=== PATIENT | male | born 1995 | race Caucasian/White ===

== ENCOUNTER 2019-05-11 20:24 | Emergency (ER) | payer BC ==
[2019-05-11] MEDS ORDERED: MORPHINE SULFATE 4 MG/ML SYRINGE IV STA (20:34)
[2019-05-11] MEDS ORDERED: SODIUM CHLORIDE 0.9% 1,000 ML IV STA (20:34)
--- NOTE | 2019-05-11 20:35 | ED ---
Abdominal Pain HPI - General Stated Complaint: Abdominal Pain Time Seen by Provider: 05/11/19 20:27 Source: RN notes reviewed, old records reviewed Limitations: no limitations - History of Present Illness Initial Comments: This is a 23-year-old male presented from urgent care for severe severe abdominal pain left-sided flank pain groin pain patient feels like it Bloated appendix. He has had appendix surgery before. Secondary to appendicitis of course. Patient has no fevers. Severe nausea feeling but has not vomited no change in bowel movements no urinary symptoms and no blood in his urine. Pat ient is a significant complaining of the severe sudden onset of abdominal pain MD Complaint: abdominal pain -: hour(s) Location: LLQ, suprapubic, L flank Radiation: none Migration to: no migration Severity: severe Severity scale (1-10): 8 Quality: stabbing Consistency: constant Improves With: nothing Worsens With: nothing Associated Symptoms: nausea - Related Data Allergies Allergy/AdvReac Type Severity Reaction Status Date / Time No Known Allergies Allergy Verified 05/11/19 20:54 Review of Systems ROS Statement: Those systems with pertinent positive or pertinent negative responses have been documented in the HPI. ROS Other: All systems not noted in ROS Statement are negative. General Exam General appearance: alert, in no apparent distress, anxious, in distress (Pain) Head exam: Present: atraumatic, normocephalic, normal inspection Eye exam: Present: normal appearance, PERRL, EOMI. Absent: scleral icterus, conjunctival injection, periorbital swelling ENT exam: Present: normal exam, mucous membranes moist Neck exam: Present: normal inspection. Absent: tenderness, meningismus, lymphadenopathy Respiratory exam: Present: normal lung sounds bilaterally. Absent: respiratory distress, wheezes, rales, rhonchi, stridor Cardiovascular Exam: Present: regular rate, normal rhythm, normal heart sounds. Absent: systolic murmur, diastolic murmur, rubs, gallop, clicks GI/Abdominal exam: Present: soft, normal bowel sounds. Absent: distended, tenderness, guarding, rebound, rigid Extremities exam: Present: normal inspection, full ROM, normal capillary refill. Absent: tenderness, pedal edema, joint swelling, calf tenderness Back exam: Present: normal inspection Neurological exam: Present: alert, oriented X3, CN II-XII intact Psychiatric exam: Present: normal affect, normal mood Skin exam: Present: warm, dry, intact, normal color. Absent: rash Course Vital Signs 05/11/19 05/11/19 20:27 22:20 Temperature 97.8 F 98 F Pulse Rate 60 90 Respiratory 18 18 Rate Blood Pressure 154/88 122/66 O2 Sat by Pulse 98 99 Oximetry - Reevaluation(s) Reevaluation #1: 05/11/19 22:42 Medical records reviewed Reevaluation #2: 05/11/19 22:43 Patient is currently adequate pain control Medical Decision Making - Medical Decision Making 23 male to the ER and severe pain and severe abdominal pain. Patient has positive left kidney stone will increase fluid intake pain control patient can be discharged home - Lab Data Result diagrams: 05/11/19 20:49 05/11/19 20:49 Lab Results 05/11/19 05/11/19 05/11/19 Range/Units 20:49 20:49 20:49 WBC 12.4 H (3.8-10.6) k/uL RBC 4.93 (4.30-5.90) m/uL Hgb 15.0 (13.0-17.5) gm/dL Hct 44.2 (39.0-53.0) % MCV 89.8 (80.0-100.0) fL MCH 30.4 (25.0-35.0) pg MCHC 33.8 (31.0-37.0) g/dL RDW 13.1 (11.5-15.5) % Plt Count 326 (150-450) k/uL Neutrophils % 80 % Lymphocytes % 11 % Monocytes % 5 % Eosinophils % 2 % Basophils % 0 % Neutrophils # 10.0 H (1.3-7.7) k/uL Lymphocytes # 1.4 (1.0-4.8) k/uL Monocytes # 0.6 (0-1.0) k/uL Eosinophils # 0.2 (0-0.7) k/uL Basophils # 0.0 (0-0.2) k/uL Sodium 138 (137-145) mmol/L Potassium 3.7 (3.5-5.1) mmol/L Chloride 101 (98-107) mmol/L Carbon Dioxide 23 (22-30) mmol/L Anion Gap 14 mmol/L BUN 15 (9-20) mg/dL Creatinine 0.95 (0.66-1.25) mg/dL Est GFR (CKD-EPI)AfAm >90 (>60 ml/min/1.73 sqM) Est GFR (CKD-EPI)NonAf >90 (>60 ml/min/1.73 sqM) Glucose 134 H (74-99) mg/dL Plasma Lactic Acid Jim 3.1 H* (0.7-2.0) mmol/L Calcium 10.1 (8.4-10.2) mg/dL Total Bilirubin 0.3 (0.2-1.3) mg/dL AST 18 (17-59) U/L ALT 16 (4-49) U/L Alkaline Phosphatase 109 (38-126) U/L Total Protein 7.8 (6.3-8.2) g/dL Albumin 4.7 (3.5-5.0) g/dL Amylase 37 (30-110) U/L Lipase 61 (23-300) U/L Urine Color Urine Appearance (Clear) Urine pH (5.0-8.0) Ur Specific [place] (1.001-1.035) Urine Protein (Negative) Urine Glucose (UA) (Negative) Urine Ketones (Negative) Urine Blood (Negative) Urine Nitrite (Negative) Urine Bilirubin (Negative) Urine Urobilinogen (<2.0) mg/dL Ur Leukocyte Esterase (Negative) Urine RBC (0-5) /hpf Urine WBC (0-5) /hpf Hyaline Casts (0-2) /lpf Urine Mucus (None) /hpf 05/11/19 Range/Units 21:33 WBC (3.8-10.6) k/uL RBC (4.30-5.90) m/uL Hgb (13.0-17.5) gm/dL Hct (39.0-53.0) % MCV (80.0-100.0) fL MCH (25.0-35.0) pg MCHC (31.0-37.0) g/dL RDW (11.5-15.5) % Plt Count (150-450) k/uL Neutrophils % % Lymphocytes % % Monocytes % % Eosinophils % % Basophils % % Neutrophils # (1.3-7.7) k/uL Lymphocytes # (1.0-4.8) k/uL Monocytes # (0-1.0) k/uL Eosinophils # (0-0.7) k/uL Basophils # (0-0.2) k/uL Sodium (137-145) mmol/L Potassium (3.5-5.1) mmol/L Chloride (98-107) mmol/L Carbon Dioxide (22-30) mmol/L Anion Gap mmol/L BUN (9-20) mg/dL Creatinine (0.66-1.25) mg/dL Est GFR (CKD-EPI)AfAm (>60 ml/min/1.73 sqM) Est GFR (CKD-EPI)NonAf (>60 ml/min/1.73 sqM) Glucose (74-99) mg/dL Plasma Lactic Acid Jim (0.7-2.0) mmol/L Calcium (8.4-10.2) mg/dL Total Bilirubin (0.2-1.3) mg/dL AST (17-59) U/L ALT (4-49) U/L Alkaline Phosphatase (38-126) U/L Total Protein (6.3-8.2) g/dL Albumin (3.5-5.0) g/dL Amylase (30-110) U/L Lipase (23-300) U/L Urine Color Yellow Urine Appearance Clear (Clear) Urine pH 6.0 (5.0-8.0) Ur Specific [place] 1.029 (1.001-1.035) Urine Protein Negative (Negative) Urine Glucose (UA) Negative (Negative) Urine Ketones 1+ H (Negative) Urine Blood Small H (Negative) Urine Nitrite Negative (Negative) Urine Bilirubin Negative (Negative) Urine Urobilinogen <2.0 (<2.0) mg/dL Ur Leukocyte Esterase Negative (Negative) Urine RBC 2 (0-5) /hpf Urine WBC 2 (0-5) /hpf Hyaline Casts 1 (0-2) /lpf Urine Mucus Rare H (None) /hpf - Radiology Data Radiology results: report reviewed (CT of the abd pelvis is positive for kidney stones), image reviewed Disposition Clinical Impression: Left ureteral stone Disposition: ADMITTED IP TO THIS [facility] Condition: Good Instructions (If sedation given, give patient instructions): Kidney Stones (ED) Is patient prescribed a controlled substance at d/c from ED?: No Referrals: None,Stated [Primary Care Provider] - 1-2 days
[2019-05-11 20:39] VITALS: RESP 18
[2019-05-11 21:39] LABS: Basophils % (A) 0 %; Eosinophils # (A) 0.2 k/uL (0-0.7); Eosinophils % (A) 2 %; HCT 44.2 % (39.0-53.0); Lymphocytes # (A) 1.4 k/uL (1.0-4.8); Lymphocytes % (A) 11 %; MCH 30.4 pg (25.0-35.0); MCHC 33.8 g/dL (31.0-37.0); MCV 89.8 fL (80.0-100.0); Mean Platelet Volume 6.9; Monocytes # (A) 0.6 k/uL (0-1.0); Monocytes % (A) 5 %; Neutrophils % (A) 80 %; Platelet Count 326 k/uL (150-450); RBC 4.93 m/uL (4.30-5.90); RDW 13.1 % (11.5-15.5); WBC 12.4 k/uL (3.8-10.6)
[2019-05-11 21:43] LABS: Appearance,Urine Clear (Clear); Bilirubin,Urine Negative (Negative); Blood,Urine Small (Negative); Color,Urine Yellow; Glucose,Urine (UA) Negative (Negative); Hyaline Casts,Urine 1 /lpf (0-2); Ketones,Urine 1+ (Negative); Leukocyte Esterase,Urine Negative (Negative); Mucus,Urine Rare /hpf; Nitrite,Urine Negative (Negative); Protein,Urine Negative (Negative); RBC,Urine 2 /hpf (0-5); Specific Gravity,Urine 1.029 (1.001-1.035); Urobilinogen,Urine <2.0 mg/dL (<2.0); WBC,Urine 2 /hpf (0-5)
--- NOTE | 2019-05-11 21:45 | CT ---
EXAMINATION TYPE: CT abdomen pelvis w con DATE OF EXAM: 05/11/2019 COMPARISON: None HISTORY: Left sided abdominal pain radiating down to inguinal area. CT DLP: 1420.3 mGycm Automated exposure control for dose reduction was used. CONTRAST: Performed with IV Contrast, patient injected with 100ml mL of Isovue 300. Lung bases are clear of consolidation. There is minimal right basilar subsegmental atelectasis. There is no pleural effusion. Heart appears normal. There is no pericardial effusion. Stomach appears normal. Liver spleen pancreas gallbladder appear normal. Bile ducts are not dilated. There is no adrenal mass. Kidneys show satisfactory contrast opacification. There is a slight left si de delayed pyelogram. There is mild ectasia of the left ureter. There is a 4 mm calculus at the left ureterovesical junction. Bladder distends smoothly. There is no inguinal hernia. There is no free fluid in the pelvis. There is no mesenteric edema. Ther e is no ascites or free air. There are clips apparently from appendectomy. There is no evidence of a bowel obstruction. Lumbar vertebra have normal spacing and alignment. Posterior elements are intact. Bony pelvis is inta ct. IMPRESSION: Small obstructing calculus at the left ureterovesical junction with minimal left side hydroureter.
[2019-05-11 21:49] LABS: ALT 16 U/L (4-49); AST 18 U/L (17-59); African American GFR (CKD) >90 (>60 ml/min/1.73 sqM); Albumin 4.7 g/dL (3.5-5.0); Alkaline Phosphatase 109 U/L (38-126); Amylase 37 U/L (30-110); Anion Gap 14 mmol/L; Blood Urea Nitrogen 15 mg/dL (9-20); Calcium 10.1 mg/dL (8.4-10.2); Carbon Dioxide 23 mmol/L (22-30); Chloride 101 mmol/L (98-107); Glucose 134 mg/dL (74-99); Non-African American GFR(CKD) >90 (>60 ml/min/1.73 sqM); Potassium 3.7 mmol/L (3.5-5.1); Sodium 138 mmol/L (137-145); Total Bilirubin 0.3 mg/dL (0.2-1.3); Total Protein 7.8 g/dL (6.3-8.2)
[2019-05-11] MEDS ORDERED: KETOROLAC 30 MG/ML 1 ML VIAL IVP STA (22:16)
[2019-05-11 22:34] VITALS: BP 122/66; PULSE 90; TEMP 98
[2019-05-11] MEDS ORDERED: ACET/COD 300 MG/30 MG STARTER PACK 6 TAB BTL PO STA (22:41)
== END 2019-05-11 23:05 | disposition other institution (70) ==
LOC: EC 20:24
DX: N20.2 Calculus of kidney with calculus of ureter (principal)
CPT/HCPCS: 99285; 96374; 96375; 96361; 36415; 80053; 82150; 83605; 83690; 85025; 81001; 74177; J2270; J1885; Q9967

== ENCOUNTER 2020-06-04 11:57 | Emergency (ER) | payer BC ==
[2020-06-04 12:03] VITALS: PULSE 72
[2020-06-04] MEDS ORDERED: predniSONE 20 MG TAB PO STA (12:39)
[2020-06-04 13:01] LABS: HCT 30.5 % (39.0-53.0); MCH 25.8 pg (25.0-35.0); MCHC 32.8 g/dL (31.0-37.0); MCV 78.8 fL (80.0-100.0); Mean Platelet Volume 7.4; RBC 3.87 m/uL (4.30-5.90); RDW 15.6 % (11.5-15.5)
[2020-06-04 13:02] LABS: Appearance,Urine Clear (Clear); Bilirubin,Urine Negative (Negative); Blood,Urine Negative (Negative); Color,Urine Light Yellow; Glucose,Urine (UA) Negative (Negative); Ketones,Urine Negative (Negative); Leukocyte Esterase,Urine Negative (Negative); Nitrite,Urine Negative (Negative); PH, Urine 7.5 (5.0-8.0); Protein,Urine Negative (Negative); Specific Gravity,Urine 1.011 (1.001-1.035); Urobilinogen,Urine <2.0 mg/dL (<2.0)
[2020-06-04 13:17] LABS: ALT 29 U/L (4-49); AST 12 U/L (17-59); African American GFR (CKD) >90 (>60 ml/min/1.73 sqM); Albumin 3.8 g/dL (3.5-5.0); Alkaline Phosphatase 100 U/L (38-126); Amylase <30 U/L (30-110); Anion Gap 6 mmol/L; Blood Urea Nitrogen 15 mg/dL (9-20); Calcium 9.4 mg/dL (8.4-10.2); Carbon Dioxide 34 mmol/L (22-30); Chloride 95 mmol/L (98-107); Glucose 95 mg/dL (74-99); Lipase 16 U/L (23-300); Non-African American GFR(CKD) >90 (>60 ml/min/1.73 sqM); Sodium 135 mmol/L (137-145); Total Bilirubin 0.5 mg/dL (0.2-1.3); Total Protein 7.6 g/dL (6.3-8.2)
--- NOTE | 2020-06-04 13:20 | ED ---
Abdominal Pain HPI - General Source: patient, family Mode of arrival: ambulatory Limitations: physical limitation <Alina Arambula - Last Filed: 06/04/20 14:16> <ShannonCarmelo - Last Filed: 06/04/20 16:33> - General Chief Complaint: Abdominal Pain Stated Complaint: abd pain, sore throat Time Seen by Provider: 06/04/20 12:06 - History of Present Illness Initial Comments: 24yo male presenting for cc of sore throat right sided and abdominal/lower chest pain. Pt states he was diagnosed April 2020 with hodgkins lymphoma. pt states he was on oral chemo and is now on steroids. patient states for the past few d ays he has had right sided neck pain, in the area he had previously large lymph nodes-- he states that he has pain deep in the throat with swallowing. no fevers, no tonsillar exudates no white lesions on tongue or mouth. denies congestion, cough. Patient states he has also been experiencing upper ab dominal/lower chest pain, states it does increased with deep inspiration. He denies coughing up blood, constipation, vomiting. Admits to nausea, but states that has been present since chemotherapy. He states his stool yesterday was softer than usual but not diarrhea, denies blood or dark stools. patient staes he has had some dyspnea but this has been present on and off since the diagnosis and he has known lung lesions. patient has no additional complaints. he appear nontoxic on arrival. VS within acceptable limits. Pt didnt take morning medications. (Alina Arambula) - Related Data Home Medications Medication Instructions Recorded Confirmed Acyclovir 400 mg PO BID 06/04/20 06/04/20 Benzonatate [Tessalon Perles] 100 mg PO TID PRN 06/04/20 06/04/20 Docusate [Colace] 100 mg PO BID PRN 06/04/20 06/04/20 Famotidine [Pepcid] 20 mg PO DAILY 06/04/20 06/04/20 Ibuprofen [Motrin] 600 mg PO Q6H PRN 06/04/20 06/04/20 [place]ul[place] 50mg 200 mg PO DIRECTED 06/04/20 06/04/20 Prochlorperazine [Compazine] 10 mg PO Q6H PRN 06/04/20 06/04/20 Sennosides [Senna] 8.6 mg PO BID PRN 06/04/20 06/04/20 Sulfamethox-Tmp 800-160Mg [Bactrim 1 tab PO MOWEFR 06/04/20 06/04/20 DS 800-160 mg] hydrOXYzine pamoate [Vistaril] 50 mg PO Q6H PRN 06/04/20 06/04/20 ondansetron HCL [Zofran] 8 mg PO Q8H PRN 06/04/20 06/04/20 predniSONE [Deltasone] 80 mg PO DIRECTED 06/04/20 06/04/20 Allergies Allergy/AdvReac Type Severity Reaction Status Date / Time No Known Allergies Allergy Verified 06/04/20 13:00 Review of Systems ROS Other: All systems not noted in ROS Statement are negative. <Ailna Arambula - Last Filed: 06/04/20 14:16> ROS Other: All systems not noted in ROS Statement are negative. <Carmelo Shannon - Last Filed: 06/04/20 16:33> ROS Statement: Those systems with pertinent positive or pertinent negative responses have been documented in the HPI. Past Medical History Past Medical History: No Reported History Additional Past Medical History / Comment(s): hodgkins lymphoma stage 4, last chemo 05/25/20, pt follows up with [facility] kidney stones History of Any Multi-Drug Resistant Organisms: None Reported Past Surgical History: Adenoidectomy, Appendectomy Past Psychological History: Depression Smoking Status: Former smoker Past Alcohol Use History: Occasional Past Drug Use History: Marijuana <Alina Arambula - Last Filed: 06/04/20 14:16> General Exam Limitations: physical limitation <Alina Arambula - Last Filed: 06/04/20 14:16> - General Exam Comments Initial Comments: General: The patient is awake and alert, in no distress Eye: Pupils are equal, round and reactive to light, extra-ocular movements are intact. No nystagmus. There is normal conjunctiva bilaterally. No signs of i cterus. Ears, nose, mouth and throat: There are moist mucous membranes and no oral lesions. No plaques, no erythema of tonsils, uvula midline, no tonsillar exudates. n Neck: The neck is supple, there is no tenderness or JVD. Cardiovascular: There is a regular rate and rhythm. No murmur, rub or gallop is appreciated. Respiratory: Respirations are non-labored, breath sounds are equal. No wh eezes, stridor, rales. Some scattered rhonchi. Gastrointestinal: Soft, non-distended, RUQ tenderness and epigastric tenderness to palpation of the abdomen without masses or organomegaly noted. There is no rebound or guarding present. Musculoskeletal: Normal ROM, no tenderness. Strength 5/5. Sensation intact. Pulses equal bilaterally 2+. Neurological: A&O x 3. CN II-XII intact grossly, There are no obvious motor or sensory deficits. Coordination appears grossly intact. Speech is normal. Skin: Skin is warm and dry and no rashes or lesions are noted. Psychiatric: Cooperative, appropriate mood & affect, normal judgment. (Alina Arambula) Course <Alina Arambula - Last Filed: 06/04/20 14:16> Vital Signs 06/04/20 11:59 Temperature 98.9 F Pulse Rate 72 Respiratory 18 Rate Blood Pressure 103/63 O2 Sat by Pulse 100 Oximetry - Reevaluation(s) Reevaluation #1: signed out to Dr. shannon pending imaging and final disposition 06/04/20 14:17 (Alina Arambula) Medical Decision Making - Lab Data Result diagrams: 06/04/20 12:43 06/04/20 12:43 <Alina Arambula - Last Filed: 06/04/20 14:16> - Lab Data Result diagrams: 06/04/20 12:43 06/04/20 12:43 <Carmelo Shannon - Last Filed: 06/04/20 16:33> - Medical Decision Making His d-dimer was elevated so a CT the patient's chest and included the abdomen and pelvis because the patient was having some intermittent right upper quadrant abdominal pain. There was no PE however the patient did have multiple nodules in the bilateral lung arora as well as a mediastinal mass in the right in the left. I spoke with Dr. Matias and she stated that those findings seem to be consistent with his previous scan. She also stated that his temp was 100.0 and that did not qualify for temperature and if we found no source of obvious bacterial infection or suspicion of she was fine with him being discharged home. At this point time I back in the room and reevaluated the patient patient's throat looks fine and he was no longer having any abdominal pain. Patient mother were both in agreement with going home and to get back into the emergency department for any new symptoms or any actual fever. (Carmelo Shannon) - Lab Data Lab Results 06/04/20 06/04/20 06/04/20 Range/Units 12:43 12:43 12:43 WBC 0.2 L* (3.8-10.6) k/uL RBC 3.87 L (4.30-5.90) m/uL Hgb 10.0 L (13.0-17.5) gm/dL Hct 30.5 L (39.0-53.0) % MCV 78.8 L (80.0-100.0) fL MCH 25.8 (25.0-35.0) pg MCHC 32.8 (31.0-37.0) g/dL RDW 15.6 H (11.5-15.5) % Plt Count 89 L (150-450) k/uL MPV 7.4 Differential Comment Manual Slide Review Performed PT (9.0-12.0) sec INR (<1.2) APTT (22.0-30.0) sec D-Dimer (<0.60) mg/L FEU Sodium 135 L (137-145) mmol/L Potassium 4.0 (3.5-5.1) mmol/L Chloride 95 L (98-107) mmol/L Carbon Dioxide 34 H (22-30) mmol/L Anion Gap 6 mmol/L BUN 15 (9-20) mg/dL Creatinine 0.59 L (0.66-1.25) mg/dL Est GFR (CKD-EPI)AfAm >90 (>60 ml/min/1.73 sqM) Est GFR (CKD-EPI)NonAf >90 (>60 ml/min/1.73 sqM) Glucose 95 (74-99) mg/dL Lactic Ac Sepsis Rflx Plasma Lactic Acid Jim 2.1 H* (0.7-2.0) mmol/L Calcium 9.4 (8.4-10.2) mg/dL Total Bilirubin 0.5 (0.2-1.3) mg/dL AST 12 L (17-59) U/L ALT 29 (4-49) U/L Alkaline Phosphatase 100 (38-126) U/L Troponin I (0.000-0.034) ng/mL Total Protein 7.6 (6.3-8.2) g/dL Albumin 3.8 (3.5-5.0) g/dL Amylase <30 L (30-110) U/L Lipase 16 L (23-300) U/L Urine Color Urine Appearance (Clear) Urine pH (5.0-8.0) Ur Specific [place] (1.001-1.035) Urine Protein (Negative) Urine Glucose (UA) (Negative) Urine Ketones (Negative) Urine Blood (Negative) Urine Nitrite (Negative) Urine Bilirubin (Negative) Urine Urobilinogen (<2.0) mg/dL Ur Leukocyte Esterase (Negative) Coronavirus (PCR) (Not Detectd) 06/04/20 06/04/20 06/04/20 Range/Units 12:43 13:03 13:04 WBC (3.8-10.6) k/uL RBC (4.30-5.90) m/uL Hgb (13.0-17.5) gm/dL Hct (39.0-53.0) % MCV (80.0-100.0) fL MCH (25.0-35.0) pg MCHC (31.0-37.0) g/dL RDW (11.5-15.5) % Plt Count (150-450) k/uL MPV Differential Comment Manual Slide Review PT (9.0-12.0) sec INR (<1.2) APTT (22.0-30.0) sec D-Dimer (<0.60) mg/L FEU Sodium (137-145) mmol/L Potassium (3.5-5.1) mmol/L Chloride (98-107) mmol/L Carbon Dioxide (22-30) mmol/L Anion Gap mmol/L BUN (9-20) mg/dL Creatinine (0.66-1.25) mg/dL Est GFR (CKD-EPI)AfAm (>60 ml/min/1.73 sqM) Est GFR (CKD-EPI)NonAf (>60 ml/min/1.73 sqM) Glucose (74-99) mg/dL Lactic Ac Sepsis Rflx Plasma Lactic Acid Jim (0.7-2.0) mmol/L Calcium (8.4-10.2) mg/dL Total Bilirubin (0.2-1.3) mg/dL AST (17-59) U/L ALT (4-49) U/L Alkaline Phosphatase (38-126) U/L Troponin I <0.012 (0.000-0.034) ng/mL Total Protein (6.3-8.2) g/dL Albumin (3.5-5.0) g/dL Amylase (30-110) U/L Lipase (23-300) U/L Urine Color Light Yellow Urine Appearance Clear (Clear) Urine pH 7.5 (5.0-8.0) Ur Specific [place] 1.011 (1.001-1.035) Urine Protein Negative (Negative) Urine Glucose (UA) Negative (Negative) Urine Ketones Negative (Negative) Urine Blood Negative (Negative) Urine Nitrite Negative (Negative) Urine Bilirubin Negative (Negative) Urine Urobilinogen <2.0 (<2.0) mg/dL Ur Leukocyte Esterase Negative (Negative) Coronavirus (PCR) Not Detected (Not Detectd) 06/04/20 06/04/20 Range/Units 13:13 13:37 WBC (3.8-10.6) k/uL RBC (4.30-5.90) m/uL Hgb (13.0-17.5) gm/dL Hct (39.0-53.0) % MCV (80.0-100.0) fL MCH (25.0-35.0) pg MCHC (31.0-37.0) g/dL RDW (11.5-15.5) % Plt Count (150-450) k/uL MPV Differential Comment Manual Slide Review PT 10.5 (9.0-12.0) sec INR 1.0 (<1.2) APTT 19.6 L (22.0-30.0) sec D-Dimer 1.51 H (<0.60) mg/L FEU Sodium (137-145) mmol/L Potassium (3.5-5.1) mmol/L Chloride (98-107) mmol/L Carbon Dioxide (22-30) mmol/L Anion Gap mmol/L BUN (9-20) mg/dL Creatinine (0.66-1.25) mg/dL Est GFR (CKD-EPI)AfAm (>60 ml/min/1.73 sqM) Est GFR (CKD-EPI)NonAf (>60 ml/min/1.73 sqM) Glucose (74-99) mg/dL Lactic Ac Sepsis Rflx Y Plasma Lactic Acid Jim (0.7-2.0) mmol/L Calcium (8.4-10.2) mg/dL Total Bilirubin (0.2-1.3) mg/dL AST (17-59) U/L ALT (4-49) U/L Alkaline Phosphatase (38-126) U/L Troponin I (0.000-0.034) ng/mL Total Protein (6.3-8.2) g/dL Albumin (3.5-5.0) g/dL Amylase (30-110) U/L Lipase (23-300) U/L Urine Color Urine Appearance (Clear) Urine pH (5.0-8.0) Ur Specific [place] (1.001-1.035) Urine Protein (Negative) Urine Glucose (UA) (Negative) Urine Ketones (Negative) Urine Blood (Negative) Urine Nitrite (Negative) Urine Bilirubin (Negative) Urine Urobilinogen (<2.0) mg/dL Ur Leukocyte Esterase (Negative) Coronavirus (PCR) (Not Detectd) Disposition <Alina Arambula - Last Filed: 06/04/20 14:16> Is patient prescribed a controlled substance at d/c from ED?: No Time of Disposition: 16:32 <Carmelo Shannon - Last Filed: 06/04/20 16:33> Clinical Impression: Abdominal pain, Neutropenia, Hodgkins lymphoma Disposition: HOME SELF-CARE Instructions (If sedation given, give patient instructions): Abdominal Pain (ED) Referrals: Nonstaff,Physician [Primary Care Provider] - 1-2 days
[2020-06-04 13:31] LABS: Platelet Count 89 k/uL (150-450); WBC 0.2 k/uL (3.8-10.6)
[2020-06-04] MEDS ORDERED: HYDROmorphone 0.5 MG/0.5 ML SYRINGE IVP STA (13:35)
[2020-06-04] MEDS ORDERED: SODIUM CHLORIDE 0.9% 1,000 ML IV ONE (13:35)
[2020-06-04] MEDS ORDERED: SODIUM CHLORIDE 0.9% 1,000 ML IV SCH (13:45)
[2020-06-04 14:00] LABS: Prothrombin Time 10.5 sec (9.0-12.0)
--- NOTE | 2020-06-04 14:04 | XR ---
EXAMINATION TYPE: XR chest 2V DATE OF EXAM: 06/04/2020 COMPARISON: None INDICATION: Dyspnea TECHNIQUE: Frontal and lateral views of the chest are obtained. FINDINGS: The heart size is normal. Mediastinum is widened. There is a right perihilar mass. Multiple pulmonar y nodules are present. The pulmonary vasculature is normal. Small pleural effusion is present posteriorly IMPRESSION: 1. Right perihilar mass, thickening of the mediastinum with multiple pulmonary nodules and masses. Co rrelate for metastatic disease.
[2020-06-04 14:08] LABS: D-Dimer 1.51 mg/L FEU (<0.60)
[2020-06-04 14:09] LABS: Partial Thromboplastin Time 19.6 sec (22.0-30.0)
[2020-06-04] MEDS ORDERED: PIPERACILLIN-TAZOBACTAM 3.375 GM in SODIUM CHLORIDE 0.9% 100 ML IVPB STA (14:21)
--- NOTE | 2020-06-04 15:22 | CT ---
CT CHEST FOR PULMONARY EMBOLISM. EXAMINATION TYPE: CT chest angio for PE DATE OF EXAM: 06/04/2020 INDICATION: RUQ pain, lower rib pain rt side, pain with inspiration, non hodgkin's lymphoma CT DLP: 367.7 mGycm, Automated exposure control for dose reduction was used. CONTRAST: Patient injected with 100 mL of Isovue 370. COMPARISON: None TECHNIQUE: CT of the chest is performed on a spiral scan at 2 mm thick sections. Study is performed with intravenous contrast timed for evaluation for pulmonary embolism. This will limit additional po rtions of the evaluation. 3-D MIP images reconstructed by the technologist are reviewed on the compu ter in the coronal and sagittal planes. FINDINGS: No persistent filling defects are evident to suggest an acute pulmonary embolism. No mediastinal or hilar adenopathy enlarged by CT criteria is evident. The ascending aorta diameter at the level of the main pulmonary artery is 2.5 cm. The main pulmonary artery diameter at the bifur cation is 2.2 cm. There is extensive mass density through the superior mediastinum. This may extend into the right midd le lobe. There is a 1.3 cm peripheral right apex nodule. Series 401 image 27. Additional similar and smaller s ized nodules are present throughout the bilateral lung arora. A slightly larger 2.4 cm nodules with in the cardiomediastinal lingula. A 2.0 cm nodule is in the posterior right upper lobe. A posterior left lower lobe nodule measuring 2.6 cm is present. There is a small left pleural effusion. There is a large mass within the left suprahilar region measuring 3.4 x 5.5 cm. Series [address] section through the upper abdomen are limited but unremarkable. IMPRESSIONS: 1. No acute pulmonary embolism. 2. Extensive pulmonary nodularity discussed above. 3. Mediastinal mass may have extension into the right middle lobe and left infrahilar region. 4. Small left pleural effusion
[2020-06-04] MEDS ORDERED: BENZONATATE 100 MG CAP PO STA (15:24)
--- NOTE | 2020-06-04 15:26 | CT ---
EXAMINATION TYPE: CT abdomen pelvis w con DATE OF EXAM: 06/04/2020 COMPARISON: 05/11/2019 INDICATION: RUQ pain, lower rib pain rt side, pain with inspiration, non Hodgkin's lymphoma DLP: 926.9 mGycm, Automated exposure control for dose reduction was used. CONTRAST: 100 mL of Isovue 370. Study performed without Oral Contrast TECHNIQUE: Axial images were obtained from above the diaphragm to the pubic rami in the axial plane a t 5 mm thick sections. Reconstructed images are reviewed on the computer in the coronal plane. FINDINGS: Limited CT sections are obtained the lung bases. Extensive nodularities through the lung bases. Plea se see complete CT report of the chest same date. Findings are new from comparison. There is a new le ft pleural effusion. CT ABDOMEN: Liver: Normal Spleen: Normal Pancreas: Normal Adrenal glands: The adrenal glands are normal. Gallbladder: Normal Kidneys: No masses are evident. No hydronephrosis is present. No cysts are present. No renal stone s are evident. Aorta: Normal Inferior vena cava: Normal. CT PELVIS: Loops of bowel within the abdomen and pelvis are normal. The study is without oral contrast limit ing bowel evaluation. Appendix: Not identified. No dilated tubular structure or inflammatory changes evident. Urinary bladder: Normal. Genitourinary structures: Prostate is unremarkable Osseous structures: No suspicious lytic or sclerotic lesions. Lymphadenopathy: No enlarged adenopathy is identified below the diaphragm. IMPRESSIONS: 1. CT abdomen pelvis appears within normal limits. 2. Nonvisualization of the appendix. However, no secondary signs of acute appendicitis are evident. 3. Extensive nodularity and a new left pleural fluid at the left lung base. Please see CT chest repor t same date.
[2020-06-04 16:59] VITALS: BP 115/78; RESP 16; TEMP 98.7
== END 2020-06-04 16:54 | disposition home or self-care (01) ==
LOC: EC 11:57
DX: C81.98 Hodgkin lymphoma, unspecified, lymph nodes of multiple sites (principal); D70.9 Neutropenia, unspecified; R10.11 Right upper quadrant pain; R79.89 Other specified abnormal findings of blood chemistry; R11.0 Nausea; Z20.822 Contact with and (suspected) exposure to COVID-19; F32.9 Major depressive disorder, single episode, unspecified; Z79.52 Long term (current) use of systemic steroids; Z79.899 Other long term (current) drug therapy; Z92.21 Personal history of antineoplastic chemotherapy; Z87.891 Personal history of nicotine dependence
CPT/HCPCS: 36415; 93005; 85379; 80053; 82150; 83605; 83690; 84484; 85025; 85610; 85730; 81003; 87040; 87635; 71046; 71275; 74177; 99285; 96365; 96375; 96361 ×2; J2543; J7512; J1170; Q9967

== ENCOUNTER 2020-07-05 13:18 | Inpatient (IN) | payer BC ==
[2020-07-05] MEDS ORDERED: ONDANSETRON 4 MG/2 ML VIAL IVP STA (14:27)
[2020-07-05] MEDS ORDERED: HYDROmorphone 0.5 MG/0.5 ML SYRINGE IVP STA ×2 (14:28→17:10)
[2020-07-05] MEDS ORDERED: SODIUM CHLORIDE 0.9% 1,000 ML IV ONE (14:30)
--- NOTE | 2020-07-05 15:07 | ED ---
General Adult HPI - General Source: patient, RN notes reviewed, old records reviewed Mode of arrival: ambulatory Limitations: no limitations <Carmelo Shannon - Last Filed: 07/05/20 14:55> <Laine Hitchcock - Last Filed: 07/05/20 19:10> - General Chief complaint: Abdominal Pain Stated complaint: Abd pain, back pain Time Seen by Provider: 07/05/20 13:20 - History of Present Illness Initial comments: This a 24-year-old male who comes into the emergency department with his lymphoma patient is on chemo last chemo 1 week ago. Patient comes into the emergency department complaining of abdominal pain that started yesterday. Patient states he got much worse overnight. Patient states she was nauseated took multiple medications for nausea but it did not resolve. Patient did not vomit patient denies any diarrhea. Patient states currently the abdominal pain is 3 out of 10. Patient states last night it was a 9 out of 10. Patient denies any fevers or chills. Patient denies any chest pain difficulty breathing first breath. Patient denies any dysuria hematuria urinary frequency. (Christos Shannon [facility]) - Related Data Home Medications Medication Instructions Recorded Confirmed Benzonatate [Tessalon Perles] 100 mg PO TID PRN 06/04/20 07/05/20 Famotidine [Pepcid] 20 mg PO DAILY PRN 06/04/20 07/05/20 Ibuprofen [Motrin] 600 mg PO Q6H PRN 06/04/20 07/05/20 Prochlorperazine [Compazine] 10 mg PO Q6H PRN 06/04/20 07/05/20 Sulfamethox-Tmp 800-160Mg [Bactrim 1 tab PO MOWEFR 06/04/20 07/05/20 DS 800-160 mg] hydrOXYzine pamoate [Vistaril] 50 mg PO Q6H PRN 06/04/20 07/05/20 ondansetron HCL [Zofran] 8 mg PO Q8H PRN 06/04/20 07/05/20 Famotidine/Ca Carb/Mag Hydrox 1 tab PO Q6H PRN 07/05/20 07/05/20 [Pepcid Complete Tablet Chew] traZODone HCL [Desyrel] 50 mg PO HS PRN 07/05/20 07/05/20 Allergies Allergy/AdvReac Type Severity Reaction Status Date / Time No Known Allergies Allergy Verified 07/05/20 16:05 Review of Systems ROS Other: All systems not noted in ROS Statement are negative. <Carmelo Shannon - Last Filed: 07/05/20 14:55> ROS Other: All systems not noted in ROS Statement are negative. <Del Hitchcockssjeimy Romero - Last Filed: 07/05/20 19:10> ROS Statement: Those systems with pertinent positive or pertinent negative responses have been documented in the HPI. Past Medical History Past Medical History: Cancer Additional Past Medical History / Comment(s): hodgkins lymphoma stage 4, last chemo 05/25/20, pt follows up with [facility] kidney stones History of Any Multi-Drug Resistant Organisms: None Reported Past Surgical History: Adenoidectomy, Appendectomy Past Psychological History: Depression Smoking Status: Former smoker Past Alcohol Use History: Occasional Past Drug Use History: Marijuana <Carmelo Shannon - Last Filed: 07/05/20 14:55> General Exam Limitations: no limitations <Carmelo Shannon - Last Filed: 07/05/20 14:55> - General Exam Comments Initial Comments: GENERAL: Patient is well-developed and well-nourished. Patient is nontoxic and well- hydrated and is in mild distress. ENT: Neck is soft and supple. No significant lymphadenopathy is noted. Oropharynx is clear. Moist mucous membranes. Neck has full range of motion without eliciting any pain. EYES: The sclera were anicteric and conjunctiva were pink and moist. Extraocular movements were intact and pupils were equal round and reactive to light. Eyelids were unremarkable. PULMONARY: Unlabored respirations. Good breath sounds bilaterally. No audible rales rhonchi or wheezing was noted. CARDIOVASCULAR: There is a regular rate and rhythm without any murmurs gallops or rubs. ABDOMEN: Soft and nontender with normal bowel sounds. SKIN: Skin is clear with no lesions or rashes and otherwise unremarkable. NEUROLOGIC: Patient is alert and oriented x3. Cranial nerves II through XII are grossly intact. Motor and sensory are also intact. Normal speech, volume and content. Symmetrical smile. MUSCULOSKELETAL: Normal extremities with adequate strength and full range of motion. LYMPHATICS: No significant lymphadenopathy is noted PSYCHIATRIC: Normal psychiatric evaluation. (Carmelo Shannon) Course Vital Signs 07/05/20 07/05/20 07/05/20 13:20 14:23 15:23 Temperature 98.5 F Pulse Rate 100 Respiratory 20 18 18 Rate Blood Pressure 121/84 O2 Sat by Pulse 97 Oximetry 07/05/20 07/05/20 07/05/20 16:23 17:00 18:00 Temperature Pulse Rate 93 104 H 98 Respiratory 18 18 18 Rate Blood Pressure 136/74 145/77 129/78 O2 Sat by Pulse 98 98 98 Oximetry Medical Decision Making <Carmelo Shannon - Last Filed: 07/05/20 14:55> - Lab Data Result diagrams: 07/05/20 15:03 07/05/20 15:03 <Laine Hitchcock - Last Filed: 07/05/20 19:10> - Medical Decision Making Dr. Hitchcock will be taking over the care of this patient at 3 PM (Carmelo Shannon) I evaluated the patient who complains of continued diffuse, crampy abdominal pain On exam the patient is non-peritoneal, pain is nonfocal not worsened with palpation Patient was treated with a second dose of Dilaudid and upon reevaluation reported some improvement in pain after Dilaudid but persistent discomfort. This time patient Jorgito comfortable with discharge home will be admitted for cancer associated pain. Patient care was discussed with Juhi the midlevel provider for [facility] who accepts the admission (Laine Hitchcock) - Lab Data Lab Results 07/05/20 07/05/20 07/05/20 Range/Units 15:03 15:03 16:50 WBC 8.2 (3.8-10.6) k/uL RBC 3.89 L (4.30-5.90) m/uL Hgb 10.8 L (13.0-17.5) gm/dL Hct 32.5 L (39.0-53.0) % MCV 83.4 (80.0-100.0) fL MCH 27.8 (25.0-35.0) pg MCHC 33.3 (31.0-37.0) g/dL RDW 21.7 H (11.5-15.5) % Plt Count 323 D (150-450) k/uL MPV 7.2 Neutrophils % 77 % Lymphocytes % 13 % Monocytes % 5 % Eosinophils % 1 % Basophils % 1 % Neutrophils # 6.3 (1.3-7.7) k/uL Lymphocytes # 1.1 (1.0-4.8) k/uL Monocytes # 0.4 (0-1.0) k/uL Eosinophils # 0.1 (0-0.7) k/uL Basophils # 0.1 (0-0.2) k/uL Anisocytosis Moderate Microcytosis Slight Sodium 137 (137-145) mmol/L Potassium 3.8 (3.5-5.1) mmol/L Chloride 100 (98-107) mmol/L Carbon Dioxide 30 (22-30) mmol/L Anion Gap 7 mmol/L BUN 9 (9-20) mg/dL Creatinine 0.56 L (0.66-1.25) mg/dL Est GFR (CKD-EPI)AfAm >90 (>60 ml/min/1.73 sqM) Est GFR (CKD-EPI)NonAf >90 (>60 ml/min/1.73 sqM) Glucose 96 (74-99) mg/dL Calcium 9.6 (8.4-10.2) mg/dL Total Bilirubin 0.4 (0.2-1.3) mg/dL AST 20 (17-59) U/L ALT 25 (4-49) U/L Alkaline Phosphatase 100 (38-126) U/L Total Protein 7.3 (6.3-8.2) g/dL Albumin 4.2 (3.5-5.0) g/dL Amylase <30 L (30-110) U/L Lipase 36 (23-300) U/L Urine Color Yellow Urine Appearance Clear (Clear) Urine pH 6.5 (5.0-8.0) Ur Specific [place] 1.019 (1.001-1.035) Urine Protein Negative (Negative) Urine Glucose (UA) Negative (Negative) Urine Ketones Negative (Negative) Urine Blood Negative (Negative) Urine Nitrite Negative (Negative) Urine Bilirubin Negative (Negative) Urine Urobilinogen <2.0 (<2.0) mg/dL Ur Leukocyte Esterase Negative (Negative) Disposition <Carmelo Shannon - Last Filed: 07/05/20 14:55> Is patient prescribed a controlled substance at d/c from ED?: No <Laine Hitchcock - Last Filed: 07/05/20 19:10> Clinical Impression: Abdominal pain Disposition: ADMITTED IP TO THIS HOSP Condition: Stable Referrals: Nonstaff,Physician [Primary Care Provider] - 1-2 days
[2020-07-05 15:21] LABS: ALT 25 U/L (4-49); AST 20 U/L (17-59); African American GFR (CKD) >90 (>60 ml/min/1.73 sqM); Albumin 4.2 g/dL (3.5-5.0); Alkaline Phosphatase 100 U/L (38-126); Amylase <30 U/L (30-110); Anion Gap 7 mmol/L; Blood Urea Nitrogen 9 mg/dL (9-20); Calcium 9.6 mg/dL (8.4-10.2); Carbon Dioxide 30 mmol/L (22-30); Chloride 100 mmol/L (98-107); Glucose 96 mg/dL (74-99); Lipase 36 U/L (23-300); Non-African American GFR(CKD) >90 (>60 ml/min/1.73 sqM); Potassium 3.8 mmol/L (3.5-5.1); Sodium 137 mmol/L (137-145); Total Bilirubin 0.4 mg/dL (0.2-1.3); Total Protein 7.3 g/dL (6.3-8.2)
[2020-07-05 15:35] LABS: Anisocytosis Moderate; Basophils # (A) 0.1 k/uL (0-0.2); Basophils % (A) 1 %; Eosinophils # (A) 0.1 k/uL (0-0.7); Eosinophils % (A) 1 %; HCT 32.5 % (39.0-53.0); HGB 10.8 gm/dL (13.0-17.5); Lymphocytes # (A) 1.1 k/uL (1.0-4.8); Lymphocytes % (A) 13 %; MCH 27.8 pg (25.0-35.0); MCHC 33.3 g/dL (31.0-37.0); MCV 83.4 fL (80.0-100.0); Mean Platelet Volume 7.2; Microcytosis Slight; Monocytes # (A) 0.4 k/uL (0-1.0); Monocytes % (A) 5 %; Neutrophils # (A) 6.3 k/uL (1.3-7.7); Neutrophils % (A) 77 %; RBC 3.89 m/uL (4.30-5.90); RDW 21.7 % (11.5-15.5); WBC 8.2 k/uL (3.8-10.6)
[2020-07-05 15:36] LABS: Platelet Count 323 k/uL (150-450)
[2020-07-05 17:05] LABS: Appearance,Urine Clear (Clear); Bilirubin,Urine Negative (Negative); Blood,Urine Negative (Negative); Color,Urine Yellow; Glucose,Urine (UA) Negative (Negative); Ketones,Urine Negative (Negative); Leukocyte Esterase,Urine Negative (Negative); Nitrite,Urine Negative (Negative); PH, Urine 6.5 (5.0-8.0); Protein,Urine Negative (Negative); Specific Gravity,Urine 1.019 (1.001-1.035); Urobilinogen,Urine <2.0 mg/dL (<2.0)
[2020-07-05] MEDS ORDERED: NALOXONE 0.4 MG/ML 1 ML VIAL IV PRN (18:30)
[2020-07-05] MEDS: HYDROmorphone 0.5 MG/0.5 ML SYRINGE IVP PRN (21:23)
[2020-07-05] MEDS: ONDANSETRON 4 MG/2 ML VIAL IVP PRN (21:23)
[2020-07-06] MEDS: HYDROmorphone 0.5 MG/0.5 ML SYRINGE IVP PRN ×7 (00:09→21:56)
[2020-07-06] MEDS ORDERED: FAMOTIDINE 20 MG TAB PO PRN (11:21)
[2020-07-06] MEDS ORDERED: traZODone HCL 50 MG TAB PO PRN (11:21)
[2020-07-06] MEDS ORDERED: BENZONATATE 100 MG CAP PO PRN (11:21)
--- NOTE | 2020-07-06 13:15 | P.CONS ---
History of Present Illness - Reason for Consult Consult date: 07/06/20 Hodgkin's lymphoma Requesting physician: Alexandre Mead - Chief Complaint Abdominal Pain - History of Present Illness Mr. Pierre is a very pleasant 24 yo male with history of HL, on treatment at . He presented to ED for abdominal pain. No N/V/D/C/fevers. No prior h istory of abdominal pain. Has history of kidney stones, however this pain is different than his kidney stone pain, and is more in abdomen and radiating to back, not groin. He is following with Dr. Matias at for newly found HL involving lungs, mediastinal LAD and cervical LAD. Initial presentation and diagnosis was made in 04/2020 and he is s/p C2D1 of AVD with brentuximab. He is due for repeat PET and C2D15 on 07/11/20. No abdominal involvement of his lymphoma. Work up with CBC/CMP normal. History of smoking. Quit a few months ago. no alcohol or drugs. FH of breast cancer in maternal GM, cancer in maternal GGM, and possible leukemia or other blood cancer in paternal GM. Review of Systems All systems: negative Past Medical History Past Medical History: Cancer Additional Past Medical History / Comment(s): hodgkins lymphoma stage 4, last chemo 06/27/20, pt follows [facility] kidney stones History of Any Multi-Drug Resistant Organisms: None Reported Past Surgical History: Adenoidectomy, Appendectomy Past Anesthesia/Blood Transfusion Reactions: No Reported Reaction Past Psychological History: Depression Smoking Status: Former smoker Past Alcohol Use History: Occasional Past Drug Use History: Marijuana Medications and Allergies Home Medications Medication Instructions Recorded Confirmed Type Benzonatate [Tessalon Perles] 100 mg PO TID PRN 06/04/20 07/05/20 History Famotidine [Pepcid] 20 mg PO DAILY PRN 06/04/20 07/05/20 History Ibuprofen [Motrin] 600 mg PO Q6H PRN 06/04/20 07/05/20 History Prochlorperazine [Compazine] 10 mg PO Q6H PRN 06/04/20 07/05/20 History Sulfamethox-Tmp 800-160Mg [Bactrim 1 tab PO MOWEFR 06/04/20 07/05/20 History DS 800-160 mg] hydrOXYzine pamoate [Vistaril] 50 mg PO Q6H PRN 06/04/20 07/05/20 History ondansetron HCL [Zofran] 8 mg PO Q8H PRN 06/04/20 07/05/20 History Famotidine/Ca Carb/Mag Hydrox 1 tab PO Q6H PRN 07/05/20 07/05/20 History [Pepcid Complete Tablet Chew] traZODone HCL [Desyrel] 50 mg PO HS PRN 07/05/20 07/05/20 History Allergies Allergy/AdvReac Type Severity Reaction Status Date / Time No Known Allergies Allergy Verified 07/05/20 16:05 Physical Exam Vitals: Vital Signs Temp Pulse Pulse Resp BP BP Pulse Ox 07/06/20 08:00 91 16 07/06/20 07:00 97.9 F 91 16 127/74 98 07/06/20 02:00 98.0 F 71 16 113/71 98 07/05/20 21:08 98.4 F 116/70 98 07/05/20 19:12 98.5 F 98 18 129/78 98 07/05/20 18:00 98 18 129/78 98 07/05/20 17:00 104 H 18 145/77 98 07/05/20 16:23 93 18 136/74 98 07/05/20 15:23 18 07/05/20 14:23 18 07/05/20 13:20 98.5 F 100 20 121/84 97 Intake and Output 07/05/20 07/06/20 07/06/20 22:59 06:59 14:59 Intake Total 180 Balance 180 Intake: Oral 180 Other: Voiding Method Toilet # Voids 1 Weight 89.811 kg Gen: No acute distress. HEENT: Mucosa moist Neck: Supple Lymph: Bilateral cervical LAD. Lungs: No respiratory distress Heart: Regular rate Abd: Soft with mild tenderness throughout, shahid lower quadrants, without rebound or rigidity or guarding MSK: Appropriate strength in all 4 extremities Neuro: Alert and oriented x3 Psych: Appropriate affect Results CBC & Chem 7: 07/05/20 15:03 07/05/20 15:03 Labs: Abnormal Lab Results - Last 24 Hours (Table) 07/05/20 07/05/20 Range/Units 15:03 15:03 RBC 3.89 L (4.30-5.90) m/uL Hgb 10.8 L (13.0-17.5) gm/dL Hct 32.5 L (39.0-53.0) % RDW 21.7 H (11.5-15.5) % Creatinine 0.56 L (0.66-1.25) mg/dL Amylase <30 L (30-110) U/L Assessment and Plan Assessment: 1. Abdominal pain 2. Hodgkin's lymphoma 3. Anemia, normocytic due to chemotherapy Plan: Mr. Pierre is a very pleasant 24 yo male with history of HL, follows at , on AVD with brentuximab, who is here for abdominal pain. CBC/CMP/covid testing negative. Will check lipase/amylase and would recommend abdominal imaging with CT. Could be gastritis vs pancreatitis vs alternate source. No other associated symptoms. He does have normocytic mild anemia, Hgb 10.8, likely due to chemotherapy. Discussed with pt and his mom at bedside and all questions answered.
[2020-07-06] MEDS: IOPAMIDOL CONTRAST (ORAL USE) VIAL PO PRN ×2 (13:30→14:26)
[2020-07-06 14:46] LABS: Amylase <30 U/L (30-110); Lipase 42 U/L (23-300)
[2020-07-06] MEDS: ONDANSETRON 4 MG/2 ML VIAL IVP PRN ×2 (15:27→23:02)
[2020-07-06] MEDS: HEPARIN SODIUM,PORCINE 5,000 UNIT/ML 1 ML VIAL SQ SCH ×2 (15:28→23:02)
--- NOTE | 2020-07-06 15:48 | CT ---
EXAMINATION TYPE: CT abdomen pelvis wo/w con DATE OF EXAM: 07/06/2020 COMPARISON: 06/04/2020 HISTORY: Pelvic pain. History of lymphoma. CT DLP: mGycm Automated exposure control for dose reduction was used. CONTRAST: The contrast was Isovue 100 mL. There is oral contrast also. FINDINGS: Images obtained from the diaphragm to the floor the pelvis without and with IV contrast. There is 1.7 cm noncalcified nodule in the posterior right lower lobe. There is minimal focal pleural thickening measuring 1.5 x 0.7 cm in the left posterior lung base. There is no pleural effusion. Hea rt size is normal. There is mild focal pleural thickening lateral left lung base. There is no pericar dial effusion. Liver and spleen appear intact. There is no pancreatic mass. Gallbladder appears normal. The stomach is intact. There is no adrenal mass. Kidneys show satisfactory contrast opacification. There is no hydronephrosi s. There is 5 mm nonobstructing calculus lower pole right kidney. There is a few abdominal para-aorti c lymph nodes that measure less than 1 cm. There is no free fluid in the pelvis. Bladder distends smo othly. There is no inguinal hernia. There are small inguinal lymph nodes measuring less than 1 cm. Delayed images show normal renal excretion. There is no mesenteric edema. There is no ascites or free air. There is no bowel obstruction. There a re clips from appendectomy. Lumbar vertebra have normal alignment. There is no compression fracture. Bony pelvis is intact. Hip j oints are intact. IMPRESSION: No significant adenopathy seen in the abdomen pelvis. Nonobstructing right renal calculus. Unchanged. Minimal pleural thickening. Right lower lobe nodule. There is improvement in the nodular infiltrates in the lower lung arora compared to old exam that suggests favorable treatment response. There is cl earing of the left pleural effusion.
[2020-07-06 15:55] VITALS: BMI 26.8
--- NOTE | 2020-07-06 22:46 | P.HPIM ---
History of Present Illness H&P Date: 07/06/20 Chief Complaint: Abdominal pain Patient is a 24-year-old male with a known history of Hodgkin's lymphoma diagnosed on 05/16/2020 currently undergoing chemotherapy last cycle on 06/27/2020 and history of renal stones and depression and previous history of smoking presents to ER with the complaints of abdominal pain since evening. Patient is to ER due to worsening pain. Pain is mainly in the lower abdomen. Associated with nause and no episodes of vomiting. denied any diarrhea. No fever no chills. No complaints of chest pain shortness of breath. No dysuria or hematuria. No increased frequency of urination. Laboratory data showed WBC 8.2, hemoglobin 10.8 and platelets 323 Amylase lipase not elevated Urinalysis is negative for infection COVID-19 PCR is not detected CT of the abdomen pelvis showed no significant adenopathy seen in the abdominal pelvis. Nonobstructing right renal calculus. Minimal pleural thickening. There is improvement in the nodular infiltrates in the lower lung arora compared to old exam. Clearing of the left pleural effusion. Review of Systems Constitutional: Patient denies any fever or chills . No generalized weakness or weight loss. Abdomen: Patient was abdominal pain associated with nausea. No dysuria or hematuria. No diarrhea. No vomiting. Cardiovascular: Patient denies any chest pain or short of breath no palpitations. Respiratory: patient denied any cough or sputum production. No shortness of breath Neurologic: Patient denied any numbness or tingling headache. Musculoskeletal: Patient denies any complaints of joint swelling or deformity. Skin: Negative Psychiatric: Negative Endocrine: No heat or cold intolerance. No recent weight gain. Genitourinary: No dysuria or hematuria. All other 14 point ROS negative except the above Past Medical History Past Medical History: Cancer Additional Past Medical History / Comment(s): hodgkins lymphoma stage 4, last chemo 06/27/20, pt follows up with [facility] kidney stones History of Any Multi-Drug Resistant Organisms: None Reported Past Surgical History: Adenoidectomy, Appendectomy Past Anesthesia/Blood Transfusion Reactions: No Reported Reaction Past Psychological History: Depression Smoking Status: Former smoker Past Alcohol Use History: Occasional Past Drug Use History: Marijuana Medications and Allergies Home Medications Medication Instructions Recorded Confirmed Type Benzonatate [Tessalon Perles] 100 mg PO TID PRN 06/04/20 07/05/20 History Famotidine [Pepcid] 20 mg PO DAILY PRN 06/04/20 07/05/20 History Ibuprofen [Motrin] 600 mg PO Q6H PRN 06/04/20 07/05/20 History Prochlorperazine [Compazine] 10 mg PO Q6H PRN 06/04/20 07/05/20 History Sulfamethox-Tmp 800-160Mg [Bactrim 1 tab PO MOWEFR 06/04/20 07/05/20 History DS 800-160 mg] hydrOXYzine pamoate [Vistaril] 50 mg PO Q6H PRN 06/04/20 07/05/20 History ondansetron HCL [Zofran] 8 mg PO Q8H PRN 06/04/20 07/05/20 History Famotidine/Ca Carb/Mag Hydrox 1 tab PO Q6H PRN 07/05/20 07/05/20 History [Pepcid Complete Tablet Chew] traZODone HCL [Desyrel] 50 mg PO HS PRN 07/05/20 07/05/20 History Allergies Allergy/AdvReac Type Severity Reaction Status Date / Time No Known Allergies Allergy Verified 07/05/20 16:05 Physical Exam Vitals: Vital Signs Temp Pulse Pulse Resp BP BP Pulse Ox 07/06/20 08:00 91 16 07/06/20 07:00 97.9 F 91 16 127/74 98 07/06/20 02:00 98.0 F 71 16 113/71 98 07/05/20 21:08 98.4 F 116/70 98 07/05/20 19:12 98.5 F 98 18 129/78 98 07/05/20 18:00 98 18 129/78 98 07/05/20 17:00 104 H 18 145/77 98 07/05/20 16:23 93 18 136/74 98 07/05/20 15:23 18 07/05/20 14:23 18 07/05/20 13:20 98.5 F 100 20 121/84 97 Intake and Output 07/05/20 07/06/20 07/06/20 22:59 06:59 14:59 Intake Total 180 Balance 180 Intake: Oral 180 Other: Voiding Method Toilet # Voids 1 Weight 89.811 kg PHYSICAL EXAMINATION: Patient is lying in the bed comfortably, no acute distress, awake alert and oriented.. HEENT: Normocephalic. Neck is supple. Pupils reactive. Nostrils clear. Oral cavity is moist. Ears reveal no drainage. Neck reveals no JVD, carotid bruits, or thyromegaly. CHEST EXAMINATION: Trachea is central. Symmetrical expansion. Lung arora clear to auscultation and percussion. CARDIAC: Normal S1, S2 with no gallops. No murmurs ABDOMEN: Soft. Bowel sounds normal. No organomegaly. No abdominal bruits. Extremities: reveal no edema. No clubbing or cyanosis Neurologically awake, alert, oriented x3 with well-coordinated movements. No focal deficits noted Skin: No rash or skin lesions. Psychiatric: Coperative. Nonsuicidal Musculoskeletal: No joint swelling or deformity. Normal range of motion. Results CBC & Chem 7: 07/05/20 15:03 07/05/20 15:03 Labs: Abnormal Lab Results - Last 24 Hours (Table) 07/05/20 07/05/20 Range/Units 15:03 15:03 RBC 3.89 L (4.30-5.90) m/uL Hgb 10.8 L (13.0-17.5) gm/dL Hct 32.5 L (39.0-53.0) % RDW 21.7 H (11.5-15.5) % Creatinine 0.56 L (0.66-1.25) mg/dL Amylase <30 L (30-110) U/L Thrombosis Risk Factor Assmnt - DVT/VTE Prophylaxis DVT/VTE Prophylaxis: Pharmacologic Prophylaxis ordered Assessment and Plan Assessment: Abdominal pain. No clear-cut etiology noted at this time. Possible due to underlying malignancy Hodgkin's lymphoma currently undergoing chemotherapy last dose on 04/26/2021 Previous history of smoking Nonobstructing renal calculus right Normocytic anemia likely due to chemotherapy DVT prophylaxis with heparin subcu Plan: Patient will be continued on pain management and IV hydration. Advance diet as tolerated. Continue to follow-up symptomatically and oncology is on board. Follow-up culture reports and further recommendationS based on the clinical course. Time with Patient: Greater than 30
[2020-07-06] MEDS: SODIUM CHLORIDE 0.9% 1,000 ML IV SCH (23:02)
[2020-07-07] MEDS: HYDROmorphone 0.5 MG/0.5 ML SYRINGE IVP PRN ×8 (00:53→21:14)
[2020-07-07] MEDS: ONDANSETRON 4 MG/2 ML VIAL IVP PRN ×2 (06:07→14:31)
[2020-07-07] MEDS: HEPARIN SODIUM,PORCINE 5,000 UNIT/ML 1 ML VIAL SQ SCH ×2 (08:17→16:05)
[2020-07-07 09:14] LABS: HCT 31.8 % (39.6-50.0); HGB 10.3 g/dL (13.0-17.0); MCH 28.1 pg (27.0-32.0); MCHC 32.4 g/dL (32.0-37.0); MCV 86.6 fL (80.0-97.0); Mean Platelet Volume 9.4 fL (9.5-12.2); Platelet Count 365 X 10*3/uL (140-440); RBC 3.67 X 10*6/uL (4.40-5.60); RDW 22.4 % (11.5-14.5); WBC 8.05 X 10*3/uL (4.50-10.00)
[2020-07-07 09:36] LABS: African American GFR (CKD) 163.1 (60.0-200.0); Anion Gap 6.3 mmol/L (4.00-12.00); BUN/Creat Ratio 8.33 Ratio (12.00-20.00); Calcium 9.3 mg/dL (8.7-10.3); Carbon Dioxide 29.7 mmol/L (21.6-31.8); Non-African American GFR(CKD) 140.7 (60.0-200.0); Potassium 3.9 mmol/L (3.5-5.5)
[2020-07-07 09:47] LABS: Anisocytosis (M) 2+; Basophils # (M) 0.24 X 10*3/uL (0.00-0.10); Eosinophils # (M) 0 X 10*3/uL (0.04-0.35); Lymphocytes # (M) 0.64 X 10*3/uL (0.90-5.00); Monocytes # (M) 0.89 X 10*3/uL (0.20-1.00); Neutrophils # (M) 6.28 X 10*3/uL (2.00-8.90); Neutrophils % (M) 78 %; Stomatocytes 2+
[2020-07-07] MEDS: SODIUM CHLORIDE 0.9% 1,000 ML IV SCH (12:46)
[2020-07-07] MEDS: FAMOTIDINE 20 MG/2 ML VIAL IV SCH ×2 (13:49→21:14)
[2020-07-07] MEDS: DOCUSATE 100 MG CAP PO PRN (14:31)
--- NOTE | 2020-07-07 22:36 | P.PN ---
Subjective Progress Note Date: 07/07/20 Principal diagnosis: Abdominal pain Patient is a 24-year-old male with a known history of Hodgkin's lymphoma diagnosed on 05/16/2020 currently undergoing chemotherapy last cycle on 06/27/2020 and history of renal stones and depression and previous history of smoking presents to ER with the complaints of abdominal pain since evening. Patient is to ER due to worsening pain. Pain is mainly in the lower abdomen. Associated with nause and no episodes of vomiting. denied any diarrhea. No fever no chills. No complaints of chest pain shortness of breath. No dysuria or hematuria. No increased frequency of urination. Laboratory data showed WBC 8.2, hemoglobin 10.8 and platelets 323 Amylase lipase not elevated Urinalysis is negative for infection COVID-19 PCR is not detected CT of the abdomen pelvis showed no significant adenopathy seen in the abdominal pelvis. Nonobstructing right renal calculus. Minimal pleural thickening. There is improvement in the nodular infiltrates in the lower lung arora compared to old exam. Clearing of the left pleural effusion. 07/07/2020 Patient is currently lying in the bed. Awake alert oriented x3. Still complains of abdominal pain. Patient is also complaining of nausea and unable to tolerate oral diet. Patient is being continued on Zofran as needed. No bowel meds today. No fever no chills. No complaints of chest pain. Laboratory data showed WBC 8.0, hemoglobin 10.3 and platelets 365 Sodium 137 potassium 3.9 chloride 101 BUN 5.0 creatinine 0.6 Current medications reviewed. Objective - Vital Signs Vital signs: Vital Signs Temp 97.9 F 07/07/20 07:00 Pulse 87 07/07/20 08:00 Resp 16 07/07/20 08:00 BP 126/71 07/07/20 07:00 Pulse Ox 98 07/07/20 07:00 Intake & Output 07/06/20 07/07/20 07/07/20 18:59 06:59 18:59 Intake Total 300 Balance 300 Weight 89.811 kg Intake: Oral 300 Other: Voiding Method Toilet Toilet Toilet # Voids 3 2 - Exam PHYSICAL EXAMINATION: Patient is lying in the bed comfortably, no acute distress, awake alert and jon ented.. HEENT: Normocephalic. Neck is supple. Pupils reactive. Nostrils clear. Oral cavity is moist. Ears reveal no drainage. Neck reveals no JVD, carotid bruits, or thyromegaly. CHEST EXAMINATION: Trachea is central. Symmetrical expansion. Lung arora clear to auscultation and percussion. CARDIAC: Normal S1, S2 with no gallops. No murmurs ABDOMEN: Soft. Bowel sounds normal. No organomegaly. No abdominal bruits. Extremities: reveal no edema. No clubbing or cyanosis Neurologically awake, alert, oriented x3 with well-coordinated movements. No focal deficits noted Skin: No rash or skin lesions. Psychiatric: Coperative. Nonsuicidal Musculoskeletal: No joint swelling or deformity. Normal range of motion. - Labs CBC & Chem 7: 07/07/20 05:09 07/07/20 05:09 Labs: Abnormal Lab Results - Last 24 Hours (Table) 07/06/20 07/07/20 07/07/20 Range/Units 14:10 05:09 05:09 RBC 3.67 L (4.40-5.60) X 10*6/uL Hgb 10.3 L (13.0-17.0) g/dL Hct 31.8 L (39.6-50.0) % RDW 22.4 H (11.5-14.5) % MPV 9.4 L (9.5-12.2) fL Absolute Nucleated RBC 0.06 H (0.00-0.00) X 10*3/uL Lymphocytes # (Manual) 0.64 L (0.90-5.00) X 10*3/uL Eosinophils # (Manual) 0 L (0.04-0.35) X 10*3/uL Basophils # (Manual) 0.24 H (0.00-0.10) X 10*3/uL NRBC/100 WBC Diff 0.7 H (0.0-0.0) /100 WBCS BUN 5.0 L (9.0-27.0) mg/dL BUN/Creatinine Ratio 8.33 L (12.00-20.00) Ratio Amylase <30 L (30-110) U/L Assessment and Plan Assessment: Abdominal pain. No clear-cut etiology noted at this time. Possible due to underlying malignancy Nausea Hodgkin's lymphoma currently undergoing chemotherapy last dose on 04/26/2021 Previous history of smoking Nonobstructing renal calculus right Normocytic anemia likely due to chemotherapy DVT prophylaxis with heparin subcu Plan: Patient will be continued on pain management and IV hydration. Advance diet as tolerated. Continue with Zofran as needed for nausea. Started on Zantac IV twice daily and stool softeners. Continue to follow-up symptomatically and oncology is on board. Follow-up culture reports and further recommendation based on the clinical course. Time with Patient: Greater than 30
[2020-07-08] MEDS: HEPARIN SODIUM,PORCINE 5,000 UNIT/ML 1 ML VIAL SQ SCH ×3 (00:24→16:58)
[2020-07-08] MEDS: ONDANSETRON 4 MG/2 ML VIAL IVP PRN ×3 (00:24→21:31)
[2020-07-08] MEDS: HYDROmorphone 0.5 MG/0.5 ML SYRINGE IVP PRN ×8 (00:24→21:30)
[2020-07-08] MEDS: SODIUM CHLORIDE 0.9% 1,000 ML IV SCH ×2 (00:25→16:59)
[2020-07-08] MEDS: FAMOTIDINE 20 MG/2 ML VIAL IV SCH (08:41)
[2020-07-08] MEDS: SIMETHICONE 80 MG CHEWABLE PO SCH ×3 (12:32→21:39)
--- NOTE | 2020-07-08 16:28 | P.PN ---
Subjective Progress Note Date: 07/08/20 Abdominal pain Patient is a 24-year-old male with a known history of Hodgkin's lymphoma diagnosed on 05/16/2020 currently undergoing chemotherapy last cycle on 06/27/2020 and history of renal stones and depression and previous history of smoking presents to ER with the complaints of abdominal pain since evening. Patient is to ER due to worsening pain. Pain is mainly in the lower abdomen. Associated with nause and no episodes of vomiting. denied any diarrhea. No fever no chills. No complaints of chest pain shortness of breath. No dysuria or hematuria. No increased frequency of urination. Laboratory data showed WBC 8.2, hemoglobin 10.8 and platelets 323 Amylase lipase not elevated Urinalysis is negative for infection COVID-19 PCR is not detected CT of the abdomen pelvis showed no significant adenopathy seen in the abdominal pelvis. Nonobstructing right renal calculus. Minimal pleural thickening. There is improvement in the nodular infiltrates in the lower lung arora compared to old exam. Clearing of the left pleural effusion. 07/07/2020 Patient is currently lying in the bed. Awake alert oriented x3. Still complains of abdominal pain. Patient is also complaining of nausea and unable to tolerate oral diet. Patient is being continued on Zofran as needed. No bowel meds today. No fever no chills. No complaints of chest pain. Laboratory data showed WBC 8.0, hemoglobin 10.3 and platelets 365 Sodium 137 potassium 3.9 chloride 101 BUN 5.0 creatinine 0.6 07/08/2020 Patient is seen this morning with no acute overnight issues. Patient continues to have abdominal discomfort in the lower left and right lower quadrants and has intermittent nausea although is tolerating some of meal. Patient denies any vomiting at this time. Patient has not had any bowel movements recorded as of yet. Patient was seen and evaluated by oncology as he is currently receiving treatment at [facility] for Hodgkin's lymphoma. Latest treatment was in April. Patient to continue with [facility] although currently staying with parents who live up here. Review of systems: Constitutional: No reports of fatigue, fever, or chills Cardiovascular: No reports of chest pain or palpitations Respiratory: No reports of shortness of breath or cough GI: Reports intermittent nausea, no reports of vomiting, or diarrhea : No reports of dysuria or retention Neurovascular: No reports of weakness or numbness Current medications reviewed. Objective - Vital Signs Vital signs: Vital Signs Temp 98.1 F 07/08/20 07:00 Pulse 97 07/08/20 07:00 Resp 18 07/08/20 08:00 BP 124/73 07/08/20 07:00 Pulse Ox 100 07/08/20 07:00 Intake & Output 07/07/20 07/08/20 07/08/20 18:59 06:59 18:59 Intake Total 600 Balance 600 Intake: Oral 600 Other: Voiding Method Toilet Toilet # Voids 4 1 - Exam Patient is sitting up in the bed comfortably, no acute distress, awake alert and oriented.. HEENT: Normocephalic. Neck is supple. Pupils reactive. Nostrils clear. Oral cavity is moist. Ears reveal no drainage. Neck reveals no JVD, carotid bruits, or thyromegaly. CHEST EXAMINATION: Trachea is central. Symmetrical expansion. Lung arora clear to auscultation and percussion. CARDIAC: Normal S1, S2 with no gallops. No murmurs ABDOMEN: Soft. Bowel sounds normal. No organomegaly. No abdominal bruits. Tender in the left and right lower quadrants on palpation Extremities: reveal no edema. No clubbing or cyanosis Neurologically awake, alert, oriented x3 with well-coordinated movements. No focal deficits noted Skin: No rash or skin lesions. Psychiatric: Cooperative. Non-suicidal Musculoskeletal: No joint swelling or deformity. Normal range of motion. - Labs CBC & Chem 7: 07/07/20 05:09 07/07/20 05:09 Assessment and Plan Assessment: Abdominal pain. No clear-cut etiology noted at this time. Possible due to underlying malignancy Nausea Hodgkin's lymphoma currently undergoing chemotherapy last dose on 04/26/2021 Previous history of smoking Non-obstructing renal calculus right Normocytic anemia likely due to chemotherapy DVT prophylaxis with heparin subcu Plan: Patient will be continued on pain management and IV hydration. Advance diet as tolerated. Continue with Zofran as needed for nausea. Started on Zantac IV tw ice daily and stool softeners. Oncology consulted and recommending GI consult for possible scope and will await report. Patient continues to have nausea although no reports of vomiting noted. Patient does follow with [facility] oncology although currently staying out here with parents. Will discuss with GI about possible endoscopic intervention. Possible discharge in 24 hours.
[2020-07-08] MEDS: DICYCLOMINE 20 MG TAB PO PRN (16:40)
[2020-07-08 19:32] VITALS: RESP 16
[2020-07-08] MEDS: PANTOPRAZOLE 40 MG/10 ML VIAL IVP SCH (21:30)
--- NOTE | 2020-07-08 21:32 | P.PN ---
Subjective Progress Note Date: 07/08/20 The patient continues to complain of significant abdominal pain. He states that this is worsened by eating. He continues to require opioid pain medications fairly regularly for controlled. He denied any overt vomiting or diarrhea. Objective - Vital Signs Vital signs: Vital Signs Temp 98 F 07/08/20 19:31 Pulse 94 07/08/20 19:31 Resp 16 07/08/20 19:31 BP 148/79 07/08/20 19:31 Pulse Ox 96 07/08/20 19:31 Intake & Output 07/08/20 07/08/20 07/09/20 06:59 18:59 06:59 Other: Voiding Method Toilet Toilet # Voids 1 2 - Constitutional General appearance: Present: no acute distress - EENT Eyes: Present: EOMI ENT: Present: hearing grossly normal, normal oropharynx - Respiratory Respiratory: bilateral: CTA - Cardiovascular Rhythm: regular Heart sounds: normal: S1, S2 - Gastrointestinal General gastrointestinal: Present: normal bowel sounds, soft - Integumentary Integumentary: Present: normal - Neurologic Neurologic: Present: CNII-XII intact - Musculoskeletal Musculoskeletal: Present: strength equal bilaterally - Psychiatric Psychiatric: Present: A&O x's 3, appropriate affect - Labs CBC & Chem 7: 07/07/20 05:09 07/07/20 05:09 Assessment and Plan (1) Abdominal pain Narrative/Plan: This is still persistent, and significant, requiring continued opioid pain medication. At this time the etiology is unclear. The patient confirmed that he had no Hodgkin lymphoma involvement in the abdomen or pelvis even prior to starting treatment. Current CT of the abdomen and pelvis shows no evidence of lymphoma involvement either. In addition it reveals no other abnormality that would explain his pain. Amylase and lipase within normal limits. - Gastritis related to chemotherapy could be a possible etiology, especially since pain is worsened by eating. However his pain appears to be localized more towards the lower abdomen - Continue current supportive medications for pain management. Consult gastroenterology for GI work to try to define the cause. Current Visit: Yes Status: Acute Code(s): R10.9 - UNSPECIFIED ABDOMINAL PAIN SNOMED Code(s): 94313116 (2) Hodgkins lymphoma Narrative/Plan: Patient otherwise appears to have in tolerating his treatment well so far. Labs show moderate anemia, with hemoglobin quite safe in the 10-11 range. WBC and platelets are normal. Continue to monitor. Current Visit: Yes Status: Acute Code(s): C81.90 - HODGKIN LYMPHOMA, UNSPECIFIED, UNSPECIFIED SITE SNOMED Code(s): 389543905
[2020-07-09] MEDS: HEPARIN SODIUM,PORCINE 5,000 UNIT/ML 1 ML VIAL SQ SCH ×2 (00:22→09:07)
[2020-07-09] MEDS: HYDROmorphone 0.5 MG/0.5 ML SYRINGE IVP PRN ×3 (00:27→07:47)
[2020-07-09] MEDS: SODIUM CHLORIDE 0.9% 1,000 ML IV SCH (04:17)
[2020-07-09 07:43] VITALS: BP 135/83; PULSE 90; TEMP 98
[2020-07-09] MEDS: DICYCLOMINE 20 MG TAB PO PRN (09:07)
[2020-07-09] MEDS: PANTOPRAZOLE 40 MG/10 ML VIAL IVP SCH (09:07)
[2020-07-09] MEDS: DOCUSATE 100 MG CAP PO PRN (09:08)
--- NOTE | 2020-07-09 09:10 | P.PN ---
Subjective Progress Note Date: 07/09/20 Principal diagnosis: Abdominal pain Patient seen and examined resting in his bed. He states his abdominal pain has improved some. He denies any vomiting but states he has some mild nausea. He has had no bowel movement. belching is improved as well. He is using Bentyl as needed. Objective - Vital Signs Vital signs: Vital Signs Temp 98.0 F 07/09/20 07:42 Pulse 90 07/09/20 07:42 Resp 16 07/09/20 07:42 BP 135/83 07/09/20 07:42 Pulse Ox 96 07/09/20 07:42 Intake & Output 07/08/20 07/09/20 07/09/20 18:59 06:59 18:59 Intake Total 600 Balance 600 Intake: Intake, IV Titration 600 Amount Sodium Chloride 0.9% 1, 600 000 ml @ 75 mls/hr IV . [id number] REGINA Rx#:[id number] Other: Voiding Method Toilet Toilet # Voids 2 1 - Exam General appearance: The patient is alert, oriented, appears in no acute distress. HET: Head is normocephalic and atraumatic. Conjunctiva pink. Sclera anicteric. Neck: Supple without lymphadenopathy. Abdomen: Soft, low midline abdominal tenderness, nondistended with bowel sounds. No guarding or rigidity. Extremities: Normal skin color and turgor. No pedal edema Skin: No rashes, no jaundice Neurological: No focal deficits. Alert and oriented 3. - Labs CBC & Chem 7: 07/07/20 05:09 07/07/20 05:09 Assessment and Plan (1) Abdominal pain Current Visit: Yes Status: Acute Code(s): R10.9 - UNSPECIFIED ABDOMINAL PAIN SNOMED Code(s): 67300811 (2) Hodgkins lymphoma Current Visit: Yes Status: Acute Code(s): C81.90 - HODGKIN LYMPHOMA, UNSPECIFIED, UNSPECIFIED SITE SNOMED Code(s): 302890765 Plan: Supportive care Continue regular diet Continue Bentyl as needed Continue simethicone and belching as needed Antiemetics as needed No plans for endoscopic evaluation at this time Will add MiraLAX at at bedtime Thank you for this consultation, we will continue to follow Dr. Youssef I agree with the dictator's note, documented as a scribe by Ruby Burks.
[2020-07-09] MEDS ORDERED: traMADol 50 MG TAB PO SCH (09:30)
--- NOTE | 2020-07-09 14:31 | P.PN ---
Subjective Progress Note Date: 07/09/20 Principal diagnosis: Abdominal Pain, Hodgkins Lymphoma Objective - Vital Signs Vital signs: Vital Signs Temp 98.0 F 07/09/20 07:42 Pulse 90 07/09/20 07:42 Resp 16 07/09/20 07:42 BP 135/83 07/09/20 07:42 Pulse Ox 96 07/09/20 07:42 Intake & Output 07/08/20 07/09/20 07/09/20 18:59 06:59 18:59 Intake Total 600 238 Balance 600 238 Intake: Intake, IV Titration 600 Amount Sodium Chloride 0.9% 1, 600 000 ml @ 75 mls/hr IV . [id number] REGINA Rx#:[id number] Oral 238 Other: Voiding Method Toilet Toilet # Voids 2 1 - Exam - Constitutional General appearance: Present: no acute distress - EENT Eyes: Present: EOMI ENT: Present: hearing grossly normal, normal oropharynx - Respiratory Respiratory: bilateral: CTA - Cardiovascular Rhythm: regular Heart sounds: normal: S1, S2 - Gastrointestinal General gastrointestinal: Present: normal bowel sounds, soft - Integumentary Integumentary: Present: normal - Neurologic Neurologic: Present: CNII-XII intact - Musculoskeletal Musculoskeletal: Present: strength equal bilaterally - Psychiatric Psychiatric: Present: A&O x's 3, appropriate affect - Labs CBC & Chem 7: 07/07/20 05:09 07/07/20 05:09 Assessment and Plan Plan: Assessment and Plan: Abdominal pain Pain continued, mild improvements with bentyl No BM in >2 days At this time the etiology is unclear. GI has evaluated and no plans at this time for further evaluation with endoscopy. The patient confirmed that he had no Hodgkin lymphoma involvement in the abdomen or pelvis even prior to starting treatment. Current CT of the abdomen and pelvis shows no evidence of lymphoma involvement either. In addition it reveals no other abnormality that would explain his pain. Amylase and lipase within normal limits. Pain is lower pelvic although seems to be associated with eating. - Gastritis related to chemotherapy could be a possible etiology, especially since pain is worsened by eating. However his pain appears to be localized more towards the lower abdomen - Continue current supportive medications for pain management. - Agree with increased bowel regimen - Urinalysis and Repeat CBC Hodgkins lymphoma Patient otherwise appears to have in tolerating his treatment well so far. Labs show moderate anemia, with hemoglobin quite safe in the 10-11 range. WBC and platelets are normal. - He will follow-up with primary oncologist after discharge.
--- NOTE | 2020-07-09 16:14 | P.DS ---
Providers Date of admission: 07/08/20 08:09 Expected date of discharge: 07/09/20 Attending physician: Alexandre Mead MD Consults: 07/05/20 18:30 Consult Physician Routine Consulting Provider: Micheal Underwood Consult Reason/Comments: cancer patient, follows at [facility] Do you want consulting provider notified?: Yes 07/08/20 11:20 Consult Physician Routine Consulting Provider: Mellissa Gatica Consult Reason/Comments: Hx HD, lower abd pain with no pathology seen Do you want consulting provider notified?: Yes Primary care physician: Physician Nonstaff Hospital Course: Final diagnosis Abdominal pain. No clear-cut etiology noted at this time. Possible due to underlying malignancy Nausea, improved Hodgkin's lymphoma currently undergoing chemotherapy last dose on 04/26/2021 Previous history of smoking Non-obstructing renal calculus right Normocytic anemia likely due to chemotherapy DVT prophylaxis Discharge disposition Patient is being discharged in a stable condition with guarded prognosis to home. Patient will follow-up with primary care provider in the outpatient setting upon discharge. Patient also instructed to follow-up with [facility] oncology where he was previously receiving care. Patient will continue with [facility] in the outpatient setting. Total time taken is greater than 35 minutes. Hospital course Abdominal pain Patient is a 24-year-old male with a known history of Hodgkin's lymphoma diagnosed on 05/16/2020 currently undergoing chemotherapy last cycle on 06/27/2020 and history of renal stones and depression and previous history of smoking presents to ER with the complaints of abdominal pain since evening. Patient is to ER due to worsening pain. Pain is mainly in the lower abdomen. Associated with nause and no episodes of vomiting. denied any diarrhea. No fever no chills. No complaints of chest pain shortness of breath. No dysuria or hematuria. No increased frequency of urination. Laboratory data showed WBC 8.2, hemoglobin 10.8 and platelets 323 Amylase lipase not elevated Urinalysis is negative for infection COVID-[address] PCR is not detected CT of the abdomen pelvis showed no significant adenopathy seen in the abdominal pelvis. Nonobstructing right renal calculus. Minimal pleural thickening. There is improvement in the nodular infiltrates in the lower lung arora compared to old exam. Clearing of the left pleural effusion. 07/09/2020 Patient is seen and evaluated in follow-up and abdominal pain has improved. Patient continues to have intermittent abdominal discomfort requesting Dilaudid per nursing staff. Patient will be given Ultram and continue with Bentyl as needed. Patient instructed to follow-up with [facility] oncologist as he was previously seeing along with primary care provider. Currently no reports of chest pain, shortness of breath, or palpitations. Patient is afebrile. No reports of nausea or vomiting and patient is tolerating diet. Patient will be discharged home today. On exam vital signs are stable. Cardio S1, S2 are muffled. Respiratory system shows diminished breath sounds at the bases with no wheezing or rhonchi noted. Abdomen is soft and nontender. Nervous system shows no focal deficits. Please refer to medication reconciliation sheet for a list of medications. Patient Condition at Discharge: Stable Plan - Discharge Summary New Discharge Prescriptions: New Dicyclomine [Bentyl] 20 mg PO QID PRN #20 tab PRN Reason: Dyspepsia Docusate [Colace] 100 mg PO BID PRN cap PRN Reason: Constipation polyethylene glycoL 3350 [Miralax] 17 gm PO HS PRN #10 powd.pack PRN Reason: Constipation Simethicone Chew [Mylicon Chew] 80 mg PO QID chew traMADol HCl [Ultram] 50 mg PO TID #12 tab Continue Prochlorperazine [Compazine] 10 mg PO Q6H PRN PRN Reason: Nausea ondansetron HCL [Zofran] 8 mg PO Q8H PRN PRN Reason: Nausea hydrOXYzine pamoate [Vistaril] 50 mg PO Q6H PRN PRN Reason: Itching Ibuprofen [Motrin] 600 mg PO Q6H PRN PRN Reason: Pain Famotidine [Pepcid] 20 mg PO DAILY PRN PRN Reason: gerds Benzonatate [Tessalon Perles] 100 mg PO TID PRN PRN Reason: Cough traZODone HCL [Desyrel] 50 mg PO HS PRN PRN Reason: sleep Famotidine/Ca Carb/Mag Hydrox [Pepcid Complete Tablet Chew] 1 tab PO Q6H PRN PRN Reason: Gi Upset Discontinued Sulfamethox-Tmp 800-160Mg [Bactrim DS 800-160 mg] 1 tab PO MOWEFR Discharge Medication List Benzonatate [Tessalon Perles] 100 mg PO TID PRN 06/04/20 [History] Famotidine [Pepcid] 20 mg PO DAILY PRN 06/04/20 [History] Ibuprofen [Motrin] 600 mg PO Q6H PRN 06/04/20 [History] Prochlorperazine [Compazine] 10 mg PO Q6H PRN 06/04/20 [History] hydrOXYzine pamoate [Vistaril] 50 mg PO Q6H PRN 06/04/20 [History] ondansetron HCL [Zofran] 8 mg PO Q8H PRN 06/04/20 [History] Famotidine/Ca Carb/Mag Hydrox [Pepcid Complete Tablet Chew] 1 tab PO Q6H PRN 07/05/20 [History] traZODone HCL [Desyrel] 50 mg PO HS PRN 07/05/20 [History] Dicyclomine [Bentyl] 20 mg PO QID PRN #20 tab 07/09/20 [Rx] Docusate [Colace] 100 mg PO BID PRN cap 07/09/20 [Rx] Simethicone Chew [Mylicon Chew] 80 mg PO QID chew 07/09/20 [Rx] polyethylene glycoL 3350 [Miralax] 17 gm PO HS PRN #10 powd.pack 07/09/20 [Rx] traMADol HCl [Ultram] 50 mg PO TID #12 tab 07/09/20 [Rx] Follow up Appointment(s)/Referral(s): Nonstaff,Physician [Primary Care Provider] - 1-2 days Activity/Diet/Wound Care/Special Instructions: Activity Limited until follow-up Continue current diet and advance as tolerated Continue with Bentyl as needed Continue with Ultram and/or Motrin and do not exceed more than 6 tablets of NSAIDs in a day Use MiraLAX as needed for constipation Increase and encourage fluids Follow-up with [facility] oncologist upon discharge Follow-up with primary care provider upon discharge Discharge Disposition: HOME SELF-CARE
[2020-07-09] MEDS ORDERED: polyethylene glycoL 3350 17 GM POWD.PACK PO SCH (21:00)
== END 2020-07-09 12:30 | disposition home or self-care (01) | DRG 948 ==
LOC: EC 13:18 → 6NMEDSUR 18:31 → OBSVTOIN 07-08 08:09
PROVIDERS: ADMIT Internal Medicine; ATTEND Internal Medicine
DX: G89.3 Neoplasm related pain (acute) (chronic) (principal); C81.90 Hodgkin lymphoma, unspecified, unspecified site; J90 Pleural effusion, not elsewhere classified; D64.81 Anemia due to antineoplastic chemotherapy; F32.9 Major depressive disorder, single episode, unspecified; K29.70 Gastritis, unspecified, without bleeding; N20.0 Calculus of kidney; T45.1X5A Adverse effect of antineoplastic and immunosuppressive drugs, initial encounter; Z20.822 Contact with and (suspected) exposure to COVID-19; Z80.3 Family history of malignant neoplasm of breast; Z85.72 Personal history of non-Hodgkin lymphomas; Z87.442 Personal history of urinary calculi; Z87.891 Personal history of nicotine dependence
CPT/HCPCS: 36415; 74178; 80048; 80053; 81003; 82150; 83690; 85025; 87635; 96361; 96374; 96375; 96376; 99285

== ENCOUNTER 2020-07-20 18:18 | Emergency (ER) | payer BC, OTHER ==
--- NOTE | 2020-07-20 18:54 | ED ---
General Adult HPI - General Chief complaint: Abdominal Pain Stated complaint: abd pain Time Seen by Provider: 07/20/20 18:53 Source: patient Mode of arrival: ambulatory Limitations: no limitations - History of Present Illness Initial comments: Patient presents the ED with his mother for evaluation. Patient states that he has had suprapubic and right lower quadrant abdominal pain since last night. Patient states that he has had associated nausea and "gas". Patient states that he has been moving his bowels normally since yesterday. Patient states that he was admitted to the hospital for similar symptoms a couple of weeks ago, and he states that he was told that he had constipation at that time. Patient has Hodgkin's lymphoma, and he states that his last chemotherapy treatment was 9 days ago. Patient denies trauma or injury, fever or chills, headache, focal neuro deficit, chest pain, dyspnea, dizziness, back pain, vomiting, diarrhea or constipation, bloody or melanotic stool, dysuria/hematuria/urinary frequency/urinary symptoms, or any other symptoms or complaints. Patient states that he has had his appendix removed. - Related Data Home Medications Medication Instructions Recorded Confirmed Benzonatate [Tessalon Perles] 100 mg PO TID PRN 06/04/20 07/05/20 Famotidine [Pepcid] 20 mg PO DAILY PRN 06/04/20 07/05/20 Ibuprofen [Motrin] 600 mg PO Q6H PRN 06/04/20 07/05/20 Prochlorperazine [Compazine] 10 mg PO Q6H PRN 06/04/20 07/05/20 hydrOXYzine pamoate [Vistaril] 50 mg PO Q6H PRN 06/04/20 07/05/20 ondansetron HCL [Zofran] 8 mg PO Q8H PRN 06/04/20 07/05/20 Famotidine/Ca Carb/Mag Hydrox 1 tab PO Q6H PRN 07/05/20 07/05/20 [Pepcid Complete Tablet Chew] traZODone HCL [Desyrel] 50 mg PO HS PRN 07/05/20 07/05/20 Previous Rx's Medication Instructions Recorded Dicyclomine [Bentyl] 20 mg PO QID PRN #20 tab 07/09/20 Docusate [Colace] 100 mg PO BID PRN cap 07/09/20 Simethicone Chew [Mylicon Chew] 80 mg PO QID chew 07/09/20 polyethylene glycoL 3350 [Miralax] 17 gm PO HS PRN #10 powd.pack 07/09/20 traMADol HCl [Ultram] 50 mg PO TID #12 tab 07/09/20 Allergies Allergy/AdvReac Type Severity Reaction Status Date / Time No Known Allergies Allergy Verified 07/20/20 18:20 Review of Systems ROS Statement: Those systems with pertinent positive or pertinent negative responses have been documented in the HPI. ROS Other: All systems not noted in ROS Statement are negative. Past Medical History Past Medical History: Cancer Additional Past Medical History / Comment(s): hodgkins lymphoma stage 4, last chemo 06/27/20, pt follows up with [facility] kidney stones History of Any Multi-Drug Resistant Organisms: None Reported Past Surgical History: Adenoidectomy, Appendectomy Past Anesthesia/Blood Transfusion Reactions: No Reported Reaction Past Psychological History: Depression Smoking Status: Former smoker Past Alcohol Use History: Occasional Past Drug Use History: Marijuana General Exam Limitations: no limitations General appearance: alert, in no apparent distress Head exam: Present: atraumatic, normocephalic Eye exam: Present: normal appearance, EOMI ENT exam: Present: mucous membranes moist Neck exam: Present: other (Trachea is in midline) Respiratory exam: Present: normal lung sounds bilaterally. Absent: respiratory distress, wheezes, rales, rhonchi, stridor Cardiovascular Exam: Present: regular rate, normal rhythm, normal heart sounds, other (Normal radial pulses bilaterally) GI/Abdominal exam: Present: soft, normal bowel sounds, other (Moderate suprapubic and right lower quadrant abdominal tenderness). Absent: distended, guarding, rebound Extremities exam: Absent: pedal edema Back exam: Absent: CVA tenderness (R), CVA tenderness (L) Neurological exam: Present: alert, oriented X3. Absent: motor sensory deficit Psychiatric exam: Present: normal affect, normal mood Skin exam: Present: warm, dry, intact, normal color Course Vital Signs 07/20/20 18:20 Temperature 98.4 F Pulse Rate 100 Respiratory 18 Rate Blood Pressure 126/74 O2 Sat by Pulse 100 Oximetry - Reevaluation(s) Reevaluation #1: 07/20/20 22:42 Patient states that his pain has improved with ED treatment, and he denies development of any new symptoms while in the ED. Patient's abdomen remains soft and without any surgical signs on examination. Patient and mother are aware the patient's test results, and they both feel comfortable with the patient going home at this time. Patient was instructed to follow up closely with his primary care provider, as well as his cancer doctor. Patient was counseled about abdominal pain, and he was clearly explained return and follow-up instructions. Patient feels comfortable with this plan. Medical Decision Making - Medical Decision Making Patient is afebrile and without significant leukocytosis. Patient's abdomen is soft and without any surgical signs on examination. Patient's CT abdomen/pelvis with IV contrast is negative for acute process in his abdomen/pelvis. I do not suspect an emergent or surgical condition at this time. Will discharge patient home with his mother at this time. Patient was instructed to have a low thre shold for return to the ED should his symptoms worsen. - Lab Data Result diagrams: 07/20/20 19:31 07/20/20 19:31 Lab Results 07/20/20 07/20/20 07/20/20 Range/Units 19:31 19:31 19:31 WBC 11.0 H (3.8-10.6) k/uL RBC 3.87 L (4.30-5.90) m/uL Hgb 11.2 L (13.0-17.5) gm/dL Hct 33.2 L (39.0-53.0) % MCV 85.9 (80.0-100.0) fL MCH 29.0 (25.0-35.0) pg MCHC 33.7 (31.0-37.0) g/dL RDW 20.7 H (11.5-15.5) % Plt Count 323 (150-450) k/uL MPV 6.8 Neutrophils % 76 % Lymphocytes % 12 % Monocytes % 7 % Eosinophils % 1 % Basophils % 1 % Neutrophils # 8.4 H (1.3-7.7) k/uL Lymphocytes # 1.3 (1.0-4.8) k/uL Monocytes # 0.8 (0-1.0) k/uL Eosinophils # 0.1 (0-0.7) k/uL Basophils # 0.2 (0-0.2) k/uL Anisocytosis Moderate Microcytosis Slight Sodium 139 (137-145) mmol/L Potassium 3.3 L (3.5-5.1) mmol/L Chloride 103 (98-107) mmol/L Carbon Dioxide 26 (22-30) mmol/L Anion Gap 10 mmol/L BUN 7 L (9-20) mg/dL Creatinine 0.53 L (0.66-1.25) mg/dL Est GFR (CKD-EPI)AfAm >90 (>60 ml/min/1.73 sqM) Est GFR (CKD-EPI)NonAf >90 (>60 ml/min/1.73 sqM) Glucose 109 H (74-99) mg/dL Plasma Lactic Acid Jim 1.0 (0.7-2.0) mmol/L Calcium 9.1 (8.4-10.2) mg/dL Total Bilirubin 0.3 (0.2-1.3) mg/dL AST 19 (17-59) U/L ALT 21 (4-49) U/L Alkaline Phosphatase 78 (38-126) U/L Total Protein 6.9 (6.3-8.2) g/dL Albumin 4.4 (3.5-5.0) g/dL Amylase 33 (30-110) U/L Lipase 45 (23-300) U/L Urine Color Urine Appearance (Clear) Urine pH (5.0-8.0) Ur Specific [place] (1.001-1.035) Urine Protein (Negative) Urine Glucose (UA) (Negative) Urine Ketones (Negative) Urine Blood (Negative) Urine Nitrite (Negative) Urine Bilirubin (Negative) Urine Urobilinogen (<2.0) mg/dL Ur Leukocyte Esterase (Negative) 07/20/20 Range/Units 22:05 WBC (3.8-10.6) k/uL RBC (4.30-5.90) m/uL Hgb (13.0-17.5) gm/dL Hct (39.0-53.0) % MCV (80.0-100.0) fL MCH (25.0-35.0) pg MCHC (31.0-37.0) g/dL RDW (11.5-15.5) % Plt Count (150-450) k/uL MPV Neutrophils % % Lymphocytes % % Monocytes % % Eosinophils % % Basophils % % Neutrophils # (1.3-7.7) k/uL Lymphocytes # (1.0-4.8) k/uL Monocytes # (0-1.0) k/uL Eosinophils # (0-0.7) k/uL Basophils # (0-0.2) k/uL Anisocytosis Microcytosis Sodium (137-145) mmol/L Potassium (3.5-5.1) mmol/L Chloride (98-107) mmol/L Carbon Dioxide (22-30) mmol/L Anion Gap mmol/L BUN (9-20) mg/dL Creatinine (0.66-1.25) mg/dL Est GFR (CKD-EPI)AfAm (>60 ml/min/1.73 sqM) Est GFR (CKD-EPI)NonAf (>60 ml/min/1.73 sqM) Glucose (74-99) mg/dL Plasma Lactic Acid Jim (0.7-2.0) mmol/L Calcium (8.4-10.2) mg/dL Total Bilirubin (0.2-1.3) mg/dL AST (17-59) U/L ALT (4-49) U/L Alkaline Phosphatase (38-126) U/L Total Protein (6.3-8.2) g/dL Albumin (3.5-5.0) g/dL Amylase (30-110) U/L Lipase (23-300) U/L Urine Color Yellow Urine Appearance Clear (Clear) Urine pH 5.5 (5.0-8.0) Ur Specific [place] >1.050 H (1.001-1.035) Urine Protein Trace H (Negative) Urine Glucose (UA) Negative (Negative) Urine Ketones Negative (Negative) Urine Blood Negative (Negative) Urine Nitrite Negative (Negative) Urine Bilirubin Negative (Negative) Urine Urobilinogen <2.0 (<2.0) mg/dL Ur Leukocyte Esterase Negative (Negative) - Radiology Data Radiology results: report reviewed (CT abdomen/pelvis with IV contrast: No acute abnormality within the abdomen pelvis; pulmonary nodules consistent with tumor and no definite change when compared to prior limited CT) Disposition Clinical Impression: Abdominal pain Disposition: HOME SELF-CARE Condition: Stable Instructions (If sedation given, give patient instructions): Abdominal Pain (ED) Additional Instructions: Return to the ER immediately should you develop new or worsening pain, a fever, vomiting, feeling dizzy or faint, shortness of breath, or new or worsening symptoms. Follow up closely with your primary care provider, as well as your cancer doctor. Is patient prescribed a controlled substance at d/c from ED?: No Referrals: Nonstaff,Physician [REFERRING] - 1-2 days Capo Sen MD [REFERRING] - 1-2 days Peter Youssef MD [STAFF PHYSICIAN] - 1-2 days Time of Disposition: 22:46
[2020-07-20] MEDS ORDERED: HYDROmorphone 1 MG/ML 1 ML SYRINGE IVP STA (19:09)
[2020-07-20] MEDS ORDERED: SODIUM CHLORIDE 0.9% 1,000 ML IV STA (19:09)
[2020-07-20] MEDS ORDERED: ONDANSETRON 4 MG/2 ML VIAL IVP STA (19:09)
[2020-07-20 20:05] LABS: Anisocytosis Moderate; Basophils # (A) 0.2 k/uL (0-0.2); Basophils % (A) 1 %; Eosinophils # (A) 0.1 k/uL (0-0.7); Eosinophils % (A) 1 %; HCT 33.2 % (39.0-53.0); HGB 11.2 gm/dL (13.0-17.5); Lymphocytes # (A) 1.3 k/uL (1.0-4.8); Lymphocytes % (A) 12 %; MCHC 33.7 g/dL (31.0-37.0); MCV 85.9 fL (80.0-100.0); Mean Platelet Volume 6.8; Microcytosis Slight; Monocytes # (A) 0.8 k/uL (0-1.0); Monocytes % (A) 7 %; Neutrophils # (A) 8.4 k/uL (1.3-7.7); Neutrophils % (A) 76 %; Platelet Count 323 k/uL (150-450); RBC 3.87 m/uL (4.30-5.90); RDW 20.7 % (11.5-15.5)
[2020-07-20 20:15] LABS: ALT 21 U/L (4-49); AST 19 U/L (17-59); African American GFR (CKD) >90 (>60 ml/min/1.73 sqM); Albumin 4.4 g/dL (3.5-5.0); Alkaline Phosphatase 78 U/L (38-126); Amylase 33 U/L (30-110); Anion Gap 10 mmol/L; Blood Urea Nitrogen 7 mg/dL (9-20); Calcium 9.1 mg/dL (8.4-10.2); Carbon Dioxide 26 mmol/L (22-30); Chloride 103 mmol/L (98-107); Glucose 109 mg/dL (74-99); Lipase 45 U/L (23-300); Non-African American GFR(CKD) >90 (>60 ml/min/1.73 sqM); Potassium 3.3 mmol/L (3.5-5.1); Sodium 139 mmol/L (137-145); Total Bilirubin 0.3 mg/dL (0.2-1.3); Total Protein 6.9 g/dL (6.3-8.2)
--- NOTE | 2020-07-20 20:55 | CT ---
EXAMINATION TYPE: CT abdomen pelvis w con DATE OF EXAM: 07/20/2020 COMPARISON: 07/06/2020 HISTORY: abdominal pain, current lymphoma pt CT DLP: 926.2 mGycm Automated exposure control for dose reduction was used. CONTRAST: Performed with IV Contrast, patient injected with 100 mL of Isovue 300. There is 1.6 cm noncalcified nodule in the right lower lobe posteriorly. There is mild subsegmental a telectasis left posterior lung base. There is noncalcified 1.5 cm nodule subpleural posterior left lo wer lobe. There is 1 cm nodule lateral left lower lobe. There is no pleural effusion. Heart size is n ormal. There is 6 mm subpleural nodular density posterior right lower lobe. There is 6 mm right middl e lobe subpleural nodule. Liver appears normal. Gallbladder appears normal. The bile ducts are not dilated. There is no pancrea tic mass. Stomach is intact. Spleen is intact. There is no adrenal mass. Kidneys show satisfactory contrast opacification. There is no hydronephrosi s. There is 6 mm calculus lower pole right kidney. Ureters are not dilated. There is no retroperitone al adenopathy. Bladder distends smoothly. There is no inguinal hernia. There is no free fluid in the pelvis. There is no evidence of pelvic mass. There is no mesenteric edema. There is apparent appendectomy. There is no ascites or free air. There is no bowel obstruction. The bony pelvis is intact. Lumbar spine is intact. There is no compression fracture. Hip joints are i ntact. IMPRESSION: Pulmonary nodules consistent with tumor. I do not see a definite change in the size of the nodules co mpared to the limited evaluation on the previous CT scan. No acute abnormality within the abdomen pelvis.
[2020-07-20 22:26] LABS: Appearance,Urine Clear (Clear); Bilirubin,Urine Negative (Negative); Blood,Urine Negative (Negative); Color,Urine Yellow; Glucose,Urine (UA) Negative (Negative); Ketones,Urine Negative (Negative); Leukocyte Esterase,Urine Negative (Negative); Nitrite,Urine Negative (Negative); PH, Urine 5.5 (5.0-8.0); Protein,Urine Trace (Negative); Urobilinogen,Urine <2.0 mg/dL (<2.0)
[2020-07-20 22:28] LABS: Specific Gravity,Urine >1.050 (1.001-1.035)
[2020-07-20] MEDS ORDERED: ACET/COD 300 MG/30 MG STARTER PACK 6 TAB BTL PO STA (22:46)
[2020-07-20] MEDS ORDERED: HYDROmorphone 0.5 MG/0.5 ML SYRINGE IVP STA (22:49)
[2020-07-20 23:19] VITALS: RESP 16; TEMP 98
[2020-07-20 23:22] VITALS: BP 130/73; PULSE 98
== END 2020-07-20 23:10 | disposition home or self-care (01) ==
LOC: EC 18:18
DX: R10.31 Right lower quadrant pain (principal); F32.9 Major depressive disorder, single episode, unspecified; F12.90 Cannabis use, unspecified, uncomplicated; C81.90 Hodgkin lymphoma, unspecified, unspecified site; Z87.442 Personal history of urinary calculi; Z90.49 Acquired absence of other specified parts of digestive tract; Z87.891 Personal history of nicotine dependence
CPT/HCPCS: 36415; 80053; 82150; 83605; 83690; 85025; 81003; 74177; 99284; 96365; 96375; 96361; J2405; J1170 ×2; J1642; Q9967

== ENCOUNTER 2020-07-21 14:27 | Emergency (ER) | payer BC, OTHER ==
[2020-07-21 14:35] VITALS: BP 133/73; PULSE 109; RESP 18; TEMP 98
[2020-07-21] MEDS ORDERED: HYDROmorphone 1 MG/ML 1 ML SYRINGE IM STA (15:07)
--- NOTE | 2020-07-21 15:08 | ED ---
Abdominal Pain HPI - General Chief Complaint: Abdominal Pain Stated Complaint: Abd pain Time Seen by Provider: 07/21/20 14:50 Source: patient Mode of arrival: ambulatory Limitations: no limitations - History of Present Illness Initial Comments: Vernon's a 24-year-old male with non-Hodgkin's lymphoma currently undergoing chemotherapy. Patient presents the ER today for pain management. Patient has been suffering from chronic abdominal pain during chemotherapy. He is not prescribed any home narcotics. He has had multiple CAT scans and labs which has had no acute findings. He was last seen last night, his pain was managed with IV pain medications and he was subsequently discharged home. Patient has contacted his oncologist as well as gastroenterology for follow-up and plans to be seen this week. Patient returns today for persistent pain and pain management. - Related Data Home Medications Medication Instructions Recorded Confirmed Benzonatate [Tessalon Perles] 100 mg PO TID PRN 06/04/20 07/05/20 Famotidine [Pepcid] 20 mg PO DAILY PRN 06/04/20 07/05/20 Ibuprofen [Motrin] 600 mg PO Q6H PRN 06/04/20 07/05/20 Prochlorperazine [Compazine] 10 mg PO Q6H PRN 06/04/20 07/05/20 hydrOXYzine pamoate [Vistaril] 50 mg PO Q6H PRN 06/04/20 07/05/20 ondansetron HCL [Zofran] 8 mg PO Q8H PRN 06/04/20 07/05/20 Famotidine/Ca Carb/Mag Hydrox 1 tab PO Q6H PRN 07/05/20 07/05/20 [Pepcid Complete Tablet Chew] traZODone HCL [Desyrel] 50 mg PO HS PRN 07/05/20 07/05/20 Previous Rx's Medication Instructions Recorded Dicyclomine [Bentyl] 20 mg PO QID PRN #20 tab 07/09/20 Docusate [Colace] 100 mg PO BID PRN cap 07/09/20 Simethicone Chew [Mylicon Chew] 80 mg PO QID chew 07/09/20 polyethylene glycoL 3350 [Miralax] 17 gm PO HS PRN #10 powd.pack 07/09/20 traMADol HCl [Ultram] 50 mg PO TID #12 tab 07/09/20 HYDROcodone/APAP 5-325MG [Rocky 1 tab PO Q6HR PRN 3 Days #12 tab 07/21/20 5-325] Allergies Allergy/AdvReac Type Severity Reaction Status Date / Time No Known Allergies Allergy Verified 07/21/20 14:35 Review of Systems ROS Statement: Those systems with pertinent positive or pertinent negative responses have been documented in the HPI. ROS Other: All systems not noted in ROS Statement are negative. Past Medical History Past Medical History: Cancer Additional Past Medical History / Comment(s): hodgkins lymphoma stage 4, last chemo 06/27/20, pt follows up with [facility] kidney stones History of Any Multi-Drug Resistant Organisms: None Reported Past Surgical History: Adenoidectomy, Appendectomy Past Anesthesia/Blood Transfusion Reactions: No Reported Reaction Past Psychological History: Depression Smoking Status: Former smoker Past Alcohol Use History: Occasional Past Drug Use History: Marijuana General Exam - General Exam Comments Initial Comments: Physical Exam GENERAL: Patient is well-developed, cancer patient Patient appears uncomfortable HENT: Normocephalic, Atraumatic EYES: PERRL, EOMI PULMONARY: Unlabored respirations. CARDIOVASCULAR: RRR Warm and well perfused extremities ABDOMEN: Non-distended SKIN: No rashes or bruising : Deferred NEUROLOGIC: Alert and oriented Normal speech Normal gait MUSCULOSKELETAL: Moving all extremities with no apparent injury PSYCHIATRIC: No SI/HI Limitations: no limitations Course Vital Signs 07/21/20 14:31 Temperature 98.0 F Pulse Rate 109 H Respiratory 18 Rate Blood Pressure 133/73 O2 Sat by Pulse 98 Oximetry Medical Decision Making - Medical Decision Making The patient was seen and evaluated history is obtained from the patient and review of medical record 24-year-old male who seems to be expecting chronic abdominal pain which is cyclical in nature and may be related to chemotherapy, we will treat patient's abdominal pain with IM Dilaudid, prescribed Rocky for home, patient will follow with oncology later this week Turned parameters were discussed patient was discharged home in stable condition Disposition Clinical Impression: Abdominal pain, Hodgkins lymphoma Disposition: HOME SELF-CARE Condition: Stable Additional Instructions: Follow up with Oncology and GI as planned Prescriptions: HYDROcodone/APAP 5-325MG [Rocky 5-325] 1 tab PO Q6HR PRN 3 Days #12 tab PRN Reason: Pain Is patient prescribed a controlled substance at d/c from ED?: No Referrals: None,Stated [Primary Care Provider] - 1-2 days
[2020-07-21] MEDS ORDERED: HYDROmorphone 2 MG/ML 1 ML SYRINGE IM STA (15:09)
== END 2020-07-21 15:38 | disposition home or self-care (01) ==
LOC: EC 14:27
DX: C85.90 Non-Hodgkin lymphoma, unspecified, unspecified site (principal); G89.29 Other chronic pain; R10.9 Unspecified abdominal pain; Z79.1 Long term (current) use of non-steroidal anti-inflammatories (NSAID); Z79.899 Other long term (current) drug therapy; Z87.442 Personal history of urinary calculi; Z87.891 Personal history of nicotine dependence; Z90.49 Acquired absence of other specified parts of digestive tract; F32.9 Major depressive disorder, single episode, unspecified
CPT/HCPCS: 96372; 99283

== ENCOUNTER 2020-11-15 13:25 | Inpatient (IN) | payer BC, OTHER ==
[2020-11-15] MEDS ORDERED: HYDROmorphone 0.5 MG/0.5 ML SYRINGE IVP STA ×3 (13:40→16:10)
[2020-11-15] MEDS ORDERED: SODIUM CHLORIDE 0.9% 1,000 ML IV STA (13:40)
[2020-11-15 14:27] LABS: Basophils # (A) 0.1 k/uL (0-0.2); Basophils % (A) 2 %; Eosinophils # (A) 0.1 k/uL (0-0.7); Eosinophils % (A) 4 %; HCT 35.9 % (39.0-53.0); HGB 12.6 gm/dL (13.0-17.5); Lymphocytes # (A) 0.8 k/uL (1.0-4.8); Lymphocytes % (A) 25 %; MCH 31.1 pg (25.0-35.0); MCHC 35.2 g/dL (31.0-37.0); MCV 88.2 fL (80.0-100.0); Mean Platelet Volume 6.8; Monocytes # (A) 0.1 k/uL (0-1.0); Monocytes % (A) 2 %; Neutrophils % (A) 64 %; Platelet Count 303 k/uL (150-450); RBC 4.07 m/uL (4.30-5.90); RDW 15.7 % (11.5-15.5); WBC 3.2 k/uL (3.8-10.6)
--- NOTE | 2020-11-15 14:36 | ED ---
General Adult HPI - General Source: patient, RN notes reviewed Mode of arrival: ambulatory Limitations: no limitations <Isaac Phillips P - Last Filed: 11/15/20 15:28> <Laine Hitchcock P - Last Filed: 11/15/20 17:25> - General Chief complaint: Abdominal Pain Stated complaint: Back/Abd Pain Time Seen by Provider: 11/15/20 13:30 - History of Present Illness Initial comments: 25-year-old male with a past medical history of Hodgkin's lymphoma stage IV presents to the emergency room for a chief complaint of abdominal pain. Patient reports that he has had right-sided abdominal pain for the past several days. Patient states he has had this abdominal pain before and it generally happens after his chemo infusions. States it feels exactly the same as before. He states that his oncologist the [facility] changed his chemo infusions. This reason and it went away for 2 months but now its back. Patient states his last chemo infusion was last Wednesday.Patient has no other complaints at this time including shortness of breath, chest pain, nausea or vomiting, headache, or visual changes. (Isaac Phillips) - Related Data Home Medications Medication Instructions Recorded Confirmed Benzonatate [Tessalon Perles] 100 mg PO TID PRN 06/04/20 11/15/20 Famotidine [Pepcid] 20 mg PO DAILY 06/04/20 11/15/20 hydrOXYzine pamoate [Vistaril] 50 mg PO Q6H PRN 06/04/20 11/15/20 ondansetron HCL [Zofran] 8 mg PO Q8H PRN 06/04/20 11/15/20 Sulfamethox-Tmp 800-160Mg [Bactrim 1 tab PO MOWEFR 11/15/20 11/15/20 DS 800-160 mg] Allergies Allergy/AdvReac Type Severity Reaction Status Date / Time No Known Allergies Allergy Verified 11/15/20 16:07 Review of Systems ROS Other: All systems not noted in ROS Statement are negative. <Isaac Phillips - Last Filed: 11/15/20 15:28> ROS Other: All systems not noted in ROS Statement are negative. <Laine Hitchcock P - Last Filed: 11/15/20 17:25> ROS Statement: Those systems with pertinent positive or pertinent negative responses have been documented in the HPI. Past Medical History Past Medical History: Cancer Additional Past Medical History / Comment(s): hodgkins lymphoma stage 4, last chemo November 08 2020, pt follows up with [facility] kidney stones History of Any Multi-Drug Resistant Organisms: None Reported Past Surgical History: Adenoidectomy, Appendectomy Past Anesthesia/Blood Transfusion Reactions: No Reported Reaction Past Psychological History: Depression Smoking Status: Former smoker Past Alcohol Use History: Occasional Past Drug Use History: Marijuana <Isaac Phillips P - Last Filed: 11/15/20 15:28> General Exam Limitations: no limitations General appearance: alert, in no apparent distress Head exam: Present: atraumatic, normocephalic, normal inspection Eye exam: Present: normal appearance, PERRL, EOMI. Absent: scleral icterus, conjunctival injection, periorbital swelling ENT exam: Present: normal exam, mucous membranes moist Neck exam: Present: normal inspection. Absent: tenderness, meningismus, lymphadenopathy Respiratory exam: Present: normal lung sounds bilaterally. Absent: respiratory distress, wheezes, rales, rhonchi, stridor Cardiovascular Exam: Present: regular rate, normal rhythm, normal heart sounds. Absent: systolic murmur, diastolic murmur, rubs, gallop, clicks GI/Abdominal exam: Present: soft, normal bowel sounds. Absent: distended, tenderness, guarding, rebound, rigid Back exam: Absent: CVA tenderness (R), CVA tenderness (L) <Isaac Phillips P - Last Filed: 11/15/20 15:28> Course Vital Signs 11/15/20 13:27 Temperature 98.5 F Pulse Rate 89 Respiratory 16 Rate Blood Pressure 120/62 O2 Sat by Pulse 98 Oximetry Medical Decision Making - Lab Data Result diagrams: 11/15/20 13:58 11/15/20 13:58 <Isaac Phillips P - Last Filed: 11/15/20 15:28> - Lab Data Result diagrams: 11/15/20 13:58 11/15/20 13:58 <Laine Hitchcock P - Last Filed: 11/15/20 17:25> - Medical Decision Making Vitals are stable. HPI physical exam is documented. Laboratory evaluation unremarkable aside from hematuria. Patient is more comfortable to her pain medications. I discussed hematuria with him and his mother, given his history of kidney stones they do prefer this be performed. CT was ordered. Care signed out to Dr. Hitchcock pending results. (Isaac Phillips) Patient care was signed out to me by Isaac, patient's CT results with evidence of an 8 mm UPJ stone with mild hydro-, patient has normal kidney function no signs of infection, these results were discussed with urology transitional living specialist Dr. fairchild who recommended giving the patient a dose of antibiotics admitted to medicine with nothing by mouth at midnight for possible cystoscopy tomorrow. Dr. Potter accepted the admission. (Laine Hitchcock) - Lab Data Lab Results 11/15/20 11/15/20 11/15/20 Range/Units 13:58 13:58 13:58 WBC 3.2 L (3.8-10.6) k/uL RBC 4.07 L (4.30-5.90) m/uL Hgb 12.6 L (13.0-17.5) gm/dL Hct 35.9 L (39.0-53.0) % MCV 88.2 (80.0-100.0) fL MCH 31.1 (25.0-35.0) pg MCHC 35.2 (31.0-37.0) g/dL RDW 15.7 H (11.5-15.5) % Plt Count 303 (150-450) k/uL MPV 6.8 Neutrophils % 64 % Lymphocytes % 25 % Monocytes % 2 % Eosinophils % 4 % Basophils % 2 % Neutrophils # 2.0 (1.3-7.7) k/uL Lymphocytes # 0.8 L (1.0-4.8) k/uL Monocytes # 0.1 (0-1.0) k/uL Eosinophils # 0.1 (0-0.7) k/uL Basophils # 0.1 (0-0.2) k/uL Sodium 138 (137-145) mmol/L Potassium 4.1 (3.5-5.1) mmol/L Chloride 102 (98-107) mmol/L Carbon Dioxide 27 (22-30) mmol/L Anion Gap 9 mmol/L BUN 13 (9-20) mg/dL Creatinine 0.68 (0.66-1.25) mg/dL Est GFR (CKD-EPI)AfAm >90 (>60 ml/min/1.73 sqM) Est GFR (CKD-EPI)NonAf >90 (>60 ml/min/1.73 sqM) Glucose 110 H (74-99) mg/dL Calcium 10.1 (8.4-10.2) mg/dL Total Bilirubin <0.1 L (0.2-1.3) mg/dL AST 22 (17-59) U/L ALT 27 (4-49) U/L Alkaline Phosphatase 57 (38-126) U/L Total Protein 7.1 (6.3-8.2) g/dL Albumin 4.5 (3.5-5.0) g/dL Amylase 41 (30-110) U/L Lipase 71 (23-300) U/L Urine Color Yellow Urine Appearance Clear (Clear) Urine pH 6.5 (5.0-8.0) Ur Specific [place] 1.023 (1.001-1.035) Urine Protein Trace H (Negative) Urine Glucose (UA) Negative (Negative) Urine Ketones Negative (Negative) Urine Blood Small H (Negative) Urine Nitrite Negative (Negative) Urine Bilirubin Negative (Negative) Urine Urobilinogen <2.0 (<2.0) mg/dL Ur Leukocyte Esterase Negative (Negative) Urine RBC 29 H (0-5) /hpf Urine WBC 1 (0-5) /hpf Urine Mucus Rare H (None) /hpf Disposition <Isaac Phillips P - Last Filed: 11/15/20 15:28> <Laine Hitchcock P - Last Filed: 11/15/20 17:25> Clinical Impression: Kidney stone Disposition: ADMITTED IP TO THIS [facility] Condition: Stable
[2020-11-15 14:37] LABS: Appearance,Urine Clear (Clear); Bilirubin,Urine Negative (Negative); Blood,Urine Small (Negative); Color,Urine Yellow; Glucose,Urine (UA) Negative (Negative); Ketones,Urine Negative (Negative); Leukocyte Esterase,Urine Negative (Negative); Mucus,Urine Rare /hpf; Nitrite,Urine Negative (Negative); PH, Urine 6.5 (5.0-8.0); Protein,Urine Trace (Negative); RBC,Urine 29 /hpf (0-5); Specific Gravity,Urine 1.023 (1.001-1.035); Urobilinogen,Urine <2.0 mg/dL (<2.0); WBC,Urine 1 /hpf (0-5)
[2020-11-15 14:46] LABS: ALT 27 U/L (4-49); AST 22 U/L (17-59); African American GFR (CKD) >90 (>60 ml/min/1.73 sqM); Albumin 4.5 g/dL (3.5-5.0); Alkaline Phosphatase 57 U/L (38-126); Amylase 41 U/L (30-110); Anion Gap 9 mmol/L; Blood Urea Nitrogen 13 mg/dL (9-20); Calcium 10.1 mg/dL (8.4-10.2); Carbon Dioxide 27 mmol/L (22-30); Chloride 102 mmol/L (98-107); Glucose 110 mg/dL (74-99); Lipase 71 U/L (23-300); Non-African American GFR(CKD) >90 (>60 ml/min/1.73 sqM); Potassium 4.1 mmol/L (3.5-5.1); Sodium 138 mmol/L (137-145); Total Bilirubin <0.1 mg/dL (0.2-1.3); Total Protein 7.1 g/dL (6.3-8.2)
--- NOTE | 2020-11-15 15:57 | CT ---
EXAMINATION TYPE: CT abdomen pelvis wo con DATE OF EXAM: 11/15/2020 COMPARISON: 07/20/2020 HISTORY: Right side flank pain and hematuria. History of Non-hodgkin's lymphoma. CT DLP: 984.3 mGycm Examination of the solid and hollow viscera is limited given the lack of contrast. FINDINGS: LUNG BASES: No evidence for nodule. No evidence for infiltrate. LIVER/GB: The gallbladder is unremarkable. No space-occupying hepatic lesion. PANCREAS: No pancreatic mass identified. No inflammatory process seen. SPLEEN: No evidence for splenomegaly. No intrasplenic lesions seen. ADRENALS: No adrenal nodules identified. No evidence for thickening. KIDNEYS: No evidence for renal mass. 8 mm right UPJ calculus resulting in mild hydronephrosis. Nonobs tructing 2 mm calculus lower pole left kidney. No hydronephrosis. BOWEL: Appendix has a normal appearance. No evidence of bowel obstruction. No inflammatory process. Lymph nodes: No evidence for adenopathy greater than 1 cm. Abdominal aorta: Atheromatous changes seen. No evidence for aneurysm. Genital organs: No significant abnormality. Other: No significant abnormality. IMPRESSION: 8 mm right UPJ calculus resulting in mild hydronephrosis.
[2020-11-15] MEDS ORDERED: KETOROLAC 15 MG/ML 1 ML VIAL IVP STA (16:10)
[2020-11-15] MEDS ORDERED: NALOXONE 0.4 MG/ML 1 ML VIAL IV PRN (16:26)
[2020-11-15] MEDS ORDERED: cefTRIAXone IN SWFI 1,000 MG/10 ML SYRINGE IVP STA (16:28)
[2020-11-15] MEDS: HYDROmorphone 0.5 MG/0.5 ML SYRINGE IVP PRN ×2 (18:47→21:46)
--- NOTE | 2020-11-15 21:19 | P.GSCN ---
History of Present Illness Consult date: 11/15/20 Reason for Consult: right flank pain History of present illness: This is a 25 yo male with hx of hodgkins lymphoma, currently receiving chemot [facility]rapy from [facility]. He presents to the ED with right sided flank pain with gross hematuria. Denies any dysuria, fever or chills. In ED he underwent a CT which showed evidence of 8 mm stone in the right UPJ. Of note he underwent a CT in 07/2020 which showed stone was present in the lower pole of right kidney. He has previous hx of stones which he passed spontaneously, but indicated that the stone was fairly small. Review of Systems - Constitutional Denies fever, Denies weight loss - Cardiovascular Denies chest pain, Denies shortness of breath - Respiratory Denies cough, Denies 7 - Gastrointestinal Reports abdominal pain - Genitourinary Reports hematuria, Denies flank pain Past Medical History Past Medical History: Cancer Additional Past Medical History / Comment(s): hodgkins lymphoma stage 4, last chemo November 08 2020, [facility] History of Any Multi-Drug Resistant Organisms: None Reported Past Surgical History: Adenoidectomy, Appendectomy Past Anesthesia/Blood Transfusion Reactions: No Reported Reaction Past Psychological History: Depression Smoking Status: Former smoker Past Alcohol Use History: Occasional Past Drug Use History: Marijuana Medications and Allergies Home Medications Medication Instructions Recorded Confirmed Type Benzonatate [Tessalon Perles] 100 mg PO TID PRN 06/04/20 11/15/20 History Famotidine [Pepcid] 20 mg PO DAILY 06/04/20 11/15/20 History hydrOXYzine pamoate [Vistaril] 50 mg PO Q6H PRN 06/04/20 11/15/20 History ondansetron HCL [Zofran] 8 mg PO Q8H PRN 06/04/20 11/15/20 History Sulfamethox-Tmp 800-160Mg [Bactrim 1 tab PO MOWEFR 11/15/20 11/15/20 History DS 800-160 mg] Allergies Allergy/AdvReac Type Severity Reaction Status Date / Time No Known Allergies Allergy Verified 11/15/20 16:07 Surgical - Exam Vital Signs Temp Pulse Resp BP Pulse Ox 98.5 F 89 16 120/62 98 11/15/20 13:27 11/15/20 13:27 11/15/20 13:27 11/15/20 13:27 11/15/20 13:27 - General well developed, well nourished, no distress, moderate pain - Eyes PERRL, normal ocular movement - ENT normal nares, normal mucosa - Respiratory normal expansion, normal respiratory effort - Psychiatric oriented to time, oriented to person, oriented to place Results - Labs 11/15/20 13:58 11/15/20 13:58 Abnormal Lab Results - Last 24 Hours (Table) 11/15/20 11/15/20 11/15/20 Range/Units 13:58 13:58 13:58 WBC 3.2 L (3.8-10.6) k/uL RBC 4.07 L (4.30-5.90) m/uL Hgb 12.6 L (13.0-17.5) gm/dL Hct 35.9 L (39.0-53.0) % RDW 15.7 H (11.5-15.5) % Lymphocytes # 0.8 L (1.0-4.8) k/uL Glucose 110 H (74-99) mg/dL Total Bilirubin <0.1 L (0.2-1.3) mg/dL Urine Protein Trace H (Negative) Urine Blood Small H (Negative) Urine RBC 29 H (0-5) /hpf Urine Mucus Rare H (None) /hpf Diabetes panel 11/15/20 Range/Units 13:58 Sodium 138 (137-145) mmol/L Potassium 4.1 (3.5-5.1) mmol/L Chloride 102 (98-107) mmol/L Carbon Dioxide 27 (22-30) mmol/L BUN 13 (9-20) mg/dL Creatinine 0.68 (0.66-1.25) mg/dL Glucose 110 H (74-99) mg/dL Calcium 10.1 (8.4-10.2) mg/dL AST 22 (17-59) U/L ALT 27 (4-49) U/L Alkaline Phosphatase 57 (38-126) U/L Total Protein 7.1 (6.3-8.2) g/dL Albumin 4.5 (3.5-5.0) g/dL Calcium panel 11/15/20 Range/Units 13:58 Calcium 10.1 (8.4-10.2) mg/dL Albumin 4.5 (3.5-5.0) g/dL Pituitary panel 11/15/20 Range/Units 13:58 Sodium 138 (137-145) mmol/L Potassium 4.1 (3.5-5.1) mmol/L Chloride 102 (98-107) mmol/L Carbon Dioxide 27 (22-30) mmol/L BUN 13 (9-20) mg/dL Creatinine 0.68 (0.66-1.25) mg/dL Glucose 110 H (74-99) mg/dL Calcium 10.1 (8.4-10.2) mg/dL Adrenal panel 11/15/20 Range/Units 13:58 Sodium 138 (137-145) mmol/L Potassium 4.1 (3.5-5.1) mmol/L Chloride 102 (98-107) mmol/L Carbon Dioxide 27 (22-30) mmol/L BUN 13 (9-20) mg/dL Creatinine 0.68 (0.66-1.25) mg/dL Glucose 110 H (74-99) mg/dL Calcium 10.1 (8.4-10.2) mg/dL Total Bilirubin <0.1 L (0.2-1.3) mg/dL AST 22 (17-59) U/L ALT 27 (4-49) U/L Alkaline Phosphatase 57 (38-126) U/L Total Protein 7.1 (6.3-8.2) g/dL Albumin 4.5 (3.5-5.0) g/dL - Imaging CT scan - abdomen: image reviewed (8 mm stone in right UPJ) Assessment and Plan Assessment: 25 yo male with Hx lymphoma on chemotherapy admitted to hospital with 8 mm right UPJ stone. Discussed with him given his symptoms, stone size and immunosuppresion recommend proceeding with surgical intervention for his stone. Discussed option of ureteral stent. Discussed this will help with his pain and address his hydronephrosis. Discussed risk of procedure which includes bleeding, infection and sepsis. Discussed he will need either ESWL or Ureteroscopy to address his stone in the future when he is off of his chemotherapy cycle -NPO past MN -OR tomorrow for right sided stent placement
[2020-11-15] MEDS: KETOROLAC 15 MG/ML 1 ML VIAL IVP PRN (21:47)
[2020-11-16] MEDS ORDERED: BENZONATATE 100 MG CAP PO PRN (00:08)
[2020-11-16] MEDS ORDERED: hydrOXYzine pamoate 25 MG CAP PO PRN (00:08)
--- NOTE | 2020-11-16 00:10 | P.HPIM ---
History of Present Illness H&P Date: 11/15/20 Chief Complaint: Right-sided abdominal pain Patient is a 25-year-old male with a known history of Hodgkin's lymphoma stage IV currently undergoing chemotherapy and last chemo was on 11/08/2020 and history of renal stones, depression and procedure smoking and occasional marij uana use presents to ER with complaints of abdominal pain. Abdominal pain mainly in the right lower quadrant. Patient has been having on and off pain for the past 1 week. Patient is on follow-up with oncologist at [facility]. Denied any complaints of fever or chills. Previous history of stones but passes spontaneously. No complaints of nausea vomiting or diarrhea. CT of abdomen pelvis showed 8mm right UPJ calculus resulting mild hydronephrosis. Laboratory data showed there was 2.3 hemoglobin 12.6 and platelets 303 And BUN 13 and creatinine 0.68 Review of Systems Constitutional: Patient denies any fever or chills . No generalized weakness or weight loss. Abdomen: Patient denied nausea vomiting and diarrhea. Right lower quadrant abdominal pain. Cardiovascular: Patient denies any chest pain or short of breath no palpitations . Respiratory: patient denied any cough is from production. No shortness of breath Neurologic: Patient denied any numbness or tingling headache. Musculoskeletal: Patient denies any complaints of joint swelling or deformity. Skin: Negative Psychiatric: Negative Endocrine: No heat or cold intolerance. No recent weight gain. Genitourinary: No dysuria or hematuria. All other 14 point ROS negative except the above Past Medical History Past Medical History: Cancer Additional Past Medical History / Comment(s): hodgkins lymphoma stage 4, last chemo November 08 2020, pt follows up with [facility] kidney stones History of Any Multi-Drug Resistant Organisms: None Reported Past Surgical History: Adenoidectomy, Appendectomy Past Anesthesia/Blood Transfusion Reactions: No Reported Reaction Past Psychological History: Depression Smoking Status: Former smoker Past Alcohol Use History: Occasional Past Drug Use History: Marijuana Medications and Allergies Home Medications Medication Instructions Recorded Confirmed Type Benzonatate [Tessalon Perles] 100 mg PO TID PRN 06/04/20 11/15/20 History Famotidine [Pepcid] 20 mg PO DAILY 06/04/20 11/15/20 History hydrOXYzine pamoate [Vistaril] 50 mg PO Q6H PRN 06/04/20 11/15/20 History ondansetron HCL [Zofran] 8 mg PO Q8H PRN 06/04/20 11/15/20 History Sulfamethox-Tmp 800-160Mg [Bactrim 1 tab PO MOWEFR 11/15/20 11/15/20 History DS 800-160 mg] Allergies Allergy/AdvReac Type Severity Reaction Status Date / Time No Known Allergies Allergy Verified 11/15/20 16:07 Physical Exam Vitals: Vital Signs Temp Pulse Pulse Resp BP BP Pulse Ox 11/15/20 19:35 97.9 F 71 18 112/72 98 11/15/20 18:44 73 18 127/61 99 11/15/20 13:27 98.5 F 89 16 120/62 98 Intake and Output 11/15/20 11/15/20 11/15/20 06:59 14:59 22:59 Other: Weight 106.594 kg PHYSICAL EXAMINATION: Patient is lying in the bed comfortably, no acute distress, awake alert and oriented.. HEENT: Normocephalic. Neck is supple. Pupils reactive. Nostrils clear. Oral cavity is moist. Neck reveals no JVD, carotid bruits, or thyromegaly. CHEST EXAMINATION: Trachea is central. Symmetrical expansion. Lung arora clear to auscultation and percussion. CARDIAC: Normal S1, S2 with no gallops. No murmurs ABDOMEN: Soft. Bowel sounds normal. No organomegaly. No abdominal bruits. Extremities: reveal no edema. No clubbing or cyanosis Neurologically awake, alert, oriented x3 with well-coordinated movements. No focal deficits noted Skin: No rash or skin lesions. Psychiatric: Coperative. Nonsuicidal Musculoskeletal: No joint swelling or deformity. Normal range of motion. Results CBC & Chem 7: 11/16/20 05:41 11/15/20 13:58 Labs: Abnormal Lab Results - Last 24 Hours (Table) 11/15/20 11/15/20 11/15/20 Range/Units 13:58 13:58 13:58 WBC 3.2 L (3.8-10.6) k/uL RBC 4.07 L (4.30-5.90) m/uL Hgb 12.6 L (13.0-17.5) gm/dL Hct 35.9 L (39.0-53.0) % RDW 15.7 H (11.5-15.5) % Lymphocytes # 0.8 L (1.0-4.8) k/uL Glucose 110 H (74-99) mg/dL Total Bilirubin <0.1 L (0.2-1.3) mg/dL Urine Protein Trace H (Negative) Urine Blood Small H (Negative) Urine RBC 29 H (0-5) /hpf Urine Mucus Rare H (None) /hpf Thrombosis Risk Factor Assmnt - DVT/VTE Prophylaxis DVT/VTE Prophylaxis: Pharmacologic Prophylaxis ordered Assessment and Plan Assessment: Right lower quadrant abdominal pain secondary to 8 mm UPJ calculus with mild hydronephrosis. Previous history of stones with spontaneous passage Hodgkin's lymphoma stage IV Neutropenia and anemia secondary to chemotherapy DVT prophylaxis plan: Patient will be continued on IV hydration and pain management. Urology was con sulted and is planning for cystoscopy and stent placement tomorrow. Continue to follow closely. Monitor CBC.
[2020-11-16] MEDS: HYDROmorphone 0.5 MG/0.5 ML SYRINGE IVP PRN ×4 (01:17→12:12)
[2020-11-16] MEDS: SODIUM CHLORIDE 0.9% 1,000 ML IV SCH ×2 (01:17→15:04)
[2020-11-16] MEDS: KETOROLAC 15 MG/ML 1 ML VIAL IVP PRN ×2 (03:59→11:37)
[2020-11-16 06:25] LABS: Basophils # (A) 0.1 k/uL (0-0.2); Basophils % (A) 2 %; Eosinophils # (A) 0.1 k/uL (0-0.7); Eosinophils % (A) 5 %; HCT 34.3 % (39.0-53.0); Lymphocytes # (A) 0.8 k/uL (1.0-4.8); Lymphocytes % (A) 33 %; MCH 31.2 pg (25.0-35.0); MCHC 34.9 g/dL (31.0-37.0); MCV 89.5 fL (80.0-100.0); Mean Platelet Volume 6.7; Monocytes # (A) 0.1 k/uL (0-1.0); Monocytes % (A) 3 %; Neutrophils # (A) 1.3 k/uL (1.3-7.7); Neutrophils % (A) 53 %; Platelet Count 261 k/uL (150-450); RBC 3.84 m/uL (4.30-5.90); RDW 15.8 % (11.5-15.5); WBC 2.6 k/uL (3.8-10.6)
[2020-11-16] MEDS ORDERED: FAMOTIDINE 20 MG TAB PO SCH (09:00)
--- NOTE | 2020-11-16 09:20 | P.PN ---
Subjective Progress Note Date: 11/16/20 No acute overnight events, still having flank pain this morning Objective - Vital Signs Vital signs: Vital Signs Temp 97.5 F L 11/16/20 04:40 Pulse 71 11/16/20 04:40 Resp 20 11/16/20 04:40 BP 104/62 11/16/20 04:40 Pulse Ox 99 11/16/20 04:40 Intake & Output 11/15/20 11/16/20 11/16/20 18:59 06:59 18:59 Intake Total 300 Balance 300 Weight 106.594 kg 106.594 kg Intake: Oral 300 Other: Voiding Method Toilet Toilet # Voids 2 - Constitutional General appearance: Present: no acute distress - EENT ENT: Present: hearing grossly normal - Gastrointestinal General gastrointestinal: Present: soft. Absent: distended, tenderness - Labs CBC & Chem 7: 11/16/20 05:41 11/15/20 13:58 Labs: Abnormal Lab Results - Last 24 Hours (Table) 11/15/20 11/15/20 11/15/20 Range/Units 13:58 13:58 13:58 WBC 3.2 L (3.8-10.6) k/uL RBC 4.07 L (4.30-5.90) m/uL Hgb 12.6 L (13.0-17.5) gm/dL Hct 35.9 L (39.0-53.0) % RDW 15.7 H (11.5-15.5) % Lymphocytes # 0.8 L (1.0-4.8) k/uL Glucose 110 H (74-99) mg/dL Total Bilirubin <0.1 L (0.2-1.3) mg/dL Urine Protein Trace H (Negative) Urine Blood Small H (Negative) Urine RBC 29 H (0-5) /hpf Urine Mucus Rare H (None) /hpf 11/16/20 Range/Units 05:41 WBC 2.6 L (3.8-10.6) k/uL RBC 3.84 L (4.30-5.90) m/uL Hgb 12.0 L (13.0-17.5) gm/dL Hct 34.3 L (39.0-53.0) % RDW 15.8 H (11.5-15.5) % Lymphocytes # 0.8 L (1.0-4.8) k/uL Glucose (74-99) mg/dL Total Bilirubin (0.2-1.3) mg/dL Urine Protein (Negative) Urine Blood (Negative) Urine RBC (0-5) /hpf Urine Mucus (None) /hpf Assessment and Plan Assessment: 25 yo male with Hx lymphoma on chemotherapy admitted to hospital with 8 mm right UPJ stone. Discussed with him given his symptoms, stone size and immunos uppresion recommend proceeding with surgical intervention for his stone. Discussed option of ureteral stent. Discussed this will help with his pain and address his hydronephrosis. Discussed risk of procedure which includes bleeding, infection and sepsis. Discussed he will need either ESWL or Ureteroscopy to address his stone in the future when he is off of his chemotherapy cycle -OR today for right sided stent placement, okay for discharge from urology standpoint if hemodynamically stable following surgery.
[2020-11-16] MEDS ORDERED: fentaNYL (PF) 50 MCG/ML 2 ML AMP ONE (09:54)
[2020-11-16] MEDS ORDERED: KETAMINE 10 MG/ML 20 ML VIAL ONE (09:54)
[2020-11-16] MEDS ORDERED: MIDAZOLAM 2 MG/2 ML VIAL ONE (09:54)
[2020-11-16] MEDS ORDERED: PROPOFOL 10 MG/ML 20 ML VIAL IV ONE (09:54)
[2020-11-16] MEDS ORDERED: SODIUM CHLORIDE 0.9% 1,000 ML IV ONE ×2 (09:59→10:36)
[2020-11-16 10:15] LABS: BUN/Creat Ratio 21.43 Ratio (12.00-20.00); Calcium 8.9 mg/dL (8.7-10.3); Non-African American GFR(CKD) 131.2 (60.0-200.0); Potassium 4.3 mmol/L (3.5-5.5)
--- NOTE | 2020-11-16 10:20 | P.OP ---
Date of Procedure: 11/16/20 Preoperative Diagnosis: Right ureteral stone Postoperative Diagnosis: Same Procedure(s) Performed: Cystoscopy and right stent placement Implants: 4.8 x 26 cm stent Anesthesia: RONA Surgeon: Anthony Das Estimated Blood Loss (ml): 5 Pathology: none sent Condition: stable Disposition: PACU Indications for Procedure: 25 yo male with Hx lymphoma on chemotherapy admitted to hospital with 8 mm right UPJ stone. Discussed with him given his symptoms, stone size and immunosuppresion recommend proceeding with surgical intervention for his stone. Discussed option of ureteral stent. Discussed this will help with his pain and address his hydronephrosis. Discussed risk of procedure which includes bleeding, infection and sepsis. Discussed he will need either ESWL or Ureteroscopy to address his stone in the future when he is off of his chemotherapy cycle Description of Procedure: She was brought to the operating room, anesthesia was induced. He was prepped and draped in sterile fashion a placement dorsal lithotomy position. Cystoscopy fitted with a 2[place] sheath was inserted per urethra, cystoscopy was performed showed no abnormality within the bladder. Fluoroscopy was performed showed a radiopaque stones. Attention was then carried to the right ureteral orifice which was intubated with a sensor wire. Ureteral stent was passed over the wire, the proximal curl was visualized on fluoroscopy and distal curl was visu alized using cystoscope. Bladder was emptied and the end of the case. Patient tolerated procedure well was taken to PACU in stable condition
[2020-11-16] MEDS ORDERED: HYDROmorphone 0.5 MG/0.5 ML SYRINGE IVP STA (13:05)
[2020-11-16 13:55] VITALS: BP 110/62; PULSE 76; RESP 18; TEMP 97
[2020-11-16] MEDS ORDERED: ONDANSETRON 4 MG/2 ML VIAL IVP PRN (15:12)
--- NOTE | 2020-11-16 15:40 | FL ---
EXAMINATION TYPE: FL guidance operating room DATE OF EXAM: 11/16/2020 FLUOROSCOPY Fluoroscopy time of 7 seconds was used during right stent insertion. 1 image/s document/s the proced ure.
[2020-11-18] MEDS ORDERED: SULFAMETHOX-TMP 800-160MG 1 EACH TAB PO SCH (09:00)
== END 2020-11-16 16:39 | disposition home or self-care (01) | DRG 660 ==
LOC: EC 13:25 → 5NMEDONC 16:26 → OBSVTOIN 11-16 08:02
PROVIDERS: ADMIT Internal Medicine; ATTEND Internal Medicine
PROC: 0T768DZ Dilation of Right Ureter with Intraluminal Device, Via Natural or Artificial Opening Endoscopic (ICD-10-PCS; principal; 2020-11-16 09:30)
DX: N13.2 Hydronephrosis with renal and ureteral calculous obstruction (principal); C81.70 Other Hodgkin lymphoma, unspecified site; R31.0 Gross hematuria; T45.1X5A Adverse effect of antineoplastic and immunosuppressive drugs, initial encounter; D64.81 Anemia due to antineoplastic chemotherapy; D70.1 Agranulocytosis secondary to cancer chemotherapy; F32.9 Major depressive disorder, single episode, unspecified; Z90.49 Acquired absence of other specified parts of digestive tract; Z87.442 Personal history of urinary calculi; Z87.891 Personal history of nicotine dependence; Z79.899 Other long term (current) drug therapy
CPT/HCPCS: 36415; 74176; 80048; 80053; 81001; 82150; 83690; 85025; 96361; 96374; 96375; 96376; 99285

== ENCOUNTER 2020-11-20 | Emergency (ER) | payer BC, OTHER | END 2020-11-20 22:17 | disposition home or self-care (01) | CPT/HCPCS: 36415; 74018; 80053; 81001; 83605; 83690; 85025; 96374; 96375; 96376; 99284 ==

== ENCOUNTER 2020-11-23 17:25 | Emergency (ER) | payer BC, OTHER ==
[2020-11-23 17:40] VITALS: RESP 16; TEMP 98.4
[2020-11-23] MEDS ORDERED: SODIUM CHLORIDE 0.9% 1,000 ML IV STA (17:54)
[2020-11-23] MEDS ORDERED: KETOROLAC 15 MG/ML 1 ML VIAL IVP STA (17:54)
[2020-11-23 18:39] LABS: Anisocytosis Slight; Basophils % (A) 2 %; Eosinophils # (A) 0.1 k/uL (0-0.7); Eosinophils % (A) 5 %; HCT 33.8 % (39.0-53.0); HGB 12.3 gm/dL (13.0-17.5); Lymphocytes # (A) 0.7 k/uL (1.0-4.8); Lymphocytes % (A) 32 %; MCH 32.1 pg (25.0-35.0); MCHC 36.3 g/dL (31.0-37.0); MCV 88.6 fL (80.0-100.0); Mean Platelet Volume 6.9; Monocytes # (A) 0.4 k/uL (0-1.0); Monocytes % (A) 15 %; Neutrophils % (A) 44 %; Platelet Count 216 k/uL (150-450); RBC 3.82 m/uL (4.30-5.90); RDW 16.6 % (11.5-15.5); WBC 2.3 k/uL (3.8-10.6)
[2020-11-23] MEDS ORDERED: MORPHINE SULFATE 4 MG/ML SYRINGE IVP STA (18:49)
[2020-11-23 18:51] LABS: ALT 23 U/L (4-49); AST 22 U/L (17-59); African American GFR (CKD) >90 (>60 ml/min/1.73 sqM); Albumin 4.6 g/dL (3.5-5.0); Alkaline Phosphatase 47 U/L (38-126); Amylase 48 U/L (30-110); Anion Gap 10 mmol/L; Blood Urea Nitrogen 20 mg/dL (9-20); Calcium 9.6 mg/dL (8.4-10.2); Carbon Dioxide 26 mmol/L (22-30); Chloride 103 mmol/L (98-107); Glucose 116 mg/dL (74-99); Lipase 68 U/L (23-300); Non-African American GFR(CKD) >90 (>60 ml/min/1.73 sqM); Potassium 3.4 mmol/L (3.5-5.1); Sodium 139 mmol/L (137-145); Total Bilirubin 0.6 mg/dL (0.2-1.3); Total Protein 6.9 g/dL (6.3-8.2)
[2020-11-23 18:56] LABS: Appearance,Urine Turbid (Clear); Bilirubin,Urine Negative (Negative); Blood,Urine Large (Negative); Color,Urine Red; Glucose,Urine (UA) Negative (Negative); Ketones,Urine Negative (Negative); Leukocyte Esterase,Urine Small (Negative); Mucus,Urine Rare /hpf; Nitrite,Urine Negative (Negative); Protein,Urine 2+ (Negative); RBC,Urine >182 /hpf (0-5); Specific Gravity,Urine 1.023 (1.001-1.035); Urobilinogen,Urine <2.0 mg/dL (<2.0); WBC,Urine 21 /hpf (0-5)
--- NOTE | 2020-11-23 19:32 | XR ---
EXAM: Abdomen radiograph. HISTORY: Pain. TECHNIQUE: Upright AP view. COMPARISON: 2020. FINDINGS: There are nondilated bowel loops with a nonobstructive pattern. There are no pathologic calcification s. No acute osseous abnormality seen. There is stable right ureteral stent. IMPRESSION: No acute process. Stable right ureteral stent.
--- NOTE | 2020-11-23 19:40 | ED ---
Abdominal Pain HPI - General Chief Complaint: Abdominal Pain Stated Complaint: kidney stone Time Seen by Provider: 11/23/20 17:44 Source: patient, RN notes reviewed Mode of arrival: wheelchair Limitations: no limitations - History of Present Illness Initial Comments: Patient is a 25-year-old male that presents to the emergency department complaining of right-sided abdominal pain. He notes he does have an 8 mm renal stone. He notes that they put a stent in. Heis undergoing cancer treatment at this time. He noted that he was dealing entirely with the pain but they noted that he was getting some hematuria over the last several days. He noted that his pain while in bed during exam and interview is approximately a 6-7 out of 10. He denied any other symptoms or complaints. He denied any chest pain short headache nausea vomiting diarrhea constipation fever fatigue chills. - Related Data Home Medications Medication Instructions Recorded Confirmed Benzonatate [Tessalon Perles] 100 mg PO TID PRN 06/04/20 11/15/20 Famotidine [Pepcid] 20 mg PO DAILY 06/04/20 11/15/20 hydrOXYzine pamoate [Vistaril] 50 mg PO Q6H PRN 06/04/20 11/15/20 ondansetron HCL [Zofran] 8 mg PO Q8H PRN 06/04/20 11/15/20 Sulfamethox-Tmp 800-160Mg [Bactrim 1 tab PO MOWEFR 11/15/20 11/15/20 DS 800-160 mg] Previous Rx's Medication Instructions Recorded HYDROcodone/APAP 5-325MG [[place] 1 tab PO Q6HR PRN 3 Days #12 tab 11/16/20 5-325] Ibuprofen 600 mg PO Q8H PRN #20 tab 11/16/20 Sulfamethox-Tmp 800-160Mg [Bactrim 1 tab PO Q12HR #6 tab 11/16/20 DS 800-160 mg] Hydrocodone/Acetaminophen [[place] 1 tab PO Q6HR PRN 3 Days #12 tab 11/20/20 7.5-325] Oxybutynin Chloride [Ditropan XL] 5 mg PO DAILY #14 tab 11/20/20 Ibuprofen [Motrin] 800 mg PO Q6HR #30 tab 11/23/20 Allergies Allergy/AdvReac Type Severity Reaction Status Date / Time No Known Allergies Allergy Verified 11/23/20 17:40 Review of Systems ROS Statement: Those systems with pertinent positive or pertinent negative responses have been documented in the HPI. ROS Other: All systems not noted in ROS Statement are negative. Past Medical History Past Medical History: Cancer Additional Past Medical History / Comment(s): hodgkins lymphoma stage 4, last chemo November 08 2020, pt follows up with [facility] kidney stones History of Any Multi-Drug Resistant Organisms: None Reported Past Surgical History: Appendectomy Past Anesthesia/Blood Transfusion Reactions: No Reported Reaction Past Psychological History: Depression Smoking Status: Former smoker Past Alcohol Use History: Occasional Past Drug Use History: Marijuana General Exam Limitations: no limitations General appearance: alert, in no apparent distress Head exam: Present: atraumatic, normocephalic, normal inspection Eye exam: Present: normal appearance, PERRL, EOMI. Absent: scleral icterus, conjunctival injection, periorbital swelling Neck exam: Present: normal inspection Respiratory exam: Present: normal lung sounds bilaterally. Absent: respiratory distress, wheezes, rales, rhonchi, stridor Cardiovascular Exam: Present: regular rate, normal rhythm, normal heart sounds. Absent: systolic murmur, diastolic murmur, rubs, gallop, clicks GI/Abdominal exam: Present: soft, normal bowel sounds. Absent: distended, tenderness, guarding, rebound, rigid Extremities exam: Present: normal inspection, full ROM, normal capillary refill. Absent: tenderness, pedal edema, joint swelling, calf tenderness Neurological exam: Present: alert, oriented X3 Psychiatric exam: Present: normal affect, normal mood Skin exam: Present: warm, dry, intact, normal color. Absent: rash Course Vital Signs 11/23/20 17:35 Temperature 98.4 F Pulse Rate 75 Respiratory 16 Rate Blood Pressure 95/51 O2 Sat by Pulse 100 Oximetry Medical Decision Making - Medical Decision Making 25-year-old male with a history of right-sided kidney stone and stent placement complaining of right-sided abdominal pain with some hematuria area Labs, KUB, 15 mg of Toradol, 1 L normal saline ordered. Labs unremarkable. Urinalysis shows high levels of red blood cells moderate white blood cells. KUB shows stable right ureter stent. 4 mg of morphine ordered due to continuing pain. Case discussed with Dr. Joy - Lab Data Result diagrams: 11/23/20 18:25 11/23/20 18:25 Lab Results 11/23/20 11/23/20 11/23/20 Range/Units 18:25 18:25 18:25 WBC 2.3 L (3.8-10.6) k/uL RBC 3.82 L (4.30-5.90) m/uL Hgb 12.3 L (13.0-17.5) gm/dL Hct 33.8 L (39.0-53.0) % MCV 88.6 (80.0-100.0) fL MCH 32.1 (25.0-35.0) pg MCHC 36.3 (31.0-37.0) g/dL RDW 16.6 H (11.5-15.5) % Plt Count 216 (150-450) k/uL MPV 6.9 Neutrophils % 44 % Lymphocytes % 32 % Monocytes % 15 % Eosinophils % 5 % Basophils % 2 % Neutrophils # 1.0 L (1.3-7.7) k/uL Lymphocytes # 0.7 L (1.0-4.8) k/uL Monocytes # 0.4 (0-1.0) k/uL Eosinophils # 0.1 (0-0.7) k/uL Basophils # 0.0 (0-0.2) k/uL Anisocytosis Slight Sodium 139 (137-145) mmol/L Potassium 3.4 L (3.5-5.1) mmol/L Chloride 103 (98-107) mmol/L Carbon Dioxide 26 (22-30) mmol/L Anion Gap 10 mmol/L BUN 20 (9-20) mg/dL Creatinine 0.77 (0.66-1.25) mg/dL Est GFR (CKD-EPI)AfAm >90 (>60 ml/min/1.73 sqM) Est GFR (CKD-EPI)NonAf >90 (>60 ml/min/1.73 sqM) Glucose 116 H (74-99) mg/dL Calcium 9.6 (8.4-10.2) mg/dL Total Bilirubin 0.6 (0.2-1.3) mg/dL AST 22 (17-59) U/L ALT 23 (4-49) U/L Alkaline Phosphatase 47 (38-126) U/L Total Protein 6.9 (6.3-8.2) g/dL Albumin 4.6 (3.5-5.0) g/dL Amylase 48 (30-110) U/L Lipase 68 (23-300) U/L Urine Color Red Urine Appearance Turbid (Clear) Urine pH 6.0 (5.0-8.0) Ur Specific [place] 1.023 (1.001-1.035) Urine Protein 2+ H (Negative) Urine Glucose (UA) Negative (Negative) Urine Ketones Negative (Negative) Urine Blood Large H (Negative) Urine Nitrite Negative (Negative) Urine Bilirubin Negative (Negative) Urine Urobilinogen <2.0 (<2.0) mg/dL Ur Leukocyte Esterase Small H (Negative) Urine RBC >182 H (0-5) /hpf Urine WBC 21 H (0-5) /hpf Urine Mucus Rare H (None) /hpf Disposition Clinical Impression: Kidney stone on right side, Right flank pain Disposition: HOME SELF-CARE Condition: Stable Instructions (If sedation given, give patient instructions): Abdominal Pain (ED) Additional Instructions: Please return to the Emergency Department if symptoms worsen or any other concerns. Follow-up with primary care and oncologist in the next several days. Take Motrin and other at home pain medications as prescribed. Increase oral fluids. Prescriptions: Ibuprofen [Motrin] 800 mg PO Q6HR #30 tab Is patient prescribed a controlled substance at d/c from ED?: No Referrals: Nonstaff,Physician [Primary Care Provider] - 1-2 days Time of Disposition: 20:05
[2020-11-23] MEDS ORDERED: HYDROmorphone 1 MG/ML 1 ML SYRINGE IVP STA (20:01)
[2020-11-23 20:13] VITALS: BP 120/42; PULSE 57
== END 2020-11-23 20:18 | disposition home or self-care (01) ==
LOC: EC 17:25
DX: N20.0 Calculus of kidney (principal); F32.9 Major depressive disorder, single episode, unspecified; F12.90 Cannabis use, unspecified, uncomplicated; Z85.71 Personal history of Hodgkin lymphoma; Z87.891 Personal history of nicotine dependence; Z79.1 Long term (current) use of non-steroidal anti-inflammatories (NSAID); Z96.0 Presence of urogenital implants
CPT/HCPCS: 36415; 80053; 82150; 83690; 85025; 81001; 87086; 74018; 99284; 96374; 96375 ×2; J2270; J1170; J1885

== ENCOUNTER 2020-11-25 05:15 | Inpatient (IN) | payer BC, OTHER ==
[2020-11-25] MEDS ORDERED: ONDANSETRON 4 MG/2 ML VIAL IVP STA (05:26)
[2020-11-25] MEDS ORDERED: KETOROLAC 15 MG/ML 1 ML VIAL IVP STA (05:26)
[2020-11-25] MEDS ORDERED: SODIUM CHLORIDE 0.9% 500 ML 500 ML IV STA (05:26)
[2020-11-25] MEDS ORDERED: HYDROmorphone 1 MG/ML 1 ML SYRINGE IVP STA ×2 (05:26→07:03)
[2020-11-25] MEDS ORDERED: SODIUM CHLORIDE 0.9% 1,000 ML IV STA ×2 (05:26)
--- NOTE | 2020-11-25 05:29 | ED ---
Recheck HPI - General Chief Complaint: Abdominal Pain Stated Complaint: poss kidney stone Time Seen by Provider: 11/25/20 05:22 Source: patient, RN notes reviewed, old records reviewed Mode of arrival: wheelchair Limitations: no limitations - History of Present Illness Initial Comments: This is a 25-year-old male for recurrent pain evaluation. Patient presents for pain in regards to kidney stone. Patient had recent stent placement still having severe pain. Patient states the pain is along severe arrest no other known issue or cause of pain. Patient is without fever. Patient is currently on chemotherapy which is why he has not had procedure regards to significant kidney stones MD Complaint: other (more pain) -: days(s) Returns Today for: persistent/worsening pain related to initial visit Symptoms Since Prior Visit: worsening pain Associated Symptoms: abdominal pain Treatments Prior to Arrival: Given Pain Meds on - Related Data Home Medications Medication Instructions Recorded Confirmed Benzonatate [Tessalon Perles] 100 mg PO TID PRN 06/04/20 11/25/20 Famotidine [Pepcid] 20 mg PO DAILY 06/04/20 11/25/20 hydrOXYzine pamoate [Vistaril] 50 mg PO Q6H PRN 06/04/20 11/25/20 ondansetron HCL [Zofran] 8 mg PO Q8H PRN 06/04/20 11/25/20 Sulfamethox-Tmp 800-160Mg [Bactrim 1 tab PO MOWEFR 11/15/20 11/25/20 DS 800-160 mg] Ibuprofen [Motrin] 800 mg PO Q6HR PRN 11/25/20 11/25/20 Previous Rx's Medication Instructions Recorded Hydrocodone/Acetaminophen [[place] 1 tab PO Q6HR PRN 3 Days #12 tab 11/20/20 7.5-325] Oxybutynin Chloride [Ditropan XL] 5 mg PO DAILY #14 tab 11/20/20 HYDROcodone/APAP 5-325MG [[place] 1 tab PO Q6HR PRN #12 tab 11/27/20 5-325] HYDROcodone/APAP 5-325MG [[place] 1 tab PO Q4HR PRN 3 Days #18 tab 11/29/20 5-325] Tamsulosin [Flomax] 0.4 mg PO DAILY #14 cap 11/29/20 Ciprofloxacin HCl [Cipro] 750 mg PO Q12H 7 Days #14 tab 11/30/20 Dicyclomine [Bentyl] 20 mg PO QID PRN #15 tablet 11/30/20 Allergies Allergy/AdvReac Type Severity Reaction Status Date / Time No Known Allergies Allergy Verified 11/30/20 07:16 Review of Systems ROS Statement: Those systems with pertinent positive or pertinent negative responses have been documented in the HPI. ROS Other: All systems not noted in ROS Statement are negative. Past Medical History Past Medical History: Cancer Additional Past Medical History / Comment(s): hodgkins lymphoma stage 4, last chemo November 08 2020, pt follows up with [facility] kidney stones History of Any Multi-Drug Resistant Organisms: None Reported Past Surgical History: Appendectomy Past Anesthesia/Blood Transfusion Reactions: No Reported Reaction Past Psychological History: Depression Smoking Status: Former smoker Past Alcohol Use History: Occasional Past Drug Use History: Marijuana - Past Family History Mother Additional Family Medical History / Comment(s): Heart murmur, Cyst on Ovary, Appendectomy Father Family Medical History: Hypertension General Exam General appearance: anxious Head exam: Present: atraumatic, normocephalic, normal inspection Eye exam: Present: normal appearance, PERRL, EOMI. Absent: scleral icterus, con junctival injection, periorbital swelling ENT exam: Present: normal exam, mucous membranes moist Neck exam: Present: normal inspection. Absent: tenderness, meningismus, lymphadenopathy Respiratory exam: Present: normal lung sounds bilaterally. Absent: respiratory distress, wheezes, rales, rhonchi, stridor Cardiovascular Exam: Present: regular rate, normal rhythm, normal heart sounds. Absent: systolic murmur, diastolic murmur, rubs, gallop, clicks GI/Abdominal exam: Present: soft, normal bowel sounds. Absent: distended, tenderness, guarding, rebound, rigid Extremities exam: Present: normal inspection, full ROM, normal capillary refill. Absent: tenderness, pedal edema, joint swelling, calf tenderness Back exam: Present: normal inspection Neurological exam: Present: alert, oriented X3, CN II-XII intact Psychiatric exam: Present: normal affect, normal mood Skin exam: Present: warm, dry, intact, normal color. Absent: rash Course Vital Signs 11/25/20 11/25/20 05:16 10:46 Temperature 98 F 98.0 F Pulse Rate 71 70 Respiratory 18 18 Rate Blood Pressure 146/80 115/44 O2 Sat by Pulse 98 100 Oximetry - Reevaluation(s) Reevaluation #1: Medical records reviewed Patient is in intractable pain Patient will be admitted for pain control and urology to evaluate - Consultations Consultation #1: Spoke with urologist will attempt to get ahold of patient's oncologist regards to possibility of performing procedure Medical Decision Making - Medical Decision Making 25 male to be admitted for pain control, reevaluation by urology regarding kidney stones - Lab Data Result diagrams: 11/26/20 05:32 11/26/20 05:32 Lab Results 11/25/20 11/25/20 11/25/20 Range/Units 05:49 05:49 05:49 WBC 2.0 L (3.8-10.6) k/uL RBC 3.82 L (4.30-5.90) m/uL Hgb 12.3 L (13.0-17.5) gm/dL Hct 33.6 L (39.0-53.0) % MCV 88.0 (80.0-100.0) fL MCH 32.1 (25.0-35.0) pg MCHC 36.5 (31.0-37.0) g/dL RDW 16.0 H (11.5-15.5) % Plt Count 204 (150-450) k/uL MPV 7.0 Neutrophils % 61 % Neutrophils % (Manual) % Band Neuts % (Manual) % Lymphocytes % 23 % Lymphocytes % (Manual) % Monocytes % 5 % Monocytes % (Manual) % Eosinophils % 7 % Eosinophils % (Manual) % Basophils % 2 % Neutrophils # 1.2 L (1.3-7.7) k/uL Neutrophils # (Manual) (1.3-7.7) k/uL Lymphocytes # 0.5 L (1.0-4.8) k/uL Lymphocytes # (Manual) (1.0-4.8) k/uL Monocytes # 0.1 (0-1.0) k/uL Monocytes # (Manual) (0-1.0) k/uL Eosinophils # 0.2 (0-0.7) k/uL Eosinophils # (Manual) (0-0.7) k/uL Basophils # 0.0 (0-0.2) k/uL Nucleated RBCs (0-0) /100 WBC Manual Slide Review Anisocytosis Slight Sodium 137 (137-145) mmol/L Potassium 3.6 (3.5-5.1) mmol/L Chloride 104 (98-107) mmol/L Carbon Dioxide 25 (22-30) mmol/L Anion Gap 8 mmol/L BUN 16 (9-20) mg/dL Creatinine 0.59 L (0.66-1.25) mg/dL Est GFR (CKD-EPI)AfAm >90 (>60 ml/min/1.73 sqM) Est GFR (CKD-EPI)NonAf >90 (>60 ml/min/1.73 sqM) BUN/Creatinine Ratio (12.00-20.00) Ratio Glucose 103 H (74-99) mg/dL Plasma Lactic Acid Jim (0.7-2.0) mmol/L Calcium 9.1 (8.4-10.2) mg/dL Total Bilirubin 0.5 (0.2-1.3) mg/dL AST 17 (17-59) U/L ALT 20 (4-49) U/L Alkaline Phosphatase 46 (38-126) U/L Total Protein 6.6 (6.3-8.2) g/dL Albumin 4.2 (3.5-5.0) g/dL Globulin (1.6-3.3) g/dL Albumin/Globulin Ratio (1.60-3.17) g/dL Amylase 37 (30-110) U/L Lipase 60 (23-300) U/L Urine Color Red Urine Appearance Turbid (Clear) Urine pH 6.0 (5.0-8.0) Ur Specific [place] 1.023 (1.001-1.035) Urine Protein 2+ H (Negative) Urine Glucose (UA) Negative (Negative) Urine Ketones Negative (Negative) Urine Blood Large H (Negative) Urine Nitrite Negative (Negative) Urine Bilirubin Negative (Negative) Urine Urobilinogen <2.0 (<2.0) mg/dL Ur Leukocyte Esterase Trace H (Negative) Urine RBC >182 H (0-5) /hpf Urine WBC 9 H (0-5) /hpf Urine Bacteria Rare H (None) /hpf Urine Mucus Few H (None) /hpf 11/25/20 11/26/20 11/26/20 Range/Units 05:49 05:32 05:32 WBC 1.4 L* (3.8-10.6) k/uL RBC 3.82 L (4.30-5.90) m/uL Hgb 11.6 L (13.0-17.5) gm/dL Hct 34.2 L (39.0-53.0) % MCV 89.4 (80.0-100.0) fL MCH 30.5 (25.0-35.0) pg MCHC 34.1 (31.0-37.0) g/dL RDW 16.4 H (11.5-15.5) % Plt Count 185 (150-450) k/uL MPV 6.9 Neutrophils % % Neutrophils % (Manual) 44 % Band Neuts % (Manual) 1 % Lymphocytes % % Lymphocytes % (Manual) 40 % Monocytes % % Monocytes % (Manual) 9 % Eosinophils % % Eosinophils % (Manual) 7 % Basophils % % Neutrophils # (1.3-7.7) k/uL Neutrophils # (Manual) 0.60 L (1.3-7.7) k/uL Lymphocytes # (1.0-4.8) k/uL Lymphocytes # (Manual) 0.56 L (1.0-4.8) k/uL Monocytes # (0-1.0) k/uL Monocytes # (Manual) 0.13 (0-1.0) k/uL Eosinophils # (0-0.7) k/uL Eosinophils # (Manual) 0.10 (0-0.7) k/uL Basophils # (0-0.2) k/uL Nucleated RBCs 0 (0-0) /100 WBC Manual Slide Review Performed Anisocytosis Slight Sodium 139 (137-145) mmol/L Potassium 3.8 (3.5-5.1) mmol/L Chloride 107 (98-107) mmol/L Carbon Dioxide 25.7 (22-30) mmol/L Anion Gap 6.30 mmol/L BUN 10.0 (9-20) mg/dL Creatinine 0.6 (0.66-1.25) mg/dL Est GFR (CKD-EPI)AfAm 162.0 (>60 ml/min/1.73 sqM) Est GFR (CKD-EPI)NonAf 139.7 (>60 ml/min/1.73 sqM) BUN/Creatinine Ratio 16.67 (12.00-20.00) Ratio Glucose 82 (74-99) mg/dL Plasma Lactic Acid Jim 0.5 L (0.7-2.0) mmol/L Calcium 8.9 (8.4-10.2) mg/dL Total Bilirubin 0.5 (0.2-1.3) mg/dL AST 17 (17-59) U/L ALT 20 (4-49) U/L Alkaline Phosphatase 47 (38-126) U/L Total Protein 6.1 L (6.3-8.2) g/dL Albumin 4.20 (3.5-5.0) g/dL Globulin 1.9 (1.6-3.3) g/dL Albumin/Globulin Ratio 2.21 (1.60-3.17) g/dL Amylase (30-110) U/L Lipase (23-300) U/L Urine Color Urine Appearance (Clear) Urine pH (5.0-8.0) Ur Specific [place] (1.001-1.035) Urine Protein (Negative) Urine Glucose (UA) (Negative) Urine Ketones (Negative) Urine Blood (Negative) Urine Nitrite (Negative) Urine Bilirubin (Negative) Urine Urobilinogen (<2.0) mg/dL Ur Leukocyte Esterase (Negative) Urine RBC (0-5) /hpf Urine WBC (0-5) /hpf Urine Bacteria (None) /hpf Urine Mucus (None) /hpf - Radiology Data Radiology results: report reviewed (X-ray KUB shows stent in place), image reviewed Disposition Clinical Impression: Kidney stone on right side, Calculus of ureter, Right flank pain, Abdominal pain Disposition: ADMITTED IP TO THIS [facility] Condition: Stable Is patient prescribed a controlled substance at d/c from ED?: No
[2020-11-25 06:03] LABS: Anisocytosis Slight; Basophils % (A) 2 %; Eosinophils # (A) 0.2 k/uL (0-0.7); Eosinophils % (A) 7 %; HCT 33.6 % (39.0-53.0); HGB 12.3 gm/dL (13.0-17.5); Lymphocytes # (A) 0.5 k/uL (1.0-4.8); Lymphocytes % (A) 23 %; MCH 32.1 pg (25.0-35.0); MCHC 36.5 g/dL (31.0-37.0); Monocytes # (A) 0.1 k/uL (0-1.0); Monocytes % (A) 5 %; Neutrophils # (A) 1.2 k/uL (1.3-7.7); Neutrophils % (A) 61 %; Platelet Count 204 k/uL (150-450); RBC 3.82 m/uL (4.30-5.90)
[2020-11-25 06:16] LABS: Appearance,Urine Turbid (Clear); Bacteria,Urine Rare /hpf; Bilirubin,Urine Negative (Negative); Blood,Urine Large (Negative); Color,Urine Red; Glucose,Urine (UA) Negative (Negative); Ketones,Urine Negative (Negative); Leukocyte Esterase,Urine Trace (Negative); Mucus,Urine Few /hpf; Nitrite,Urine Negative (Negative); Protein,Urine 2+ (Negative); RBC,Urine >182 /hpf (0-5); Specific Gravity,Urine 1.023 (1.001-1.035); Urobilinogen,Urine <2.0 mg/dL (<2.0); WBC,Urine 9 /hpf (0-5)
[2020-11-25 06:18] LABS: ALT 20 U/L (4-49); AST 17 U/L (17-59); African American GFR (CKD) >90 (>60 ml/min/1.73 sqM); Albumin 4.2 g/dL (3.5-5.0); Alkaline Phosphatase 46 U/L (38-126); Amylase 37 U/L (30-110); Anion Gap 8 mmol/L; Blood Urea Nitrogen 16 mg/dL (9-20); Calcium 9.1 mg/dL (8.4-10.2); Carbon Dioxide 25 mmol/L (22-30); Chloride 104 mmol/L (98-107); Glucose 103 mg/dL (74-99); Lipase 60 U/L (23-300); Non-African American GFR(CKD) >90 (>60 ml/min/1.73 sqM); Potassium 3.6 mmol/L (3.5-5.1); Sodium 137 mmol/L (137-145); Total Bilirubin 0.5 mg/dL (0.2-1.3); Total Protein 6.6 g/dL (6.3-8.2)
[2020-11-25] MEDS ORDERED: IBUPROFEN 600 MG STARTER PACK 4 TAB BTL PO STA (06:24)
[2020-11-25] MEDS ORDERED: traMADol 50 MG STARTER PACK 3 TAB BTL PO STA (06:24)
[2020-11-25] MEDS ORDERED: ONDANSETRON 4 MG ODT STARTER PACK 2 TAB BTL PO STA (06:24)
[2020-11-25] MEDS ORDERED: LORazepam 2 MG/ML INJ IV PRN (07:03)
--- NOTE | 2020-11-25 07:07 | XR ---
EXAMINATION TYPE: XR KUB DATE OF EXAM: 11/25/2020 6:26 AM CLINICAL HISTORY: Patient is being seen for 8 mm renal stone on the right side over the past 2 weeks . TECHNIQUE: Single supine KUB image of the abdomen is obtained. COMPARISON: None. FINDINGS: Scattered gas is seen in non-distended small bowel loops. Gas and fecal material is seen in non-distended colon. There is a right ureteral stent which appears unchanged. IMPRESSION: Right ureteral stent.
[2020-11-25] MEDS: ONDANSETRON 4 MG/2 ML VIAL IVP PRN ×2 (09:18→15:03)
[2020-11-25] MEDS: FAMOTIDINE 20 MG TAB PO SCH ×2 (10:50→20:33)
[2020-11-25] MEDS: HYDROmorphone 1 MG/ML 1 ML SYRINGE IVP PRN ×3 (11:14→20:33)
[2020-11-25] MEDS: KETOROLAC 15 MG/ML 1 ML VIAL IVP PRN (12:10)
[2020-11-25] MEDS ORDERED: ONDANSETRON 4 MG TAB PO PRN (12:56)
[2020-11-25] MEDS ORDERED: BENZONATATE 100 MG CAP PO PRN (12:56)
[2020-11-25] MEDS ORDERED: hydrOXYzine HCL 25 MG TAB PO PRN (12:56)
[2020-11-25] MEDS ORDERED: HYDROcodone/APAP 7.5-325MG 1 EACH TAB PO PRN (12:56)
[2020-11-25] MEDS: SULFAMETHOX-TMP 800-160MG 1 EACH TAB PO SCH (14:32)
[2020-11-25] MEDS: OXYBUTYNIN XL 5 MG TAB.ER.24 PO SCH (14:32)
--- NOTE | 2020-11-25 16:24 | HP ---
HISTORY AND PHYSICAL DATE OF SERVICE: 11/25/2020. CHIEF COMPLAINTS: Abdominal pain. HISTORY OF PRESENT ILLNESS: This 25-year-old gentleman with a past medical history of recently diagnosed non- Hodgkin lymphoma stage IV, started chemotherapy per Dr. Garcias from [facility], also had history of appendectomy, depression. Patient followed by a primary physician in [place] where the patient is working. The patient was recently admitted with nephrolithiasis and ureteral stent was implanted for UVJ stone. The patient has significant pain starting from the right lower quadrant of the abdomen and also radiating to the lower angle also. The pain is also radiating to the upper thigh sometimes. Because of increasing difficulty, the patient came to [facility] and was admitted for evaluation and treatment. White count is only 2 and hemoglobin is 12.8, possibly secondary from his chemotherapy. The patient also had some hematuria. There is no history of fever, rigors. No headache, loss of consciousness, seizures. PAST MEDICAL HISTORY: History of non-Hodgkin's lymphoma, on treatment at [facility], depression, nicotine dependence, history of THC, history of recent ureteral stent. MEDICATIONS: Prior to admission include: Zofran, Vistaril, Bactrim DS, Ditropan XL, [place]. Pepcid, Tessalon Perles. Doses reviewed and chemotherapy as mentioned earlier. ALLERGIES: None. FAMILY HISTORY: History of hypertension, heart murmur, ovarian cyst, appendectomy. SOCIAL HISTORY: History of occasional alcohol. No history of smoking. REVIEW OF SYSTEMS: ENT: No diminished vision. No diminished hearing. CARDIOVASCULAR: No angina. RESPIRATIONS: No cough or hemoptysis. GI: As mentioned earlier. : As mentioned earlier. NERVOUS SYSTEM: No numbness or weakness. ALLERGY/IMMUNOLOGY: No asthma or hayfever. MUSCULOSKELETAL as mentioned earlier. HEMATOLOGY/ONCOLOGY: Lymphoma. ENDOCRINE: No history of diabetes or hypothyroidism. CONSTITUTIONAL: As mentioned earlier. DERMATOLOGY: Negative. RHEUMATOLOGY: Negative. PSYCHIATRY: As mentioned earlier. PHYSICAL EXAMINATION: Patient is alert, oriented x3. Pulse 64. Blood pressure 113/70, respiration 18, temperature 98.2, pulse ox 98% on room air. HEENT: Conjunctivae normal. Oral mucosa moist. NECK is no jugular venous distention. No lymph node enlargement. CARDIOVASCULAR systems: S1, S2. RESPIRATION: Breath sounds diminished in the bases. No rhonchi. No crackles. ABDOMEN: Soft. Mild diffuse tenderness in the right lower quadrant. No guarding. No rigidity. No mass palpable. Bowel sounds present. Otherwise no ascites. LEGS: No edema. No swelling. NERVOUS SYSTEM: Higher functions as mentioned earlier. Moves all 4 limbs. No focal motor or sensory deficits. LYMPHATICS: No lymph nodes palpable in the neck, axillae or groin. SKIN: No ulcer, no rash, no bleeding. JOINTS: No active deforming arthropathy. LAB: WBC 2, hemoglobin 12.3 and sodium 137, potassium 3.6. UA noted. ASSESSMENT: 1. Severe abdominal pain, possibly nephrolithiasis. 2. History of recent ureteral stent for nephrolithiasis. 3. History of non-Hodgkin's lymphoma on chemotherapy. 4. Leukopenia secondary to lymphoma. 5. 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 6. Elevated random glucose. 7. History of depression. 8. History of THC. 9. Obesity with body mass of 32.3. 10.FULL CODE. RECOMMENDATIONS AND DISCUSSION: This 25-year-old gentleman who presented with multiple medical issues, at this time, we will monitor the patient closely. Continue the current medications, management and symptomatic treatment. Urology consultation. Pain management. DVT prophylaxis. Proton pump inhibitors. Resume the home medications. Overall prognosis guarded because of multiple complex medical issues. Discussed with the patient and family at the bedside and recommend close followup with primary physician after discharge. MMHYUNL / KYE: [id number] /
[2020-11-26] MEDS: HYDROmorphone 1 MG/ML 1 ML SYRINGE IVP PRN ×5 (01:33→23:18)
[2020-11-26] MEDS: KETOROLAC 15 MG/ML 1 ML VIAL IVP PRN ×2 (04:12→12:14)
[2020-11-26] MEDS: ONDANSETRON 4 MG/2 ML VIAL IVP PRN ×4 (04:12→21:57)
[2020-11-26 06:53] LABS: Anisocytosis Slight; HCT 34.2 % (39.0-53.0); HGB 11.6 gm/dL (13.0-17.5); MCH 30.5 pg (25.0-35.0); MCHC 34.1 g/dL (31.0-37.0); MCV 89.4 fL (80.0-100.0); Mean Platelet Volume 6.9; Platelet Count 185 k/uL (150-450); RBC 3.82 m/uL (4.30-5.90); RDW 16.4 % (11.5-15.5)
[2020-11-26 07:09] LABS: WBC 1.4 k/uL (3.8-10.6)
[2020-11-26 08:54] LABS: Nucleated Red Blood Cells 0 /100 WBC (0-0)
[2020-11-26 09:07] LABS: Band Neutrophils % 1 %; Lymphocytes # (M) 0.56 k/uL (1.0-4.8); Monocytes # (M) 0.13 k/uL (0-1.0); Neutrophils % (M) 44 %; Total Cells Counted 200
[2020-11-26] MEDS: OXYBUTYNIN XL 5 MG TAB.ER.24 PO SCH (09:36)
[2020-11-26] MEDS: FAMOTIDINE 20 MG TAB PO SCH ×2 (09:36→20:53)
[2020-11-26 10:02] LABS: Albumin 4.2 g/dL (3.80-4.90); Albumin/Globulin Ratio 2.21 (1.60-3.17); Anion Gap 6.3 mmol/L (4.00-12.00); BUN/Creat Ratio 16.67 Ratio (12.00-20.00); Calcium 8.9 mg/dL (8.7-10.3); Carbon Dioxide 25.7 mmol/L (21.6-31.8); Globulin 1.9 g/dL (1.6-3.3); Non-African American GFR(CKD) 139.7 (60.0-200.0); Potassium 3.8 mmol/L (3.5-5.5); Total Bilirubin 0.5 mg/dL (0.2-1.2); Total Protein 6.1 g/dL (6.2-8.2)
--- NOTE | 2020-11-26 13:32 | P.GSCN ---
History of Present Illness Consult date: 11/25/20 Reason for Consult: Right flank pain Requesting physician: Leon Boland History of present illness: The patient is a 25 yo male with Hodgkins lymphoma, [facility] He presented to the ER earlier this month with right sided flank pain and gross hematuria. CT scan showed evidence of an 8 mm stone right UPJ calculus. A CT in July 2020 which showed the stone located in lower pole of the right kidney. He underwent right ureteral stent insertion and was scheduled to undergo ESWL on 12/02/2020. However, he was admitted this morning with intractable symptoms. Review of Systems - Constitutional Denies chills, Denies fever Past Medical History Past Medical History: Cancer Additional Past Medical History / Comment(s): Hodgkins Lymphoma stage 4, last chemo November 08 2020, pt follows up with Dr. Browning out of [facility]. Previous hx of kidney stones early in 2019. History of Any Multi-Drug Resistant Organisms: None Reported Past Surgical History: Appendectomy Past Anesthesia/Blood Transfusion Reactions: No Reported Reaction Past Psychological History: Depression Smoking Status: Former smoker Past Drug Use History: Marijuana Additional Drug Use History / Comment(s): Occasional Marijuana use to help with cancer pain and increase appetite. - Past Family History Mother Additional Family Medical History / Comment(s): Heart murmur, Cyst on Ovary, Appendectomy Father Family Medical History: Hypertension Medications and Allergies Home Medications Medication Instructions Recorded Confirmed Type Benzonatate [Tessalon Perles] 100 mg PO TID PRN 06/04/20 11/25/20 History Famotidine [Pepcid] 20 mg PO DAILY 06/04/20 11/25/20 History hydrOXYzine pamoate [Vistaril] 50 mg PO Q6H PRN 06/04/20 11/25/20 History ondansetron HCL [Zofran] 8 mg PO Q8H PRN 06/04/20 11/25/20 History Sulfamethox-Tmp 800-160Mg [Bactrim 1 tab PO MOWEFR 11/15/20 11/25/20 History DS 800-160 mg] Hydrocodone/Acetaminophen [[place] 1 tab PO Q6HR PRN 3 Days #12 tab 11/20/20 11/25/20 Rx 7.5-325] Oxybutynin Chloride [Ditropan XL] 5 mg PO DAILY #14 tab 11/20/20 11/25/20 Rx Ibuprofen [Motrin] 800 mg PO Q6HR PRN 11/25/20 11/25/20 History Allergies Allergy/AdvReac Type Severity Reaction Status Date / Time No Known Allergies Allergy Verified 11/25/20 06:44 Surgical - Exam Vital Signs Temp Pulse Resp BP Pulse Ox 98 F 71 18 146/80 98 11/25/20 05:16 11/25/20 05:16 11/25/20 05:16 11/25/20 05:16 11/25/20 05:16 - General well developed, well nourished, no distress - Respiratory normal respiratory effort - Abdomen Abdomen: soft, non tender, no guarding, no rigid, no rebound - Genitourinary normal penis with no external lesions, testicles non-tender - Psychiatric oriented to time, oriented to person, oriented to place, speech is normal, memory intact Results - Labs 11/26/20 05:32 11/26/20 05:32 Abnormal Lab Results - Last 24 Hours (Table) 11/25/20 11/25/20 11/25/20 Range/Units 05:49 05:49 05:49 WBC 2.0 L (3.8-10.6) k/uL RBC 3.82 L (4.30-5.90) m/uL Hgb 12.3 L (13.0-17.5) gm/dL Hct 33.6 L (39.0-53.0) % RDW 16.0 H (11.5-15.5) % Neutrophils # 1.2 L (1.3-7.7) k/uL Lymphocytes # 0.5 L (1.0-4.8) k/uL Creatinine 0.59 L (0.66-1.25) mg/dL Glucose 103 H (74-99) mg/dL Plasma Lactic Acid Jim (0.7-2.0) mmol/L Urine Protein 2+ H (Negative) Urine Blood Large H (Negative) Ur Leukocyte Esterase Trace H (Negative) Urine RBC >182 H (0-5) /hpf Urine WBC 9 H (0-5) /hpf Urine Bacteria Rare H (None) /hpf Urine Mucus Few H (None) /hpf 11/25/20 Range/Units 05:49 WBC (3.8-10.6) k/uL RBC (4.30-5.90) m/uL Hgb (13.0-17.5) gm/dL Hct (39.0-53.0) % RDW (11.5-15.5) % Neutrophils # (1.3-7.7) k/uL Lymphocytes # (1.0-4.8) k/uL Creatinine (0.66-1.25) mg/dL Glucose (74-99) mg/dL Plasma Lactic Acid Jim 0.5 L (0.7-2.0) mmol/L Urine Protein (Negative) Urine Blood (Negative) Ur Leukocyte Esterase (Negative) Urine RBC (0-5) /hpf Urine WBC (0-5) /hpf Urine Bacteria (None) /hpf Urine Mucus (None) /hpf Diabetes panel 11/25/20 Range/Units 05:49 Sodium 137 (137-145) mmol/L Potassium 3.6 (3.5-5.1) mmol/L Chloride 104 (98-107) mmol/L Carbon Dioxide 25 (22-30) mmol/L BUN 16 (9-20) mg/dL Creatinine 0.59 L (0.66-1.25) mg/dL Glucose 103 H (74-99) mg/dL Calcium 9.1 (8.4-10.2) mg/dL AST 17 (17-59) U/L ALT 20 (4-49) U/L Alkaline Phosphatase 46 (38-126) U/L Total Protein 6.6 (6.3-8.2) g/dL Albumin 4.2 (3.5-5.0) g/dL Calcium panel 11/25/20 Range/Units 05:49 Calcium 9.1 (8.4-10.2) mg/dL Albumin 4.2 (3.5-5.0) g/dL Pituitary panel 11/25/20 Range/Units 05:49 Sodium 137 (137-145) mmol/L Potassium 3.6 (3.5-5.1) mmol/L Chloride 104 (98-107) mmol/L Carbon Dioxide 25 (22-30) mmol/L BUN 16 (9-20) mg/dL Creatinine 0.59 L (0.66-1.25) mg/dL Glucose 103 H (74-99) mg/dL Calcium 9.1 (8.4-10.2) mg/dL Adrenal panel 11/25/20 Range/Units 05:49 Sodium 137 (137-145) mmol/L Potassium 3.6 (3.5-5.1) mmol/L Chloride 104 (98-107) mmol/L Carbon Dioxide 25 (22-30) mmol/L BUN 16 (9-20) mg/dL Creatinine 0.59 L (0.66-1.25) mg/dL Glucose 103 H (74-99) mg/dL Calcium 9.1 (8.4-10.2) mg/dL Total Bilirubin 0.5 (0.2-1.3) mg/dL AST 17 (17-59) U/L ALT 20 (4-49) U/L Alkaline Phosphatase 46 (38-126) U/L Total Protein 6.6 (6.3-8.2) g/dL Albumin 4.2 (3.5-5.0) g/dL - Imaging Abdominal x-ray: report reviewed, image reviewed CT scan - abdomen: report reviewed, image reviewed Assessment and Plan (1) Calculus of ureter Current Visit: Yes Status: Acute Code(s): N20.1 - CALCULUS OF URETER SNOMED Code(s): 41005534 Plan: I explained to the patient and his mother that ESWL cannot be performed any sooner than 12/02/2020 unless he is referred out of the area. Arrangements have been made for him to undergo cystoscopy, right ureteral stent removal, right ureteroscopy with Holmium laser lithotripsy and possible stone basketing. The rationale for this is been discussed in detail with the patient and his mother. Potential risks have also been reviewed, which include anesthesia, infection, and ureteral injury. I have spoken with Dr. Juan Luis Beck from the medical oncology Department at [facility] earlier today who felt that it would be safe and appropriate to proceed with this procedure tomorrow.
[2020-11-26] MEDS ORDERED: IV FLUID CONTINUATION 1,000 ML IV ONE (14:02)
[2020-11-26] MEDS ORDERED: GENTAMICIN 140 MG in SODIUM CHLORIDE 0.9% 100 ML IVPB ONE (15:00)
[2020-11-26] MEDS ORDERED: LIDOCAINE 1% INJ 10MG/ML (20 ML MDV) ONE (15:45)
[2020-11-26] MEDS ORDERED: PROPOFOL 10 MG/ML 20 ML VIAL IV ONE (15:45)
[2020-11-26] MEDS ORDERED: PHENYLEPHRINE-0.9% NACL SYG 1,000 MCG/10 ML SYRINGE ONE (15:45)
[2020-11-26] MEDS ORDERED: GLYCOPYRROLATE 0.2 MG/ML 2 ML VIAL ONE (15:45)
[2020-11-26] MEDS ORDERED: MIDAZOLAM 2 MG/2 ML VIAL ONE (15:45)
[2020-11-26] MEDS ORDERED: fentaNYL (PF) 50 MCG/ML 2 ML AMP ONE (15:45)
[2020-11-26] MEDS ORDERED: LACTATED RINGERS 1,000 ML IV ONE (16:45)
--- NOTE | 2020-11-26 17:00 | P.OP ---
Date of Procedure: 11/26/20 Preoperative Diagnosis: Right ureteral calculus Postoperative Diagnosis: Same Procedure(s) Performed: Cystoscopy, right ureteral stent removal, right ureteroscopy with Holmium laser lithotripsy Anesthesia: OLEA Surgeon: Deonte Schuler Estimated Blood Loss (ml): 0 IV fluids (ml): 300 Pathology: none sent Condition: stable Disposition: PACU Indications for Procedure: The patient is a 25 yo male with Hodgkins lymphoma, currently receiving chemotherapy from [facility]. He presented to the ER earlier this month with right sided flank pain and gross hematuria. CT scan showed evidence of an 8 mm stone right UPJ calculus. A CT in July 2020 which showed the stone located in lower pole of the right kidney. He underwent right ureteral stent insertion and was scheduled to undergo ESWL on 12/02/2020. However, he was admitted yesterday with intractable symptoms and has elected to undergo ureteroscopic removal of the calculus. Operative Findings: Right mid pole calculus, fragmented completely. Description of Procedure: The patient was taken to the operating room and placed in the dorsolithotomy position, with legs supported in Lion stirrups. The external genitalia was prepped and draped sterilely. The 30 lens was used to introduce the 21-Uzbek Dietrich cystoscopic sheath through the urethra and into the bladder under direct vision. The prostatic urethra showed evidence of mild lateral lobe enlargement. The bladder was examined in its entirety. No tumors or calculi were seen. Grasping forceps were used to grasp the distal end of the right ureteral stent, which was removed along with the cystoscope. A 0.035 inch Glidewire was passed through the stent and up to the right renal pelvis. The Dietrich Mobile365 (fka InphoMatch)a flexible ureteroscope was passed over the wire, but resistance was met at the right ureteral orifice. Therefore, the obturator from an 11/13-Uzbek ureteral access catheter was passed over the wire to dilate the ureteral orifice and distal ureter. It was then possible to pass the ureteroscope over the wire, up to the right proximal ureter. The ureteroscope was slowly advanced under direct vision, and each calyx was examined. The calculus was identified within a mid pole calyx. The 272 micron Holmium laser probe was passed through the ureteroscope, and lithotripsy was performed utilizing a dusting mode. The calculus fragmented readily, likely composed of calcium oxalate dihydrate. Once there were no residual calculus fragments exceeding the size of the laser fiber tip, the ureteroscope was slowly withdrawn under direct vision. Pullback ureteroscopy showed no evidence of ureteral trauma, and the procedure was terminated. The patient tolerated the procedure well and was taken to the recovery room in stable condition. TAVO BARRAGAN Report: Procedure Acuity: Urgent Stone Size and Location: 6 mm, right mid pole calyx Ureteral Dilation: Serial Dilation Ureteral Access Sheath Used: No Stone Sent for Analysis: No All Stones/Fragments Were Removed with a Basket: No Complications: No Preoperative Antibiotics Given: Yes Stent Placed: No
[2020-11-26] MEDS ORDERED: HYDROmorphone 0.5 MG/0.5 ML SYRINGE IVP ONE ×2 (17:01→17:27)
[2020-11-26] MEDS ORDERED: KETOROLAC 15 MG/ML 1 ML VIAL IVP ONE (17:06)
--- NOTE | 2020-11-26 18:13 | PN ---
PROGRESS NOTE DATE OF SERVICE: 11/26/2020. This 25-year-old gentleman was admitted with abdominal pain, had a recent stent placement by Urology for ureteric stone. Laser lithotripsy and possible stone basketing was being planned by Dr. Schuler for today. No chest pain. No palpitations. No fever. PHYSICAL EXAMINATION: Alert and oriented times three. Pulse 67. Blood pressure 131/63, respirations 16, temperature 98.2, pulse ox 97% on room air. HEENT: Conjunctivae normal. Neck: No JVD. Cardiovascular: S1, S2. Respiratory: Breath sounds diminished at the bases. No rhonchi. No crackles. Abdomen: Soft. Mild diffuse tenderness lower part of the abdomen. No guarding, rigidity. Nervous System: No focal deficits. LABS: WBC 1.2, hemoglobin 11.6. Other labs are noted. ASSESSMENT: 1. Severe abdominal pain possibly due urolithiasis. 2. History of recent ureteral stent placement for urolithiasis. 3. History of non-Hodgkin lymphoma on chemotherapy. 4. 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 5. 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 6. Elevated random glucose. 7. History of depression. 8. History of THC. 9. Obesity with body mass index of 32.6. 10.FULL CODE. RECOMMENDATIONS AND DISCUSSION: I recommend to continue current medications, management and symptomatic treatment. Otherwise, at this time, I recommend continue with pain medications and DVT prophylaxis. Follow closely with Urology. Guarded prognosis. Further recommendations to follow. MMODL / JASONN: [id number] /
[2020-11-27] MEDS: HYDROmorphone 1 MG/ML 1 ML SYRINGE IVP PRN ×2 (05:23→09:43)
--- NOTE | 2020-11-27 08:10 | FL ---
Fluoroscopy HISTORY: Ureteral calculus 56 seconds fluoroscopy time supplied to the referring clinician. 1 intraoperative C-arm images docum ent the procedure. See dictated report from urology.
[2020-11-27] MEDS: FAMOTIDINE 20 MG TAB PO SCH (08:16)
[2020-11-27] MEDS: OXYBUTYNIN XL 5 MG TAB.ER.24 PO SCH (08:16)
[2020-11-27] MEDS: ONDANSETRON 4 MG/2 ML VIAL IVP PRN (08:16)
--- NOTE | 2020-11-27 08:58 | P.PN ---
Subjective Progress Note Date: 11/27/20 The patient underwent a ureteroscopy stent and stone removal yesterday by . He feels much better. There is minimal discomfort. His vital signs are stable and he is afebrile. He can be discharged home from a urologic standpoint. He should follow-up in our office in one week. Tylenol/ Motrin will be adequate for pain. Objective - Vital Signs Vital signs: Vital Signs Temp 98.2 F 11/27/20 05:00 Pulse 83 11/27/20 05:00 Resp 16 11/27/20 05:00 BP 129/79 11/27/20 05:00 Pulse Ox 100 11/27/20 05:00 Intake & Output 11/26/20 11/27/20 11/27/20 18:59 06:59 18:59 Intake Total 653.5 1000 Output Total 400 800 800 Balance 253.5 200 -800 Intake: IV 653.5 Oral 1000 Output: Urine 400 800 800 Estimated Blood Loss 0 Other: Voiding Method Urinal # Voids 4 - Labs CBC & Chem 7: 11/26/20 05:32 11/26/20 05:32 Labs: Abnormal Lab Results - Last 24 Hours (Table) 11/26/20 11/26/20 Range/Units 05:32 05:32 Neutrophils # (Manual) 0.60 L (1.3-7.7) k/uL Lymphocytes # (Manual) 0.56 L (1.0-4.8) k/uL Total Protein 6.1 L (6.2-8.2) g/dL
[2020-11-27 11:08] VITALS: BP 109/48; PULSE 72; RESP 20; TEMP 98.6
[2020-11-27] MEDS: SULFAMETHOX-TMP 800-160MG 1 EACH TAB PO SCH (11:31)
--- NOTE | 2020-11-27 15:09 | P.DS ---
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 Patient will follow-up with Dr. Jody Nickerson out of [place] in the outpatient setting upon discharge. Patient is to also follow-up with urology at his scheduled appointment. Total time taken is greater than 35 minutes. Hospital course This is a 25-year-old male who was recently admitted with abdominal pain and had recent stent placement by urology for ureteric stone and was being closely monitored. Patient underwent stent removal and lithotripsy with urology and recommended close outpatient follow-up in the clinic in one week. Patient's [facility] provider is out of [facility] in [place] along with his oncologist and will continue to follow-up there. Patient is tolerating diet and reports to some mild nausea which he states he has often. Patient does have Zofran as needed. Patient's abdominal pain is improved and is tolerating diet. Patient is requesting to go home. Family at the bedside. Patient denies any he maturia or difficulty urinating. Currently no reports of chest pain, shortness of breath, or palpitations. Patient is afebrile. No reports of nausea or vomiting and patient is tolerating diet. Patient will be discharged home today. On exam vital signs are stable. Cardio S1, S2 are muffled. Respiratory system shows diminished breath sounds at the bases with no wheezing or rhonchi noted. Abdomen is soft and nontender. Nervous system shows no focal deficits. Please refer to medication reconciliation sheet for a list of medications. Patient Condition at Discharge: Stable Plan - Discharge Summary New Discharge Prescriptions: New HYDROcodone/APAP 5-325MG [[place] 5-325] 1 tab PO Q6HR PRN #12 tab PRN Reason: Pain Continue ondansetron HCL [Zofran] 8 mg PO Q8H PRN PRN Reason: Nausea hydrOXYzine pamoate [Vistaril] 50 mg PO Q6H PRN PRN Reason: Itching Famotidine [Pepcid] 20 mg PO DAILY Benzonatate [Tessalon Perles] 100 mg PO TID PRN PRN Reason: Cough Sulfamethox-Tmp 800-160Mg [Bactrim DS 800-160 mg] 1 tab PO MOWEFR Oxybutynin Chloride [Ditropan XL] 5 mg PO DAILY #14 tab Ibuprofen [Motrin] 800 mg PO Q6HR PRN PRN Reason: Pain Hydrocodone/Acetaminophen [[place] 7.5-325] 1 tab PO Q6HR PRN 3 Days #12 tab PRN Reason: Pain Discharge Medication List Benzonatate [Tessalon Perles] 100 mg PO TID PRN 06/04/20 [History] Famotidine [Pepcid] 20 mg PO DAILY 06/04/20 [History] hydrOXYzine pamoate [Vistaril] 50 mg PO Q6H PRN 06/04/20 [History] ondansetron HCL [Zofran] 8 mg PO Q8H PRN 06/04/20 [History] Sulfamethox-Tmp 800-160Mg [Bactrim DS 800-160 mg] 1 tab PO MOWEFR 11/15/20 [History] Hydrocodone/Acetaminophen [[place] 7.5-325] 1 tab PO Q6HR PRN 3 Days #12 tab 11/20/20 [Rx] Oxybutynin Chloride [Ditropan XL] 5 mg PO DAILY #14 tab 11/20/20 [Rx] Ibuprofen [Motrin] 800 mg PO Q6HR PRN 11/25/20 [History] HYDROcodone/APAP 5-325MG [[place] 5-325] 1 tab PO Q6HR PRN #12 tab 11/27/20 [Rx] Follow up Appointment(s)/Referral(s): Anthony Das MD [STAFF PHYSICIAN] - 12/10/20 8:00 am Lissettetaff,Physician [Primary Care Provider] - 1-2 days Patient Instructions/Handouts: Hydrocodone/Acetaminophen (By mouth), Kidney Stones (DC) Activity/Diet/Wound Care/Special Instructions: Activity Limited until follow-up Continue current diet Continue with medications as prescribed Follow-up with urology as discussed in one week Follow-up with primary care provider discharge Discharge Disposition: HOME SELF-CARE
== END 2020-11-27 13:13 | disposition home or self-care (01) | DRG 669 ==
LOC: EC 05:15 → 5NMEDONC 07:03 → OBSVTOIN 11-27 08:50
PROVIDERS: ADMIT Hospitalist; ATTEND Hospitalist
PROC: 0TC68ZZ Extirpation of Matter from Right Ureter, Via Natural or Artificial Opening Endoscopic (ICD-10-PCS; principal; 2020-11-26 14:15)
PROC: 0TP98DZ Removal of Intraluminal Device from Ureter, Via Natural or Artificial Opening Endoscopic (ICD-10-PCS; 2020-11-26 14:15)
DX: N20.2 Calculus of kidney with calculus of ureter (principal); C81.90 Hodgkin lymphoma, unspecified, unspecified site; Z46.6 Encounter for fitting and adjustment of urinary device; E66.9 Obesity, unspecified; K21.9 Gastro-esophageal reflux disease without esophagitis; D70.1 Agranulocytosis secondary to cancer chemotherapy; T45.1X5A Adverse effect of antineoplastic and immunosuppressive drugs, initial encounter; D63.0 Anemia in neoplastic disease; Z79.899 Other long term (current) drug therapy; Z68.32 Body mass index [BMI] 32.0-32.9, adult; Z90.49 Acquired absence of other specified parts of digestive tract; Z87.891 Personal history of nicotine dependence; Z92.21 Personal history of antineoplastic chemotherapy
CPT/HCPCS: 36415; 74018; 74420; 80053; 81001; 82150; 83605; 83690; 85025; 96361; 96374; 96375; 99285

== ENCOUNTER 2020-11-28 23:28 | Emergency (ER) | payer BC, OTHER ==
[2020-11-28 23:32] VITALS: TEMP 97.9
[2020-11-29] MEDS ORDERED: ONDANSETRON 4 MG/2 ML VIAL IVP STA ×2 (00:26→02:32)
[2020-11-29] MEDS ORDERED: MORPHINE SULFATE 4 MG/ML SYRINGE IV STA (00:26)
--- NOTE | 2020-11-29 00:33 | ED ---
Abdominal Pain HPI - General Chief Complaint: Abdominal Pain Stated Complaint: Right Side Pain Time Seen by Provider: 11/28/20 23:48 Source: patient Mode of arrival: wheelchair Limitations: no limitations - History of Present Illness MD Complaint: abdominal pain Onset/Timin -: hour(s) Location: RLQ Radiation: none Migration to: no migration Severity: severe Quality: sharp Consistency: constant Improves With: nothing Worsens With: nothing Associated Symptoms: nausea - Related Data Home Medications Medication Instructions Recorded Confirmed Benzonatate [Tessalon Perles] 100 mg PO TID PRN 06/04/20 11/25/20 Famotidine [Pepcid] 20 mg PO DAILY 06/04/20 11/25/20 hydrOXYzine pamoate [Vistaril] 50 mg PO Q6H PRN 06/04/20 11/25/20 ondansetron HCL [Zofran] 8 mg PO Q8H PRN 06/04/20 11/25/20 Sulfamethox-Tmp 800-160Mg [Bactrim 1 tab PO MOWEFR 11/15/20 11/25/20 DS 800-160 mg] Ibuprofen [Motrin] 800 mg PO Q6HR PRN 11/25/20 11/25/20 Previous Rx's Medication Instructions Recorded Hydrocodone/Acetaminophen [[place] 1 tab PO Q6HR PRN 3 Days #12 tab 11/20/20 7.5-325] Oxybutynin Chloride [Ditropan XL] 5 mg PO DAILY #14 tab 11/20/20 HYDROcodone/APAP 5-325MG [[place] 1 tab PO Q6HR PRN #12 tab 11/27/20 5-325] HYDROcodone/APAP 5-325MG [[place] 1 tab PO Q4HR PRN 3 Days #18 tab 11/29/20 5-325] Tamsulosin [Flomax] 0.4 mg PO DAILY #14 cap 11/29/20 Allergies Allergy/AdvReac Type Severity Reaction Status Date / Time No Known Allergies Allergy Verified 11/28/20 23:33 Review of Systems ROS Statement: Those systems with pertinent positive or pertinent negative responses have been documented in the HPI. ROS Other: All systems not noted in ROS Statement are negative. Constitutional: Denies: fever, chills Respiratory: Denies: cough, dyspnea Cardiovascular: Denies: chest pain, palpitations, orthopnea, edema Gastrointestinal: Reports: abdominal pain, nausea. Denies: vomiting, diarrhea, constipation, melena, hematochezia Genitourinary: Denies: urgency, dysuria, frequency, hematuria, testicular pain, testicular mass Musculoskeletal: Denies: back pain Skin: Denies: rash Neurological: Denies: headache, weakness Past Medical History Past Medical History: Cancer Additional Past Medical History / Comment(s): Hodgkins Lymphoma stage 4, last chemo November 08 2020, pt follows up with Dr. Browning out of [facility]. Previous hx of kidney stones early in 2019. History of Any Multi-Drug Resistant Organisms: None Reported Past Surgical History: Appendectomy Additional Past Surgical History / Comment(s): lithotripsy and stent right side, tooth insert, Past Anesthesia/Blood Transfusion Reactions: No Reported Reaction Past Psychological History: Depression Smoking Status: Former smoker Past Alcohol Use History: Rare Past Drug Use History: Marijuana - Past Family History Mother Additional Family Medical History / Comment(s): Heart murmur, Cyst on Ovary, Appendectomy Father Family Medical History: Hypertension General Exam Limitations: no limitations General appearance: alert, in no apparent distress Head exam: Present: atraumatic, normocephalic Eye exam: Present: normal appearance. Absent: scleral icterus, conjunctival injection Neck exam: Present: normal inspection Respiratory exam: Present: normal lung sounds bilaterally. Absent: respiratory distress, wheezes, rales, rhonchi, stridor Cardiovascular Exam: Present: regular rate, normal rhythm, normal heart sounds. Absent: systolic murmur, diastolic murmur, rubs, gallop GI/Abdominal exam: Present: soft. Absent: distended, tenderness, guarding, rebound, rigid, mass Extremities exam: Present: normal inspection, normal capillary refill. Absent: pedal edema, calf tenderness Back exam: Present: normal inspection. Absent: CVA tenderness (R), CVA tenderness (L) Neurological exam: Present: alert Skin exam: Present: warm, dry, intact, normal color. Absent: rash Course Vital Signs 11/28/20 11/29/20 23:29 02:32 Temperature 97.9 F Pulse Rate 87 83 Respiratory 17 18 Rate Blood Pressure 120/73 136/55 O2 Sat by Pulse 98 98 Oximetry Medical Decision Making - Lab Data Result diagrams: 11/29/20 02:03 Lab Results 11/29/20 11/29/20 11/29/20 Range/Units 00:17 02:03 02:03 WBC 3.7 L (3.8-10.6) k/uL RBC 3.43 L (4.30-5.90) m/uL Hgb 11.0 L (13.0-17.5) gm/dL Hct 29.9 L (39.0-53.0) % MCV 87.2 (80.0-100.0) fL MCH 32.1 (25.0-35.0) pg MCHC 36.8 (31.0-37.0) g/dL RDW 15.5 (11.5-15.5) % Plt Count 253 (150-450) k/uL MPV 7.5 Neutrophils % 64 % Lymphocytes % 23 % Monocytes % 2 % Eosinophils % 7 % Basophils % 2 % Neutrophils # 2.4 (1.3-7.7) k/uL Lymphocytes # 0.8 L (1.0-4.8) k/uL Monocytes # 0.1 (0-1.0) k/uL Eosinophils # 0.2 (0-0.7) k/uL Basophils # 0.1 (0-0.2) k/uL Lipase 52 (23-300) U/L Urine Color Yellow Urine Appearance Clear (Clear) Urine pH 5.5 (5.0-8.0) Ur Specific [place] 1.026 (1.001-1.035) Urine Protein 1+ H (Negative) Urine Glucose (UA) Negative (Negative) Urine Ketones Negative (Negative) Urine Blood Large H (Negative) Urine Nitrite Negative (Negative) Urine Bilirubin Negative (Negative) Urine Urobilinogen <2.0 (<2.0) mg/dL Ur Leukocyte Esterase Negative (Negative) Urine RBC >182 H (0-5) /hpf Urine WBC 5 (0-5) /hpf Urine Bacteria Rare H (None) /hpf Hyaline Casts 7 H (0-2) /lpf Urine Mucus Occasional H (None) /hpf Disposition Clinical Impression: Hydronephrosis Disposition: HOME SELF-CARE Condition: Good Instructions (If sedation given, give patient instructions): Hydronephrosis (ED) Prescriptions: Tamsulosin [Flomax] 0.4 mg PO DAILY #14 cap HYDROcodone/APAP 5-325MG [[place] 5-325] 1 tab PO Q4HR PRN 3 Days #18 tab PRN Reason: Pain Is patient prescribed a controlled substance at d/c from ED?: No Referrals: None,Stated [Primary Care Provider] - 1-2 days Anthony Das MD [STAFF PHYSICIAN] - 1-2 days
[2020-11-29 00:48] LABS: Appearance,Urine Clear (Clear); Bacteria,Urine Rare /hpf; Bilirubin,Urine Negative (Negative); Blood,Urine Large (Negative); Color,Urine Yellow; Glucose,Urine (UA) Negative (Negative); Hyaline Casts,Urine 7 /lpf (0-2); Ketones,Urine Negative (Negative); Leukocyte Esterase,Urine Negative (Negative); Mucus,Urine Occasional /hpf; Nitrite,Urine Negative (Negative); PH, Urine 5.5 (5.0-8.0); Protein,Urine 1+ (Negative); RBC,Urine >182 /hpf (0-5); Specific Gravity,Urine 1.026 (1.001-1.035); Urobilinogen,Urine <2.0 mg/dL (<2.0); WBC,Urine 5 /hpf (0-5)
[2020-11-29 02:09] LABS: Basophils # (A) 0.1 k/uL (0-0.2); Basophils % (A) 2 %; Eosinophils # (A) 0.2 k/uL (0-0.7); Eosinophils % (A) 7 %; HCT 29.9 % (39.0-53.0); Lymphocytes # (A) 0.8 k/uL (1.0-4.8); Lymphocytes % (A) 23 %; MCH 32.1 pg (25.0-35.0); MCHC 36.8 g/dL (31.0-37.0); MCV 87.2 fL (80.0-100.0); Mean Platelet Volume 7.5; Monocytes # (A) 0.1 k/uL (0-1.0); Monocytes % (A) 2 %; Neutrophils # (A) 2.4 k/uL (1.3-7.7); Neutrophils % (A) 64 %; Platelet Count 253 k/uL (150-450); RBC 3.43 m/uL (4.30-5.90); RDW 15.5 % (11.5-15.5); WBC 3.7 k/uL (3.8-10.6)
--- NOTE | 2020-11-29 02:10 | CT ---
EXAMINATION TYPE: CT abdomen pelvis wo con DATE OF EXAM: 11/29/2020 COMPARISON: November 15, 2020 HISTORY: rlq PAIN CT DLP: 1001.7 mGycm Automated exposure control for dose reduction was used. Images obtained from the diaphragm to the floor the pelvis with no contrast. FINDINGS: The lung bases are clear of infiltrate. There is no pleural effusion. Heart size is normal. There is no pericardial effusion. Liver spleen stomach pancreas gallbladder appear intact. Bile ducts are not dilated. Gallbladder is contracted. There is no adrenal mass. Kidneys have normal size. There is right-sided hydronephrosis and hydrouret er. There are small right renal calculi measuring 1 to 3 mm. The right ureter is dilated to the urete rovesical junction. No ureteral calculus is seen. Bladder distends smoothly. The left kidney has norm al size and contour with no hydronephrosis. There is no retroperitoneal adenopathy. There are clips f rom appendectomy. There is no mesenteric edema. There is no ascites or free air. There is no bowel obstruction. There i s no inguinal hernia. There is no free fluid in the pelvis. Lumbar vertebra have normal alignment. Di sc spaces are normal. There is no compression fracture. Bony pelvis is intact. The hip joints are int act. IMPRESSION: Right-sided hydronephrosis and hydroureter. No obstructing calculus seen. This could relate to recent ly passed stone or nonopaque stone. There is clearing of the calculus at the right ureteropelvic junc tion compared to old exam. Hydronephrosis and hydroureter are increased compared to old exam.
[2020-11-29] MEDS ORDERED: TAMSULOSIN 0.4 MG CAP.ER.24H PO STA (02:26)
[2020-11-29] MEDS ORDERED: HYDROmorphone 1 MG/ML 1 ML SYRINGE IVP STA (02:32)
[2020-11-29 03:25] VITALS: BP 136/55; PULSE 83; RESP 18
== END 2020-11-29 03:58 | disposition home or self-care (01) ==
LOC: EC 23:28
DX: N13.2 Hydronephrosis with renal and ureteral calculous obstruction (principal); Z87.891 Personal history of nicotine dependence; Z85.71 Personal history of Hodgkin lymphoma; F32.9 Major depressive disorder, single episode, unspecified; F12.90 Cannabis use, unspecified, uncomplicated
CPT/HCPCS: 36415; 83690; 85025; 81001; 74176; 99284; 96374; 96375 ×2; 96376; J2270; J2405; J1170

== ENCOUNTER 2020-11-30 07:06 | Emergency (ER) | payer BC, OTHER ==
[2020-11-30 07:16] VITALS: RESP 18; TEMP 98.2
[2020-11-30] MEDS ORDERED: SODIUM CHLORIDE 0.9% 1,000 ML IV STA (07:32)
[2020-11-30] MEDS ORDERED: ONDANSETRON 4 MG/2 ML VIAL IVP STA (07:32)
[2020-11-30] MEDS ORDERED: HYDROmorphone 1 MG/ML 1 ML SYRINGE IVP STA (07:33)
--- NOTE | 2020-11-30 07:38 | ED ---
General Adult HPI - General Chief complaint: Recheck/Abnormal Lab/Rx Stated complaint: Side Pain, Ear Pain Time Seen by Provider: 11/30/20 07:18 Source: patient, RN notes reviewed Mode of arrival: ambulatory Limitations: no limitations - History of Present Illness Initial comments: Patient is a pleasant 25-year-old male presenting to the emergency Department with complaints of right flank pain. Onset of symptoms was around 3 AM. Discomfort has worsened since that time. Discomfort is currently rated 6/10. Mild nausea just started. Patient has had similar symptoms several times previously associated with kidney stone. Patient did have lithotripsy and stent placement just over 1 week ago. No fever. Patient has noticed some discomfort and redness of the left ear is well. - Related Data Home Medications Medication Instructions Recorded Confirmed Benzonatate [Tessalon Perles] 100 mg PO TID PRN 06/04/20 11/25/20 Famotidine [Pepcid] 20 mg PO DAILY 06/04/20 11/25/20 hydrOXYzine pamoate [Vistaril] 50 mg PO Q6H PRN 06/04/20 11/25/20 ondansetron HCL [Zofran] 8 mg PO Q8H PRN 06/04/20 11/25/20 Sulfamethox-Tmp 800-160Mg [Bactrim 1 tab PO MOWEFR 11/15/20 11/25/20 DS 800-160 mg] Ibuprofen [Motrin] 800 mg PO Q6HR PRN 11/25/20 11/25/20 Previous Rx's Medication Instructions Recorded Hydrocodone/Acetaminophen [[place] 1 tab PO Q6HR PRN 3 Days #12 tab 11/20/20 7.5-325] Oxybutynin Chloride [Ditropan XL] 5 mg PO DAILY #14 tab 11/20/20 HYDROcodone/APAP 5-325MG [[place] 1 tab PO Q6HR PRN #12 tab 11/27/20 5-325] HYDROcodone/APAP 5-325MG [[place] 1 tab PO Q4HR PRN 3 Days #18 tab 11/29/20 5-325] Tamsulosin [Flomax] 0.4 mg PO DAILY #14 cap 11/29/20 Ciprofloxacin HCl [Cipro] 750 mg PO Q12H 7 Days #14 tab 11/30/20 Dicyclomine [Bentyl] 20 mg PO QID PRN #15 tablet 11/30/20 Allergies Allergy/AdvReac Type Severity Reaction Status Date / Time No Known Allergies Allergy Verified 11/30/20 07:16 Review of Systems ROS Statement: Those systems with pertinent positive or pertinent negative responses have been documented in the HPI. ROS Other: All systems not noted in ROS Statement are negative. Constitutional: Denies: fever, chills Eyes: Denies: eye pain ENT: Reports: as per HPI, ear pain Respiratory: Denies: cough Cardiovascular: Denies: chest pain Endocrine: Denies: fatigue Gastrointestinal: Reports: as per HPI, abdominal pain (Right flank), nausea. Denies: vomiting Genitourinary: Denies: dysuria Musculoskeletal: Denies: back pain Skin: Denies: rash Neurological: Denies: weakness Past Medical History Past Medical History: Cancer Additional Past Medical History / Comment(s): Hodgkins Lymphoma stage 4, last chemo November 08 2020, pt follows up with Dr. Browning out of [facility]. Previous hx of kidney stones early in 2019. History of Any Multi-Drug Resistant Organisms: None Reported Past Surgical History: Appendectomy Additional Past Surgical History / Comment(s): lithotripsy and stent right side, tooth insert, Past Anesthesia/Blood Transfusion Reactions: No Reported Reaction Past Psychological History: Depression Smoking Status: Former smoker Past Alcohol Use History: Rare Past Drug Use History: Marijuana - Past Family History Mother Additional Family Medical History / Comment(s): Heart murmur, Cyst on Ovary, Appendectomy Father Family Medical History: Hypertension General Exam Limitations: no limitations General appearance: alert, in no apparent distress Head exam: Present: normocephalic Eye exam: Present: normal appearance ENT exam: Present: other (Left auricle with mild to moderate erythema and tenderness. There may be some minimal swelling. Canal and TM within normal limits) Neck exam: Present: normal inspection Respiratory exam: Present: normal lung sounds bilaterally Cardiovascular Exam: Present: regular rate, normal rhythm GI/Abdominal exam: Present: soft, tenderness (Mild tenderness right flank.) Extremities exam: Present: normal inspection Neurological exam: Present: alert Psychiatric exam: Present: normal affect, normal mood Skin exam: Present: erythema (Left ear) Course Vital Signs 11/30/20 07:13 Temperature 98.2 F Pulse Rate 92 Respiratory 18 Rate Blood Pressure 116/51 O2 Sat by Pulse 98 Oximetry Medical Decision Making - Medical Decision Making Patient reevaluated and resting comfortably in bed. Patient still has some mild discomfort. Abdomen soft and nontender. Patient states his discomfort is somewhat cramping and does question if his intestines could be causing this. Patient is receptive to a shot of Bentyl and discharge. Review shows patient has had 6 CT scans done so far this year. Patient does have signs of early left ear infection/auricular perichondritis. Patient will be started on antibiotics for this and recommend ENT follow-up. Patient updated. - Lab Data Result diagrams: 11/30/20 07:48 11/30/20 07:48 Lab Results 11/30/20 11/30/20 11/30/20 Range/Units 07:48 07:48 07:48 WBC 3.1 L (3.8-10.6) k/uL RBC 3.66 L (4.30-5.90) m/uL Hgb 11.5 L (13.0-17.5) gm/dL Hct 32.4 L (39.0-53.0) % MCV 88.6 (80.0-100.0) fL MCH 31.5 (25.0-35.0) pg MCHC 35.6 (31.0-37.0) g/dL RDW 15.7 H (11.5-15.5) % Plt Count 284 (150-450) k/uL MPV 6.9 Neutrophils % 67 % Lymphocytes % 20 % Monocytes % 3 % Eosinophils % 5 % Basophils % 2 % Neutrophils # 2.1 (1.3-7.7) k/uL Lymphocytes # 0.6 L (1.0-4.8) k/uL Monocytes # 0.1 (0-1.0) k/uL Eosinophils # 0.2 (0-0.7) k/uL Basophils # 0.1 (0-0.2) k/uL PT 10.8 (9.0-12.0) sec INR 1.0 (<1.2) APTT 22.9 (22.0-30.0) sec Sodium (137-145) mmol/L Potassium (3.5-5.1) mmol/L Chloride (98-107) mmol/L Carbon Dioxide (22-30) mmol/L Anion Gap mmol/L BUN (9-20) mg/dL Creatinine (0.66-1.25) mg/dL Est GFR (CKD-EPI)AfAm (>60 ml/min/1.73 sqM) Est GFR (CKD-EPI)NonAf (>60 ml/min/1.73 sqM) Glucose (74-99) mg/dL Plasma Lactic Acid Jim (0.7-2.0) mmol/L Calcium (8.4-10.2) mg/dL Total Bilirubin (0.2-1.3) mg/dL AST (17-59) U/L ALT (4-49) U/L Alkaline Phosphatase (38-126) U/L Total Protein (6.3-8.2) g/dL Albumin (3.5-5.0) g/dL Amylase (30-110) U/L Lipase (23-300) U/L Urine Color Light Yellow Urine Appearance Clear (Clear) Urine pH 5.5 (5.0-8.0) Ur Specific [place] 1.013 (1.001-1.035) Urine Protein Negative (Negative) Urine Glucose (UA) Negative (Negative) Urine Ketones Negative (Negative) Urine Blood Negative (Negative) Urine Nitrite Negative (Negative) Urine Bilirubin Negative (Negative) Urine Urobilinogen <2.0 (<2.0) mg/dL Ur Leukocyte Esterase Negative (Negative) 11/30/20 11/30/20 Range/Units 07:48 07:48 WBC (3.8-10.6) k/uL RBC (4.30-5.90) m/uL Hgb (13.0-17.5) gm/dL Hct (39.0-53.0) % MCV (80.0-100.0) fL MCH (25.0-35.0) pg MCHC (31.0-37.0) g/dL RDW (11.5-15.5) % Plt Count (150-450) k/uL MPV Neutrophils % % Lymphocytes % % Monocytes % % Eosinophils % % Basophils % % Neutrophils # (1.3-7.7) k/uL Lymphocytes # (1.0-4.8) k/uL Monocytes # (0-1.0) k/uL Eosinophils # (0-0.7) k/uL Basophils # (0-0.2) k/uL PT (9.0-12.0) sec INR (<1.2) APTT (22.0-30.0) sec Sodium 139 (137-145) mmol/L Potassium 4.2 (3.5-5.1) mmol/L Chloride 104 (98-107) mmol/L Carbon Dioxide 27 (22-30) mmol/L Anion Gap 8 mmol/L BUN 13 (9-20) mg/dL Creatinine 0.56 L (0.66-1.25) mg/dL Est GFR (CKD-EPI)AfAm >90 (>60 ml/min/1.73 sqM) Est GFR (CKD-EPI)NonAf >90 (>60 ml/min/1.73 sqM) Glucose 113 H (74-99) mg/dL Plasma Lactic Acid Jim 1.1 (0.7-2.0) mmol/L Calcium 10.2 (8.4-10.2) mg/dL Total Bilirubin 0.1 L (0.2-1.3) mg/dL AST 21 (17-59) U/L ALT 20 (4-49) U/L Alkaline Phosphatase 54 (38-126) U/L Total Protein 6.9 (6.3-8.2) g/dL Albumin 4.4 (3.5-5.0) g/dL Amylase 35 (30-110) U/L Lipase 42 (23-300) U/L Urine Color Urine Appearance (Clear) Urine pH (5.0-8.0) Ur Specific [place] (1.001-1.035) Urine Protein (Negative) Urine Glucose (UA) (Negative) Urine Ketones (Negative) Urine Blood (Negative) Urine Nitrite (Negative) Urine Bilirubin (Negative) Urine Urobilinogen (<2.0) mg/dL Ur Leukocyte Esterase (Negative) - Radiology Data Radiology results: image reviewed (KUB shows unremarkable abdomen) Disposition Clinical Impression: Abdominal pain, Perichondritis of auricle Disposition: HOME SELF-CARE Condition: Stable Instructions (If sedation given, give patient instructions): Abdominal Pain (ED), Cellulitis (ED) Additional Instructions: Please do follow-up your primary care physician in the next day or 2 for recheck. Please also follow-up with ENT. Return for fevers, increased redness or swelling or pain of the ear, increased abdominal pain, vomiting, worsening symptoms or any other concerns. Prescription has been sent to pharmacy. Prescriptions: Dicyclomine [Bentyl] 20 mg PO QID PRN #15 tablet PRN Reason: Pain Ciprofloxacin HCl [Cipro] 750 mg PO Q12H 7 Days #14 tab Is patient prescribed a controlled substance at d/c from ED?: No Referrals: Remi Mckeon MD [STAFF PHYSICIAN] - 1-2 days Micheal Underwood MD [STAFF PHYSICIAN] - 1-2 days Forrest Amaya MD [STAFF PHYSICIAN] - 1-2 days Time of Disposition: 09:25
[2020-11-30 08:02] LABS: Basophils # (A) 0.1 k/uL (0-0.2); Basophils % (A) 2 %; Eosinophils # (A) 0.2 k/uL (0-0.7); Eosinophils % (A) 5 %; HCT 32.4 % (39.0-53.0); HGB 11.5 gm/dL (13.0-17.5); Lymphocytes # (A) 0.6 k/uL (1.0-4.8); Lymphocytes % (A) 20 %; MCH 31.5 pg (25.0-35.0); MCHC 35.6 g/dL (31.0-37.0); MCV 88.6 fL (80.0-100.0); Mean Platelet Volume 6.9; Monocytes # (A) 0.1 k/uL (0-1.0); Monocytes % (A) 3 %; Neutrophils # (A) 2.1 k/uL (1.3-7.7); Neutrophils % (A) 67 %; Platelet Count 284 k/uL (150-450); RBC 3.66 m/uL (4.30-5.90); RDW 15.7 % (11.5-15.5); WBC 3.1 k/uL (3.8-10.6)
[2020-11-30 08:04] LABS: Appearance,Urine Clear (Clear); Bilirubin,Urine Negative (Negative); Blood,Urine Negative (Negative); Color,Urine Light Yellow; Glucose,Urine (UA) Negative (Negative); Ketones,Urine Negative (Negative); Leukocyte Esterase,Urine Negative (Negative); Nitrite,Urine Negative (Negative); PH, Urine 5.5 (5.0-8.0); Protein,Urine Negative (Negative); Specific Gravity,Urine 1.013 (1.001-1.035); Urobilinogen,Urine <2.0 mg/dL (<2.0)
[2020-11-30 08:11] LABS: ALT 20 U/L (4-49); AST 21 U/L (17-59); African American GFR (CKD) >90 (>60 ml/min/1.73 sqM); Albumin 4.4 g/dL (3.5-5.0); Alkaline Phosphatase 54 U/L (38-126); Amylase 35 U/L (30-110); Anion Gap 8 mmol/L; Blood Urea Nitrogen 13 mg/dL (9-20); Calcium 10.2 mg/dL (8.4-10.2); Carbon Dioxide 27 mmol/L (22-30); Chloride 104 mmol/L (98-107); Glucose 113 mg/dL (74-99); Lipase 42 U/L (23-300); Non-African American GFR(CKD) >90 (>60 ml/min/1.73 sqM); Potassium 4.2 mmol/L (3.5-5.1); Sodium 139 mmol/L (137-145); Total Bilirubin 0.1 mg/dL (0.2-1.3); Total Protein 6.9 g/dL (6.3-8.2)
[2020-11-30 08:23] LABS: Partial Thromboplastin Time 22.9 sec (22.0-30.0); Prothrombin Time 10.8 sec (9.0-12.0)
--- NOTE | 2020-11-30 08:23 | XR ---
EXAMINATION TYPE: XR KUB DATE OF EXAM: 11/30/2020 COMPARISON: 11/25/2020 INDICATION: Abdomen pain right-sided renal stone TECHNIQUE: Single view abdomen upright view FINDINGS: No free air is evident. Normal colonic bowel gas is present. The right ureteral stent has been remove d. No suspicious calcifications are identified. No mass effect is evident. Psoas margins are normal. No organomegaly is present. IMPRESSION: 1. Unremarkable Abdomen
--- NOTE | 2020-11-30 09:03 | US ---
EXAMINATION TYPE: US kidneys/renal and bladder DATE OF EXAM: 11/30/2020 COMPARISON: CT CLINICAL HISTORY: r flank pain. Right pelvic and lateral abdomen pain with some pain radiating to juan luis k; post right lithotripsy and renal stent removal approximately 2 weeks ago; on chemotherapy for Stag e 4 Hodgkin's Lymphoma EXAM MEASUREMENTS: Right Kidney: 11.7 x 6.2 x 5.1 cm Left Kidney: 11.8 x 6.0 x 6.3 cm Post Void Residual Volume: not measured on EC patient Right Kidney: No hydronephrosis or masses seen ; hyperechoic parallel vessel babcock seen inferior pole suggest vessel wall calcification. Left Kidney: No hydronephrosis or masses seen Bladder: wnl Bilateral Jets seen: yes No suspicious fluid collection surrounding the kidney is evident. IMPRESSION: Normal renal ultrasound
[2020-11-30] MEDS ORDERED: DICYCLOMINE 10 MG/ML 2 ML AMP IM STA (09:20)
[2020-11-30 09:28] VITALS: BP 124/50; PULSE 72
== END 2020-11-30 09:48 | disposition home or self-care (01) ==
LOC: EC 07:06
DX: R10.9 Unspecified abdominal pain (principal); H61.002 Unspecified perichondritis of left external ear; R11.0 Nausea; F32.9 Major depressive disorder, single episode, unspecified; F12.90 Cannabis use, unspecified, uncomplicated; Z85.71 Personal history of Hodgkin lymphoma; Z87.442 Personal history of urinary calculi; Z87.891 Personal history of nicotine dependence; Z79.1 Long term (current) use of non-steroidal anti-inflammatories (NSAID); Z79.899 Other long term (current) drug therapy
CPT/HCPCS: 36415; 80053; 82150; 83605; 83690; 85025; 85610; 85730; 81003; 87040; 74018; 76770; 99284; 96374; 96375; 96361 ×2; 96372; J0500; J2405; J1170

== ENCOUNTER 2020-12-01 15:17 | Emergency (ER) | payer BC, OTHER ==
[2020-12-01 15:29] VITALS: TEMP 98.8
--- NOTE | 2020-12-01 15:40 | ED ---
General Adult HPI - General Chief complaint: ENT Stated complaint: L ear infection, Abd pain Time Seen by Provider: 12/01/20 15:37 Source: patient, RN notes reviewed, old records reviewed Mode of arrival: ambulatory Limitations: no limitations - History of Present Illness Initial comments: Patient is a 25-year-old male with past medical history remarkable for Hodgkin's lymphoma stage IV currently on chemo last received at the end of October 2020, kidney stones who presents emergency department after returning for worsening left ear pain. Patient was here yesterday morning with the chief complaint of right-sided pain which states is chronic pain from frequent nephrolithiasis as well as left ear pain. There is redness as well as soreness over the cartilage of his left ear. He denies any inner ear middle ear pain. Denies any difficulty hearing. He was diagnosed perichondritis and was given oral antibiotics and discharged home. Patient states that since yesterday, he has noticed that has gotten worse, feels more swollen, is not having pain along the bone behind his ear. He denies any fevers, chills, sick contacts. Denies any chest pain, shortness breath, no pain other than his chronic nephrolithiasis abdominal pain. He has no other acute complaints at this time. Patient does have a right-sided chest port for chemo. He presents over concern for worsening infection of his left ear. He states this is not occurred before. He has no new recent exposures to his ear. - Related Data Home Medications Medication Instructions Recorded Confirmed Benzonatate [Tessalon Perles] 100 mg PO TID PRN 06/04/20 11/25/20 Famotidine [Pepcid] 20 mg PO DAILY 06/04/20 11/25/20 hydrOXYzine pamoate [Vistaril] 50 mg PO Q6H PRN 06/04/20 11/25/20 ondansetron HCL [Zofran] 8 mg PO Q8H PRN 06/04/20 11/25/20 Sulfamethox-Tmp 800-160Mg [Bactrim 1 tab PO MOWEFR 11/15/20 11/25/20 DS 800-160 mg] Ibuprofen [Motrin] 800 mg PO Q6HR PRN 11/25/20 11/25/20 Previous Rx's Medication Instructions Recorded Hydrocodone/Acetaminophen [[place] 1 tab PO Q6HR PRN 3 Days #12 tab 11/20/20 7.5-325] Oxybutynin Chloride [Ditropan XL] 5 mg PO DAILY #14 tab 11/20/20 HYDROcodone/APAP 5-325MG [[place] 1 tab PO Q6HR PRN #12 tab 11/27/20 5-325] HYDROcodone/APAP 5-325MG [[place] 1 tab PO Q4HR PRN 3 Days #18 tab 11/29/20 5-325] Tamsulosin [Flomax] 0.4 mg PO DAILY #14 cap 11/29/20 Ciprofloxacin HCl [Cipro] 750 mg PO Q12H 7 Days #14 tab 11/30/20 Dicyclomine [Bentyl] 20 mg PO QID PRN #15 tablet 11/30/20 Clindamycin [Cleocin] 450 mg PO Q6H 7 Days #84 cap 12/01/20 Allergies Allergy/AdvReac Type Severity Reaction Status Date / Time No Known Allergies Allergy Verified 12/01/20 15:27 Review of Systems ROS Statement: Those systems with pertinent positive or pertinent negative responses have been documented in the HPI. Review of Systems: CONST: Denies fever EYES: Denies blurry vision ENT: Endorses left ear pain C/V: Denies Chest pain RESP: Denies shortness of breath GI: Endorses chronic abdominal pain : Denies dysuria SKIN: Denies rash. MSK: Denies joint pain. NEURO: Denies headache ROS Other: All systems not noted in ROS Statement are negative. Past Medical History Past Medical History: Cancer Additional Past Medical History / Comment(s): Hodgkins Lymphoma stage 4, last c hemo November 08 2020, pt follows up with Dr. Browning out of [facility]. Previous hx of kidney stones early in 2020. History of Any Multi-Drug Resistant Organisms: None Reported Past Surgical History: Appendectomy Additional Past Surgical History / Comment(s): lithotripsy and stent right side, tooth insert, Past Anesthesia/Blood Transfusion Reactions: No Reported Reaction Past Psychological History: Depression Past Alcohol Use History: Rare - Past Family History Mother Additional Family Medical History / Comment(s): Heart murmur, Cyst on Ovary, Appendectomy Father Family Medical History: Hypertension General Exam - General Exam Comments Initial Comments: General: Appears in mild discomfort secondary to pain. HEAD: Normal with no signs of head trauma. EYES: PERRLA, EOMI, conjunctiva normal, no discharge. ENT: Hearing is grossly intact. Normal oropharynx. Patient does have erythema as well as swelling and tenderness to palpation over the auricle of the left ear. Tragus is nontender to palpation. Ear canal and tympanic membrane of the left ear are unremarkable. Patient does have some mild mastoid tenderness to palpation on the left side without any obvious signs of infection, erythema, fluctuance. Patient's right ear exam is within normal limits. RESPIRATORY: Clear breath sounds bilaterally. No wheezes, rales, or rhonchi. C/V: Regular rate and rhythm. S1 and S2 auscultated, no edema, peripheral pulses 2+ and intact throughout ABD: Abd is soft, nontender, nondistended EXT: Normal range of motion, no obvious deformity SKIN: No rashes or lesions observed on exposed skin. NEURO: Alert and oriented 4. Limitations: no limitations Course Vital Signs 12/01/20 12/01/20 15:27 19:14 Temperature 98.8 F Pulse Rate 94 76 Respiratory 18 17 Rate Blood Pressure 109/61 119/60 O2 Sat by Pulse 98 98 Oximetry Medical Decision Making - Medical Decision Making Based on the patient's presentation and physical exam, I'm concerned for possible worsening of his perichondritis, possibly causing mastoiditis with the new onset pain to the mastoid process of the skull. Therefore we will obtain basic laboratory studies and obtain a CT with contrast of the facial bones and mastoid process of the left ear. Patient was given 0.5 mg of IV Dilaudid. He was in agreement with this plan. Laboratory studies were remarkable for a leukopenia, which is expected as the patient is on active chemotherapy. Renal function is normal. Patient remains afebrile. CT imaging revealed no acute signs of mastoiditis or other facial infection. On reevaluation, patient is feeling somewhat improved. I did expand from the negative workup. I believe it is safe for him to be discharged home with close follow-up with ENT, as his exam is relatively the same as yesterday with no signs of worsening infection. This patient was already discharged home on ciprofloxacin, we'll also discharge him home on clindamycin to take with ciprofloxacin. He will receive a dose of both levofloxacin and clindamycin here in the department before discharge. He was in agreement with this plan. I will provide the patient with a prescription for clindamycin 450 mg every 6 for 7 days. I instructed the patient to follow up with their PCP in the next 3 days. I provided contact information for follow up with Dr. Mckeon of ENT. I explained that the patient should return to the emergency department if they experience any worsening symptoms. Strict return precautions were discussed with the patient. The patient expressed understanding of these instructions. I answered all questions that the patient had. The patient was discharged home in improved condition with their prescriptions and follow up information. - Lab Data Result diagrams: 12/01/20 16:16 12/01/20 16:16 Lab Results 12/01/20 12/01/20 Range/Units 16:16 16:16 WBC 2.2 L (3.8-10.6) k/uL RBC 3.57 L (4.30-5.90) m/uL Hgb 11.0 L (13.0-17.5) gm/dL Hct 32.0 L (39.0-53.0) % MCV 89.7 (80.0-100.0) fL MCH 30.8 (25.0-35.0) pg MCHC 34.4 (31.0-37.0) g/dL RDW 17.0 H (11.5-15.5) % Plt Count 307 (150-450) k/uL MPV 6.6 Neutrophils % (Manual) 40 % Band Neuts % (Manual) 4 % Lymphocytes % (Manual) 35 % Monocytes % (Manual) 10 % Eosinophils % (Manual) 8 % Basophils % (Manual) 3 % Neutrophils # (Manual) 0.90 L (1.3-7.7) k/uL Lymphocytes # (Manual) 0.77 L (1.0-4.8) k/uL Monocytes # (Manual) 0.22 (0-1.0) k/uL Eosinophils # (Manual) 0.18 (0-0.7) k/uL Basophils # (Manual) 0.07 (0-0.2) k/uL Nucleated RBCs 0 (0-0) /100 WBC Manual Slide Review Performed Anisocytosis Slight Sodium 140 (137-145) mmol/L Potassium 4.1 (3.5-5.1) mmol/L Chloride 102 (98-107) mmol/L Carbon Dioxide 27 (22-30) mmol/L Anion Gap 11 mmol/L BUN 17 (9-20) mg/dL Creatinine 0.79 (0.66-1.25) mg/dL Est GFR (CKD-EPI)AfAm >90 (>60 ml/min/1.73 sqM) Est GFR (CKD-EPI)NonAf >90 (>60 ml/min/1.73 sqM) Glucose 98 (74-99) mg/dL Calcium 9.6 (8.4-10.2) mg/dL Magnesium 1.8 (1.6-2.3) mg/dL Disposition Clinical Impression: Perichondritis and chondritis of left pinna, Lymphoma Disposition: HOME SELF-CARE Condition: Fair Instructions (If sedation given, give patient instructions): Ear Infection (ED) Prescriptions: Clindamycin [Cleocin] 450 mg PO Q6H 7 Days #84 cap Is patient prescribed a controlled substance at d/c from ED?: No Referrals: Nonstaff,Physician [Primary Care Provider] - 1-2 days Remi Mckeon MD [STAFF PHYSICIAN] - 1-2 days
[2020-12-01] MEDS ORDERED: HYDROmorphone 0.5 MG/0.5 ML SYRINGE IVP STA ×2 (15:52→18:42)
[2020-12-01 16:37] LABS: Anisocytosis Slight; MCH 30.8 pg (25.0-35.0); MCHC 34.4 g/dL (31.0-37.0); MCV 89.7 fL (80.0-100.0); Mean Platelet Volume 6.6; Platelet Count 307 k/uL (150-450); RBC 3.57 m/uL (4.30-5.90); WBC 2.2 k/uL (3.8-10.6)
[2020-12-01 17:04] LABS: African American GFR (CKD) >90 (>60 ml/min/1.73 sqM); Anion Gap 11 mmol/L; Blood Urea Nitrogen 17 mg/dL (9-20); Calcium 9.6 mg/dL (8.4-10.2); Carbon Dioxide 27 mmol/L (22-30); Chloride 102 mmol/L (98-107); Glucose 98 mg/dL (74-99); Magnesium 1.8 mg/dL (1.6-2.3); Non-African American GFR(CKD) >90 (>60 ml/min/1.73 sqM); Potassium 4.1 mmol/L (3.5-5.1); Sodium 140 mmol/L (137-145)
[2020-12-01 17:13] LABS: Band Neutrophils % 4 %; Basophils # (M) 0.07 k/uL (0-0.2); Eosinophils # (M) 0.18 k/uL (0-0.7); Lymphocytes # (M) 0.77 k/uL (1.0-4.8); Monocytes # (M) 0.22 k/uL (0-1.0); Neutrophils % (M) 40 %; Nucleated Red Blood Cells 0 /100 WBC (0-0); Total Cells Counted 100
--- NOTE | 2020-12-01 17:50 | CT ---
EXAMINATION TYPE: CT facial bones w con DATE OF EXAM: 12/01/2020 COMPARISON: None HISTORY: left ear pain and swelling CT DLP: 489.2 mGycm Automated exposure control for dose reduction was used. CONTRAST: Performed with IV Contrast, patient injected with 100 mL of Isovue 300. Images obtained from the bottom of the mandible to the top of the frontal sinuses with IV contrast. The mandibular ring is intact. Temporomandibular joints appear normal. Zygomatic arches appear normal . Maxilla is intact. There is no evidence of a blowout fracture. Orbital margins are intact. There is no retro-orbital mass. The nasal bone is intact. There is fairly normal aeration of the paranasal si nuses. I see no bony destructive process. The parotid glands are symmetric. Submandibular salivary gl ands are symmetric. There is normal aeration of the mastoid sinuses. External auditory canals are jacek rly normal. There is normal aeration of the epitympanic recess bilaterally. I see no evidence of a ginger ny destructive process. IMPRESSION: Negative CT scan of the facial bones.
[2020-12-01] MEDS ORDERED: CLINDAMYCIN 150 MG CAP PO STA (18:49)
[2020-12-01] MEDS ORDERED: LEVOFLOXACIN 750 MG TAB PO STA (18:49)
[2020-12-01 19:15] VITALS: BP 119/60; PULSE 76; RESP 17
== END 2020-12-01 19:16 | disposition home or self-care (01) ==
LOC: EC 15:17
DX: H61.002 Unspecified perichondritis of left external ear (principal); H61.032 Chondritis of left external ear; Z85.71 Personal history of Hodgkin lymphoma; F32.9 Major depressive disorder, single episode, unspecified
CPT/HCPCS: 99284; 96374; 96376; 36415; 80048; 83735; 85025; 70487; J1170; Q9967

== ENCOUNTER 2020-12-02 20:39 | Observation (INO) | payer BC, OTHER ==
[2020-12-02] MEDS ORDERED: LEVOFLOXACIN 750MG-D5W PMX 750 MG in DEXTROSE/WATER 1 150ML.BAG IVPB STA (22:21)
[2020-12-02] MEDS ORDERED: HYDROmorphone 0.5 MG/0.5 ML SYRINGE IVP STA (22:22)
[2020-12-02] MEDS ORDERED: LEVOFLOXACIN 750MG-D5W PMX 750 MG in DEXTROSE/WATER 1 150ML.BAG IVPB SCH (22:30)
[2020-12-02] MEDS ORDERED: CLINDAMYCIN 600 MG in DEXTROSE 5% IN WATER 50 ML IVPB ONE ×2 (22:30)
[2020-12-02] MEDS: SODIUM CHLORIDE 0.9% 500 ML 500 ML IV SCH (22:39)
[2020-12-02 23:06] LABS: ALT 20 U/L (4-49); AST 23 U/L (17-59); African American GFR (CKD) >90 (>60 ml/min/1.73 sqM); Alkaline Phosphatase 64 U/L (38-126); Anion Gap 11 mmol/L; Blood Urea Nitrogen 15 mg/dL (9-20); Carbon Dioxide 26 mmol/L (22-30); Chloride 104 mmol/L (98-107); Glucose 96 mg/dL (74-99); Non-African American GFR(CKD) >90 (>60 ml/min/1.73 sqM); Potassium 3.9 mmol/L (3.5-5.1); Sodium 141 mmol/L (137-145); Total Bilirubin 0.1 mg/dL (0.2-1.3); Total Protein 7.5 g/dL (6.3-8.2)
--- NOTE | 2020-12-02 23:49 | ED ---
General Adult HPI - General Source: patient Mode of arrival: ambulatory Limitations: no limitations <Vickie Thakur - Last Filed: 12/03/20 02:31> <Conor Arita - Last Filed: 12/03/20 21:51> - General Chief complaint: ENT Stated complaint: Ear infection Time Seen by Provider: 12/02/20 21:51 - History of Present Illness Initial comments: 25 year-old male patient his history of lymphoma currently receiving chemotherapy presents to the emergency department for evaluation of left ear pain. Patient has been seen twice for similar symptoms was diagnosed with perichondritis and initially started on cipro. Patient was seen yesterday had labs and CT facial bones which were unremarkable. He was leukopenic most likely due to chemo. Denies any fever or chills. Denies nausea or vomiting. Denies exposure to the sun, states he always wears a hat that covers his ears when outside. Patient denies any recent rash, cough, shortness of breath, chest pain, abdominal pain, diarrhea, constipation, back pain, numbness, tingling, dizziness, weakness, hematuria, dysuria, urinary urgency, urinary frequency, headache, visual changes, or any other complaints. (Vickie Thakur) - Related Data Home Medications Medication Instructions Recorded Confirmed Famotidine [Pepcid] 20 mg PO DAILY 06/04/20 12/03/20 ondansetron HCL [Zofran] 8 mg PO Q8H PRN 06/04/20 12/03/20 Sulfamethox-Tmp 800-160Mg [Bactrim 1 tab PO MOWEFR 11/15/20 12/03/20 DS 800-160 mg] Ibuprofen [Motrin] 800 mg PO Q6HR PRN 11/25/20 12/03/20 Dicyclomine [Bentyl] 20 mg PO QID PRN 12/03/20 12/03/20 Previous Rx's Medication Instructions Recorded HYDROcodone/APAP 5-325MG [[place] 1 tab PO Q4HR PRN 3 Days #18 tab 11/29/20 5-325] Tamsulosin [Flomax] 0.4 mg PO DAILY #14 cap 11/29/20 Clindamycin [Cleocin] 450 mg PO Q6H 7 Days #84 cap 12/01/20 Allergies Allergy/AdvReac Type Severity Reaction Status Date / Time No Known Allergies Allergy Verified 12/03/20 07:31 Review of Systems ROS Other: All systems not noted in ROS Statement are negative. <Vickie Thakur - Last Filed: 12/03/20 02:31> ROS Other: All systems not noted in ROS Statement are negative. <Juan JConor - Last Filed: 12/03/20 21:51> ROS Statement: Those systems with pertinent positive or pertinent negative responses have been documented in the HPI. Past Medical History Past Medical History: Cancer Additional Past Medical History / Comment(s): Hodgkins Lymphoma stage 4, last chemo November 08 2020, pt follows up with Dr. Browning out of [facility]. Previous hx of kidney stones early in 2019. History of Any Multi-Drug Resistant Organisms: None Reported Past Surgical History: Appendectomy Additional Past Surgical History / Comment(s): lithotripsy and stent right side, tooth insert, Past Anesthesia/Blood Transfusion Reactions: No Reported Reaction Past Psychological History: Depression Smoking Status: Never smoker Past Alcohol Use History: Rare Past Drug Use History: Marijuana - Past Family History Mother Additional Family Medical History / Comment(s): Heart murmur, Cyst on Ovary, Appendectomy Father Family Medical History: Hypertension <Vickie Thakur - Last Filed: 12/03/20 02:31> General Exam Limitations: no limitations General appearance: alert, in no apparent distress, other (This is a well- developed, well-nourished adult male patient in no acute distress. Vital signs upon presentation are temperature 98.1F, pulse 99, respirations 18, blood pressure 121/67, pulse ox 100% on room air.) ENT exam: Present: mucous membranes moist, TM's normal bilaterally, other (Left external ear is erythematous with peeling skin. No evidence or lesion or fluid collection. No tragus tenderness. There is some left mastoid tenderness. No drainage from the external auditory canal.) Respiratory exam: Present: normal lung sounds bilaterally. Absent: respiratory distress, wheezes, rales, rhonchi, stridor Cardiovascular Exam: Present: regular rate, normal rhythm, normal heart sounds. Absent: systolic murmur, diastolic murmur, rubs, gallop, clicks GI/Abdominal exam: Present: soft, normal bowel sounds. Absent: distended, tenderness, guarding, rebound, rigid Neurological exam: Present: alert, oriented X3, CN II-XII intact Psychiatric exam: Present: normal affect, normal mood Skin exam: Present: warm, dry, intact, normal color. Absent: rash <Vickie Thakur - Last Filed: 12/03/20 02:31> Course Vital Signs 12/02/20 12/02/20 12/03/20 21:46 23:51 02:39 Temperature 98.1 F 98.2 F 99.0 F Pulse Rate 99 88 71 Respiratory 18 18 18 Rate Blood Pressure 121/67 125/61 118/71 O2 Sat by Pulse 100 97 96 Oximetry 12/03/20 12/03/20 12/03/20 07:42 13:52 15:19 Temperature 97.7 F 97.5 F L 97.5 F L Pulse Rate 66 74 74 Respiratory 18 16 16 Rate Blood Pressure 121/68 125/56 125/56 O2 Sat by Pulse 98 99 99 Oximetry Medical Decision Making - Lab Data Result diagrams: 12/02/20 22:35 12/02/20 22:35 <Vickie Thakur - Last Filed: 12/03/20 02:31> - Lab Data Result diagrams: 12/02/20 22:35 12/02/20 22:35 <Conor Arita - Last Filed: 12/03/20 21:51> - Medical Decision Making 25 year-old male patient presents to the emergency department for evaluation of increased left external ear pain. Physical examination did reveal erythema to the left ear, maybe mild swelling, and some skin peeling. Labs reviewed and showed leukopenia most likely due to chemotherapy. He is afebrile with normal vital signs. This is his third visit with worsening ear pain. He will be admitted for IV antibiotics and ENT consultation. Dr. Galicia is accepting C ase discussed with my attending Dr. Chaney. (Vickie Thakur) Patient discussed with Dr. Arita, not Dr. Chaney (Conor Arita) - Lab Data Lab Results 12/02/20 12/02/20 12/02/20 Range/Units 22:35 22:35 22:35 WBC 2.7 L (3.8-10.6) k/uL RBC 3.91 L (4.30-5.90) m/uL Hgb 12.3 L (13.0-17.5) gm/dL Hct 35.4 L (39.0-53.0) % MCV 90.7 (80.0-100.0) fL MCH 31.4 (25.0-35.0) pg MCHC 34.6 (31.0-37.0) g/dL RDW 16.4 H (11.5-15.5) % Plt Count 335 (150-450) k/uL MPV 7.1 Neutrophils % 38 % Lymphocytes % 38 % Monocytes % 12 % Eosinophils % 6 % Basophils % 2 % Neutrophils # 1.0 L (1.3-7.7) k/uL Lymphocytes # 1.0 (1.0-4.8) k/uL Monocytes # 0.3 (0-1.0) k/uL Eosinophils # 0.2 (0-0.7) k/uL Basophils # 0.1 (0-0.2) k/uL Anisocytosis Slight PT 10.6 (9.0-12.0) sec INR 1.0 (<1.2) APTT 23.8 (22.0-30.0) sec Sodium (137-145) mmol/L Potassium (3.5-5.1) mmol/L Chloride (98-107) mmol/L Carbon Dioxide (22-30) mmol/L Anion Gap mmol/L BUN (9-20) mg/dL Creatinine (0.66-1.25) mg/dL Est GFR (CKD-EPI)AfAm (>60 ml/min/1.73 sqM) Est GFR (CKD-EPI)NonAf (>60 ml/min/1.73 sqM) Glucose (74-99) mg/dL Plasma Lactic Acid Jim (0.7-2.0) mmol/L Calcium (8.4-10.2) mg/dL Total Bilirubin (0.2-1.3) mg/dL AST (17-59) U/L ALT (4-49) U/L Alkaline Phosphatase (38-126) U/L Total Protein (6.3-8.2) g/dL Albumin (3.5-5.0) g/dL Urine Color Yellow Urine Appearance Clear (Clear) Urine pH 5.5 (5.0-8.0) Ur Specific [place] 1.018 (1.001-1.035) Urine Protein Negative (Negative) Urine Glucose (UA) Negative (Negative) Urine Ketones Negative (Negative) Urine Blood Negative (Negative) Urine Nitrite Negative (Negative) Urine Bilirubin Negative (Negative) Urine Urobilinogen <2.0 (<2.0) mg/dL Ur Leukocyte Esterase Negative (Negative) 12/02/20 12/02/20 Range/Units 22:35 22:35 WBC (3.8-10.6) k/uL RBC (4.30-5.90) m/uL Hgb (13.0-17.5) gm/dL Hct (39.0-53.0) % MCV (80.0-100.0) fL MCH (25.0-35.0) pg MCHC (31.0-37.0) g/dL RDW (11.5-15.5) % Plt Count (150-450) k/uL MPV Neutrophils % % Lymphocytes % % Monocytes % % Eosinophils % % Basophils % % Neutrophils # (1.3-7.7) k/uL Lymphocytes # (1.0-4.8) k/uL Monocytes # (0-1.0) k/uL Eosinophils # (0-0.7) k/uL Basophils # (0-0.2) k/uL Anisocytosis PT (9.0-12.0) sec INR (<1.2) APTT (22.0-30.0) sec Sodium 141 (137-145) mmol/L Potassium 3.9 (3.5-5.1) mmol/L Chloride 104 (98-107) mmol/L Carbon Dioxide 26 (22-30) mmol/L Anion Gap 11 mmol/L BUN 15 (9-20) mg/dL Creatinine 0.84 (0.66-1.25) mg/dL Est GFR (CKD-EPI)AfAm >90 (>60 ml/min/1.73 sqM) Est GFR (CKD-EPI)NonAf >90 (>60 ml/min/1.73 sqM) Glucose 96 (74-99) mg/dL Plasma Lactic Acid Jim 0.8 (0.7-2.0) mmol/L Calcium 10.0 (8.4-10.2) mg/dL Total Bilirubin 0.1 L (0.2-1.3) mg/dL AST 23 (17-59) U/L ALT 20 (4-49) U/L Alkaline Phosphatase 64 (38-126) U/L Total Protein 7.5 (6.3-8.2) g/dL Albumin 5.0 (3.5-5.0) g/dL Urine Color Urine Appearance (Clear) Urine pH (5.0-8.0) Ur Specific [place] (1.001-1.035) Urine Protein (Negative) Urine Glucose (UA) (Negative) Urine Ketones (Negative) Urine Blood (Negative) Urine Nitrite (Negative) Urine Bilirubin (Negative) Urine Urobilinogen (<2.0) mg/dL Ur Leukocyte Esterase (Negative) Disposition Decision to Admit Reason: Admit from EC Decision Date: 12/03/20 Decision Time: 00:22 <Vickie Thakur - Last Filed: 12/03/20 02:31> <Conor Arita - Last Filed: 12/03/20 21:51> Clinical Impression: Perichondritis of left ear Disposition: ADMITTED IP TO THIS [facility] Condition: Serious
[2020-12-03] MEDS ORDERED: CLINDAMYCIN 600 MG in DEXTROSE 5% IN WATER 50 ML IVPB SCH ×2
[2020-12-03 00:07] LABS: Anisocytosis Slight; Basophils # (A) 0.1 k/uL (0-0.2); Basophils % (A) 2 %; Eosinophils # (A) 0.2 k/uL (0-0.7); Eosinophils % (A) 6 %; HCT 35.4 % (39.0-53.0); HGB 12.3 gm/dL (13.0-17.5); Lymphocytes % (A) 38 %; MCH 31.4 pg (25.0-35.0); MCHC 34.6 g/dL (31.0-37.0); MCV 90.7 fL (80.0-100.0); Mean Platelet Volume 7.1; Monocytes # (A) 0.3 k/uL (0-1.0); Monocytes % (A) 12 %; Neutrophils % (A) 38 %; Platelet Count 335 k/uL (150-450); RBC 3.91 m/uL (4.30-5.90); RDW 16.4 % (11.5-15.5); WBC 2.7 k/uL (3.8-10.6)
[2020-12-03 00:08] LABS: Partial Thromboplastin Time 23.8 sec (22.0-30.0); Prothrombin Time 10.6 sec (9.0-12.0)
[2020-12-03 00:11] LABS: Appearance,Urine Clear (Clear); Bilirubin,Urine Negative (Negative); Blood,Urine Negative (Negative); Color,Urine Yellow; Glucose,Urine (UA) Negative (Negative); Ketones,Urine Negative (Negative); Leukocyte Esterase,Urine Negative (Negative); Nitrite,Urine Negative (Negative); PH, Urine 5.5 (5.0-8.0); Protein,Urine Negative (Negative); Specific Gravity,Urine 1.018 (1.001-1.035); Urobilinogen,Urine <2.0 mg/dL (<2.0)
[2020-12-03] MEDS ORDERED: NALOXONE 0.4 MG/ML 1 ML VIAL IV PRN (00:20)
[2020-12-03] MEDS: HYDROmorphone 0.5 MG/0.5 ML SYRINGE IVP PRN ×7 (01:13→20:08)
[2020-12-03] MEDS: CLINDAMYCIN 600 MG in DEXTROSE 5% IN WATER 50 ML IVPB SCH ×6 (07:45→22:43)
[2020-12-03] MEDS: ONDANSETRON 4 MG/2 ML VIAL IVP PRN ×2 (10:21→16:55)
--- NOTE | 2020-12-03 18:14 | P.GSCN ---
History of Present Illness Consult date: 12/03/20 Reason for Consult: Left ear swelling and pain Requesting physician: Vickie Thakur History of present illness: This is a 25-year-old white male who had a kidney stone and a stent placement. He was removed last week and shortly after removal he noted that his left ear became very tender. This started on the upper portion of the helix on the left side and has spread to the entire ear. There is a large amount of itching to the left ear but he had a large amount of tenderness in addition to the swelling. He does not remember episode of an abrasion or an excoriation to the skin. A does not have any ideas is to the precipitating etiology. He tells me over the last 24 hours the swelling is gone down significantly as the antibiotics were changed to Levaquin and clindamycin. The ciprofloxacin on its own is not working. Review of Systems - Constitutional Reports as per HPI - EENT Ears, nose, mouth and throat: Reports as per HPI - Cardiovascular Reports as per HPI - Respiratory Reports as per HPI - Gastrointestinal Reports as per HPI - Genitourinary Reports as per HPI - Musculoskeletal Reports as per HPI - Integumentary Reports as per HPI - Neurological Reports as per HPI - Psychiatric Reports as per HPI - Endocrine Reports as per HPI - Hematologic/Lymphatic Reports as per HPI - Allergic/Immunologic Reports as per HPI Past Medical History Past Medical History: Cancer Additional Past Medical History / Comment(s): Hodgkins Lymphoma stage 4, last chemo November 08 2020, pt follows up with Dr. Browning out of [facility]. Previous hx of kidney stones early in 2019. History of Any Multi-Drug Resistant Organisms: None Reported Past Surgical History: Appendectomy Additional Past Surgical History / Comment(s): lithotripsy and stent right side, tooth insert, Past Anesthesia/Blood Transfusion Reactions: No Reported Reaction Past Psychological History: Depression Smoking Status: Never smoker Past Alcohol Use History: Rare Past Drug Use History: Marijuana Additional Drug Use History / Comment(s): Occasional Marijuana use to help with cancer pain and increase appetite. - Past Family History Mother Additional Family Medical History / Comment(s): Heart murmur, Cyst on Ovary, Appendectomy Father Family Medical History: Hypertension Medications and Allergies Home Medications Medication Instructions Recorded Confirmed Type Famotidine [Pepcid] 20 mg PO DAILY 06/04/20 12/03/20 History ondansetron HCL [Zofran] 8 mg PO Q8H PRN 06/04/20 12/03/20 History Sulfamethox-Tmp 800-160Mg [Bactrim 1 tab PO MOWEFR 11/15/20 12/03/20 History DS 800-160 mg] Ibuprofen [Motrin] 800 mg PO Q6HR PRN 11/25/20 12/03/20 History HYDROcodone/APAP 5-325MG [[place] 1 tab PO Q4HR PRN 3 Days #18 tab 11/29/20 12/03/20 Rx 5-325] Tamsulosin [Flomax] 0.4 mg PO DAILY #14 cap 11/29/20 12/03/20 Rx Clindamycin [Cleocin] 450 mg PO Q6H 7 Days #84 cap 12/01/20 12/03/20 Rx Dicyclomine [Bentyl] 20 mg PO QID PRN 12/03/20 12/03/20 History Allergies Allergy/AdvReac Type Severity Reaction Status Date / Time No Known Allergies Allergy Verified 12/03/20 07:31 Surgical - Exam Osteopathic Statement: *. No significant issues noted on an osteopathic structural exam other than those noted in the History and Physical/Consult. Vital Signs Temp Pulse Resp BP Pulse Ox 98.1 F 99 18 121/67 100 12/02/20 21:46 12/02/20 21:46 12/02/20 21:46 12/02/20 21:46 12/02/20 21:46 - General well developed, well nourished, no distress - Eyes PERRL, normal ocular movement - ENT Head is normocephalic, the face is symmetric, the left ear is swollen tender, the right is unremarkable. Both tympanic members are without bulging or retraction. Nose is patent no tumors polyps or masses. Mouth and throat u nremarkable neck shows no tumors or masses. normal nares, normal mucosa, no hearing loss - Neck no masses, no bruits, trachea midline, no lymphadectomy, no venous distension - Respiratory normal expansion - Neurologic normal coordination, normal sensation - Musculoskeletal normal gait, normal posture - Psychiatric oriented to time, oriented to place, speech is normal, memory intact Results - Labs 12/02/20 22:35 12/02/20 22:35 Abnormal Lab Results - Last 24 Hours (Table) 12/02/20 12/02/20 Range/Units 22:35 22:35 WBC 2.7 L (3.8-10.6) k/uL RBC 3.91 L (4.30-5.90) m/uL Hgb 12.3 L (13.0-17.5) gm/dL Hct 35.4 L (39.0-53.0) % RDW 16.4 H (11.5-15.5) % Neutrophils # 1.0 L (1.3-7.7) k/uL Total Bilirubin 0.1 L (0.2-1.3) mg/dL Diabetes panel 12/02/20 Range/Units 22:35 Sodium 141 (137-145) mmol/L Potassium 3.9 (3.5-5.1) mmol/L Chloride 104 (98-107) mmol/L Carbon Dioxide 26 (22-30) mmol/L BUN 15 (9-20) mg/dL Creatinine 0.84 (0.66-1.25) mg/dL Glucose 96 (74-99) mg/dL Calcium 10.0 (8.4-10.2) mg/dL AST 23 (17-59) U/L ALT 20 (4-49) U/L Alkaline Phosphatase 64 (38-126) U/L Total Protein 7.5 (6.3-8.2) g/dL Albumin 5.0 (3.5-5.0) g/dL Calcium panel 12/02/20 Range/Units 22:35 Calcium 10.0 (8.4-10.2) mg/dL Albumin 5.0 (3.5-5.0) g/dL Pituitary panel 12/02/20 Range/Units 22:35 Sodium 141 (137-145) mmol/L Potassium 3.9 (3.5-5.1) mmol/L Chloride 104 (98-107) mmol/L Carbon Dioxide 26 (22-30) mmol/L BUN 15 (9-20) mg/dL Creatinine 0.84 (0.66-1.25) mg/dL Glucose 96 (74-99) mg/dL Calcium 10.0 (8.4-10.2) mg/dL Adrenal panel 12/02/20 Range/Units 22:35 Sodium 141 (137-145) mmol/L Potassium 3.9 (3.5-5.1) mmol/L Chloride 104 (98-107) mmol/L Carbon Dioxide 26 (22-30) mmol/L BUN 15 (9-20) mg/dL Creatinine 0.84 (0.66-1.25) mg/dL Glucose 96 (74-99) mg/dL Calcium 10.0 (8.4-10.2) mg/dL Total Bilirubin 0.1 L (0.2-1.3) mg/dL AST 23 (17-59) U/L ALT 20 (4-49) U/L Alkaline Phosphatase 64 (38-126) U/L Total Protein 7.5 (6.3-8.2) g/dL Albumin 5.0 (3.5-5.0) g/dL Assessment and Plan Assessment: Left auricular perichondritis with pruritus Plan: This patient has a left auricular perichondritis and is immunosuppressed from his chemotherapy from his lymphoma. The ciprofloxacin was ineffective but the combination of levofloxacin and clindamycin seems to be working well for him. I would add mupirocin ointment to the left ear and continue his therapy as prescribed. Oral levofloxacin and clindamycin could be continued on outpatient basis. I've given him my card and he can follow up with me on an outpatient basis as needed. The 2 most likely etiologies for this left auricular chondritis with pseudomonas aeruginosa or staph aureus. Since he is improving on the current medication white can presume this most likely was from a staph aureus infection. Again, the patient is to follow up with me after discharge as needed. Time with Patient: Greater than 30
[2020-12-03] MEDS: MUPIROCIN 2% OINT 22 GM TUBE TOPICAL SCH ×2 (20:10→22:44)
[2020-12-04] MEDS: LEVOFLOXACIN 750MG-D5W PMX 750 MG in DEXTROSE/WATER 1 150ML.BAG IVPB SCH (00:15)
[2020-12-04] MEDS: HYDROmorphone 0.5 MG/0.5 ML SYRINGE IVP PRN ×7 (00:20→21:03)
[2020-12-04] MEDS: CLINDAMYCIN 600 MG in DEXTROSE 5% IN WATER 50 ML IVPB SCH ×4 (06:25→15:51)
--- NOTE | 2020-12-04 06:36 | HP ---
HISTORY AND PHYSICAL HISTORY OF PRESENT ILLNESS: A 25-year-old white male with a kidney stone and stent placement. His left ear became very tender and infected 3 days after being here for stone removal and it has spread to his entire ear canal. Now his right ear has severe tenderness and redness and swelling, excoriation. He has been seen by Dr. Douglas, ENT already. He is on Levaquin and clindamycin. Cipro did not work. PAST MEDICAL HISTORY: Lymphoma, had chemo 2 weeks ago for non-Hodgkin's lymphoma. REVIEW OF SYSTEMS: Otherwise 14-point review of systems negative. HOME MEDICATIONS: Include Pepcid 20 daily, Zofran 8 mg q.8h p.r.n., he failed Bactrim Double Strength b.i.d., [place] 5/325 every 4, Flomax 0.4 daily, Cleocin 450 q.6h for 7 days, Bentyl 20 mg q.i.d. PHYSICAL EXAM: Vital signs stable, afebrile. Cardiovascular S1, S2. LUNGS: Clear. GI: Soft. Psych fair mood and affect. NEUROLOGIC: Alert and orient x3 years old. Ears show redness bilaterally ears on the pinna and the entire ears. ASSESSMENT: 1. Cellulitis of the ears. 2. 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 3. Non-Hodgkin's lymphoma. Continue broad-spectrum antibiotics. Prognosis guarded. Await for Infectious Disease. MMODL / IJN: [id number] /
[2020-12-04] MEDS: MUPIROCIN 2% OINT 22 GM TUBE TOPICAL SCH ×3 (09:58→20:14)
[2020-12-04] MEDS: ONDANSETRON 4 MG/2 ML VIAL IVP PRN ×2 (10:56→17:10)
[2020-12-04] MEDS ORDERED: diphenhydrAMINE 25 MG CAP PO PRN (22:12)
--- NOTE | 2020-12-04 23:28 | P.CONS ---
History of Present Illness - Reason for Consult Consult date: 12/04/20 Ear cellulitis Requesting physician: Yadiel Galicia - Chief Complaint left ear pain x few days - History of Present Illness Patient is a 25-year-old male with a past medical history significant for stage IV Hodgkin lymphoma for the patient is currently on chemotherapy patient presented to [facility] on 02 December for evaluation of left ear pain patient apparently symptom has been going on for few days patient denies having history of any trauma has been complaining of pain to the left ear more of a burning to sharp pain intensity is 5-6 out of 10 and no radiation and no significant drainage with the symptom the patient has been evaluated on the patient did have a CT of the face completed with no evidence of any bony destruction patient has been diagnosed with the chondritis and has been discharged on oral Cipro without any improvement subsequently presented to hospital with similar symptoms patient on presentation to the hospital did not have any fever or elevated white count of the patient was leukopenic did have a negative UA patient started on oral clindamycin Levaquin and infectious disease was consulted for further management of antibiotic therapy Review of Systems Positive point has been mentioned in the HPI rest of the systems are negative Past Medical History Past Medical History: Cancer Additional Past Medical History / Comment(s): Hodgkins Lymphoma stage 4, last chemo November 08 2020, pt follows up with Dr. Browning out of [facility]. Previous hx of kidney stones early in 2019. History of Any Multi-Drug Resistant Organisms: None Reported Past Surgical History: Appendectomy Additional Past Surgical History / Comment(s): lithotripsy and stent right side, tooth insert, Past Anesthesia/Blood Transfusion Reactions: No Reported Reaction Past Psychological History: Depression Smoking Status: Never smoker Past Alcohol Use History: Rare Past Drug Use History: Marijuana Additional Drug Use History / Comment(s): Occasional Marijuana use to help with cancer pain and increase appetite. - Past Family History Mother Additional Family Medical History / Comment(s): Heart murmur, Cyst on Ovary, Appendectomy Father Family Medical History: Hypertension Medications and Allergies Home Medications Medication Instructions Recorded Confirmed Type Famotidine [Pepcid] 20 mg PO DAILY 06/04/20 12/03/20 History ondansetron HCL [Zofran] 8 mg PO Q8H PRN 06/04/20 12/03/20 History Sulfamethox-Tmp 800-160Mg [Bactrim 1 tab PO MOWEFR 11/15/20 12/03/20 History DS 800-160 mg] Ibuprofen [Motrin] 800 mg PO Q6HR PRN 11/25/20 12/03/20 History HYDROcodone/APAP 5-325MG [[place] 1 tab PO Q4HR PRN 3 Days #18 tab 11/29/20 12/03/20 Rx 5-325] Tamsulosin [Flomax] 0.4 mg PO DAILY #14 cap 11/29/20 12/03/20 Rx Clindamycin [Cleocin] 450 mg PO Q6H 7 Days #84 cap 12/01/20 12/03/20 Rx Dicyclomine [Bentyl] 20 mg PO QID PRN 12/03/20 12/03/20 History Allergies Allergy/AdvReac Type Severity Reaction Status Date / Time No Known Allergies Allergy Verified 12/03/20 07:31 Physical Exam Vitals: Vital Signs Temp Pulse Pulse Resp BP BP Pulse Ox 12/04/20 07:00 97.6 F 62 16 91/50 100 12/04/20 02:36 97.7 F 75 14 92/57 100 12/04/20 02:00 66 12/03/20 20:00 16 12/03/20 19:02 97.8 F 66 16 113/71 98 12/03/20 15:19 97.5 F L 74 16 125/56 99 12/03/20 13:52 97.5 F L 74 16 125/56 99 Intake and Output 12/03/20 12/04/20 12/04/20 22:59 06:59 14:59 Intake Total 500 300 Balance 500 300 Intake: Oral 500 300 Other: Voiding Method Toilet # Voids 2 1 Weight 106.594 kg GENERAL DESCRIPTION: Middle-aged male lying in bed, no distress. No tachypnea or accessory muscle of respiration use. HEENT: Shows Pallor , no scleral icterus. Oral mucous membrane is dry. No pharyngeal erythema or thrush, left ear some erythema and dry skin NECK: Trachea central, no thyromegaly. LUNGS: Unlabored breathing. Clear to auscultation anteriorly. No wheeze or crack le. HEART: S1, S2, regular rate and rhythm. No loud murmur ABDOMEN: Soft, no tenderness , guarding or rigidity, no organomegaly EXTREMITIES: No edema of feet. SKIN: No rash, no masses palpable. NEUROLOGICAL: The patient is awake, alert, oriented x3, mood and affect normal. Results CBC & Chem 7: 12/02/20 22:35 12/02/20 22:35 Labs: Microbiology - Last 24 Hours (Table) 12/02/20 22:35 Blood Culture - Preliminary Blood No Growth after 24 hours 12/02/20 22:35 Blood Culture - Preliminary Blood No Growth after 24 hours Assessment and Plan Assessment: patient with left otitis externa in this patient currently with no features suggestive of otitis media or mastoiditis patient with no fever did have leukopenia and possible immunosuppression from his chemotherapy is receiving for the stage IV non-Hodgkin lymphoma (1) Perichondritis of left ear Current Visit: Yes Status: Acute Code(s): H61.002 - UNSPECIFIED PERICHONDRITIS OF LEFT EXTERNAL EAR SNOMED Code(s): 08841859 Plan: 1-patient to continue working however discontinue clindamycin 2-start the patient cefazolin 2 g every 8 hours We will follow on clinical condition and cultures to further adjust medication if needed Thank you for this consultation we will follow the patient along with you Time with Patient: Greater than 30
[2020-12-05] MEDS: HYDROmorphone 0.5 MG/0.5 ML SYRINGE IVP PRN ×7 (00:08→23:31)
[2020-12-05] MEDS: LEVOFLOXACIN 750MG-D5W PMX 750 MG in DEXTROSE/WATER 1 150ML.BAG IVPB SCH (00:51)
--- NOTE | 2020-12-05 02:55 | PN ---
PROGRESS NOTE A 25-year-old white female, left ear, lymphoma, bipenia. Patient continues to improve. No fever, no chills. Cardiovascular: S1, S2. Lungs clear. GI soft. ASSESSMENT: Perichondritis, left ear lymphoma. PLAN: Continue with current IV antibiotics. He is improving, about 50% improved since yesterday with decreasing redness of the ears. His lungs are clear. Cardiovascular S1, S2. Possible discharge home in the next 24 to 48 hours. Await for Infectious Disease consult. MMODL / IJN: [id number] /
[2020-12-05] MEDS: MUPIROCIN 2% OINT 22 GM TUBE TOPICAL SCH ×3 (08:35→19:10)
[2020-12-05 09:25] LABS: HCT 35.9 % (39.6-50.0); MCH 30.5 pg (27.0-32.0); MCHC 33.4 g/dL (32.0-37.0); MCV 91.1 fL (80.0-97.0); Mean Platelet Volume 9.4 fL (9.5-12.2); Platelet Count 305 X 10*3/uL (140-440); RBC 3.94 X 10*6/uL (4.40-5.60); RDW 14.9 % (11.5-14.5); WBC 2.28 X 10*3/uL (4.50-10.00)
[2020-12-05] MEDS: ONDANSETRON 4 MG/2 ML VIAL IVP PRN ×2 (10:27→17:52)
[2020-12-05 11:36] LABS: Basophils # (A) 0.05 X 10*3/uL (0.00-0.10); Basophils % (A) 2.2 %; Eosinophils # (A) 0.14 X 10*3/uL (0.04-0.35); Eosinophils % (A) 6.1 %; Lymphocytes # (A) 0.77 X 10*3/uL (0.90-5.00); Lymphocytes % (A) 33.8 %; Monocytes # (A) 0.81 X 10*3/uL (0.20-1.00); Monocytes % (A) 35.5 %; Neutrophils # (A) 0.51 X 10*3/uL (1.80-7.70); Neutrophils % (A) 22.4 %
[2020-12-05 11:51] LABS: African American GFR (CKD) 137.1 (60.0-200.0); Albumin 4.6 g/dL (3.80-4.90); Albumin/Globulin Ratio 1.84 (1.60-3.17); Anion Gap 8.9 mmol/L (4.00-12.00); BUN/Creat Ratio 12.22 Ratio (12.00-20.00); Calcium 9.3 mg/dL (8.7-10.3); Carbon Dioxide 27.1 mmol/L (21.6-31.8); Globulin 2.5 g/dL (1.6-3.3); Non-African American GFR(CKD) 118.3 (60.0-200.0); Potassium 4.5 mmol/L (3.5-5.5); Total Bilirubin 0.3 mg/dL (0.3-1.2); Total Protein 7.1 g/dL (6.2-8.2)
--- NOTE | 2020-12-05 18:09 | PN ---
PROGRESS NOTE DATE OF SERVICE: 12/05/2020 REASON FOR FOLLOWUP: Left otitis externa. INTERVAL HISTORY: The patient is afebrile. The patient did mention overall pain discomfort to the left ear has decreased. Currently with no open wound or any drainage. No chest pain, shortness of breath. No cough and no diarrhea. PHYSICAL EXAMINATION: Blood pressure 139/58 with a pulse of 80, temperature 98.6. He is 99% on room air. GENERAL DESCRIPTION: The patient is a middle-aged male up in the bed in no distress. HEENT EXAMINATION: Left ear swelling has improved. No open wound or any drainage. LUNGS: Unlabored breathing, clear to auscultation. HEART: S1, S2. Regular rate and rhythm. ABDOMEN: Soft, no tenderness. LABS: Hemoglobin is 12.7, white count 2.2 with BUN of 11, hematocrit 0.9. Blood culture has been negative. DIAGNOSTIC IMPRESSION AND PLAN: Patient with left otitis externa. Overall improvement on cefazolin, to continue. Finish therapy with oral Keflex and close outpatient followup. MMODL / IJN: [id number] /
[2020-12-06] MEDS: LEVOFLOXACIN 750MG-D5W PMX 750 MG in DEXTROSE/WATER 1 150ML.BAG IVPB SCH (00:32)
[2020-12-06 03:09] VITALS: PULSE 95
[2020-12-06] MEDS: HYDROmorphone 0.5 MG/0.5 ML SYRINGE IVP PRN (04:50)
--- NOTE | 2020-12-06 06:41 | PN ---
PROGRESS NOTE A 25-year-old white male with perichondritis, left ear. Greatly improved with IV antibiotics for the past 2-3 days. Cardiovascular S1, S2. Lungs clear. GI soft. Hematology negative Homans. Psych fair mood and affect. ASSESSMENT: 1. Perichondritis left ear. 2. Cellulitis left ear. 3. Non Hodgkin's lymphoma. 4. Bicytopenia. Continue current treatment. Switch to oral Augmentin tomorrow for discharge. Follow up as an outpatient. MMODL / IJN: [id number] /
[2020-12-06 08:16] VITALS: BP 116/70; RESP 17; TEMP 98.1
[2020-12-06] MEDS ORDERED: CEPHALEXIN 500 MG CAP PO SCH (09:00)
[2020-12-06] MEDS: MUPIROCIN 2% OINT 22 GM TUBE TOPICAL SCH (09:15)
== END 2020-12-06 10:16 | disposition home or self-care (01) ==
LOC: EC 20:39 → 1SOBS 12-03 00:35 → 6NMEDSUR 12-03 11:43
PROVIDERS: ADMIT Family Medicine; ATTEND Family Medicine
DX: H61.002 Unspecified perichondritis of left external ear (principal); H60.12 Cellulitis of left external ear; C81.90 Hodgkin lymphoma, unspecified, unspecified site; D72.819 Decreased white blood cell count, unspecified; T45.1X5A Adverse effect of antineoplastic and immunosuppressive drugs, initial encounter; F32.9 Major depressive disorder, single episode, unspecified; L29.9 Pruritus, unspecified; Z79.899 Other long term (current) drug therapy; Z87.442 Personal history of urinary calculi; Z90.49 Acquired absence of other specified parts of digestive tract; Z98.890 Other specified postprocedural states; Z82.49 Family history of ischemic heart disease and other diseases of the circulatory system; Z83.79 Family history of other diseases of the digestive system; Z84.2 Family history of other diseases of the genitourinary system
CPT/HCPCS: 96376 ×5; 96366 ×4; 96367 ×2; 96365; 96375 ×2; 99284; 36415; 80053 ×2; 83605; 85025 ×2; 85610; 85730; 81003; 87040; G0378 ×5; J0690 ×2; J2405 ×3; J1956 ×4; J1170 ×5

== ENCOUNTER 2020-12-06 20:45 | Observation (INO) | payer BC, OTHER ==
[2020-12-06] MEDS ORDERED: ACETAMINOPHEN TAB 325 MG TAB PO STA (21:43)
[2020-12-06] MEDS: SODIUM CHLORIDE 0.9% 500 ML 500 ML IV SCH ×4 (22:25→23:52)
[2020-12-06] MEDS: SODIUM CHLORIDE 0.9% 1,000 ML IV SCH (22:25)
[2020-12-06 22:56] LABS: ALT 15 U/L (4-49); AST 16 U/L (17-59); African American GFR (CKD) >90 (>60 ml/min/1.73 sqM); Albumin 4.9 g/dL (3.5-5.0); Alkaline Phosphatase 79 U/L (38-126); Anion Gap 14 mmol/L; Blood Urea Nitrogen 11 mg/dL (9-20); Carbon Dioxide 25 mmol/L (22-30); Chloride 100 mmol/L (98-107); Glucose 107 mg/dL (74-99); Non-African American GFR(CKD) >90 (>60 ml/min/1.73 sqM); Potassium 4.1 mmol/L (3.5-5.1); Sodium 139 mmol/L (137-145); Total Bilirubin 0.2 mg/dL (0.2-1.3); Total Protein 7.8 g/dL (6.3-8.2)
--- NOTE | 2020-12-06 23:02 | XR ---
EXAMINATION TYPE: XR chest 1V portable DATE OF EXAM: 12/06/2020 COMPARISON: 06/04/2020 HISTORY: Chest pain TECHNIQUE: FINDINGS: Heart size is normal. There is increased density over the right pulmonary hilum consistent with adenopathy. Lungs are clear. Diaphragm is normal. Bony thorax appears intact. Pulmonary vascular ity is normal. There is right central venous catheter with tip in the superior vena cava. IMPRESSION: There is significant improvement in the mediastinal adenopathy and bronchial adenopathy compared to o ld exam. There is clearing of multiple pulmonary nodules compared to old exam.
[2020-12-06 23:03] LABS: Anisocytosis Slight; HGB 12.7 gm/dL (13.0-17.5); MCH 29.7 pg (25.0-35.0); MCHC 32.6 g/dL (31.0-37.0); MCV 90.9 fL (80.0-100.0); Mean Platelet Volume 6.6; Platelet Count 392 k/uL (150-450); RDW 16.6 % (11.5-15.5); WBC 3.6 k/uL (3.8-10.6)
[2020-12-06] MEDS ORDERED: MORPHINE SULFATE 4 MG/ML SYRINGE IV STA (23:12)
[2020-12-06 23:59] LABS: Appearance,Urine Clear (Clear); Bilirubin,Urine Negative (Negative); Blood,Urine Small (Negative); Color,Urine Yellow; Glucose,Urine (UA) Negative (Negative); Ketones,Urine Negative (Negative); Leukocyte Esterase,Urine Negative (Negative); Nitrite,Urine Negative (Negative); Protein,Urine Negative (Negative); RBC,Urine 6 /hpf (0-5); Specific Gravity,Urine 1.017 (1.001-1.035); Squamous Epithelial Cell,Urine <1 /hpf (0-4); Urobilinogen,Urine <2.0 mg/dL (<2.0); WBC,Urine 1 /hpf (0-5)
[2020-12-07 00:35] LABS: Band Neutrophils % 4 %; Eosinophils # (M) 0.04 k/uL (0-0.7); Lymphocytes # (M) 1.48 k/uL (1.0-4.8); Monocytes # (M) 1.01 k/uL (0-1.0); Neutrophils % (M) 26 %; Nucleated Red Blood Cells 0 /100 WBC (0-0); Total Cells Counted 100
[2020-12-07 00:36] LABS: Anisocytosis (M) Present
--- NOTE | 2020-12-07 00:45 | ED ---
Fever HPI - General Chief Complaint: Fever Stated Complaint: Fever,Chemo Pt Time Seen by Provider: 12/06/20 21:42 Source: patient Mode of arrival: ambulatory Limitations: no limitations - History of Present Illness Initial Comments: This patient is 25-year-old man who presents with recurrence of fever and recurrence of left ear pain. He had been in the hospital for 3 days being treated for the same. Patient states he went home with clindamycin but the antibiotic did not appear to be working as he had recurrence of the symptoms. MD Complaint: fever -: hour(s) Temperature Source: oral Context: recent antibiotic use, on chemotherapy Associated Symptoms: chills Treatments Prior to Arrival: none - Related Data Home Medications Medication Instructions Recorded Confirmed Famotidine [Pepcid] 20 mg PO DAILY 06/04/20 12/07/20 ondansetron HCL [Zofran] 8 mg PO Q8H PRN 06/04/20 12/07/20 Ibuprofen [Motrin] 800 mg PO Q6HR PRN 11/25/20 12/07/20 Dicyclomine [Bentyl] 20 mg PO QID PRN 12/03/20 12/07/20 Previous Rx's Medication Instructions Recorded HYDROcodone/APAP 5-325MG [[place] 1 tab PO Q4HR PRN 3 Days #18 tab 11/29/20 5-325] Tamsulosin [Flomax] 0.4 mg PO DAILY #14 cap 11/29/20 Cephalexin [Keflex] 500 mg PO TID 15 Days #45 cap 12/06/20 Mupirocin 2% Oint [Bactroban 2% 1 applic TOPICAL TID 10 Days #30 12/06/20 Oint] applic diphenhydrAMINE [Benadryl] 25 mg PO QID PRN cap 12/06/20 Allergies Allergy/AdvReac Type Severity Reaction Status Date / Time No Known Allergies Allergy Verified 12/03/20 07:31 Review of Systems ROS Statement: Those systems with pertinent positive or pertinent negative responses have been documented in the HPI. ROS Other: All systems not noted in ROS Statement are negative. Constitutional: Reports: fever, chills, weakness Eyes: Denies: vision change ENT: Reports: ear pain (Left). Denies: throat pain, hearing loss, congestion Respiratory: Denies: cough, dyspnea, wheezes Cardiovascular: Reports: palpitations. Denies: chest pain, orthopnea, edema, syncope Gastrointestinal: Denies: abdominal pain, nausea, vomiting, diarrhea, constipation Genitourinary: Denies: dysuria, hematuria Musculoskeletal: Denies: back pain Skin: Denies: rash Neurological: Denies: headache, weakness, numbness Past Medical History Past Medical History: Cancer Additional Past Medical History / Comment(s): Hodgkins Lymphoma stage 4, last chemo November 21 2020, pt follows up with Dr. Browning out of [facility]. Previous hx of kidney stones early in 2019. History of Any Multi-Drug Resistant Organisms: None Reported Past Surgical History: Appendectomy Additional Past Surgical History / Comment(s): lithotripsy and stent right side, tooth insert, Past Anesthesia/Blood Transfusion Reactions: No Reported Reaction Past Psychological History: Depression Smoking Status: Never smoker Past Alcohol Use History: Rare Past Drug Use History: Marijuana - Past Family History Mother Additional Family Medical History / Comment(s): Heart murmur, Cyst on Ovary, Appendectomy Father Family Medical History: Hypertension General Exam Limitations: no limitations General appearance: alert, in no apparent distress Head exam: Present: atraumatic, normocephalic Eye exam: Present: normal appearance. Absent: scleral icterus, conjunctival injection ENT exam: Present: normal oropharynx, other (There is mild erythema and warmth of the left ear pinna versus the contralateral side.). Absent: normal external ear exam Neck exam: Present: normal inspection, full ROM. Absent: tenderness, meningismus, lymphadenopathy Respiratory exam: Present: normal lung sounds bilaterally. Absent: respiratory distress, wheezes, rales, rhonchi, stridor Cardiovascular Exam: Present: regular rate, normal rhythm, normal heart sounds. Absent: systolic murmur, diastolic murmur, rubs, gallop GI/Abdominal exam: Present: soft. Absent: distended, tenderness, guarding, rebound, rigid, mass Extremities exam: Present: normal inspection, normal capillary refill. Absent: pedal edema, calf tenderness Back exam: Present: normal inspection. Absent: CVA tenderness (R), CVA tenderness (L) Neurological exam: Present: alert Skin exam: Present: warm, dry, intact, normal color. Absent: rash Course Vital Signs 07/23/21 07/24/21 07/24/21 20:52 00:15 03:00 Temperature 99.5 F 98.9 F 99.0 F Pulse Rate 108 H 88 85 Respiratory 20 16 18 Rate Blood Pressure 140/66 103/50 126/46 O2 Sat by Pulse 95 98 97 Oximetry 12/07/20 06:00 Temperature 98.5 F Pulse Rate 87 Respiratory 18 Rate Blood Pressure 99/66 O2 Sat by Pulse 98 Oximetry Medical Decision Making - Lab Data Result diagrams: 12/06/20 22:22 12/06/20 22:22 Lab Results 12/06/20 12/06/20 12/06/20 Range/Units 22:22 22:22 22:22 WBC 3.6 L (3.8-10.6) k/uL RBC 4.30 (4.30-5.90) m/uL Hgb 12.7 L (13.0-17.5) gm/dL Hct 39.0 (39.0-53.0) % MCV 90.9 (80.0-100.0) fL MCH 29.7 (25.0-35.0) pg MCHC 32.6 (31.0-37.0) g/dL RDW 16.6 H (11.5-15.5) % Plt Count 392 (150-450) k/uL MPV 6.6 Neutrophils % Not Reportable Neutrophils % (Manual) 26 % Band Neuts % (Manual) 4 % Lymphocytes % Not Reportable Lymphocytes % (Manual) 41 % Monocytes % Not Reportable Monocytes % (Manual) 28 % Eosinophils % Not Reportable Eosinophils % (Manual) 1 % Basophils % Not Reportable Neutrophils # Not Reportable Neutrophils # (Manual) 1.00 L (1.3-7.7) k/uL Lymphocytes # Not Reportable Lymphocytes # (Manual) 1.48 (1.0-4.8) k/uL Monocytes # Not Reportable Monocytes # (Manual) 1.01 H (0-1.0) k/uL Eosinophils # Not Reportable Eosinophils # (Manual) 0.04 (0-0.7) k/uL Basophils # Not Reportable Nucleated RBCs 0 (0-0) /100 WBC Manual Slide Review Performed Anisocytosis Slight Anisocytosis (manual) Present Sodium 139 (137-145) mmol/L Potassium 4.1 (3.5-5.1) mmol/L Chloride 100 (98-107) mmol/L Carbon Dioxide 25 (22-30) mmol/L Anion Gap 14 mmol/L BUN 11 (9-20) mg/dL Creatinine 0.71 (0.66-1.25) mg/dL Est GFR (CKD-EPI)AfAm >90 (>60 ml/min/1.73 sqM) Est GFR (CKD-EPI)NonAf >90 (>60 ml/min/1.73 sqM) Glucose 107 H (74-99) mg/dL Plasma Lactic Acid Jim (0.7-2.0) mmol/L Calcium 10.0 (8.4-10.2) mg/dL Total Bilirubin 0.2 (0.2-1.3) mg/dL AST 16 L (17-59) U/L ALT 15 (4-49) U/L Alkaline Phosphatase 79 (38-126) U/L Total Protein 7.8 (6.3-8.2) g/dL Albumin 4.9 (3.5-5.0) g/dL Urine Color Yellow Urine Appearance Clear (Clear) Urine pH 6.0 (5.0-8.0) Ur Specific [place] 1.017 (1.001-1.035) Urine Protein Negative (Negative) Urine Glucose (UA) Negative (Negative) Urine Ketones Negative (Negative) Urine Blood Small H (Negative) Urine Nitrite Negative (Negative) Urine Bilirubin Negative (Negative) Urine Urobilinogen <2.0 (<2.0) mg/dL Ur Leukocyte Esterase Negative (Negative) Urine RBC 6 H (0-5) /hpf Urine WBC 1 (0-5) /hpf Ur Squamous Epith Cells <1 (0-4) /hpf Coronavirus (PCR) (Not Detectd) 12/06/20 12/07/20 Range/Units 22:22 01:48 WBC (3.8-10.6) k/uL RBC (4.30-5.90) m/uL Hgb (13.0-17.5) gm/dL Hct (39.0-53.0) % MCV (80.0-100.0) fL MCH (25.0-35.0) pg MCHC (31.0-37.0) g/dL RDW (11.5-15.5) % Plt Count (150-450) k/uL MPV Neutrophils % Neutrophils % (Manual) % Band Neuts % (Manual) % Lymphocytes % Lymphocytes % (Manual) % Monocytes % Monocytes % (Manual) % Eosinophils % Eosinophils % (Manual) % Basophils % Neutrophils # Neutrophils # (Manual) (1.3-7.7) k/uL Lymphocytes # Lymphocytes # (Manual) (1.0-4.8) k/uL Monocytes # Monocytes # (Manual) (0-1.0) k/uL Eosinophils # Eosinophils # (Manual) (0-0.7) k/uL Basophils # Nucleated RBCs (0-0) /100 WBC Manual Slide Review Anisocytosis Anisocytosis (manual) Sodium (137-145) mmol/L Potassium (3.5-5.1) mmol/L Chloride (98-107) mmol/L Carbon Dioxide (22-30) mmol/L Anion Gap mmol/L BUN (9-20) mg/dL Creatinine (0.66-1.25) mg/dL Est GFR (CKD-EPI)AfAm (>60 ml/min/1.73 sqM) Est GFR (CKD-EPI)NonAf (>60 ml/min/1.73 sqM) Glucose (74-99) mg/dL Plasma Lactic Acid Jim 0.9 (0.7-2.0) mmol/L Calcium (8.4-10.2) mg/dL Total Bilirubin (0.2-1.3) mg/dL AST (17-59) U/L ALT (4-49) U/L Alkaline Phosphatase (38-126) U/L Total Protein (6.3-8.2) g/dL Albumin (3.5-5.0) g/dL Urine Color Urine Appearance (Clear) Urine pH (5.0-8.0) Ur Specific [place] (1.001-1.035) Urine Protein (Negative) Urine Glucose (UA) (Negative) Urine Ketones (Negative) Urine Blood (Negative) Urine Nitrite (Negative) Urine Bilirubin (Negative) Urine Urobilinogen (<2.0) mg/dL Ur Leukocyte Esterase (Negative) Urine RBC (0-5) /hpf Urine WBC (0-5) /hpf Ur Squamous Epith Cells (0-4) /hpf Coronavirus (PCR) Not Detected (Not Detectd) Disposition Clinical Impression: Perichondritis and chondritis of left pinna Disposition: ADMITTED IP TO THIS HOSP Condition: Fair Is patient prescribed a controlled substance at d/c from ED?: No
[2020-12-07] MEDS ORDERED: MORPHINE SULFATE 4 MG/ML SYRINGE IV STA (01:13)
[2020-12-07] MEDS ORDERED: CLINDAMYCIN 600 MG in DEXTROSE 5% IN WATER 50 ML IVPB STA ×2 (01:16)
[2020-12-07] MEDS ORDERED: LEVOFLOXACIN 750MG-D5W PMX 750 MG in DEXTROSE/WATER 1 150ML.BAG IVPB STA (01:17)
[2020-12-07] MEDS ORDERED: ONDANSETRON ODT 4 MG TAB PO PRN (04:20)
[2020-12-07] MEDS ORDERED: IBUPROFEN 800 MG TAB PO PRN (04:20)
[2020-12-07] MEDS: HYDROcodone/APAP 5-325MG 1 EACH TAB PO PRN ×2 (04:31→10:41)
[2020-12-07] MEDS ORDERED: NALOXONE 0.4 MG/ML 1 ML VIAL IV PRN (05:41)
[2020-12-07] MEDS ORDERED: ACETAMINOPHEN TAB 325 MG TAB PO PRN (05:41)
[2020-12-07] MEDS: SODIUM CHLORIDE 0.9% 1,000 ML IV SCH ×3 (06:32→20:29)
[2020-12-07] MEDS ORDERED: IOPAMIDOL CONTRAST (ORAL USE) VIAL PO PRN (12:30)
[2020-12-07] MEDS: MORPHINE SULFATE 2 MG/ML SYRINGE IVP PRN ×2 (13:45→20:28)
--- NOTE | 2020-12-07 15:34 | CT ---
EXAMINATION TYPE: CT abdomen pelvis w con DATE OF EXAM: 12/07/2020 COMPARISON: 11/29/2020 HISTORY: Fever and vomiting. History of hodgkins lymphoma, stage 4. CT DLP: 1203.1 mGycm Automated exposure control for dose reduction was used. CONTRAST: Performed with IV Contrast, patient injected with 100 mL of Isovue 300. There is some linear density at both lung bases. This is consistent with some atelectasis. Heart size is normal. There is no pericardial effusion. There is normal oral contrast opacification of the stom ach and small bowel. Stomach is intact. Spleen pancreas liver gallbladder appear normal. The bile tam ts are not dilated. There is no adrenal mass. Kidneys show satisfactory contrast opacification. There is no hydronephrosi s. There is some fullness of the right ureter that is decreased in size compared to old exam. There a re clips apparently from appendectomy. Ureters are not dilated. Delayed images show normal renal excr etion. There is no retroperitoneal adenopathy. Bladder distends smoothly. There is no inguinal hernia. There is no free fluid in the pelvis. There i s no mesenteric edema. There is no ascites or free air. There is no sign of a bowel obstruction. Ther e is no evidence of any significant abdominal adenopathy. Lumbar vertebra have normal alignment. Posterior elements are intact. There is no compression fractur e. IMPRESSION: Negative CT scan abdomen and pelvis. There is clearing of the right hydronephrosis and hydroureter co mpared to old exam. Minimal subsegmental atelectasis at the lung bases.
[2020-12-07 21:17] VITALS: RESP 18
--- NOTE | 2020-12-07 21:29 | P.CONS ---
History of Present Illness - Reason for Consult Consult date: 12/07/20 Fever Requesting physician: Yadiel Galicia - Chief Complaint Fever 1 day - History of Present Illness Patient is a 25-year-old male with a past medical history significant for stage IV lymphoma on chemo patient was recently admitted to this hospital and was treated for left otitis externa patient was discharged home on oral clindamycin patient mention that he was doing well however later in the evening he started having a fever with chills patient denies having any headache or URI symptoms he did mention that his left ear overall is feeling better as far as swelling and pain is concerned is no drainage patient denies having any chest pain shortness of breath or cough no abdominal pain still having some dry heaves and episode of vomiting no diarrhea ago with the symptom the patient was evaluated by ER physician on arrival to the ER patient did have low-grade fever of 99.5 F patient currently 97% on room air he did have mild leukopenia with a white count of 3.6 kidney function was normal urine was negative sultana PCR was negative patient had did have a chest x-ray which shows a significant improvement in the mediastinal adenopathy] adenopathy compared to old exam patient was admitted to hospital infectious was consulted for further management of his fever and had left ear cellulitis Review of Systems Positive point has been mentioned in the HPI rest of the systems are negative Past Medical History Past Medical History: Cancer Additional Past Medical History / Comment(s): Hodgkins Lymphoma stage 4, last chemo November 21 2020, pt follows up with Dr. Browning out of [facility]. Previous hx of kidney stones early in 2019. History of Any Multi-Drug Resistant Organisms: None Reported Past Surgical History: Appendectomy Additional Past Surgical History / Comment(s): lithotripsy and stent right side, tooth insert, Past Anesthesia/Blood Transfusion Reactions: No Reported Reaction Past Psychological History: Depression Smoking Status: Never smoker Past Alcohol Use History: Rare Past Drug Use History: Marijuana - Past Family History Mother Additional Family Medical History / Comment(s): Heart murmur, Cyst on Ovary, Appendectomy Father Family Medical History: Hypertension Medications and Allergies Home Medications Medication Instructions Recorded Confirmed Type Famotidine [Pepcid] 20 mg PO DAILY 06/04/20 12/07/20 History ondansetron HCL [Zofran] 8 mg PO Q8H PRN 06/04/20 12/07/20 History Ibuprofen [Motrin] 800 mg PO Q6HR PRN 11/25/20 12/07/20 History HYDROcodone/APAP 5-325MG [[place] 1 tab PO Q4HR PRN 3 Days #18 tab 11/29/20 12/07/20 Rx 5-325] Tamsulosin [Flomax] 0.4 mg PO DAILY #14 cap 11/29/20 12/07/20 Rx Dicyclomine [Bentyl] 20 mg PO QID PRN 12/03/20 12/07/20 History Cephalexin [Keflex] 500 mg PO TID 15 Days #45 cap 12/06/20 12/07/20 Rx Mupirocin 2% Oint [Bactroban 2% 1 applic TOPICAL TID 10 Days #30 12/06/20 12/07/20 Rx Oint] applic diphenhydrAMINE [Benadryl] 25 mg PO QID PRN cap 12/06/20 12/07/20 Rx Allergies Allergy/AdvReac Type Severity Reaction Status Date / Time No Known Allergies Allergy Verified 12/03/20 07:31 Physical Exam Vitals: Vital Signs Temp Pulse Pulse Resp BP BP Pulse Ox 12/07/20 06:31 98.5 F 85 20 115/68 98 12/07/20 06:00 98.5 F 87 18 99/66 98 12/07/20 03:00 99.0 F 85 18 126/46 97 12/07/20 00:15 98.9 F 88 16 103/50 98 12/06/20 20:52 99.5 F 108 H 20 140/66 95 Intake and Output 12/06/20 12/07/20 12/07/20 22:59 06:59 14:59 Other: Weight 106.594 kg 106.594 kg GENERAL DESCRIPTION: Middle-aged male lying in bed, no distress. No tachypnea or accessory muscle of respiration use. HEENT: Shows Pallor , no scleral icterus. Oral mucous membrane is dry. No pharyngeal erythema or thrush NECK: Trachea central, no thyromegaly. LUNGS: Unlabored breathing. Clear to auscultation anteriorly. No wheeze or crackle. HEART: S1, S2, regular rate and rhythm. No loud murmur ABDOMEN: Soft, no tenderness , guarding or rigidity, no organomegaly EXTREMITIES: No edema of feet. SKIN: No rash, no masses palpable. NEUROLOGICAL: The patient is awake, alert, oriented x3, mood and affect normal. Results CBC & Chem 7: 12/06/20 22:22 12/06/20 22:22 Labs: Abnormal Lab Results - Last 24 Hours (Table) 12/06/20 12/06/20 12/06/20 Range/Units 22:22 22:22 22:22 WBC 3.6 L (3.8-10.6) k/uL Hgb 12.7 L (13.0-17.5) gm/dL RDW 16.6 H (11.5-15.5) % Neutrophils # (Manual) 1.00 L (1.3-7.7) k/uL Monocytes # (Manual) 1.01 H (0-1.0) k/uL Glucose 107 H (74-99) mg/dL AST 16 L (17-59) U/L Urine Blood Small H (Negative) Urine RBC 6 H (0-5) /hpf Assessment and Plan Assessment: 1-patient presented to the hospital with fever in this patient who did have a recent admission to the hospital for left otitis externa patient left ear currently looks better than day before yesterday with no evidence of any induration or drainage patient lungs were clear to auscultation and chest x-ray was negative abdominal soft however in view of the patient episodes of vomiting and fever will need to out any intra-abdominal pathology urine has been negative (1) Perichondritis and chondritis of left pinna Current Visit: No Status: Acute Code(s): H61.002 - UNSPECIFIED PERICHONDRITIS OF LEFT EXTERNAL EAR; H61.032 - CHONDRITIS OF LEFT EXTERNAL EAR SNOMED Code(s): 40612697 Plan: 1-we will obtain a CT of abdominal pelvis with oral contrast 2-we will add cefazolin 2 g every 8 hours for his left otitis externa We will follow on clinical condition and cultures to further adjust medication if needed Thank you for this consultation we will follow the patient along with you Time with Patient: Greater than 30
[2020-12-08] MEDS: MORPHINE SULFATE 2 MG/ML SYRINGE IVP PRN (04:07)
[2020-12-08] MEDS: SODIUM CHLORIDE 0.9% 1,000 ML IV SCH (04:09)
[2020-12-08 05:07] VITALS: BP 101/62; PULSE 86; TEMP 97.8
--- NOTE | 2020-12-08 08:13 | HP ---
HISTORY AND PHYSICAL A 25-year-old male, history of smoking, lymphoma, recently treated for cellulitis of the ears and otitis. Discharged home on oral clindamycin. Starting having fevers, chills, headaches, vomiting. He was brought back to the hospital, admitted due to fevers, bicytopenia and cellulitis of the ears. CT scan was ordered by Infectious Disease, which is apparently negative. REVIEW OF SYMPTOMS: A 14 point review of systems otherwise is negative except for fatigue and pain. PAST MEDICAL HISTORY: Non-Hodgkin lymphoma stage IV, last chemo November 21. SURGERIES: Appendectomy, history of kidney stone surgery, history of depression, rare marijuana. FAMILY HISTORY: Mother heart murmur, cyst of the ovary, appendectomy. Father with hypertension. HOME MEDICINES: Pepcid 20 mg daily, Motrin 800 q.6h p.r.n., Zofran 8 q.8h, [place] 5/325 every 4 p.r.n., Flomax 0.4 mg daily, Bentyl 20 mg q.i.d., Keflex 500 t.i.d., Benadryl 25 q.i.d. ALLERGIES: Negative. PHYSICAL EXAMINATION: Temp 98-99, pulse 80s to 108, respiratory 18-20, blood pressure is 99-126 over 50s-60s, O2 97-98. White male in no acute distress. Cardiovascular S1, S2. Lungs clear. GI soft. Hematology negative Homans. Ophthalmologic pupils equal, round, reactive to light and accommodation. Neurologic alert and oriented x3. ASSESSMENT: 1. Fever. 2. Cellulitis of the ears. Infectious Disease is going to cover him with IV antibiotics. For nausea and vomiting, CT scan of the abdomen has been ordered. Continue on cefazolin 2 g q.[address] Mendoza's recommendations. MMODL / IJN: [id number] /
== END 2020-12-08 09:30 | disposition left against medical advice (07) ==
LOC: EC 20:45 → 5NMEDONC 12-07 05:41
PROVIDERS: ADMIT Family Medicine; ATTEND Family Medicine
DX: H60.13 Cellulitis of external ear, bilateral (principal); H61.032 Chondritis of left external ear; H61.002 Unspecified perichondritis of left external ear; Z20.822 Contact with and (suspected) exposure to COVID-19; F32.9 Major depressive disorder, single episode, unspecified; Z90.89 Acquired absence of other organs; Z79.899 Other long term (current) drug therapy; Z92.21 Personal history of antineoplastic chemotherapy; Z87.891 Personal history of nicotine dependence; Z87.442 Personal history of urinary calculi; Z86.59 Personal history of other mental and behavioral disorders; Z85.72 Personal history of non-Hodgkin lymphomas; Z82.49 Family history of ischemic heart disease and other diseases of the circulatory system
CPT/HCPCS: 96376 ×3; 96366 ×2; 96367 ×2; 96361; 96365; 96375; 99285; 36415; 80053; 83605; 85025; 81001; 87040; 87635; 71045; 74177; G0378 ×2; J2270 ×4; J0690; J1956; Q9967

== ENCOUNTER 2020-12-22 23:24 | Emergency (ER) | payer BC, OTHER ==
[2020-12-22 23:33] VITALS: TEMP 98
[2020-12-22] MEDS ORDERED: SODIUM CHLORIDE 0.9% 1,000 ML IV STA (23:44)
[2020-12-22] MEDS ORDERED: ONDANSETRON 4 MG/2 ML VIAL IVP STA (23:44)
[2020-12-22] MEDS ORDERED: HYDROmorphone 1 MG/ML 1 ML SYRINGE IVP STA (23:44)
--- NOTE | 2020-12-23 00:32 | XR ---
EXAMINATION TYPE: XR KUB DATE OF EXAM: 12/23/2020 COMPARISON: NONE HISTORY: Kidney stone. Abdominal pain TECHNIQUE: 2 views FINDINGS: 2 views upright show no sign of intestinal obstruction or pneumoperitoneum. Fecal pattern i s normal. There is no sign of a mass. There are no pathologic calcifications over the kidneys. Lung b ases are clear. IMPRESSION: Nonacute abdomen. No change.
[2020-12-23 00:45] LABS: Anisocytosis Slight; Basophils % (A) 0 %; Eosinophils # (A) 0.2 k/uL (0-0.7); Eosinophils % (A) 2 %; HCT 37.8 % (39.0-53.0); HGB 12.7 gm/dL (13.0-17.5); Lymphocytes # (A) 1.5 k/uL (1.0-4.8); Lymphocytes % (A) 10 %; MCH 31.3 pg (25.0-35.0); MCHC 33.7 g/dL (31.0-37.0); MCV 92.9 fL (80.0-100.0); Mean Platelet Volume 7.1; Monocytes # (A) 0.9 k/uL (0-1.0); Monocytes % (A) 6 %; Neutrophils # (A) 11.7 k/uL (1.3-7.7); Neutrophils % (A) 80 %; Platelet Count 249 k/uL (150-450); RBC 4.07 m/uL (4.30-5.90); RDW 17.1 % (11.5-15.5); WBC 14.6 k/uL (3.8-10.6)
[2020-12-23 01:14] LABS: ALT 29 U/L (4-49); AST 22 U/L (17-59); African American GFR (CKD) >90 (>60 ml/min/1.73 sqM); Albumin 4.5 g/dL (3.5-5.0); Alkaline Phosphatase 111 U/L (38-126); Anion Gap 10 mmol/L; Blood Urea Nitrogen 16 mg/dL (9-20); Calcium 9.8 mg/dL (8.4-10.2); Carbon Dioxide 24 mmol/L (22-30); Chloride 104 mmol/L (98-107); Glucose 110 mg/dL (74-99); Lipase 69 U/L (23-300); Non-African American GFR(CKD) >90 (>60 ml/min/1.73 sqM); Potassium 4.1 mmol/L (3.5-5.1); Sodium 138 mmol/L (137-145); Total Bilirubin <0.1 mg/dL (0.2-1.3); Total Protein 7.1 g/dL (6.3-8.2)
[2020-12-23] MEDS ORDERED: HYDROmorphone 1 MG/ML 1 ML SYRINGE IVP STA (01:42)
--- NOTE | 2020-12-23 01:43 | ED ---
Abdominal Pain HPI - General Chief Complaint: Abdominal Pain Stated Complaint: Abd/Back Pain, Nausea Time Seen by Provider: 12/22/20 23:34 Source: patient Mode of arrival: ambulatory - History of Present Illness Initial Comments: 25-year-old male patient with past medical history significant for lymphoma, currently being treated with chemotherapy infusions, presents for evaluation of low back pain and abdominal pain. Physical examination reveals mild periumbilical tenderness. There is some mild low back tenderness as well. He did have lumbar puncture at [facility] few days ago. He does report some nausea and no vomiting. States he did have diarrhea all day yesterday. Last chemotherapy was one week ago. He denies any fever or chills. Denies rash. Denies any neck pain or stiffness. Denies any pain radiating down his legs. States he is having some pain in his toes but denies any numbness or tingling. Patient denies any recent cough, shortness of breath, chest pain, dizziness, weakness, hematuria, dysuria, urinary urgency, urinary frequency, hea dache, visual changes, or any other complaints. - Related Data Home Medications Medication Instructions Recorded Confirmed Famotidine [Pepcid] 20 mg PO DAILY 06/04/20 12/07/20 ondansetron HCL [Zofran] 8 mg PO Q8H PRN 06/04/20 12/07/20 Ibuprofen [Motrin] 800 mg PO Q6HR PRN 11/25/20 12/07/20 Dicyclomine [Bentyl] 20 mg PO QID PRN 12/03/20 12/07/20 Previous Rx's Medication Instructions Recorded HYDROcodone/APAP 5-325MG [[place] 1 tab PO Q4HR PRN 3 Days #18 tab 11/29/20 5-325] Tamsulosin [Flomax] 0.4 mg PO DAILY #14 cap 11/29/20 Cephalexin [Keflex] 500 mg PO TID 15 Days #45 cap 12/06/20 Mupirocin 2% Oint [Bactroban 2% 1 applic TOPICAL TID 10 Days #30 12/06/20 Oint] applic diphenhydrAMINE [Benadryl] 25 mg PO QID PRN cap 12/06/20 Allergies Allergy/AdvReac Type Severity Reaction Status Date / Time No Known Allergies Allergy Verified 12/22/20 23:32 Review of Systems ROS Statement: Those systems with pertinent positive or pertinent negative responses have been documented in the HPI. ROS Other: All systems not noted in ROS Statement are negative. Past Medical History Past Medical History: Cancer Additional Past Medical History / Comment(s): Hodgkins Lymphoma stage 4, last chemo November 21 2020, pt follows up with Dr. Browning out of [facility]. Previous hx of kidney stones early in 2019. History of Any Multi-Drug Resistant Organisms: None Reported Past Surgical History: Appendectomy Additional Past Surgical History / Comment(s): lithotripsy and stent right side, tooth insert, spinal tap x 3 january 04 Past Anesthesia/Blood Transfusion Reactions: No Reported Reaction Past Psychological History: Depression Smoking Status: Never smoker Past Alcohol Use History: Rare Past Drug Use History: Marijuana - Past Family History Mother Additional Family Medical History / Comment(s): Heart murmur, Cyst on Ovary, Appendectomy Father Family Medical History: Hypertension General Exam General appearance: alert, in no apparent distress, other (This is a well- developed, well-nourished adult male patient in no acute distress. Vital signs upon presentation are temperature 98.2F, pulse 100, respirations 19, blood pressure 109/66, pulse ox 97% on room air.) Eye exam: Present: normal appearance, PERRL, EOMI. Absent: scleral icterus, conjunctival injection, periorbital swelling ENT exam: Present: normal exam, normal oropharynx, mucous membranes moist Respiratory exam: Present: normal lung sounds bilaterally. Absent: respiratory distress, wheezes, rales, rhonchi, stridor Cardiovascular Exam: Present: regular rate, normal rhythm, normal heart sounds. Absent: systolic murmur, diastolic murmur, rubs, gallop, clicks GI/Abdominal exam: Present: soft, normal bowel sounds. Absent: distended, tenderness, guarding, rebound, rigid Extremities exam: Present: normal inspection, full ROM, normal capillary refill, other (Skin otherwise is pink, warm, dry. Cap refill less than 3 seconds. Pedal posttibial pulses 2+.). Absent: tenderness, pedal edema, joint swelling, calf tenderness Back exam: Present: normal inspection, vertebral tenderness Neurological exam: Present: alert, oriented X3, CN II-XII intact Psychiatric exam: Present: normal affect, normal mood Skin exam: Present: warm, dry, intact, normal color. Absent: rash Course Vital Signs 12/22/20 23:29 Temperature 98 F Pulse Rate 100 Respiratory 19 Rate Blood Pressure 109/66 O2 Sat by Pulse 97 Oximetry Medical Decision Making - Medical Decision Making 25-year-old male patient presents for evaluation of abdominal pain and low back pain. Patient does have lymphoma currently being treated with chemotherapy infusions. Did have a spinal tap at [facility]. Physical examination did reveal some periumbilical tenderness. He has no concerning symptoms for cauda equina. He is afebrile. White blood cell count is 14.6. Hemoglobin 12.7. Remainder of labs is unremarkable. He did not provide a urine sample here. Be discharged to follow-up with his oncologist first thing in the morning. Return parameters were discussed in detail. He verbalizes understanding and agrees with this plan. Case discussed with my attending Dr. Chaney. - Lab Data Result diagrams: 12/23/20 00:38 12/23/20 00:38 Lab Results 12/23/20 12/23/20 12/23/20 Range/Units 00:38 00:38 00:38 WBC 14.6 H (3.8-10.6) k/uL RBC 4.07 L (4.30-5.90) m/uL Hgb 12.7 L (13.0-17.5) gm/dL Hct 37.8 L (39.0-53.0) % MCV 92.9 (80.0-100.0) fL MCH 31.3 (25.0-35.0) pg MCHC 33.7 (31.0-37.0) g/dL RDW 17.1 H (11.5-15.5) % Plt Count 249 (150-450) k/uL MPV 7.1 Neutrophils % 80 % Lymphocytes % 10 % Monocytes % 6 % Eosinophils % 2 % Basophils % 0 % Neutrophils # 11.7 H (1.3-7.7) k/uL Lymphocytes # 1.5 (1.0-4.8) k/uL Monocytes # 0.9 (0-1.0) k/uL Eosinophils # 0.2 (0-0.7) k/uL Basophils # 0.0 (0-0.2) k/uL Anisocytosis Slight Sodium 138 (137-145) mmol/L Potassium 4.1 (3.5-5.1) mmol/L Chloride 104 (98-107) mmol/L Carbon Dioxide 24 (22-30) mmol/L Anion Gap 10 mmol/L BUN 16 (9-20) mg/dL Creatinine 0.74 (0.66-1.25) mg/dL Est GFR (CKD-EPI)AfAm >90 (>60 ml/min/1.73 sqM) Est GFR (CKD-EPI)NonAf >90 (>60 ml/min/1.73 sqM) Glucose 110 H (74-99) mg/dL Plasma Lactic Acid Jim 1.2 (0.7-2.0) mmol/L Calcium 9.8 (8.4-10.2) mg/dL Total Bilirubin <0.1 L (0.2-1.3) mg/dL AST 22 (17-59) U/L ALT 29 (4-49) U/L Alkaline Phosphatase 111 (38-126) U/L Total Protein 7.1 (6.3-8.2) g/dL Albumin 4.5 (3.5-5.0) g/dL Lipase 69 (23-300) U/L - Radiology Data Radiology results: report reviewed, image reviewed KUB was obtained. Report is reviewed in its entirety. Impression by Dr. Triplett shows nonacute abdomen. No change Disposition Clinical Impression: Abdominal pain, Back pain Disposition: HOME SELF-CARE Condition: Good Instructions (If sedation given, give patient instructions): Abdominal Pain (ED), Back Pain (ED) Additional Instructions: To home pain medication. Contact your oncologist first in the morning to discuss symptoms. Return to the emergency department for any new, worsening, or concerning symptoms. Is patient prescribed a controlled substance at d/c from ED?: No Referrals: Nonstaff,Physician [REFERRING] - 1-2 days Time of Disposition: 01:43
[2020-12-23 02:00] VITALS: BP 131/74; PULSE 77; RESP 16
== END 2020-12-23 02:05 | disposition home or self-care (01) ==
LOC: EC 23:24
DX: R10.33 Periumbilical pain (principal); M54.5 Low back pain; F12.90 Cannabis use, unspecified, uncomplicated; Z79.1 Long term (current) use of non-steroidal anti-inflammatories (NSAID); Z82.49 Family history of ischemic heart disease and other diseases of the circulatory system; Z90.49 Acquired absence of other specified parts of digestive tract
CPT/HCPCS: 80053; 83605; 83690; 85025; 74018; 96374; 96375; 96376; 96361; 99284; J2405; J1170

== ENCOUNTER 2020-12-23 20:12 | Emergency (ER) | payer BC, OTHER ==
[2020-12-23 20:56] VITALS: TEMP 98.7
[2020-12-23 22:09] LABS: Anisocytosis Slight; Basophils # (A) 0.1 k/uL (0-0.2); Basophils % (A) 0 %; Eosinophils # (A) 0.3 k/uL (0-0.7); Eosinophils % (A) 2 %; Lymphocytes # (A) 1.6 k/uL (1.0-4.8); Lymphocytes % (A) 12 %; MCH 30.9 pg (25.0-35.0); MCHC 33.4 g/dL (31.0-37.0); MCV 92.4 fL (80.0-100.0); Mean Platelet Volume 7.3; Monocytes % (A) 7 %; Neutrophils # (A) 10.6 k/uL (1.3-7.7); Neutrophils % (A) 77 %; Platelet Count 265 k/uL (150-450); RBC 4.22 m/uL (4.30-5.90); WBC 13.9 k/uL (3.8-10.6)
[2020-12-23] MEDS ORDERED: CAFFEINE-SODIUM BENZOATE 500 MG in SODIUM CHLORIDE 0.9% 1,000 ML IVPB ONE (22:09)
[2020-12-23] MEDS ORDERED: MORPHINE SULFATE 4 MG/ML SYRINGE IVP STA (22:10)
[2020-12-23] MEDS ORDERED: ONDANSETRON 4 MG/2 ML VIAL IVP STA (22:10)
[2020-12-23 22:21] LABS: ALT 27 U/L (4-49); AST 18 U/L (17-59); African American GFR (CKD) >90 (>60 ml/min/1.73 sqM); Albumin 4.7 g/dL (3.5-5.0); Alkaline Phosphatase 106 U/L (38-126); Amylase 41 U/L (30-110); Anion Gap 12 mmol/L; Blood Urea Nitrogen 13 mg/dL (9-20); Calcium 9.9 mg/dL (8.4-10.2); Carbon Dioxide 23 mmol/L (22-30); Chloride 102 mmol/L (98-107); Glucose 100 mg/dL (74-99); Lipase 76 U/L (23-300); Non-African American GFR(CKD) >90 (>60 ml/min/1.73 sqM); Potassium 4.1 mmol/L (3.5-5.1); Sodium 137 mmol/L (137-145); Total Bilirubin 0.1 mg/dL (0.2-1.3); Total Protein 7.2 g/dL (6.3-8.2)
[2020-12-23 22:48] LABS: Appearance,Urine Clear (Clear); Bilirubin,Urine Negative (Negative); Blood,Urine Negative (Negative); Color,Urine Yellow; Glucose,Urine (UA) Negative (Negative); Ketones,Urine Negative (Negative); Leukocyte Esterase,Urine Negative (Negative); Nitrite,Urine Negative (Negative); Protein,Urine Negative (Negative); Specific Gravity,Urine 1.023 (1.001-1.035); Urobilinogen,Urine <2.0 mg/dL (<2.0)
--- NOTE | 2020-12-23 23:11 | CT ---
EXAMINATION TYPE: CT thor lumbar spine w con DATE OF EXAM: 12/23/2020 COMPARISON: None HISTORY: pain, fever, recent lp CT DLP: 1541.3 mGycm Automated exposure control for dose reduction was used. CONTRAST: Performed with IV Contrast, patient injected with 100 mL of Isovue 300. Images obtained from the level of S3 to the C7 vertebra with IV contrast. The thoracic and lumbar vertebra have normal alignment. There is no compression fracture. There is no thoracic paraspinal mass. The posterior elements are intact. I see no focal bone destruction. There is no evidence of thoracic or lumbar spinal stenosis. The sacroiliac joints appear intact. There is n o pathologic enhancement. IMPRESSION: Negative CT scan of the thoracic and lumbar spine.
--- NOTE | 2020-12-23 23:33 | CT ---
EXAMINATION TYPE: CT ChestAbdPelvis w con DATE OF EXAM: 12/23/2020 COMPARISON: CT abdomen pelvis 12/07/[address] scan 06/04/2020 HISTORY: pain, fever, recent lp CT DLP: 1541.3 mGycm Automated exposure control for dose reduction was used. CONTRAST: Performed with IV Contrast, patient injected with 100 mL of Isovue 300. Images obtained from the thoracic inlet to the floor the pelvis with IV contrast. There is some mild reticular infiltrate around the left pulmonary hilum. This is seen extending in th e left upper lobe. There is also some anterior linear density in infiltrate in the right upper lobe. There is anterior mediastinal mass that measures 7 x 4 cm. This shows some enhancement or calcificati on. There are no hilar masses. The thoracic aorta is intact. There is no aneurysm or dissection. Ther e is 1 cm nodular density right lower lobe. There is small linear density left posterior lung base. Liver spleen stomach pancreas gallbladder appear normal. The bile ducts are not dilated. There is no adrenal mass. Kidneys show satisfactory contrast opacification. There is no hydronephrosis. The urete rs are not dilated. There is no retroperitoneal adenopathy. There are clips apparently from appendect amador. Bladder distends smoothly. There is no inguinal hernia. There is no evidence of pelvic lymphaden opathy. The thoracic and lumbar spine appear intact. There is no compression fracture. Sternum is int act. Bony pelvis is intact. The hip joints appear normal. Sacroiliac joints are normal. I see no evid ence of a rib fracture. The shoulder joints appear intact. There is no evidence of any significant ax illary adenopathy. IMPRESSION: Anterior mediastinal mass significantly improved compared to old chest CT scan of 06/04/2020. There is some mild linear infiltrate and atelectasis in the right upper lobe and left perihilar region. There is clearing of the multiple pulmonary nodules compared to old exam. There is clearing of the left pl eural effusion. There is small right lower lobe nodule not changed compared to recent CT scan of the abdomen. There is some clearing of the atelectasis at the lung bases compared to recent CT scan abdom en and pelvis. No acute abnormality within the abdomen and pelvis.
[2020-12-24] MEDS ORDERED: HYDROmorphone 1 MG/ML 1 ML SYRINGE IVP STA (00:18)
--- NOTE | 2020-12-24 00:26 | ED ---
Abdominal Pain HPI - General Chief Complaint: Abdominal Pain Stated Complaint: Fever,Abd Pain, Chemo pt Source: patient Mode of arrival: wheelchair - History of Present Illness Initial Comments: A shows a 25-year-old male past medical history of Hodgkin's home on chemo presents emergency Department with abdominal pain. Patient was seen in the emergency department for similar complaint. Admits to suprapubic abdominal pain, fevers and back pain. Patient has had similar symptoms for the past several weeks. Was hospitalized [facility] last week or 2 lumbar punctures for his symptoms. He admits that since he has had the lumbar punctures he is now having a generalized headache and some numbness in his right toe. He denies saddle anesthesia. No bowel or bladder incontinence. Fevers were present during his last admission as well as the abdominal pain. Patient arrives afebrile. States he did not take any medications for her symptoms. He states they attributed his symptoms to "his chemo". He denies any changes in his bowel or bladder habits. No vision changes. No weakness in his upper extremities. He has a plan with his oncologist on the . No other alleviating, manager combination modifying factors - Related Data Home Medications Medication Instructions Recorded Confirmed Famotidine [Pepcid] 20 mg PO DAILY PRN 06/04/20 12/23/20 ondansetron HCL [Zofran] 8 mg PO Q8H PRN 06/04/20 12/23/20 Ibuprofen [Motrin] 800 mg PO Q6HR PRN 11/25/20 12/23/20 Dicyclomine [Bentyl] 20 mg PO QID PRN 12/03/20 12/23/20 HYDROcodone/APAP 10-325MG [[place] 1 tab PO Q6HR PRN 12/23/20 12/23/20 10-325] Tamsulosin [Flomax] 0.4 mg PO DAILY PRN 12/23/20 12/23/20 Previous Rx's Medication Instructions Recorded diphenhydrAMINE [Benadryl] 25 mg PO QID PRN cap 12/06/20 Allergies Allergy/AdvReac Type Severity Reaction Status Date / Time No Known Allergies Allergy Verified 12/23/20 22:27 Review of Systems ROS Statement: Those systems with pertinent positive or pertinent negative responses have been documented in the HPI. ROS Other: All systems not noted in ROS Statement are negative. Past Medical History Past Medical History: Cancer Additional Past Medical History / Comment(s): Hodgkins Lymphoma stage 4, last chemo November 21 2020, pt follows up with Dr. Browning out of [facility]. Previous hx of kidney stones early in 2019. History of Any Multi-Drug Resistant Organisms: None Reported Past Surgical History: Appendectomy Additional Past Surgical History / Comment(s): lithotripsy and stent right side, tooth insert, spinal tap x 3 january 04 Past Anesthesia/Blood Transfusion Reactions: No Reported Reaction Past Psychological History: Depression Smoking Status: Former smoker Past Alcohol Use History: Rare Past Drug Use History: Marijuana - Past Family History Mother Additional Family Medical History / Comment(s): Heart murmur, Cyst on Ovary, Appendectomy Father Family Medical History: Hypertension Course Vital Signs 12/23/20 12/23/20 12/24/20 20:52 22:55 00:55 Temperature 98.7 F Pulse Rate 95 73 80 Respiratory 18 18 17 Rate Blood Pressure 115/69 130/53 134/75 O2 Sat by Pulse 97 98 98 Oximetry Medical Decision Making - Medical Decision Making Upon arrival patient is placed into room 5. Thorough history and physical exam is performed. IV is established and the patient is given 500 mg of caffeine. He is additionally given 4 mg of morphine. Laboratory studies are conducted the patient went for CT imaging. White blood cell count is 13.9. CT of the patient's abdomen and pelvis demonstrates improvement, patient's mediastinal mass. Clearing upon multiple pulmonary nodules. CT of the thoracic spine and lumbar spine feels demonstrate abscess. Patient does not have meningitis signs. Patient is reevaluated and is requesting more pain medications. He is given a dose of Dilaudid. I discussed diagnosis, differential and treatment options. Patient will be discharged home at this time is to follow-up with his oncologist the . Return to emergency room for any new or worsening symptoms. Patient was in agreement with the treatment plan is discharge home in stable condition - Lab Data Result diagrams: 12/23/20 21:52 12/23/20 21:52 Lab Results 12/23/20 12/23/20 12/23/20 Range/Units 21:52 21:52 21:52 WBC 13.9 H (3.8-10.6) k/uL RBC 4.22 L (4.30-5.90) m/uL Hgb 13.0 (13.0-17.5) gm/dL Hct 39.0 (39.0-53.0) % MCV 92.4 (80.0-100.0) fL MCH 30.9 (25.0-35.0) pg MCHC 33.4 (31.0-37.0) g/dL RDW 17.0 H (11.5-15.5) % Plt Count 265 (150-450) k/uL MPV 7.3 Neutrophils % 77 % Lymphocytes % 12 % Monocytes % 7 % Eosinophils % 2 % Basophils % 0 % Neutrophils # 10.6 H (1.3-7.7) k/uL Lymphocytes # 1.6 (1.0-4.8) k/uL Monocytes # 1.0 (0-1.0) k/uL Eosinophils # 0.3 (0-0.7) k/uL Basophils # 0.1 (0-0.2) k/uL Anisocytosis Slight Sodium 137 (137-145) mmol/L Potassium 4.1 (3.5-5.1) mmol/L Chloride 102 (98-107) mmol/L Carbon Dioxide 23 (22-30) mmol/L Anion Gap 12 mmol/L BUN 13 (9-20) mg/dL Creatinine 0.64 L (0.66-1.25) mg/dL Est GFR (CKD-EPI)AfAm >90 (>60 ml/min/1.73 sqM) Est GFR (CKD-EPI)NonAf >90 (>60 ml/min/1.73 sqM) Glucose 100 H (74-99) mg/dL Plasma Lactic Acid Jim (0.7-2.0) mmol/L Calcium 9.9 (8.4-10.2) mg/dL Total Bilirubin 0.1 L (0.2-1.3) mg/dL AST 18 (17-59) U/L ALT 27 (4-49) U/L Alkaline Phosphatase 106 (38-126) U/L Total Protein 7.2 (6.3-8.2) g/dL Albumin 4.7 (3.5-5.0) g/dL Amylase 41 (30-110) U/L Lipase 76 (23-300) U/L Urine Color Yellow Urine Appearance Clear (Clear) Urine pH 6.0 (5.0-8.0) Ur Specific [place] 1.023 (1.001-1.035) Urine Protein Negative (Negative) Urine Glucose (UA) Negative (Negative) Urine Ketones Negative (Negative) Urine Blood Negative (Negative) Urine Nitrite Negative (Negative) Urine Bilirubin Negative (Negative) Urine Urobilinogen <2.0 (<2.0) mg/dL Ur Leukocyte Esterase Negative (Negative) 12/23/20 Range/Units 21:52 WBC (3.8-10.6) k/uL RBC (4.30-5.90) m/uL Hgb (13.0-17.5) gm/dL Hct (39.0-53.0) % MCV (80.0-100.0) fL MCH (25.0-35.0) pg MCHC (31.0-37.0) g/dL RDW (11.5-15.5) % Plt Count (150-450) k/uL MPV Neutrophils % % Lymphocytes % % Monocytes % % Eosinophils % % Basophils % % Neutrophils # (1.3-7.7) k/uL Lymphocytes # (1.0-4.8) k/uL Monocytes # (0-1.0) k/uL Eosinophils # (0-0.7) k/uL Basophils # (0-0.2) k/uL Anisocytosis Sodium (137-145) mmol/L Potassium (3.5-5.1) mmol/L Chloride (98-107) mmol/L Carbon Dioxide (22-30) mmol/L Anion Gap mmol/L BUN (9-20) mg/dL Creatinine (0.66-1.25) mg/dL Est GFR (CKD-EPI)AfAm (>60 ml/min/1.73 sqM) Est GFR (CKD-EPI)NonAf (>60 ml/min/1.73 sqM) Glucose (74-99) mg/dL Plasma Lactic Acid Jim 1.0 (0.7-2.0) mmol/L Calcium (8.4-10.2) mg/dL Total Bilirubin (0.2-1.3) mg/dL AST (17-59) U/L ALT (4-49) U/L Alkaline Phosphatase (38-126) U/L Total Protein (6.3-8.2) g/dL Albumin (3.5-5.0) g/dL Amylase (30-110) U/L Lipase (23-300) U/L Urine Color Urine Appearance (Clear) Urine pH (5.0-8.0) Ur Specific [place] (1.001-1.035) Urine Protein (Negative) Urine Glucose (UA) (Negative) Urine Ketones (Negative) Urine Blood (Negative) Urine Nitrite (Negative) Urine Bilirubin (Negative) Urine Urobilinogen (<2.0) mg/dL Ur Leukocyte Esterase (Negative) Disposition Clinical Impression: Lymphoma, Abdominal pain, Back pain, Headache Disposition: HOME SELF-CARE Condition: Stable Instructions (If sedation given, give patient instructions): Abdominal Pain (ED) Additional Instructions: Please follow up with your oncologist on the . Return to the ED for any new or worsening symptoms. Is patient prescribed a controlled substance at d/c from ED?: No Referrals: Nonstaff,Physician [Primary Care Provider] - 1-2 days Time of Disposition: 00:25
[2020-12-24 00:55] VITALS: BP 134/75; PULSE 80; RESP 17
== END 2020-12-24 00:58 | disposition home or self-care (01) ==
LOC: EC 20:12
DX: C81.90 Hodgkin lymphoma, unspecified, unspecified site (principal); R51.9 Headache, unspecified; R10.30 Lower abdominal pain, unspecified; M54.9 Dorsalgia, unspecified; F32.9 Major depressive disorder, single episode, unspecified; F12.90 Cannabis use, unspecified, uncomplicated; Z87.891 Personal history of nicotine dependence; Z79.899 Other long term (current) drug therapy
CPT/HCPCS: 36415; 80053; 82150; 83605; 83690; 85025; 86140; 81003; 87040; 72129; 72132; 71260; 74177; 96365; 96366; 96375 ×3; 99284; J2270; J2405; J1170; Q9967

== ENCOUNTER 2021-01-04 20:48 | Inpatient (IN) | payer BC, OTHER ==
--- NOTE | 2021-01-04 21:24 | ED ---
Recheck HPI - General Chief Complaint: Back Pain/Injury Stated Complaint: Back Pain Time Seen by Provider: 01/04/21 21:11 Source: patient, RN notes reviewed, old records reviewed Mode of arrival: wheelchair Limitations: no limitations - History of Present Illness Initial Comments: This 25-year-old male to the ER for evaluation of back pain. Chronic back pain that his been progressively worsening since along inpatient hospitalization. Patient does have history of CVA, lymphoma. Recent history of multiple LPs for evaluation regarding possibility of meningitis. Headaches. Chronic abdominal pain. MD Complaint: other (Increasing pain increasing back pain) -: week(s) Returns Today for: persistent/worsening pain related to initial visit Symptoms Since Prior Visit: worsening pain Context: other (Patient does take pain medications at home) Associated Symptoms: none Treatments Prior to Arrival: Given Pain Meds on - Related Data Home Medications Medication Instructions Recorded Confirmed Famotidine [Pepcid] 20 mg PO DAILY PRN 06/04/20 01/04/21 ondansetron HCL [Zofran] 8 mg PO Q8H PRN 06/04/20 01/04/21 Ibuprofen [Motrin] 800 mg PO Q6HR PRN 11/25/20 01/04/21 Dicyclomine [Bentyl] 20 mg PO QID PRN 12/03/20 01/04/21 HYDROcodone/APAP 10-325MG [[place] 1 tab PO Q6HR PRN 12/23/20 01/04/21 10-325] Tamsulosin [Flomax] 0.4 mg PO DAILY PRN 12/23/20 01/04/21 Previous Rx's Medication Instructions Recorded diphenhydrAMINE [Benadryl] 25 mg PO QID PRN cap 12/06/20 Allergies Allergy/AdvReac Type Severity Reaction Status Date / Time No Known Allergies Allergy Verified 01/04/21 22:12 Review of Systems ROS Statement: Those systems with pertinent positive or pertinent negative responses have been documented in the HPI. ROS Other: All systems not noted in ROS Statement are negative. Past Medical History Past Medical History: Cancer Additional Past Medical History / Comment(s): Hodgkins Lymphoma stage 4, last chemo November 21 2020, pt follows up with Dr. Browning out of [facility]. Previous hx of kidney stones early in 2019. History of Any Multi-Drug Resistant Organisms: None Reported Past Surgical History: Appendectomy Additional Past Surgical History / Comment(s): lithotripsy and stent right side, tooth insert, spinal tap x 3 january 04 Past Anesthesia/Blood Transfusion Reactions: No Reported Reaction Past Psychological History: Depression Smoking Status: Former smoker Past Alcohol Use History: Rare Past Drug Use History: Marijuana - Past Family History Mother Additional Family Medical History / Comment(s): Heart murmur, Cyst on Ovary, Appendectomy Father Family Medical History: Hypertension General Exam General appearance: alert, in no apparent distress Head exam: Present: atraumatic, normocephalic, normal inspection Eye exam: Present: normal appearance, PERRL, EOMI. Absent: scleral icterus, conjunctival injection, periorbital swelling ENT exam: Present: normal exam, mucous membranes moist Neck exam: Present: normal inspection. Absent: tenderness, meningismus, lymphadenopathy Respiratory exam: Present: normal lung sounds bilaterally. Absent: respiratory distress, wheezes, rales, rhonchi, stridor Cardiovascular Exam: Present: regular rate, normal rhythm, normal heart sounds. Absent: systolic murmur, diastolic murmur, rubs, gallop, clicks GI/Abdominal exam: Present: soft, normal bowel sounds. Absent: distended, tenderness, guarding, rebound, rigid Extremities exam: Present: normal inspection, full ROM, normal capillary refill. Absent: tenderness, pedal edema, joint swelling, calf tenderness Back exam: Present: normal inspection Neurological exam: Present: alert, oriented X3, CN II-XII intact Psychiatric exam: Present: normal affect, normal mood Skin exam: Present: warm, dry, intact, normal color. Absent: rash Course Vital Signs 01/04/21 01/05/21 20:54 01:02 Temperature 98.1 F Pulse Rate 82 74 Respiratory 18 16 Rate Blood Pressure 105/70 120/68 O2 Sat by Pulse 98 94 L Oximetry - Reevaluation(s) Reevaluation #1: 01/04/21 22:32 Medical records reviewed Reevaluation #2: 01/05/21 00:22 Patient's pain is not well-controlled currently Reevaluation #3: 01/05/21 00:22 Patient informed of results and questions are answered - Consultations Consultation #1: Spoke with EM to agrees to admit the patient Medical Decision Making - Medical Decision Making 25 male to the ER for evaluation intractable back pain and cancer pain. Patient will be admitted for intractable back pain and pain management - Lab Data Result diagrams: 01/04/21 22:25 01/04/21 22:25 Lab Results 01/04/21 01/04/21 01/04/21 Range/Units 22:25 22:25 22:25 WBC 9.5 (3.8-10.6) k/uL RBC 4.21 L (4.30-5.90) m/uL Hgb 13.4 (13.0-17.5) gm/dL Hct 40.5 (39.0-53.0) % MCV 96.2 (80.0-100.0) fL MCH 31.9 (25.0-35.0) pg MCHC 33.2 (31.0-37.0) g/dL RDW 17.3 H (11.5-15.5) % Plt Count 287 (150-450) k/uL MPV 7.1 Neutrophils % 67 % Lymphocytes % 15 % Monocytes % 9 % Eosinophils % 5 % Basophils % 1 % Neutrophils # 6.4 (1.3-7.7) k/uL Lymphocytes # 1.5 (1.0-4.8) k/uL Monocytes # 0.9 (0-1.0) k/uL Eosinophils # 0.5 (0-0.7) k/uL Basophils # 0.1 (0-0.2) k/uL Anisocytosis Slight Macrocytosis Slight PT 10.4 (9.0-12.0) sec INR 1.0 (<1.2) APTT 22.9 (22.0-30.0) sec Sodium (137-145) mmol/L Potassium (3.5-5.1) mmol/L Chloride (98-107) mmol/L Carbon Dioxide (22-30) mmol/L Anion Gap mmol/L BUN (9-20) mg/dL Creatinine (0.66-1.25) mg/dL Est GFR (CKD-EPI)AfAm (>60 ml/min/1.73 sqM) Est GFR (CKD-EPI)NonAf (>60 ml/min/1.73 sqM) Glucose (74-99) mg/dL Calcium (8.4-10.2) mg/dL Phosphorus (2.5-4.5) mg/dL Magnesium (1.6-2.3) mg/dL Total Bilirubin (0.2-1.3) mg/dL AST (17-59) U/L ALT (4-49) U/L Alkaline Phosphatase (38-126) U/L Creatine Kinase (55-170) U/L Troponin I (0.000-0.034) ng/mL NT-Pro-B Natriuret Pep pg/mL Total Protein (6.3-8.2) g/dL Albumin (3.5-5.0) g/dL Urine Color Yellow Urine Appearance Clear (Clear) Urine pH 5.5 (5.0-8.0) Ur Specific [place] 1.026 (1.001-1.035) Urine Protein Trace H (Negative) Urine Glucose (UA) Negative (Negative) Urine Ketones Negative (Negative) Urine Blood Negative (Negative) Urine Nitrite Negative (Negative) Urine Bilirubin Negative (Negative) Urine Urobilinogen <2.0 (<2.0) mg/dL Ur Leukocyte Esterase Negative (Negative) 01/04/21 01/04/21 01/04/21 Range/Units 22:25 22:25 22:25 WBC (3.8-10.6) k/uL RBC (4.30-5.90) m/uL Hgb (13.0-17.5) gm/dL Hct (39.0-53.0) % MCV (80.0-100.0) fL MCH (25.0-35.0) pg MCHC (31.0-37.0) g/dL RDW (11.5-15.5) % Plt Count (150-450) k/uL MPV Neutrophils % % Lymphocytes % % Monocytes % % Eosinophils % % Basophils % % Neutrophils # (1.3-7.7) k/uL Lymphocytes # (1.0-4.8) k/uL Monocytes # (0-1.0) k/uL Eosinophils # (0-0.7) k/uL Basophils # (0-0.2) k/uL Anisocytosis Macrocytosis PT (9.0-12.0) sec INR (<1.2) APTT (22.0-30.0) sec Sodium 136 L (137-145) mmol/L Potassium 4.1 (3.5-5.1) mmol/L Chloride 101 (98-107) mmol/L Carbon Dioxide 24 (22-30) mmol/L Anion Gap 11 mmol/L BUN 18 (9-20) mg/dL Creatinine 0.76 (0.66-1.25) mg/dL Est GFR (CKD-EPI)AfAm >90 (>60 ml/min/1.73 sqM) Est GFR (CKD-EPI)NonAf >90 (>60 ml/min/1.73 sqM) Glucose 98 (74-99) mg/dL Calcium 9.5 (8.4-10.2) mg/dL Phosphorus 4.9 H (2.5-4.5) mg/dL Magnesium 2.0 (1.6-2.3) mg/dL Total Bilirubin 0.1 L (0.2-1.3) mg/dL AST 22 (17-59) U/L ALT 30 (4-49) U/L Alkaline Phosphatase 73 (38-126) U/L Creatine Kinase 59 (55-170) U/L Troponin I <0.012 (0.000-0.034) ng/mL NT-Pro-B Natriuret Pep 55 pg/mL Total Protein 7.0 (6.3-8.2) g/dL Albumin 4.5 (3.5-5.0) g/dL Urine Color Urine Appearance (Clear) Urine pH (5.0-8.0) Ur Specific [place] (1.001-1.035) Urine Protein (Negative) Urine Glucose (UA) (Negative) Urine Ketones (Negative) Urine Blood (Negative) Urine Nitrite (Negative) Urine Bilirubin (Negative) Urine Urobilinogen (<2.0) mg/dL Ur Leukocyte Esterase (Negative) - EKG Data -: EKG Interpreted by Me (EKG shows sinus rhythm 86 CO 176 QRS 92 QTC 440) Disposition Clinical Impression: Back pain, Abdominal pain, Cancer associated pain Disposition: ADMITTED IP TO THIS [facility] Condition: Good Is patient prescribed a controlled substance at d/c from ED?: No
[2021-01-04] MEDS ORDERED: DIAZEPAM 5 MG/ML 2 ML INJ IVP STA (21:57)
[2021-01-04] MEDS ORDERED: DEXAMETHASONE SOD PHOSPHATE 10 MG/ML 1 ML VIAL IV STA (21:57)
[2021-01-04] MEDS ORDERED: SODIUM CHLORIDE 0.9% 1,000 ML IV STA ×2 (21:57)
[2021-01-04] MEDS ORDERED: HYDROmorphone 1 MG/ML 1 ML SYRINGE IVP STA (21:57)
[2021-01-04] MEDS ORDERED: KETOROLAC 15 MG/ML 1 ML VIAL IVP STA (21:57)
[2021-01-04 22:55] LABS: Anisocytosis Slight; Basophils # (A) 0.1 k/uL (0-0.2); Basophils % (A) 1 %; Eosinophils # (A) 0.5 k/uL (0-0.7); Eosinophils % (A) 5 %; HCT 40.5 % (39.0-53.0); HGB 13.4 gm/dL (13.0-17.5); Lymphocytes # (A) 1.5 k/uL (1.0-4.8); Lymphocytes % (A) 15 %; MCH 31.9 pg (25.0-35.0); MCHC 33.2 g/dL (31.0-37.0); MCV 96.2 fL (80.0-100.0); Macrocytosis Slight; Mean Platelet Volume 7.1; Monocytes # (A) 0.9 k/uL (0-1.0); Monocytes % (A) 9 %; Neutrophils # (A) 6.4 k/uL (1.3-7.7); Neutrophils % (A) 67 %; Platelet Count 287 k/uL (150-450); RBC 4.21 m/uL (4.30-5.90); RDW 17.3 % (11.5-15.5); WBC 9.5 k/uL (3.8-10.6)
[2021-01-04 22:59] LABS: Appearance,Urine Clear (Clear); Bilirubin,Urine Negative (Negative); Blood,Urine Negative (Negative); Color,Urine Yellow; Glucose,Urine (UA) Negative (Negative); Ketones,Urine Negative (Negative); Leukocyte Esterase,Urine Negative (Negative); Nitrite,Urine Negative (Negative); PH, Urine 5.5 (5.0-8.0); Protein,Urine Trace (Negative); Specific Gravity,Urine 1.026 (1.001-1.035); Urobilinogen,Urine <2.0 mg/dL (<2.0)
[2021-01-04 23:14] LABS: Partial Thromboplastin Time 22.9 sec (22.0-30.0); Prothrombin Time 10.4 sec (9.0-12.0)
[2021-01-04 23:35] LABS: ALT 30 U/L (4-49); AST 22 U/L (17-59); African American GFR (CKD) >90 (>60 ml/min/1.73 sqM); Albumin 4.5 g/dL (3.5-5.0); Alkaline Phosphatase 73 U/L (38-126); Anion Gap 11 mmol/L; Blood Urea Nitrogen 18 mg/dL (9-20); Calcium 9.5 mg/dL (8.4-10.2); Carbon Dioxide 24 mmol/L (22-30); Chloride 101 mmol/L (98-107); Creatine Kinase 59 U/L (55-170); Glucose 98 mg/dL (74-99); Non-African American GFR(CKD) >90 (>60 ml/min/1.73 sqM); Phosphorus 4.9 mg/dL (2.5-4.5); Potassium 4.1 mmol/L (3.5-5.1); Sodium 136 mmol/L (137-145); Total Bilirubin 0.1 mg/dL (0.2-1.3)
[2021-01-05] MEDS ORDERED: diphenhydrAMINE 50 MG/ML 1 ML VIAL IVP STA (00:05)
[2021-01-05] MEDS ORDERED: diphenhydrAMINE 50 MG/ML 1 ML VIAL IVP PRN (00:05)
[2021-01-05] MEDS ORDERED: HYDROmorphone 1 MG/ML 1 ML SYRINGE IVP STA (00:05)
[2021-01-05] MEDS: HYDROmorphone 1 MG/ML 1 ML SYRINGE IVP PRN ×5 (05:44→22:05)
[2021-01-05 12:26] LABS: African American GFR (CKD) 143.9 (60.0-200.0); Anion Gap 10.1 mmol/L (4.00-12.00); BUN/Creat Ratio 18.75 Ratio (12.00-20.00); Calcium 9.8 mg/dL (8.7-10.3); Carbon Dioxide 20.9 mmol/L (21.6-31.8); Magnesium 2.1 mg/dL (1.5-2.4); Non-African American GFR(CKD) 124.2 (60.0-200.0); Potassium 4.6 mmol/L (3.5-5.5)
[2021-01-05] MEDS ORDERED: diphenhydrAMINE 25 MG CAP PO PRN (17:43)
[2021-01-05] MEDS ORDERED: ONDANSETRON 4 MG TAB PO PRN (17:43)
[2021-01-05] MEDS ORDERED: TAMSULOSIN 0.4 MG CAP.ER.24H PO PRN (17:43)
[2021-01-05] MEDS ORDERED: IBUPROFEN 800 MG TAB PO PRN (17:43)
[2021-01-05] MEDS ORDERED: DICYCLOMINE 20 MG TAB PO PRN (17:43)
[2021-01-05] MEDS ORDERED: FAMOTIDINE 20 MG TAB PO PRN (17:43)
--- NOTE | 2021-01-05 19:31 | P.HPIM ---
History of Present Illness H&P Date: 01/05/21 Chief Complaint: Acute and chronic low back pain Mr. Pierre is a 24-year-old male with a past medical history of Hodgkin's lymphoma stage IV, last chemotherapy 12/12/2020, follows with Dr. Browning and Elyse to [place], history of nephrolithiasis, depression, coming in with a chief complaint of acute low back pain. Patient mentions that he had 3 lumbar punctures done recently for evaluation of his meningitis/Hodgkin's lymphoma and since then started to have low back pain. He states that he's been taking Norcos at home but progressively his pain worsen and so he came into the ED for further evaluation. Patient denies having any fevers chills or rigors. He denies having any loss of bladder or bowel control. Patient denies having any tingling or numbness in his torso or legs. He denies having any loss of sensation in his lower extremities. Patient mentions that his chemotherapy is currently on hold as recommended by his primary oncologist. Patient denied having any chest pain or palpitations. No cough or difficulty in breathing. He denied having any fevers chills or rigors. No abdominal pain nausea vomiting or diarrhea. No dysuria or hematuria. In the ED patient had temperature 98.7, heart rate 95, respiratory rate 18, blood pressure 1:15/69, saturating at 97% on room air. He had an EKG showing normal sinus rhythm. Reviewing his labs white count of 9.5, hemoglobin 13.4, platelets 287. Sodium 136, potassium 4.7, chloride 101, creatinine 0.76. Urinalysis is negative for leukocyte Estrace and nitrites. Troponin less than 0.012. Review of Systems CONSTITUTIONAL: No fever, no malaise, no fatigue. HEENT: No headache, no neck stiffness, no blurring of vision CARDIOVASCULAR: No chest pain, no palpitations PULMONARY: No cough or difficulty in breathing GASTROINTESTINAL: No Abdominal pain nausea vomiting or diarrhea NEUROLOGICAL: No weakness of extremities HEMATOLOGICAL: Denies any bleeding or petechiae. GENITOURINARY: Denies any burning micturition, frequency, or urgency. MUSCULOSKELETAL/RHEUMATOLOGICAL: As per HPI ENDOCRINE: Denies polyuria polydipsia or heat or cold intolerance The rest of the 14-point review of systems is negative. Past Medical History Past Medical History: Cancer Additional Past Medical History / Comment(s): Hodgkins Lymphoma stage 4, last chemo November 21 2020, pt follows up with Dr. Browning out of [facility]. Previous hx of kidney stones early in 2019. History of Any Multi-Drug Resistant Organisms: None Reported Past Surgical History: Appendectomy Additional Past Surgical History / Comment(s): lithotripsy and stent right side, tooth insert, spinal tap x january 04 Past Anesthesia/Blood Transfusion Reactions: No Reported Reaction Past Psychological History: Depression Smoking Status: Former smoker Past Alcohol Use History: Rare Past Drug Use History: Marijuana - Past Family History Mother Additional Family Medical History / Comment(s): Heart murmur, Cyst on Ovary, Appendectomy Father Family Medical History: Hypertension Medications and Allergies Home Medications Medication Instructions Recorded Confirmed Type Famotidine [Pepcid] 20 mg PO DAILY PRN 06/04/20 01/04/21 History ondansetron HCL [Zofran] 8 mg PO Q8H PRN 06/04/20 01/04/21 History Ibuprofen [Motrin] 800 mg PO Q6HR PRN 11/25/20 01/04/21 History Dicyclomine [Bentyl] 20 mg PO QID PRN 12/03/20 01/04/21 History diphenhydrAMINE [Benadryl] 25 mg PO QID PRN cap 12/06/20 01/04/21 Rx HYDROcodone/APAP 10-325MG [[place] 1 tab PO Q6HR PRN 12/23/20 01/04/21 History 10-325] Tamsulosin [Flomax] 0.4 mg PO DAILY PRN 12/23/20 01/04/21 History Allergies Allergy/AdvReac Type Severity Reaction Status Date / Time No Known Allergies Allergy Verified 01/04/21 22:12 Physical Exam Vitals: Vital Signs Temp Pulse Resp BP Pulse Ox 01/05/21 13:57 98.0 F 59 L 18 111/47 98 01/05/21 11:16 17 01/05/21 09:46 91 18 113/47 99 01/05/21 05:46 86 16 122/57 99 01/05/21 01:02 74 16 120/68 94 L 01/04/21 20:54 98.1 F 82 18 105/70 98 PHYSICAL EXAMINATION: GENERAL: Comfortably lying up in the bed appears to be no acute distress. HEENT: Pupils are round and equally reacting to light. EOMI. No scleral icterus. No conjunctival pallor. CARDIOVASCULAR: S1 and S2 present. No murmurs, rubs, or gallops. PULMONARY: Bilateral breath sounds positive. No wheeze or crackles. ABDOMEN: Soft,non -tender, normal bowel sounds. No guarding or rigidity. MUSCULOSKELETAL: No joint swelling or deformity. Mild paraspinal tenderness in the lower back EXTREMITIES: No edema NEUROLOGICAL: Strength 5 out of 5 in all 4 extremities. Sensations in bilateral lower extremities normal. SKIN:No rash Results CBC & Chem 7: 01/04/21 22:25 01/05/21 03:38 Labs: Abnormal Lab Results - Last 24 Hours (Table) 01/04/21 01/04/21 01/04/21 Range/Units 22:25 22:25 22:25 RBC 4.21 L (4.30-5.90) m/uL RDW 17.3 H (11.5-15.5) % Sodium 136 L (137-145) mmol/L Carbon Dioxide (21.6-31.8) mmol/L Glucose (70-110) mg/dL Phosphorus 4.9 H (2.5-4.5) mg/dL Total Bilirubin 0.1 L (0.2-1.3) mg/dL Urine Protein Trace H (Negative) 01/05/21 Range/Units 03:38 RBC (4.30-5.90) m/uL RDW (11.5-15.5) % Sodium (137-145) mmol/L Carbon Dioxide 20.9 L (21.6-31.8) mmol/L Glucose 135 H (70-110) mg/dL Phosphorus (2.5-4.5) mg/dL Total Bilirubin (0.2-1.3) mg/dL Urine Protein (Negative) Assessment and Plan Assessment: ASSESSMENT Acute on chronic low back pain History of multiple LPs done recently Hodgkin's lymphoma History of nephrolithiasis Former smoker History of depression Marijuana use PLAN: Patient is started on IV Dilaudid that seems to be helping with his pain, he is getting 1 mg every 4 hours. He has been restarted on his home medic ations. We will continue with the current medication regimen. Further recommendations to follow depending on the progress of the patient.
[2021-01-05] MEDS: diazePAM 5 MG TAB PO PRN (19:49)
[2021-01-06] MEDS: HYDROmorphone 1 MG/ML 1 ML SYRINGE IVP PRN ×5 (02:33→20:44)
[2021-01-06] MEDS: HYDROcodone/APAP 10-325MG 1 EACH TAB PO PRN (04:38)
[2021-01-06] MEDS: diazePAM 5 MG TAB PO PRN ×2 (09:01→22:26)
--- NOTE | 2021-01-06 15:29 | P.CNOR ---
History of Present Illness - [facility] Consult date: 01/06/21 Requesting physician: Laine Alvarez Consult reason: other (back pain, non-hodgkins lymphoma) History of present illness: Patient is 25-year-old male presenting to the hospital with low back pain. Patient has a history of lymphoma, stage IV diagnosis April 2020. Patient currently sees an oncologist at [facility] for treatment. Patient says his last chemo treatment was about 3 weeks ago. Patient says about a week ago he had 3 lumbar punctures because he said doctors were worried about him possibly having meningitis and has since had numbness and tingling randomly in his toes. He says his toes will fall sleep both during ambulation and while lying in bed. Patient says sometimes when his low back pain gets severe, he says this pain radiates down the back of his legs and into his feet. Patient denies any falls/trauma to the area. Patient says he had stent placed about 1 month ago. Patient says his oncologist has been his main doctor for his pain medication recently. Patient says he does take [place] tens to help control pain. Patient denies any previous orthopedic surgical history. Patient denies chest pain, fever, shortness breath, nausea, vomiting, change in vision. Patient denies any saddle anesthesia. Patient denies loss of bowel/bladder control. Past Medical History Past Medical History: Cancer Additional Past Medical History / Comment(s): Hodgkins Lymphoma stage 4, last ch emo November 21 2020, pt follows up with Dr. Browning out of [facility]. Previous hx of kidney stones early in 2019. History of Any Multi-Drug Resistant Organisms: None Reported Past Surgical History: Appendectomy Additional Past Surgical History / Comment(s): lithotripsy and stent right side, tooth insert, spinal tap x january 04 Past Anesthesia/Blood Transfusion Reactions: No Reported Reaction Past Psychological History: Depression Smoking Status: Former smoker Past Alcohol Use History: Rare Past Drug Use History: Marijuana - Past Family History Mother Additional Family Medical History / Comment(s): Heart murmur, Cyst on Ovary, Appendectomy Father Family Medical History: Hypertension Medications and Allergies Home Medications Medication Instructions Recorded Confirmed Type Famotidine [Pepcid] 20 mg PO DAILY PRN 06/04/20 01/04/21 History ondansetron HCL [Zofran] 8 mg PO Q8H PRN 06/04/20 01/04/21 History Ibuprofen [Motrin] 800 mg PO Q6HR PRN 11/25/20 01/04/21 History Dicyclomine [Bentyl] 20 mg PO QID PRN 12/03/20 01/04/21 History diphenhydrAMINE [Benadryl] 25 mg PO QID PRN cap 12/06/20 01/04/21 Rx HYDROcodone/APAP 10-325MG [[place] 1 tab PO Q6HR PRN 12/23/20 01/04/21 History 10-325] Tamsulosin [Flomax] 0.4 mg PO DAILY PRN 12/23/20 01/04/21 History Allergies Allergy/AdvReac Type Severity Reaction Status Date / Time No Known Allergies Allergy Verified 01/04/21 22:12 Physical Examination Inspection: Negative for any open fractures, ecchymosis, erythema, nodules Palpation: Significant tenderness to palpation of lower T-spine as well as lumbar spine. Nontender to palpation of the cervical and upper thoracic spine. Nontender to palpation throughout rest of exam Sensation: Sensation is equal, symmetric, intact throughout exam bilaterally ROM: Patient has full range of motion in bilateral upper extremities. Full range of motion on knee flexion and extension. Limited range of motion in hip flexion bilaterally, based on weakness Motor: Bilateral upper extremities 5/5 in puppy walker strength, resisted elbow flexion/extension and resisted shoulder abduction, internal and external rotation. Plantar flexion 4/5 bilaterally; dorsiflexion 5/5 bilaterally. Resisted hip flexion 3/5 bilaterally. Knee flexion/extension 4/5 bilaterally Neurovascular: Dorsalis pedis pulse present, 2+, intact bilaterally. Cap refill under 3 seconds bilaterally in upper and lower extremities. Special tests: Negative Homans bilaterally. Negative clonus upon dorsiflexing feet bilaterally. Negative Estefany's bilaterally. Results - Labs Labs: H & H 01/04/21 Range/Units 22:25 Hgb 13.4 (13.0-17.5) gm/dL Hct 40.5 (39.0-53.0) % Coagulation 01/04/21 Range/Units 22:25 INR 1.0 (<1.2) Result Diagrams: 01/04/21 22:25 01/05/21 03:38 Assessment and Plan Assessment: 1. Acute on Chronic Low Back Pain 2. Hodgkins Lymphoma Plan: 1. Acute on Chronic Low Back Pain - MRI thoracic and Lumbar spine ordered for evaluation. We will continue to follow while in hospital 2. Appreciate medical management 3. Appreciate consult 4. Pain Management - Stable with IV and oral pain meds 5. GI ppx - Pepcid 6. PT/OT - WBAT Time with Patient: Less than 30
--- NOTE | 2021-01-06 22:48 | P.PN ---
Subjective Progress Note Date: 01/06/21 Principal diagnosis: Acute on Chronic Low Back pain - Intractable Mr. Pierre is a 24-year-old male with a past medical history of Hodgkin's lymphoma stage IV, last chemotherapy 12/12/2020, follows with Dr. Browning and E[place]se to [place], history of nephrolithiasis, depression, coming in with a chief complaint of acute low back pain. Patient mentions that he had 3 lumbar punctures done recently for evaluation of his meningitis/Hodgkin's lymphoma and since then started to have low back pain. He states that he's been taking Norcos at home but progressively his pain worsen and so he came into the ED for further evaluation. Patient denies having any fevers chills or rigors. He denies having any loss of bladder or bowel control. Patient denies having any tingling or numbness in his torso or legs. He denies having any loss of sensation in his lower extremities. Patient mentions that his chemotherapy is currently on hold as recommended by his primary oncologist. Patient denied having any chest pain or palpitations. No cough or difficulty in breathing. He denied having any fevers chills or rigors. No abdominal pain nausea vomiting or diarrhea. No dysuria or hematuria. In the ED patient had temperature 98.7, heart rate 95, respiratory rate 18, blood pressure 115/69, saturating at 97% on room air. He had an EKG showing normal sinus rhythm. Reviewing his labs white count of 9.5, hemoglobin 13.4, platelets 287. Sodium 136, potassium 4.7, chloride 101, creatinine 0.76. Urinalysis is negative for leukocyte Estrace and nitrites. Troponin less than 0.012. On 01/06/2021 -patient is seen and examined at the bedside. He still complains of ongoing low back pain. He complains of mild tingling sensation in his bilateral tip of the toe areas. Patient denies having any urinary or bowel incontinence. He states that Dilaudid is helping him but after 3 hours slowly start wearing off. He denies having any chest pain or palpitations. No cough or difficulty breathing. On reviewing his vitals temperature 97.8, heart rate 70, respiratory 16, blood pressure 107/70 saturating 99% on room air. Reviewing the labs. Sodium 136, potassium 4.6, chloride 105, bicarb 20, BUN 15, creatinine 0.8. Patient's medications have been reviewed. Objective - Vital Signs Vital signs: Vital Signs Temp 98.1 F 01/06/21 05:03 Pulse 70 01/06/21 05:03 Resp 16 01/06/21 05:03 BP 100/57 01/06/21 05:03 Pulse Ox 98 01/06/21 05:03 Intake & Output 01/05/21 01/06/21 01/06/21 18:59 06:59 18:59 Intake Total 1200 Balance 1200 Weight 104.326 kg Intake: Oral 1200 Other: Voiding Method Toilet # Voids 1 2 - Exam PHYSICAL EXAMINATION: GENERAL: Comfortably lying up in the bed appears to be no acute distress. HEENT: Pupils are round and equally reacting to light. EOMI. No scleral icterus. No conjunctival pallor. CARDIOVASCULAR: S1 and S2 present. No murmurs, rubs, or gallops. PULMONARY: Bilateral breath sounds positive. No wheeze or crackles. ABDOMEN: Soft,non -tender, normal bowel sounds. No guarding or rigidity. MUSCULOSKELETAL: No joint swelling or deformity. EXTREMITIES: No edema NEUROLOGICAL: Strength 5 out of 5 in all 4 extremities. Sensations in bilateral lower extremities normal. SKIN:No rash - Labs CBC & Chem 7: 01/04/21 22:25 01/05/21 03:38 Labs: Abnormal Lab Results - Last 24 Hours (Table) 01/05/21 Range/Units 03:38 Carbon Dioxide 20.9 L (21.6-31.8) mmol/L Glucose 135 H (70-110) mg/dL Assessment and Plan Assessment: ASSESSMENT Acute on chronic low back pain History of multiple LPs done recently Hodgkin's lymphoma History of nephrolithiasis Former smoker History of depression Marijuana use PLAN:Patient continues to be on IV Dilaudid for his back pain, states that it is improving and tolerable. Will consult orthopedics for further management of the pain in view of his chronicity. MRI of the lumbar and thoracic spine pending. Continue with the rest of his medication regimen. Further recommendations to follow depending on the progress of the patient.
[2021-01-07] MEDS: HYDROmorphone 1 MG/ML 1 ML SYRINGE IVP PRN ×5 (01:57→20:45)
[2021-01-07] MEDS: HEPARIN SODIUM,PORCINE/PF 5,000 UNIT/0.5 ML SYRINGE SQ SCH ×3 (01:57→16:31)
[2021-01-07] MEDS: HYDROcodone/APAP 10-325MG 1 EACH TAB PO PRN ×2 (06:45→19:21)
[2021-01-07] MEDS: diazePAM 5 MG TAB PO PRN ×2 (07:28→16:30)
--- NOTE | 2021-01-07 16:18 | MR ---
EXAMINATION TYPE: MR tspine/lspine wo/w con DATE OF EXAM: 01/07/2021 COMPARISON: CT 12/23/2020 HISTORY: Back pain TECHNIQUE: Multiplanar, multisequence images of the lumbar and thoracic spine is performed without and with IV c ontrast, utilizing 10.5 mL intravenous Gadavist FINDINGS: Lumbar spine MRI: Sagittal images of the lumbar spine show vertebral body heights and alignment to appear satisfactory. The intervertebral discs demonstrate normal heights and hydration with the exception of L5-S1. The conus medullaris is normal in position and signal. The bone marrow signal intensity is within normal limits. Axial images show no focal disc disease, or facet degenerative change with the exception of L5-S1, ri ght posterior paracentral disc protrusion likely contacts the proximal S1 nerve root. There is some a ssociated facet arthropathy, no significant foraminal encroachment or spinal stenosis.. There is no spinal canal stenosis, neural foraminal narrowing, or evidence of nerve root compromise. No abnormal enhancement. Lung nodule noted incidentally in the right lower lobe. Circumaortic left renal vein is noted incidentally. IMPRESSION: Right posterior paracentral disc bulge L5-S1, correlate for right S1 radiculopathy. Addit ional findings above. Thoracic spine MRI: Thoracic vertebral bodies show preserved height, alignment, and bone marrow signa l. Disc spaces are maintained. There is no evident spinal stenosis or foraminal encroachment. There i s a mild spinal curvature. Thoracic cord signal is normal. No abnormal enhancement following contrast administration. Mediastinal mass is noted incidentally. IMPRESSION: Normal thoracic spine MRI with slight spinal curvature. Mediastinal mass as noted on [place] ent's prior CT.
--- NOTE | 2021-01-07 22:59 | P.PN ---
Subjective Progress Note Date: 01/07/21 Principal diagnosis: Acute on Chronic Low Back pain - Intractable Mr. Pierre is a 24-year-old male with a past medical history of Hodgkin's lymphoma stage IV, last chemotherapy 12/12/2020, follows with Dr. Browning and Elyse to [place], history of nephrolithiasis, depression, coming in with a chief complaint of acute low back pain. Patient mentions that he had 3 lumbar punctures done recently for evaluation of his meningitis/Hodgkin's lymphoma and since then started to have low back pain. He states that he's been taking Norcos at home but progressively his pain worsen and so he came into the ED for further evaluation. Patient denies having any fevers chills or rigors. He denies having any loss of bladder or bowel control. Patient denies having any tingling or numbness in his torso or legs. He denies having any loss of sensation in his lower extremities. Patient mentions that his chemotherapy is currently on hold as recommended by his primary oncologist. Patient denied having any chest pain or palpitations. No cough or difficulty in breathing. He denied having any fevers chills or rigors. No abdominal pain nausea vomiting or diarrhea. No dysuria or hematuria. In the ED patient had temperature 98.7, heart rate 95, respiratory rate 18, blood pressure 115/69, saturating at 97% on room air. He had an EKG showing normal sinus rhythm. Reviewing his labs white count of 9.5, hemoglobin 13.4, platelets 287. Sodium 136, potassium 4.7, chloride 101, creatinine 0.76. Urinalysis is negative for leukocyte Estrace and nitrites. Troponin less than 0.012. On 01/06/2021 -patient is seen and examined at the bedside. He still complains of ongoing low back pain. He complains of mild tingling sensation in his bilateral tip of the toe areas. Patient denies having any urinary or bowel incontinence. He states that Dilaudid is helping him but after 3 hours slowly start wearing off. He denies having any chest pain or palpitations. No cough or difficulty breathing. On reviewing his vitals temperature 97.8, heart rate 70, respiratory 16, blood pressure 107/70 saturating 99% on room air. Reviewing the labs. Sodium 136, potassium 4.6, chloride 105, bicarb 20, BUN 15, creatinine 0.8. On 01/07/2021 -patient just got back from the MRI. He states that his pain is 8 out of 10 as he has to change his position and be transferred to get the MRI. He also states he has a headache and mild nausea, probably due to the sound pollution in the MRI. He denies having any chest pain or palpitations. Patient denies having any tingling or numbness that is new in his lower extremities. He denies having any loss of bowel or bladder control. On reviewing the patient's vitals temperature 97.6, heart rate 73, respiratory 16 low blood pressure 105/68, saturating at 99% on room air. No new labs from this morning. Patient's medications have been reviewed. Objective - Vital Signs Vital signs: Vital Signs Temp 97.9 F 01/07/21 12:36 Pulse 55 L 01/07/21 12:36 Resp 18 01/07/21 12:36 BP 105/69 01/07/21 12:36 Pulse Ox 98 01/07/21 12:36 Intake & Output 01/06/21 01/07/21 01/07/21 18:59 06:59 18:59 Other: Voiding Method Toilet # Voids 4 - Exam PHYSICAL EXAMINATION: GENERAL: Comfortably lying up in the bed appears to be no acute distress. HEENT: No conjunctival pallor. CARDIOVASCULAR: S1 and S2 present. . PULMONARY: Bilateral breath sounds positive. No wheeze or crackles. ABDOMEN: Soft,non -tender, normal bowel sounds. No guarding or rigidity. EXTREMITIES: No edema NEUROLOGICAL: Strength 5 out of 5 in all 4 extremities. Sensations in bilateral lower extremities normal. SKIN:No rash - Labs CBC & Chem 7: 01/04/21 22:25 01/05/21 03:38 Assessment and Plan Assessment: ASSESSMENT Acute on chronic low back pain History of multiple LPs done recently Hodgkin's lymphoma History of nephrolithiasis Former smoker History of depression Marijuana use PLAN:Patient continues to be on IV Dilaudid for his back pain, states that it is improving and tolerable. Orthopedics has been consulted, they ordered an MRI that he chest got done with. Continue with the current main medication regimen. Further recommendations to follow depending on the clinical course.
[2021-01-08] MEDS: HEPARIN SODIUM,PORCINE/PF 5,000 UNIT/0.5 ML SYRINGE SQ SCH ×3 (00:11→15:49)
[2021-01-08] MEDS: HYDROmorphone 1 MG/ML 1 ML SYRINGE IVP PRN ×6 (01:06→22:20)
[2021-01-08] MEDS: HYDROcodone/APAP 10-325MG 1 EACH TAB PO PRN ×2 (08:05→15:46)
[2021-01-08] MEDS: diazePAM 5 MG TAB PO PRN ×2 (08:10→15:46)
--- NOTE | 2021-01-08 08:18 | P.PN ---
Subjective Progress Note Date: 01/08/21 Principal diagnosis: 1. Acute on Chronic Low Back Pain 2. Hodgkins Lymphoma Patient seen at bedside this morning resting comfortably. Patient states she still has some numbness/tingling in both his feet. Patient says he is feeling little bit better. Patient denies chest pain, fever, shortness breath, nausea, vomiting, vision, loss of bowel/bladder control. Objective - Vital Signs Vital signs: Vital Signs Temp 97.8 F 01/08/21 04:32 Pulse 65 01/08/21 04:32 Resp 16 01/08/21 04:32 BP 101/63 01/08/21 04:32 Pulse Ox 96 01/08/21 04:32 Intake & Output 01/07/21 01/08/21 01/08/21 18:59 06:59 18:59 Intake Total 540 Balance 540 Intake: Oral 540 Other: Voiding Method Toilet # Voids 3 3 - Exam Inspection: Negative for any open fractures, ecchymosis, erythema, nodules Palpation: Significant tenderness to palpation of lower T-spine as well as lumbar spine. Nontender to palpation of the cervical and upper thoracic spine. Nontender to palpation throughout rest of exam Sensation: Sensation is equal, symmetric, intact throughout exam bilaterally ROM: Patient has full range of motion in bilateral upper extremities. Full range of motion on knee flexion and extension. Limited range of motion in hip flexion bilaterally, based on weakness Motor: Bilateral upper extremities 5/5 in multimedia journalist strength, resisted elbow flexion/extension and resisted shoulder abduction, internal and external rotation. Plantar flexion 4/5 bilaterally; dorsiflexion 5/5 bilaterally. Resisted hip flexion 3/5 bilaterally. Knee flexion/extension 4/5 bilaterally Neurovascular: Dorsalis pedis pulse present, 2+, intact bilaterally. Cap refill under 3 seconds bilaterally in upper and lower extremities. Special tests: Negative Homans bilaterally. Negative clonus upon dorsiflexing feet bilaterally. Negative Estefany's bilaterally. - Labs CBC & Chem 7: 01/04/21 22:25 01/05/21 03:38 Assessment and Plan Assessment: 1. Acute on Chronic Low Back Pain 2. Hodgkins Lymphoma Plan: 1. Acute on Chronic Low Back Pain - MRI thoracic and Lumbar spine ordered and has been completed. MRI shows some disc bulging at L5-S1 which may be causing some of patient's symptoms. Dr. Barber and I did discuss the findings of MRI with the patient and we did discuss the option for potential pain management intervention with steroid injections into the spine if needed in the future. At this time we do not recommend any urgent surgical intervention orthopedically. We will continue to follow patient while in hospital 2. Appreciate medical management 3. Appreciate consult 4. Pain Management - Stable with IV and oral pain meds 5. GI ppx - Pepcid 6. PT/OT - WBAT Time with Patient: Less than 30
[2021-01-08 21:11] VITALS: RESP 18
[2021-01-09] MEDS: HEPARIN SODIUM,PORCINE/PF 5,000 UNIT/0.5 ML SYRINGE SQ SCH ×2 (00:37→08:00)
[2021-01-09] MEDS: HYDROcodone/APAP 10-325MG 1 EACH TAB PO PRN (02:25)
[2021-01-09] MEDS: HYDROmorphone 1 MG/ML 1 ML SYRINGE IVP PRN ×3 (03:59→12:06)
[2021-01-09 04:48] VITALS: BP 104/63; PULSE 59; TEMP 98.1
--- NOTE | 2021-01-09 09:32 | P.PN ---
Subjective Progress Note Date: 01/08/21 Acute on Chronic Low Back pain - Intractable Mr. Pierre is a 24-year-old male with a past medical history of Hodgkin's lymphoma stage IV, last chemotherapy 12/12/2020, follows with Dr. Browning and [place] to [place], history of nephrolithiasis, depression, coming in with a chief complaint of acute low back pain. Patient mentions that he had 3 lumbar punctures done recently for evaluation of his meningitis/Hodgkin's lymphoma and since then started to have low back pain. He states that he's been taking Norcos at home but progressively his pain worsen and so he came into the ED for further evaluation. Patient denies having any fevers chills or rigors. He denies having any loss of bladder or bowel control. Patient denies having any tingling or numbness in his torso or legs. He denies having any loss of sensation in his lower extremities. Patient mentions that his chemotherapy is currently on hold as recommended by his primary oncologist. Patient denied having any chest pain or palpitations. No cough or difficulty in breathing. He denied having any fevers chills or rigors. No abdominal pain nausea vomiting or diarrhea. No dysuria or hematuria. In the ED patient had temperature 98.7, heart rate 95, respiratory rate 18, blood pressure 115/69, saturating at 97% on room air. He had an EKG showing normal sinus rhythm. Reviewing his labs white count of 9.5, hemoglobin 13.4, p latelets 287. Sodium 136, potassium 4.7, chloride 101, creatinine 0.76. Urinalysis is negative for leukocyte Estrace and nitrites. Troponin less than 0.012. On 01/06/2021 -patient is seen and examined at the bedside. He still complains of ongoing low back pain. He complains of mild tingling sensation in his bilateral tip of the toe areas. Patient denies having any urinary or bowel incontinence. He states that Dilaudid is helping him but after 3 hours slowly start wearing off. He denies having any chest pain or palpitations. No cough or difficulty breathing. On reviewing his vitals temperature 97.8, heart rate 70, respiratory 16, blood pressure 107/70 saturating 99% on room air. Reviewing the labs. Sodium 136, potassium 4.6, chloride 105, bicarb 20, BUN 15, creatinine 0.8. On 01/07/2021 -patient just got back from the MRI. He states that his pain is 8 out of 10 as he has to change his position and be transferred to get the MRI. He also states he has a headache and mild nausea, probably due to the sound pollution in the MRI. He denies having any chest pain or palpitations. Patient denies having any tingling or numbness that is new in his lower extremities. He denies having any loss of bowel or bladder control. On reviewing the patient's vitals temperature 97.6, heart rate 73, respiratory 16 low blood pressure 105/68, saturating at 99% on room air. No new labs from this morning. 01/08/2021 Patient was seen and examined and follow-up this morning continues to have back pain and is being closely monitored by orthopedics. Patient underwent MRI of the thoracic lumbar spine showing right posterior paracentral disc bulge of the L5-S1 correlate for right S1 radiculopathy with no evidence spinal stenosis or for a minimal encroachment noted with mild spinal curvature and no abnormal enhancement is noted with contrast with an overall normal thoracic spine MRI. Vital signs of been stable with no reports of chest pain or palpitations noted. Patient is afebrile. Patient denies any shortness of breath or nausea and vomiting and is tolerating diet. Will discuss with orthopedics about treatment plan moving forward. Patient does follow at the [facility] for his oncology needs. Review of systems: Constitutional: No reports of fatigue, fever, or chills Cardiovascular: No reports of chest pain or palpitations Respiratory: No reports of shortness of breath or cough GI: No reports of nausea, vomiting, or diarrhea : No reports of dysuria or retention Neurovascular: Reports generalized weakness and continued back pain Patient's medications have been reviewed. Objective - Vital Signs Vital signs: Vital Signs Temp 97.8 F 01/08/21 04:32 Pulse 65 01/08/21 04:32 Resp 16 01/08/21 04:32 BP 101/63 01/08/21 04:32 Pulse Ox 96 01/08/21 04:32 Intake & Output 01/07/21 01/08/21 01/08/21 18:59 06:59 18:59 Intake Total 540 Balance 540 Intake: Oral 540 Other: Voiding Method Toilet # Voids 3 3 - Exam GENERAL: Comfortably lying up in the bed appears to be no acute distress. HEENT: No conjunctival pallor. CARDIOVASCULAR: S1 and S2 present. . PULMONARY: Bilateral breath sounds positive. No wheeze or crackles. ABDOMEN: Soft,non -tender, normal bowel sounds. No guarding or rigidity. EXTREMITIES: No edema NEUROLOGICAL: Strength 5 out of 5 in all 4 extremities. Sensations in bilateral lower extremities normal. SKIN:No rash - Labs CBC & Chem 7: 01/04/21 22:25 01/05/21 03:38 Assessment and Plan Assessment: Acute on chronic low back pain History of multiple LPs done recently Hodgkin's lymphoma History of nephrolithiasis Former smoker History of depression Marijuana use PLAN: Patient to continue with pain medication and management. Orthopedics following and underwent MRI as mentioned previously with no plans for surgical intervention at this time and also discussed with the patient about following up in the outpatient setting further down the line for possible injections if symptoms continue. Will continue to monitor closely with possible discharge in 24 hours.
--- NOTE | 2021-01-09 12:03 | P.PN ---
Subjective Progress Note Date: 01/09/21 Principal diagnosis: 1. Acute on Chronic Low Back Pain 2. Hodgkins Lymphoma Patient seen at bedside this morning resting comfortably. Patient states she still has some numbness/tingling in both his feet. Patient says he is feeling little bit better. Patient denies chest pain, fever, shortness breath, nausea, vomiting, vision, loss of bowel/bladder control. Objective - Vital Signs Vital signs: Vital Signs Temp 98.1 F 01/09/21 04:47 Pulse 59 L 01/09/21 04:47 Resp 18 01/09/21 04:47 BP 104/63 01/09/21 04:47 Pulse Ox 97 01/09/21 07:31 Intake & Output 01/08/21 01/09/21 01/09/21 18:59 06:59 18:59 Intake Total 450 Balance 450 Intake: Oral 450 Other: Voiding Method Toilet # Voids 2 1 - Exam Inspection: Negative for any open fractures, ecchymosis, erythema, nodules Palpation: Significant tenderness to palpation of lower T-spine as well as lumbar spine. Nontender to palpation of the cervical and upper thoracic spine. Nontender to palpation throughout rest of exam Sensation: Sensation is equal, symmetric, intact throughout exam bilaterally ROM: Patient has full range of motion in bilateral upper extremities. Full range of motion on knee flexion and extension. Limited range of motion in hip flexion bilaterally, based on weakness Motor: Bilateral upper extremities 5/5 in communications writer strength, resisted elbow flexion/extension and resisted shoulder abduction, internal and external rotation. Plantar flexion 4/5 bilaterally; dorsiflexion 5/5 bilaterally. Resisted hip flexion 3/5 bilaterally. Knee flexion/extension 4/5 bilaterally Neurovascular: Dorsalis pedis pulse present, 2+, intact bilaterally. Cap refill under 3 seconds bilaterally in upper and lower extremities. Special tests: Negative Homans bilaterally. Negative clonus upon dorsiflexing feet bilaterally. Negative Estefany's bilaterally. - Labs CBC & Chem 7: 01/04/21 22:25 01/05/21 03:38 Assessment and Plan Assessment: 1. Acute on Chronic Low Back Pain 2. Hodgkins Lymphoma Plan: 1. Acute on Chronic Low Back Pain - MRI thoracic and Lumbar spine ordered and has been completed. MRI shows some disc bulging at L5-S1 which may be causing some of patient's symptoms. Dr. Barber and I did discuss the findings of MRI with the patient and we did discuss the option for potential pain management intervention with steroid injections into the spine if needed in the future. At this time we do not recommend any urgent surgical intervention orthopedically. Patient is orthopedically stable for discharge. Please do not hesitate to contact us for any further questions. 2. Appreciate medical management 3. Appreciate consult 4. Pain Management - Stable with IV and oral pain meds 5. GI ppx - Pepcid 6. PT/OT - WBAT Time with Patient: Less than 30
--- NOTE | 2021-01-09 16:16 | P.DS ---
Providers Date of admission: 01/05/21 00:04 Expected date of discharge: 01/09/21 Attending physician: Leon Boland Consults: 01/06/21 14:27 Consult Physician Stat Consulting Provider: Juan Luis Barber Consult Reason/Comments: back pain, non-hodgkins lymphoma Do you want consulting provider notified?: Yes Primary care physician: Physician Nonstaff Hospital Course: Final diagnosis Acute on chronic low back pain History of multiple LPs done recently Hodgkin's lymphoma History of nephrolithiasis Former smoker History of depression Marijuana use Discharge disposition Patient is being discharged in a stable condition with guarded prognosis to home. Patient will follow-up with Dr. Jody Nickerson upon discharge. Patient also to follow-up with his oncologist out of [facility] upon discharge and may follow-up with orthopedics Dr. Barber in the outpatient setting. Recommend pain management as well in the outpatient setting. Total time taken is greater than 35 minutes. Hospital course Acute on Chronic Low Back pain - Intractable Mr. Pierre is a 24-year-old male with a past medical history of Hodgkin's lymphoma stage IV, last chemotherapy 12/12/2020, follows with Dr. Browning and [place] to [place], history of nephrolithiasis, depression, coming in with a chief complaint of acute low back pain. Patient mentions that he had 3 lumbar punctures done recently for evaluation of his meningitis/Hodgkin's lymphoma and since then started to have low back pain. He states that he's been taking Norcos at home but progressively his pain worsen and so he came into the ED for further evaluation. Patient denies having any fevers chills or rigors. He denies having any loss of bladder or bowel control. Patient denies having any tingling or numbness in his torso or legs. He denies having any loss of sensation in his lower extremities. Patient mentions that his chemotherapy is currently on hold as recommended by his primary oncologist. Patient denied having any chest pain or palpitations. No cough or difficulty in breathing. He denied having any fevers chills or rigors. No abdominal pain nausea vomiting or diarrhea. No dysuria or hematuria. In the ED patient had temperature 98.7, heart rate 95, respiratory rate 18, blood pressure 115/69, saturating at 97% on room air. He had an EKG showing normal sinus rhythm. Reviewing his labs white count of 9.5, hemoglobin 13.4, platelets 287. Sodium 136, potassium 4.7, chloride 101, creatinine 0.76. Urinalysis is negative for leukocyte Estrace and nitrites. Troponin less than 0.012. On 01/06/2021 -patient is seen and examined at the bedside. He still complains of ongoing low back pain. He complains of mild tingling sensation in his bilateral tip of the toe areas. Patient denies having any urinary or bowel incontinence. He states that Dilaudid is helping him but after 3 hours slowly start wearing off. He denies having any chest pain or palpitations. No cough or difficulty breathing. On reviewing his vitals temperature 97.8, heart rate 70, respiratory 16, blood pressure 107/70 saturating 99% on room air. Reviewing the labs. Sodium 136, potassium 4.6, chloride 105, bicarb 20, BUN 15, creatinine 0.8. On 01/07/2021 -patient just got back from the MRI. He states that his pain is 8 out of 10 as he has to change his position and be transferred to get the MRI. He also states he has a headache and mild nausea, probably due to the sound pollution in the MRI. He denies having any chest pain or palpitations. Patient denies having any tingling or numbness that is new in his lower extremities. He denies having any loss of bowel or bladder control. On reviewing the patient's vitals temperature 97.6, heart rate 73, respiratory 16 low blood pressure 105/68, saturating at 99% on room air. No new labs from this morning. 01/08/2021 Patient was seen and examined and follow-up this morning continues to have back pain and is being closely monitored by orthopedics. Patient underwent MRI of the thoracic lumbar spine showing right posterior paracentral disc bulge of the L5-S1 correlate for right S1 radiculopathy with no evidence spinal stenosis or for a minimal encroachment noted with mild spinal curvature and no abnormal enhancement is noted with contrast with an overall normal thoracic spine MRI. Vital signs of been stable with no reports of chest pain or palpitations noted. Patient is afebrile. Patient denies any shortness of breath or nausea and vomiting and is tolerating diet. Will discuss with orthopedics about treatment plan moving forward. Patient does follow at the [facility] for his oncology needs. 01/09/2021 Patient was seen in follow-up with no acute overnight issues. Patient continues to have pain and has been evaluated by orthopedics recommending outpatient follow-up. Patient will continue with current pain regimen and have added low- dose fentanyl patch and instructed the patient to follow-up with his primary ca re provider out of [facility] along with pain management in the outpatient setting. Patient states he has a follow-up appointment with his oncologist on January 23. Patient will follow-up with orthopedics to discuss further about possible epidural injections. Currently no reports of chest pain, shortness of breath, or palpitations. Patient is afebrile. No reports of nausea or vomiting and patient is tolerating diet. Guarded prognosis. On exam vital signs are stable. Cardio S1, S2 are muffled. Respiratory shows diminished breath sounds at the bases with no wheezing or rhonchi noted. Abdomen is soft and nontender. Nervous system shows no focal deficits. Please refer to medication reconciliation sheet for a list of medications. Patient Condition at Discharge: Good Plan - Discharge Summary New Discharge Prescriptions: New diazePAM [Valium] 10 mg PO TID PRN #12 tab PRN Reason: Muscle Pain fentaNYL 25MCG/HR PATCH [Duragesic 25MCG/HR] 1 patch TRANSDERM Q72H #2 patch Continue ondansetron HCL [Zofran] 8 mg PO Q8H PRN PRN Reason: Nausea Famotidine [Pepcid] 20 mg PO DAILY PRN PRN Reason: Gi Upset Ibuprofen [Motrin] 800 mg PO Q6HR PRN PRN Reason: Pain Dicyclomine [Bentyl] 20 mg PO QID PRN PRN Reason: abdominal cramping Tamsulosin [Flomax] 0.4 mg PO DAILY PRN PRN Reason: BLADDER ISSUES HYDROcodone/APAP 10-325MG [[place] 10-325] 1 tab PO Q6HR PRN PRN Reason: Pain diphenhydrAMINE [Benadryl] 25 mg PO QID PRN cap PRN Reason: Itching Discharge Medication List Famotidine [Pepcid] 20 mg PO DAILY PRN 06/04/20 [History] ondansetron HCL [Zofran] 8 mg PO Q8H PRN 06/04/20 [History] Ibuprofen [Motrin] 800 mg PO Q6HR PRN 11/25/20 [History] Dicyclomine [Bentyl] 20 mg PO QID PRN 12/03/20 [History] diphenhydrAMINE [Benadryl] 25 mg PO QID PRN cap 12/06/20 [Rx] HYDROcodone/APAP 10-325MG [[place] 10-325] 1 tab PO Q6HR PRN 12/23/20 [History] Tamsulosin [Flomax] 0.4 mg PO DAILY PRN 12/23/20 [History] diazePAM [Valium] 10 mg PO TID PRN #12 tab 01/09/21 [Rx] fentaNYL 25MCG/HR PATCH [Duragesic 25MCG/HR] 1 patch TRANSDERM Q72H #2 patch 01/09/21 [Rx] Follow up Appointment(s)/Referral(s): Nonstaff,Physician [Primary Care Provider] - 1-2 days Juan Luis Barber DO [Doctor of Osteopathic Medicine] - 01/24/21 9:30 am Patient Instructions/Handouts: Diazepam (By mouth), Fentanyl (Absorbed through the skin), Back Pain (GEN) Activity/Diet/Wound Care/Special Instructions: Activity Limited until follow-up Follow-up with primary care provider upon discharge Follow-up with your oncologist out of [facility] outpatient Follow-up with orthopedics Dr. Barber outpatient as needed Continue with medications as prescribed Continue current diet Discharge Disposition: HOME SELF-CARE
--- NOTE | 2021-01-10 12:06 | CDI ---
Documentation Clarification Form Date: 01/10/2021 11:58:31 AM From: Ben Alonzo Admit Date: 01/05/2021 12:04:00 AM Patient Name: Vernon Pierre Visit Number: [id number] Discharge Date: 01/09/2021 02:29:00 PM ATTENTION: The Clinical Documentation Specialists (CDI) and [facility] Coding Staff appreciate your assistance in clarifying documentation. Please respond to the clarification below the line at the bottom and electronically sign. The CDI & [facility] Coding staff will review the response and follow-up if needed. Please note: Queries are made part of the Legal Health Record. If you have any questions, please contact the author of this message via ITS. Dr. Leon Boland The patients principal diagnosis the diagnosis that was chiefly responsible for the admission - has not been clearly identified and clarification is requested. Patient was admitted with low back pain. Has Hodgkins lymphoma and a herniated disk also. Need to determine the source of the pain to assign the principle dx. The patient presented with the following [insert symptoms and/or diagnoses] History/Risk factors:Hodgkins Lymphoma, herniated disc In your professional opinion, can you please clarify which diagnosis, after study, was the reason chiefly responsible for the admission? [ ] Hodgkins lymphoma [ ] herniated back disc [ ] Other, please specify [ ] Unable to determine NOT MY DOCUMENTATION MTDD
--- NOTE | 2021-01-15 08:32 | CDI ---
Documentation Clarification Form Date: 01/15/2021 08:21:01 AM From: Ben lAonzo Admit Date: 01/05/2021 12:04:00 AM Patient Name: Vernon Pierre Visit Number: [id number] Discharge Date: 01/09/2021 02:29:00 PM ATTENTION: The Clinical Documentation Specialists (CDI) and [facility] Coding Staff appreciate your assistance in clarifying documentation. Please respond to the clarification below the line at the bottom and electronically sign. The CDI & [facility] Coding staff will review the response and follow-up if needed. Please note: Queries are made part of the Legal Health Record. If you have any questions, please contact the author of this message via ITS. Dr. Temo Potter The patients principal diagnosis the diagnosis that was chiefly responsible for the admission - has not been clearly identified and clarification is requested. Discharge summary gives acute and chronic low back pain as diagnosis but does not state the cause. The patient presented with the following: low back pain History/Risk factors: Non-hodgkins lymphoma, herniated disk Clinical Indicators: Radiology findings: MRI-no fractures or spinal stenosis. Herniated disk Treatment: MRI of thoracic and lumbar spine. IV pain meds. Consults: for back pain. MRI ordered In your professional opinion, can you please clarify which diagnosis, after study, was the reason chiefly responsible for the admission associated with the back pain. [ ] Non-Hodgkins lymphoma [ ] Herniated disk [ ] Other, please specify [ ] Unable to determine Herniated disk MTDD
== END 2021-01-09 14:29 | disposition home or self-care (01) | DRG 552 ==
LOC: EC 20:48 → 5NMEDONC 01-05 00:04
PROVIDERS: ADMIT Hospitalist; ATTEND Hospitalist
DX: M51.27 Other intervertebral disc displacement, lumbosacral region (principal); C81.90 Hodgkin lymphoma, unspecified, unspecified site; M54.9 Dorsalgia, unspecified; Z86.73 Personal history of transient ischemic attack (TIA), and cerebral infarction without residual deficits; F32.9 Major depressive disorder, single episode, unspecified; Z82.49 Family history of ischemic heart disease and other diseases of the circulatory system; G89.3 Neoplasm related pain (acute) (chronic); Z92.21 Personal history of antineoplastic chemotherapy; Z87.891 Personal history of nicotine dependence; Z87.442 Personal history of urinary calculi; Z79.899 Other long term (current) drug therapy; M48.07 Spinal stenosis, lumbosacral region
CPT/HCPCS: 36415; 72157; 72158; 80048; 80053; 81003; 82550; 83735; 83880; 84100; 84484; 85025; 85610; 85730; 93005; 94760; 96361; 96374; 96375; 99284

== ENCOUNTER 2021-01-10 04:28 | Emergency (ER) | payer BC, OTHER ==
[2021-01-10 04:37] VITALS: TEMP 98.2
[2021-01-10] MEDS ORDERED: KETOROLAC 15 MG/ML 1 ML VIAL IM STA (05:40)
[2021-01-10] MEDS ORDERED: predniSONE 20 MG TAB PO STA (05:40)
--- NOTE | 2021-01-10 05:59 | ED ---
Back Pain HPI - General Chief Complaint: Back Pain/Injury Stated Complaint: Back Pain, Headache Time Seen by Provider: 01/10/21 04:42 Source: patient Limitations: no limitations - History of Present Illness Initial Comments: Patient is 25-year-old man presents with low back pain. The patient had recently been admitted in the hospital for same pain with workup including MRI. He was discharged with a patch [place] for breakthrough pain. The patient states that the [place] did not seem to managing the pain adequately. There has been no new injury. No change in bladder or bowel function. No new weakness. No saddle anesthesia. No abdominal pain. No fever or chills. MD Complaint: back pain -: hour(s) Similar Symptoms Previously: Yes Place: home Radiation: left leg, right leg Severity: severe Quality: burning, aching Consistency: constant Improves With: none Worsens With: none Associated Symptoms: denies other symptoms Treatments Prior to Arrival: prescription analgesics - Related Data Home Medications Medication Instructions Recorded Confirmed Famotidine [Pepcid] 20 mg PO DAILY PRN 06/04/20 01/04/21 ondansetron HCL [Zofran] 8 mg PO Q8H PRN 06/04/20 01/04/21 Ibuprofen [Motrin] 800 mg PO Q6HR PRN 11/25/20 01/04/21 Dicyclomine [Bentyl] 20 mg PO QID PRN 12/03/20 01/04/21 HYDROcodone/APAP 10-325MG [[place] 1 tab PO Q6HR PRN 12/23/20 01/04/21 10-325] Tamsulosin [Flomax] 0.4 mg PO DAILY PRN 12/23/20 01/04/21 Previous Rx's Medication Instructions Recorded diphenhydrAMINE [Benadryl] 25 mg PO QID PRN cap 12/06/20 diazePAM [Valium] 10 mg PO TID PRN #12 tab 01/09/21 fentaNYL 25MCG/HR PATCH [Duragesic 1 patch TRANSDERM Q72H #2 patch 01/09/21 25MCG/HR] predniSONE 60 mg PO DAILY #30 tab 01/10/21 Allergies Allergy/AdvReac Type Severity Reaction Status Date / Time No Known Allergies Allergy Verified 01/10/21 04:37 Review of Systems ROS Statement: Those systems with pertinent positive or pertinent negative responses have been documented in the HPI. ROS Other: All systems not noted in ROS Statement are negative. Constitutional: Denies: fever, chills, weakness Respiratory: Denies: cough, dyspnea Cardiovascular: Denies: chest pain, palpitations, edema, syncope Gastrointestinal: Denies: abdominal pain, nausea, vomiting, diarrhea, constipation Genitourinary: Denies: dysuria, frequency, hematuria Musculoskeletal: Reports: as per HPI, back pain Skin: Denies: rash Neurological: Denies: headache, weakness, numbness, paresthesias Past Medical History Past Medical History: Cancer Additional Past Medical History / Comment(s): Hodgkins Lymphoma stage 4, last chemo November 21 2020, pt follows up with Dr. Browning out of [facility]. Previous hx of kidney stones early in 2019. History of Any Multi-Drug Resistant Organisms: None Reported Past Surgical History: Appendectomy, Back Surgery Additional Past Surgical History / Comment(s): lithotripsy and stent right side, tooth insert, spinal tap x 3 january 04 Past Anesthesia/Blood Transfusion Reactions: No Reported Reaction Past Psychological History: Depression Smoking Status: Former smoker Past Alcohol Use History: Rare Past Drug Use History: Marijuana - Past Family History Mother Additional Family Medical History / Comment(s): Heart murmur, Cyst on Ovary, Appendectomy Father Family Medical History: Hypertension General Exam Limitations: no limitations General appearance: alert, in no apparent distress Head exam: Present: atraumatic, normocephalic Eye exam: Present: normal appearance. Absent: scleral icterus, conjunctival injection ENT exam: Present: normal oropharynx Neck exam: Present: normal inspection Respiratory exam: Present: normal lung sounds bilaterally. Absent: respiratory distress, wheezes, rales, rhonchi, stridor Cardiovascular Exam: Present: regular rate, normal rhythm, normal heart sounds. Absent: systolic murmur, diastolic murmur, rubs, gallop GI/Abdominal exam: Present: soft. Absent: distended, tenderness, guarding, rebound, rigid, mass, pulsatile mass, hernia Extremities exam: Present: normal inspection, normal capillary refill. Absent: pedal edema, calf tenderness Back exam: Present: normal inspection, tenderness. Absent: CVA tenderness (R), CVA tenderness (L), paraspinal tenderness, vertebral tenderness Neurological exam: Present: alert, reflexes normal. Absent: motor sensory deficit Skin exam: Present: warm, dry, intact, normal color. Absent: rash Course Vital Signs 01/10/21 04:32 Temperature 98.2 F Pulse Rate 85 Respiratory 20 Rate Blood Pressure 120/73 O2 Sat by Pulse 96 Oximetry Disposition Clinical Impression: Back pain Disposition: HOME SELF-CARE Condition: Good Instructions (If sedation given, give patient instructions): Acute Low Back Pain (ED) Prescriptions: predniSONE 60 mg PO DAILY #30 tab Is patient prescribed a controlled substance at d/c from ED?: No Referrals: Nonstaff,Physician [Primary Care Provider] - 1-2 days
[2021-01-10] MEDS ORDERED: MORPHINE SULFATE 4 MG/ML SYRINGE IM STA (07:22)
[2021-01-10 07:47] VITALS: BP 114/68; PULSE 86; RESP 18
== END 2021-01-10 07:47 | disposition home or self-care (01) ==
LOC: EC 04:28
DX: M54.5 Low back pain (principal); F32.9 Major depressive disorder, single episode, unspecified; F12.90 Cannabis use, unspecified, uncomplicated; Z87.891 Personal history of nicotine dependence
CPT/HCPCS: 99283; 96372 ×2; J2270; J1885; J7512

== ENCOUNTER 2021-01-24 22:54 | Emergency (ER) | payer BC, OTHER ==
[2021-01-24 23:10] VITALS: RESP 20; TEMP 98
[2021-01-25] MEDS ORDERED: KETOROLAC 15 MG/ML 1 ML VIAL IM STA (00:04)
[2021-01-25] MEDS ORDERED: MORPHINE SULFATE 4 MG/ML SYRINGE IM STA (00:04)
--- NOTE | 2021-01-25 00:26 | ED ---
Back Pain HPI - General Chief Complaint: Back Pain/Injury Stated Complaint: Back Pain Time Seen by Provider: 01/24/21 23:20 Source: patient Limitations: no limitations - History of Present Illness Complaint: back pain Onset/Timin -: week(s) Similar Symptoms Previously: Yes Place: home Radiation: none Quality: aching Consistency: constant Improves With: none Worsens With: none Associated Symptoms: denies other symptoms - Related Data Home Medications Medication Instructions Recorded Confirmed Famotidine [Pepcid] 20 mg PO DAILY PRN 06/04/20 01/04/21 ondansetron HCL [Zofran] 8 mg PO Q8H PRN 06/04/20 01/04/21 Ibuprofen [Motrin] 800 mg PO Q6HR PRN 11/25/20 01/04/21 Dicyclomine [Bentyl] 20 mg PO QID PRN 12/03/20 01/04/21 HYDROcodone/APAP 10-325MG [[place] 1 tab PO Q6HR PRN 12/23/20 01/04/21 10-325] Tamsulosin [Flomax] 0.4 mg PO DAILY PRN 12/23/20 01/04/21 Previous Rx's Medication Instructions Recorded diphenhydrAMINE [Benadryl] 25 mg PO QID PRN cap 12/06/20 diazePAM [Valium] 10 mg PO TID PRN #12 tab 01/09/21 fentaNYL 25MCG/HR PATCH [Duragesic 1 patch TRANSDERM Q72H #2 patch 01/09/21 25MCG/HR] predniSONE 60 mg PO DAILY #30 tab 01/10/21 Methocarbamol [Robaxin-750] 750 mg PO TID PRN #30 tablet 01/25/21 Allergies Allergy/AdvReac Type Severity Reaction Status Date / Time No Known Allergies Allergy Verified 01/24/21 23:10 Review of Systems ROS Statement: Those systems with pertinent positive or pertinent negative responses have been documented in the HPI. ROS Other: All systems not noted in ROS Statement are negative. Constitutional: Denies: fever, chills, weakness Respiratory: Denies: cough, dyspnea Cardiovascular: Denies: chest pain, palpitations, edema Gastrointestinal: Denies: abdominal pain, vomiting, diarrhea Musculoskeletal: Reports: as per HPI, back pain Skin: Denies: rash Neurological: Denies: headache, weakness, numbness, paresthesias Past Medical History Past Medical History: Cancer Additional Past Medical History / Comment(s): Hodgkins Lymphoma stage 4, last chemo November 21 2020, pt follows up with Dr. Browning out of [facility]. Previous hx of kidney stones early in 2019. History of Any Multi-Drug Resistant Organisms: None Reported Past Surgical History: Appendectomy, Back Surgery Additional Past Surgical History / Comment(s): lithotripsy and stent right side, tooth insert, spinal tap x 3 january 04 Past Anesthesia/Blood Transfusion Reactions: No Reported Reaction Past Psychological History: Depression Smoking Status: Former smoker Past Alcohol Use History: Rare Past Drug Use History: Marijuana - Past Family History Mother Additional Family Medical History / Comment(s): Heart murmur, Cyst on Ovary, Appendectomy Father Family Medical History: Hypertension General Exam Limitations: no limitations General appearance: alert, in no apparent distress Head exam: Present: atraumatic, normocephalic Eye exam: Present: normal appearance. Absent: scleral icterus, conjunctival injection Neck exam: Present: normal inspection Respiratory exam: Present: normal lung sounds bilaterally. Absent: respiratory distress, wheezes, rales, rhonchi, stridor Cardiovascular Exam: Present: regular rate, normal rhythm, normal heart sounds. Absent: systolic murmur, diastolic murmur, rubs, gallop GI/Abdominal exam: Present: soft. Absent: distended, tenderness, guarding, rebound, rigid, mass Back exam: Present: normal inspection, paraspinal tenderness, vertebral tenderness. Absent: CVA tenderness (R), CVA tenderness (L) Neurological exam: Present: alert, reflexes normal. Absent: motor sensory deficit Skin exam: Present: warm, dry, intact, normal color. Absent: rash Course Vital Signs 01/24/21 01/25/21 23:07 01:48 Temperature 98.0 F Pulse Rate 96 74 Respiratory 20 20 Rate Blood Pressure 112/68 138/75 O2 Sat by Pulse 97 99 Oximetry Medical Decision Making - Medical Decision Making The patient's symptoms have had some mild improvement. Patient will be prescribed further muscle relaxant and follow-up to ensure that his pain does resolve. Disposition Clinical Impression: Strain of lumbar region Disposition: HOME SELF-CARE Condition: Good Instructions (If sedation given, give patient instructions): Acute Low Back Pain (ED) Prescriptions: Methocarbamol [Robaxin-750] 750 mg PO TID PRN #30 tablet PRN Reason: pain Is patient prescribed a controlled substance at d/c from ED?: No Referrals: Nonstaff,Physician [Primary Care Provider] - 1-2 days
--- NOTE | 2021-01-25 01:06 | XR ---
EXAMINATION TYPE: XR lumbar spine 2 or 3V DATE OF EXAM: 01/25/2021 COMPARISON: NONE HISTORY: Back pain TECHNIQUE: 3 views FINDINGS: Lumbar vertebra have normal alignment. Disc spaces are normal. Posterior elements are intac t. There is no compression fracture. Sacroiliac joints are normal. IMPRESSION: Normal lumbar spine exam.
[2021-01-25 01:50] VITALS: BP 138/75; PULSE 74
== END 2021-01-25 01:50 | disposition home or self-care (01) ==
LOC: EC 22:54
DX: S39.012A Strain of muscle, fascia and tendon of lower back, initial encounter (principal); F32.9 Major depressive disorder, single episode, unspecified; F12.90 Cannabis use, unspecified, uncomplicated; Z87.442 Personal history of urinary calculi; Z85.71 Personal history of Hodgkin lymphoma; Z90.49 Acquired absence of other specified parts of digestive tract; Z87.891 Personal history of nicotine dependence; X58.XXXA Exposure to other specified factors, initial encounter
CPT/HCPCS: 99283; 96372 ×2; 72100; J2270; J1885

== ENCOUNTER 2021-02-06 12:10 | Day surgery (SDC) | payer BC, OTHER ==
[2021-02-06] MEDS ORDERED: LACTATED RINGERS 1,000 ML IV SCH (12:31)
[2021-02-06 12:35] VITALS: TEMP 97.8
[2021-02-06] MEDS ORDERED: fentaNYL (PF) 50 MCG/ML 2 ML AMP ONE (12:48)
[2021-02-06] MEDS ORDERED: MIDAZOLAM 2 MG/2 ML VIAL ONE (12:48)
[2021-02-06] MEDS ORDERED: IOPAMIDOL M200 10 ML VIAL ONE (12:48)
[2021-02-06] MEDS ORDERED: methylPREDNISolone ACETATE 40 MG/ML 1 ML VIAL ONE (12:48)
--- NOTE | 2021-02-06 13:01 | P.PCN ---
Date of Procedure: 02/06/21 Procedure(s) Performed: PREOPERATIVE DIAGNOSIS: 1- Lumbar Degenerative Disc Diseases 2- Lumbar Radiculopathy. POSTOPERATIVE DIAGNOSIS: Same as preop diagnosis. PROCEDURE 1. Lumbar epidural steroid injection under fluoroscopic guidance at the L5-S1 level. (Fluoroscopy imaging was available in radiology department) 2. Lumbar epidurogram. ANESTHESIA: Local with 1% lidocaine 3 ml and , moderate sedation with intravenous Versed 2 mg ,and fentanyle 100 Mcg EBL: Minimal PROCEDURE INDICATION: The patient with low back pain and radiculitis symptoms unresponsive to conservative treatment. Fluoroscopy was used to optimize visualization of the needle placement and to maximize safety. PROCEDURE DESCRIPTION / TECHNIQUE: The patient was seen and identified in the preoperative area. Risks, benefits, complications including but not limited to infections ,bleeding ,allergic reaction to the medications ,nerve damage and not complete pain releife , and alternatives were discussed with the patient. The patient agreed to proceed with the procedure and signed the consent. IV was started, and vital signs were stable. Patient was taken to the OR and time out was completed. The patient was placed in the prone position on procedure table and a pillow was placed under the abdomen to reduce lumbar lordosis. The lumbosacral area was prepped and draped in the usual sterile fashion.ere closely monitored during the procedure. Conscious sedation was used during the procedure to decrease patients anxiety. Vital signs was monitered during the entire procedure. Using anterior-posterior fluoroscopy, the L5-S1 interlaminar space was identified and the skin over this site was marked and then infiltrated with 1% lidocaine subcutaneously. Subsequently, a 20-gauge Tuohy epidural needle was inserted and advanced toward the epidural space using the ``Loss of resistance technique and guided by AP and lateral fluoroscopy. The correct needle position in the epidural space was verified with the injection of 2 mL of the water soluble contrast dye Isovue 200 contrast and observing an excellent epidurogram with the epidural spread of the dye, after negative aspiration for blood and CSF and in the absence of paresthesias. Again after negative aspiration, a 6 ml mix ture containing 80 mg of Depo-medrol , and 2 ml of preservative free Normal Saline, and 2 ml of preservative free lidocaine 1% solution was injected and a washout of epidurogram was seen. Needle was withdrawn intact, skin was cleansed, and bandages were applied. COMPLICATIONS: None DISPOSITION / PLANS: The patient was placed in a supine position and transferred to the recovery area in a stable condition for observation. There was no evidence of lower extremity motor or sensory deficit after the procedure. Patient was discharged from the recovery room after meeting discharge criteria. Home discharge instructions were given to the patient by the staff. The patient was reexamined prior to discharge. The patient will schedule a follow up in the clinic in 2-4 weeks.
[2021-02-06] MEDS ORDERED: IV FLUID CONTINUATION 700 ML IV ONE (13:03)
[2021-02-06 13:05] VITALS: RESP 16
--- NOTE | 2021-02-06 13:06 | FL ---
EXAMINATION TYPE: FL guided pain mgmt statistic DATE OF EXAM: 02/06/2021 HISTORY: Fluoroscopy time 1 seconds of fluoroscopy provided. IMPRESSION: 1. Fluoroscopy time.
[2021-02-06 13:29] VITALS: BP 111/58; PULSE 70
== END 2021-02-06 13:33 | disposition home or self-care (01) ==
LOC: ORPAIN 12:10
PROVIDERS: ATTEND Specialist
DX: M51.16 Intervertebral disc disorders with radiculopathy, lumbar region (principal)
CPT/HCPCS: 62323; J2250; J1030; J3010; Q9966

== ENCOUNTER 2021-02-11 00:41 | Emergency (ER) | payer BC, OTHER ==
[2021-02-11 00:46] VITALS: BP 104/67; PULSE 97; RESP 19; TEMP 98.5
[2021-02-11] MEDS ORDERED: ORPHENADRINE 30 MG/ML 2 ML VIAL IM STA (01:15)
[2021-02-11] MEDS ORDERED: KETOROLAC 15 MG/ML 1 ML VIAL IM STA (01:15)
--- NOTE | 2021-02-11 01:35 | XR ---
EXAMINATION TYPE: XR lumbar spine 2 or 3V DATE OF EXAM: 02/11/2021 COMPARISON: 01/25/2021 HISTORY: Back pain TECHNIQUE: 4 views FINDINGS: Lumbar vertebra have normal spacing and alignment. Posterior elements are intact. Sacroilia c joints appear normal. IMPRESSION: Normal lumbar spine. No fracture. No change.
--- NOTE | 2021-02-11 01:37 | ED ---
General Adult HPI - General Chief complaint: Back Pain/Injury Stated complaint: Back pain Time Seen by Provider: 02/11/21 00:50 Source: patient Mode of arrival: wheelchair - History of Present Illness Initial comments: 25-year-old male with a past medical history of Hodgkin's lymphoma stage IV presents to the emergency room for a chief complaint of back pain. Patient reports that he has chronic low back pain. Today he was walking and felt a pop in his back. States pain has been radiating down his legs. Patient denies any bladder or bowel changes, saddle anesthesia, or weakness of the legs. Patient did have steroid injection about a week ago. Patient denies any fevers or history of IV drug abuse.Patient has no other complaints at this time including shortness of breath, chest pain, abdominal pain, nausea or vomiting, headache, or visual changes. - Related Data Home Medications Medication Instructions Recorded Confirmed Ibuprofen [Motrin] 800 mg PO Q6HR PRN 11/25/20 01/04/21 HYDROcodone/APAP 10-325MG [[place] 1 tab PO Q6HR PRN 12/23/20 01/04/21 10-325] Previous Rx's Medication Instructions Recorded diphenhydrAMINE [Benadryl] 25 mg PO QID PRN cap 12/06/20 Cyclobenzaprine [Flexeril] 10 mg PO TID #20 tab 02/11/21 Allergies Allergy/AdvReac Type Severity Reaction Status Date / Time No Known Allergies Allergy Verified 02/11/21 00:46 Review of Systems ROS Statement: Those systems with pertinent positive or pertinent negative responses have been documented in the HPI. ROS Other: All systems not noted in ROS Statement are negative. Past Medical History Past Medical History: Cancer Additional Past Medical History / Comment(s): Hodgkins Lymphoma stage 4, last chemo November 21 2020, pt follows up with Dr. Browning out of [facility]. Previous hx of kidney stones early in 2019. History of Any Multi-Drug Resistant Organisms: None Reported Past Surgical History: Appendectomy, Back Surgery Additional Past Surgical History / Comment(s): lithotripsy and stent right side, tooth insert, spinal tap x 3 january 04 Past Anesthesia/Blood Transfusion Reactions: No Reported Reaction Past Psychological History: Depression Smoking Status: Former smoker Past Alcohol Use History: Rare Past Drug Use History: Marijuana - Past Family History Mother Additional Family Medical History / Comment(s): Heart murmur, Cyst on Ovary, Appendectomy Father Family Medical History: Hypertension General Exam General appearance: alert, in no apparent distress Head exam: Present: atraumatic Eye exam: Present: normal appearance, PERRL, EOMI. Absent: scleral icterus, conjunctival injection ENT exam: Present: normal exam, mucous membranes moist Neck exam: Present: normal inspection, full ROM. Absent: tenderness Respiratory exam: Present: normal lung sounds bilaterally. Absent: respiratory distress, wheezes Cardiovascular Exam: Present: regular rate, normal rhythm, normal heart sounds GI/Abdominal exam: Present: soft, normal bowel sounds. Absent: distended, tenderness Back exam: Absent: CVA tenderness (R), CVA tenderness (L) Course Vital Signs 02/11/21 00:42 Temperature 98.5 F Pulse Rate 97 Respiratory 19 Rate Blood Pressure 104/67 O2 Sat by Pulse 98 Oximetry Medical Decision Making - Medical Decision Making Vitals are stable. Patient is well-appearing. Patient does have low back pain. This is chronic in nature with history of disc bulge however worsen today when he felt a pop in his back. CT lumbar spine showed no significant change compared to the recent exam. Patient was given Toradol and Norflex no red flag symptoms. Patient can be discharged home to follow up with primary care. He will return here for any worsening symptoms. Disposition Clinical Impression: Mechanical back pain Disposition: HOME SELF-CARE Condition: Good Instructions (If sedation given, give patient instructions): Acute Low Back Pain (ED) Additional Instructions: Follow-up with your doctor in one to 2 days. Follow-up with orthopedics as well. Return to the emergency room for any worsening symptoms. Prescriptions: Cyclobenzaprine [Flexeril] 10 mg PO TID #20 tab Is patient prescribed a controlled substance at d/c from ED?: No Referrals: Nonstaff,Physician [Primary Care Provider] - 1-2 days Time of Disposition: 02:27
--- NOTE | 2021-02-11 02:09 | CT ---
EXAMINATION TYPE: CT lumbar spine wo con DATE OF EXAM: 02/11/2021 COMPARISON: 12/23/2020 HISTORY: BACK "POPPED" YESTERDAY PER PATIENT. PAIN. PRIOR ON PACS CT DLP: 1184.4 mGycm Automated exposure control for dose reduction was used. Images obtained from the level of T12-S4 vertebra without contrast. The lumbar vertebra have normal a lignment. There is no compression fracture. Facet joints appear intact. Posterior elements are intact . There is no spondylolysis. There is no lumbar paraspinal mass. There is no evidence of lumbar spina l stenosis. Sacroiliac joints appear intact. IMPRESSION: Negative CT scan of the lumbar spine. No significant change compared to recent exam.
== END 2021-02-11 02:37 | disposition home or self-care (01) ==
LOC: EC 00:41
DX: M54.5 Low back pain (principal); G89.29 Other chronic pain; F32.9 Major depressive disorder, single episode, unspecified; F12.90 Cannabis use, unspecified, uncomplicated; Z85.71 Personal history of Hodgkin lymphoma; Z87.442 Personal history of urinary calculi; Z87.891 Personal history of nicotine dependence; Z90.49 Acquired absence of other specified parts of digestive tract; Z79.1 Long term (current) use of non-steroidal anti-inflammatories (NSAID)
CPT/HCPCS: 72100; 72131; 96372; 99284

== ENCOUNTER 2021-02-25 11:14 | Day surgery (SDC) | payer BC, OTHER ==
[2021-02-25 11:35] VITALS: TEMP 97.3
[2021-02-25] MEDS ORDERED: LACTATED RINGERS 1,000 ML IV ONE (11:43)
[2021-02-25] MEDS ORDERED: LIDOCAINE 1% (10MG/ML) FOR IV START INTRADERMA ONE (11:43)
[2021-02-25] MEDS ORDERED: methylPREDNISolone ACETATE 40 MG/ML 1 ML VIAL ONE (12:18)
[2021-02-25] MEDS ORDERED: IOPAMIDOL M200 10 ML VIAL ONE (12:18)
[2021-02-25] MEDS ORDERED: fentaNYL (PF) 50 MCG/ML 2 ML AMP ONE (12:18)
[2021-02-25] MEDS ORDERED: MIDAZOLAM 2 MG/2 ML VIAL ONE (12:18)
--- NOTE | 2021-02-25 12:34 | P.PCN ---
Date of Procedure: 02/25/21 Description of Procedure: Procedure: 1. L5-S1 Epidural steroid injection under fluoroscopic guidance #2, 2. Lumbar epidurogram PREOPERATIVE DIAGNOSIS: Lumbar degenerative disc disease, and Lumbar radiculopathy. POSTOPERATIVE DIAGNOSIS: Lumbar degenerative disc disease, and Lumbar radi culopathy. SURGEON: Edmond Betancur ANESTHESIA: Local with 1% lidocaine, and IV sedation: Versed, and fentanyl EBL: None. Specimen removed: None Fluoroscopic image: saved to electronic medical records PROCEDURE INDICATION: The patient had history of Lumbar degenerative disc disease and Lumbar radiculopathy. Patient had very good pain relief with the previous epidural steroid injection. Failed to conservative therapy. Came here for repeat epidural steroid injection. PROCEDURE DESCRIPTION: The patient was seen and identified in the preoperative area. Risks, benefits, complications, and alternatives were discussed with the patient. The patient agreed to proceed with the procedure and signed the consent. IV was started, and vital signs were stable. Patient was taken to the procedure area, and time out was completed. The patient was placed in the prone position on procedure table and a pillow was placed under the abdomen to reduce lumbar lordosis. The lumbosacral area was prepped with DuraPrep 1 and draped in the usual sterile fashion. Critical pause was taken. Vital signs were closely monitored during the procedure. Using anterior-posterior fluoroscopy, the L5-S1 interlaminar space was identified, and skin and deeper tissues were localized with 1% lidocaine. Using anterior-posterior fluoroscopy, lateral fluoroscopy, and [id number] technique, a 20 gauge 3.5 Tuohy epidural needle entered the epidural space. After negative aspiration of CSF and blood with no paresthesias, 1 ml of [id number] contrast dye was injected and an excellent epidurogram was seen. Again after negative aspiration of CSF and blood with no paresthesias, 10 mL of block solution was injected into the epidural space. Block solution contained 80 mg of Depo-Medrol, and 9 mL of preservative-free normal saline. Needle was withdrawn intact, skin was cleansed, and bandages were applied. COMPLICATIONS: None. DISPOSITION / PLANS: The patient was placed in a supine position and transferred to the recovery area in a stable condition for observation. Patient was discharged from the recovery room after meeting discharge criteria. Home discharge instructions given to the patient by the staff. The patient was reexamined prior to discharge. The patient will schedule a follow up in the clinic in 4 weeks.
[2021-02-25] MEDS ORDERED: IV FLUID CONTINUATION 1,000 ML IV ONE (12:35)
[2021-02-25 12:38] VITALS: BP 98/53; PULSE 81; RESP 18
[2021-02-25] MEDS ORDERED: LACTATED RINGERS 1,000 ML IV SCH (12:45)
--- NOTE | 2021-02-25 13:00 | FL ---
EXAMINATION TYPE: FL guided pain mgmt statistic DATE OF EXAM: 02/25/2021 HISTORY: Fluoroscopy time 5 seconds of fluoroscopy provided. IMPRESSION: 1. Fluoroscopy time.
== END 2021-02-25 13:09 | disposition home or self-care (01) ==
LOC: ORPAIN 11:14
DX: M51.16 Intervertebral disc disorders with radiculopathy, lumbar region (principal); Z92.21 Personal history of antineoplastic chemotherapy; Z85.72 Personal history of non-Hodgkin lymphomas; Z87.442 Personal history of urinary calculi; Z98.890 Other specified postprocedural states
CPT/HCPCS: 62323; J2250; J1030; J3010; Q9966; 99152

== ENCOUNTER 2021-03-07 06:06 | Emergency (ER) | payer BC, OTHER ==
[2021-03-07 06:18] VITALS: TEMP 97.9
[2021-03-07] MEDS ORDERED: SODIUM CHLORIDE 0.9% 1,000 ML IV STA (06:31)
[2021-03-07] MEDS ORDERED: SODIUM CHLORIDE 0.9% 500 ML 500 ML IV STA (06:31)
[2021-03-07] MEDS ORDERED: KETOROLAC 15 MG/ML 1 ML VIAL IVP STA (06:31)
[2021-03-07] MEDS ORDERED: ONDANSETRON 4 MG/2 ML VIAL IVP STA ×2 (06:31→08:22)
[2021-03-07] MEDS ORDERED: HYDROmorphone 1 MG/ML 1 ML SYRINGE IVP STA (06:31)
--- NOTE | 2021-03-07 06:35 | ED ---
Back Pain HPI - General Chief Complaint: Back Pain/Injury Stated Complaint: LT flank pain Time Seen by Provider: 03/07/21 06:17 Source: patient, RN notes reviewed Mode of arrival: ambulatory Limitations: no limitations - History of Present Illness Initial Comments: This a 25-year-old male presents emergency Department with chief complaint of left flank pain. States started around 10 PM lasting no injury patient states is just a dull pain meds waxing and waning has increased over nighttime. Patient states nothing really makes the pain feel better or worse. Patient does have a history kidney stones. Denies any nausea and diarrhea constipation no fevers or chills no dysuria no hematuria no chest pain no other complaints. - Related Data Home Medications Medication Instructions Recorded Confirmed Ibuprofen [Motrin] 800 mg PO DIRECTED PRN 11/25/20 02/27/21 HYDROcodone/APAP 10-325MG [[place] 1 tab PO DIRECTED PRN 12/23/20 02/27/21 10-325] Cyclobenzaprine [Flexeril] 10 mg PO DIRECTED 02/25/21 02/27/21 diphenhydrAMINE [Benadryl] 25 mg PO DIRECTED PRN 02/25/21 02/27/21 Previous Rx's Medication Instructions Recorded Ondansetron Odt [Zofran Odt] 4 mg PO Q8HR PRN #10 tab 03/07/21 Allergies Allergy/AdvReac Type Severity Reaction Status Date / Time No Known Allergies Allergy Verified 03/07/21 06:18 Review of Systems ROS Statement: Those systems with pertinent positive or pertinent negative responses have been documented in the HPI. ROS Other: All systems not noted in ROS Statement are negative. Past Medical History Past Medical History: Cancer Additional Past Medical History / Comment(s): Hodgkins Lymphoma stage 4, last chemo November 21 2020, pt follows up with Dr. Browning out of [facility]. Previous hx of kidney stones early in 2019. History of Any Multi-Drug Resistant Organisms: None Reported Past Surgical History: Appendectomy, Back Surgery Additional Past Surgical History / Comment(s): lithotripsy and stent right side, tooth insert, spinal tap x 3 january 04 Past Anesthesia/Blood Transfusion Reactions: No Reported Reaction Past Psychological History: Depression Smoking Status: Former smoker Past Alcohol Use History: None Reported Past Drug Use History: None Reported - Past Family History Mother Additional Family Medical History / Comment(s): Heart murmur, Cyst on Ovary, Appendectomy Father Family Medical History: Hypertension General Exam Limitations: no limitations General appearance: alert, in no apparent distress Head exam: Present: atraumatic, normocephalic, normal inspection Eye exam: Present: normal appearance, PERRL, EOMI. Absent: scleral icterus, conjunctival injection, periorbital swelling ENT exam: Present: normal exam, normal oropharynx, mucous membranes moist Neck exam: Present: normal inspection. Absent: tenderness, meningismus, lymphadenopathy Respiratory exam: Present: normal lung sounds bilaterally. Absent: respiratory distress, wheezes, rales, rhonchi, stridor Cardiovascular Exam: Present: regular rate, normal rhythm, normal heart sounds. Absent: systolic murmur, diastolic murmur, rubs, gallop, clicks Neurological exam: Present: alert Skin exam: Present: warm, dry, intact, normal color. Absent: rash Course Vital Signs 03/07/21 03/07/21 06:14 07:13 Temperature 97.9 F Pulse Rate 75 72 Respiratory 22 18 Rate Blood Pressure 113/58 138/74 O2 Sat by Pulse 97 98 Oximetry Medical Decision Making - Medical Decision Making CT is unremarkable. Patient's labs show minimal elevation of lipase. Patient has no history of there is no CT evidence of pancreatitis. Patient we discharged with clear liquid diet return parameters were discussed - Lab Data Result diagrams: 03/07/21 06:37 03/07/21 06:37 Lab Results 03/07/21 03/07/21 03/07/21 Range/Units 06:37 06:37 06:37 WBC 7.3 (3.8-10.6) k/uL RBC 4.95 (4.30-5.90) m/uL Hgb 15.3 (13.0-17.5) gm/dL Hct 46.5 (39.0-53.0) % MCV 93.9 (80.0-100.0) fL MCH 31.0 (25.0-35.0) pg MCHC 33.0 (31.0-37.0) g/dL RDW 14.1 (11.5-15.5) % Plt Count 301 (150-450) k/uL MPV 6.5 Neutrophils % 60 % Lymphocytes % 27 % Monocytes % 8 % Eosinophils % 3 % Basophils % 1 % Neutrophils # 4.3 (1.3-7.7) k/uL Lymphocytes # 2.0 (1.0-4.8) k/uL Monocytes # 0.6 (0-1.0) k/uL Eosinophils # 0.2 (0-0.7) k/uL Basophils # 0.1 (0-0.2) k/uL Sodium 137 (137-145) mmol/L Potassium 4.1 (3.5-5.1) mmol/L Chloride 104 (98-107) mmol/L Carbon Dioxide 23 (22-30) mmol/L Anion Gap 10 mmol/L BUN 12 (9-20) mg/dL Creatinine 0.63 L (0.66-1.25) mg/dL Est GFR (CKD-EPI)AfAm >90 (>60 ml/min/1.73 sqM) Est GFR (CKD-EPI)NonAf >90 (>60 ml/min/1.73 sqM) Glucose 98 (74-99) mg/dL Calcium 9.7 (8.4-10.2) mg/dL Total Bilirubin 0.4 (0.2-1.3) mg/dL AST 20 (17-59) U/L ALT 26 (4-49) U/L Alkaline Phosphatase 78 (38-126) U/L Total Protein 7.7 (6.3-8.2) g/dL Albumin 4.6 (3.5-5.0) g/dL Lipase 536 H (23-300) U/L Urine Color Light Yellow Urine Appearance Clear (Clear) Urine pH 6.5 (5.0-8.0) Ur Specific [place] 1.011 (1.001-1.035) Urine Protein Negative (Negative) Urine Glucose (UA) Negative (Negative) Urine Ketones Negative (Negative) Urine Blood Negative (Negative) Urine Nitrite Negative (Negative) Urine Bilirubin Negative (Negative) Urine Urobilinogen <2.0 (<2.0) mg/dL Ur Leukocyte Esterase Negative (Negative) Disposition Clinical Impression: Abdominal pain Disposition: HOME SELF-CARE Condition: Stable Instructions (If sedation given, give patient instructions): Abdominal Pain (ED), Pancreatitis (ED) Additional Instructions: Please return to the Emergency Department if symptoms worsen or any other concerns. Prescriptions: Ondansetron Odt [Zofran Odt] 4 mg PO Q8HR PRN #10 tab PRN Reason: Nausea Is patient prescribed a controlled substance at d/c from ED?: No Referrals: Nonstaff,Physician [Primary Care Provider] - 1-2 days Time of Disposition: 08:18
[2021-03-07 06:56] LABS: Basophils # (A) 0.1 k/uL (0-0.2); Basophils % (A) 1 %; Eosinophils # (A) 0.2 k/uL (0-0.7); Eosinophils % (A) 3 %; HCT 46.5 % (39.0-53.0); HGB 15.3 gm/dL (13.0-17.5); Lymphocytes % (A) 27 %; MCV 93.9 fL (80.0-100.0); Mean Platelet Volume 6.5; Monocytes # (A) 0.6 k/uL (0-1.0); Monocytes % (A) 8 %; Neutrophils # (A) 4.3 k/uL (1.3-7.7); Neutrophils % (A) 60 %; Platelet Count 301 k/uL (150-450); RBC 4.95 m/uL (4.30-5.90); RDW 14.1 % (11.5-15.5); WBC 7.3 k/uL (3.8-10.6)
[2021-03-07 06:59] LABS: Appearance,Urine Clear (Clear); Bilirubin,Urine Negative (Negative); Blood,Urine Negative (Negative); Color,Urine Light Yellow; Glucose,Urine (UA) Negative (Negative); Ketones,Urine Negative (Negative); Leukocyte Esterase,Urine Negative (Negative); Nitrite,Urine Negative (Negative); PH, Urine 6.5 (5.0-8.0); Protein,Urine Negative (Negative); Specific Gravity,Urine 1.011 (1.001-1.035); Urobilinogen,Urine <2.0 mg/dL (<2.0)
[2021-03-07 07:04] LABS: ALT 26 U/L (4-49); AST 20 U/L (17-59); African American GFR (CKD) >90 (>60 ml/min/1.73 sqM); Albumin 4.6 g/dL (3.5-5.0); Alkaline Phosphatase 78 U/L (38-126); Anion Gap 10 mmol/L; Blood Urea Nitrogen 12 mg/dL (9-20); Calcium 9.7 mg/dL (8.4-10.2); Carbon Dioxide 23 mmol/L (22-30); Chloride 104 mmol/L (98-107); Glucose 98 mg/dL (74-99); Lipase 536 U/L (23-300); Non-African American GFR(CKD) >90 (>60 ml/min/1.73 sqM); Potassium 4.1 mmol/L (3.5-5.1); Sodium 137 mmol/L (137-145); Total Bilirubin 0.4 mg/dL (0.2-1.3); Total Protein 7.7 g/dL (6.3-8.2)
[2021-03-07 07:15] VITALS: RESP 18
--- NOTE | 2021-03-07 07:48 | CT ---
EXAMINATION TYPE: CT abdomen pelvis w con DATE OF EXAM: 03/07/2021 COMPARISON: 12/23/2020 HISTORY: abd pain CT DLP: 1723.6 mGycm CONTRAST: CT scan of the abdomen and pelvis is performed without Oral Contrast and with IV Contrast, patient in jected with 100 mL of Isovue 300. FINDINGS: LUNG BASES-: No visible nodule. No infiltrate. LIVER/GB: No calcified gallstones. No space occupying hepatic lesion. Biliary tree is of normal ca liber. PANCREAS: No inflammation. No distinct mass. SPLEEN: No splenic enlargement. No lesion seen. ADRENALS: No nodule. No thickening. KIDNEYS/BLADDER: No hydronephrosis. No nephrolithiasis. No distinct renal mass. Urinary bladder g rossly unremarkable. BOWEL: There are clips adjacent to the appendix however portion of the appendix continues to be visib le. Normal bowel caliber. No inflammation. GENITAL ORGANS: No gross abnormality. LYMPH NODES: No greater than 1cm abdominal or pelvic lymph nodes are appreciated. AORTA: No significant abnormality. OSSEOUS STRUCTURES: No significant abnormality is seen. OTHER: No significant additional abnormality is seen. IMPRESSION: 1. No significant abnormality to account for the patient's symptoms.
[2021-03-07] MEDS ORDERED: ACET/COD 300 MG/30 MG STARTER PACK 6 TAB BTL PO STA (08:18)
--- NOTE | 2021-03-07 08:20 | XR ---
EXAMINATION TYPE: XR KUB DATE OF EXAM: 03/07/2021 Comparison: 12/23/2020 Clinical History: 25-year-old male left flank pain Findings: No evidence for free intraperitoneal air. No dilated small bowel or air-fluid levels.. Only mild stool in the right side of the abdomen. No suspicious calcifications are radiographically apparent. Impression: No free air or bowel obstruction. Mild stool in the right side of the abdomen.
[2021-03-07] MEDS ORDERED: HYDROmorphone 0.5 MG/0.5 ML SYRINGE IVP STA (08:22)
[2021-03-07 08:43] VITALS: BP 121/62; PULSE 84
== END 2021-03-07 08:43 | disposition home or self-care (01) ==
LOC: EC 06:06
DX: R10.9 Unspecified abdominal pain (principal); F32.9 Major depressive disorder, single episode, unspecified; Z87.891 Personal history of nicotine dependence
CPT/HCPCS: 36415; 80053; 83690; 85025; 81003; 74018; 74177; 99284; 96374; 96375 ×2; 96376 ×2; 96361; J2405; J1170 ×2; J1885; Q9967

== ENCOUNTER 2021-03-13 21:54 | Emergency (ER) | payer BC, OTHER ==
[2021-03-13 22:23] VITALS: TEMP 98.2
[2021-03-13] MEDS ORDERED: ONDANSETRON 4 MG/2 ML VIAL IVP STA (22:40)
[2021-03-13] MEDS ORDERED: HYDROmorphone 1 MG/ML 1 ML SYRINGE IVP STA (22:40)
[2021-03-13] MEDS ORDERED: SODIUM CHLORIDE 0.9% 1,000 ML IV STA (22:40)
[2021-03-13 23:05] LABS: Basophils % (A) 0 %; Eosinophils # (A) 0.3 k/uL (0-0.7); Eosinophils % (A) 3 %; HCT 45.6 % (39.0-53.0); HGB 15.4 gm/dL (13.0-17.5); Lymphocytes # (A) 2.2 k/uL (1.0-4.8); Lymphocytes % (A) 21 %; MCH 31.3 pg (25.0-35.0); MCHC 33.8 g/dL (31.0-37.0); MCV 92.7 fL (80.0-100.0); Mean Platelet Volume 6.5; Monocytes # (A) 0.8 k/uL (0-1.0); Monocytes % (A) 7 %; Neutrophils # (A) 6.7 k/uL (1.3-7.7); Neutrophils % (A) 66 %; Platelet Count 282 k/uL (150-450); RBC 4.92 m/uL (4.30-5.90); RDW 13.8 % (11.5-15.5); WBC 10.1 k/uL (3.8-10.6)
[2021-03-13 23:16] LABS: ALT 27 U/L (4-49); AST 23 U/L (17-59); African American GFR (CKD) >90 (>60 ml/min/1.73 sqM); Albumin 4.7 g/dL (3.5-5.0); Alkaline Phosphatase 74 U/L (38-126); Anion Gap 11 mmol/L; Blood Urea Nitrogen 20 mg/dL (9-20); Carbon Dioxide 22 mmol/L (22-30); Chloride 103 mmol/L (98-107); Glucose 100 mg/dL (74-99); Lipase 71 U/L (23-300); Non-African American GFR(CKD) >90 (>60 ml/min/1.73 sqM); Sodium 136 mmol/L (137-145); Total Bilirubin 0.3 mg/dL (0.2-1.3); Total Protein 7.7 g/dL (6.3-8.2)
[2021-03-14 00:38] LABS: Appearance,Urine Clear (Clear); Bilirubin,Urine Negative (Negative); Blood,Urine Negative (Negative); Color,Urine Light Yellow; Glucose,Urine (UA) Negative (Negative); Ketones,Urine Trace (Negative); Leukocyte Esterase,Urine Negative (Negative); Nitrite,Urine Negative (Negative); Protein,Urine Negative (Negative); Specific Gravity,Urine 1.021 (1.001-1.035); Urobilinogen,Urine <2.0 mg/dL (<2.0)
--- NOTE | 2021-03-14 00:47 | ED ---
Abdominal Pain HPI - General Chief Complaint: Abdominal Pain Stated Complaint: Abd Pain,Nausea,Headache Time Seen by Provider: 03/13/21 22:25 Source: patient Mode of arrival: ambulatory Limitations: no limitations - History of Present Illness Initial Comments: 25-year-old male patient with past medical history of non-Hodgkin's lymphoma stage IV presents to the emergency department today for evaluation of left lower quadrant abdominal pain. States that he has been having any symptoms for the last several days however tonight he had a bowel movement was about a teaspoon of bright red blood. States this was a first for him so he became concerned and came in for evaluation. He denies any fever or chills. States he has been nauseated denies current vomiting. Denies use of blood thinning medications. He was evaluated here couple of days ago for similar symptoms and was informed he had a mild case of pancreatitis. He has been taking medications at home they're not helping. Patient denies any recent rash, cough, shortness of breath, chest pain, back pain, numbness, tingling, dizziness, weakness, hematuria, dysuria, urinary urgency, urinary frequency, headache, visual changes, or any other complaints. - Related Data Previous Rx's Medication Instructions Recorded Ondansetron Odt [Zofran Odt] 4 mg PO Q8HR PRN #10 tab 03/07/21 Allergies Allergy/AdvReac Type Severity Reaction Status Date / Time No Known Allergies Allergy Verified 03/13/21 23:14 Review of Systems ROS Statement: Those systems with pertinent positive or pertinent negative responses have been documented in the HPI. ROS Other: All systems not noted in ROS Statement are negative. Past Medical History Past Medical History: Cancer Additional Past Medical History / Comment(s): Hodgkins Lymphoma stage 4, last chemo November 21 2020, pt follows up with Dr. Browning out of [facility]. Previous hx of kidney stones early in 2019. History of Any Multi-Drug Resistant Organisms: None Reported Past Surgical History: Appendectomy, Back Surgery Additional Past Surgical History / Comment(s): lithotripsy and stent right side, tooth insert, spinal tap x 3 january 04 Past Anesthesia/Blood Transfusion Reactions: No Reported Reaction Past Psychological History: Depression Smoking Status: Former smoker Past Alcohol Use History: None Reported Past Drug Use History: None Reported - Past Family History Mother Additional Family Medical History / Comment(s): Heart murmur, Cyst on Ovary, Appendectomy Father Family Medical History: Hypertension General Exam Limitations: no limitations General appearance: alert, in no apparent distress, other (This is a well- developed, well-nourished adult male patient in no acute distress.) ENT exam: Present: normal exam, normal oropharynx, mucous membranes moist Respiratory exam: Present: normal lung sounds bilaterally. Absent: respiratory distress, wheezes, rales, rhonchi, stridor Cardiovascular Exam: Present: regular rate, normal rhythm, normal heart sounds. Absent: systolic murmur, diastolic murmur, rubs, gallop, clicks GI/Abdominal exam: Present: soft, tenderness (Left lower quadrant, left upper quadrant tenderness), normal bowel sounds. Absent: distended, guarding, rebound, rigid Neurological exam: Present: alert, oriented X3, CN II-XII intact Psychiatric exam: Present: normal affect, normal mood Skin exam: Present: warm, dry, intact, normal color. Absent: rash Course Vital Signs 03/13/21 03/14/21 22:19 01:54 Temperature 98.2 F Pulse Rate 90 72 Respiratory 18 17 Rate Blood Pressure 110/67 112/72 O2 Sat by Pulse 95 95 Oximetry Medical Decision Making - Medical Decision Making 25-year-old male patient has medical history significant for non-Hodgkin's lymphoma presents to the emergency department today for evaluation of left lower quadrant abdominal pain. He was evaluated for this recently here had normal CT abdomen and pelvis, normal labs. Today physical examination did reveal left lower quadrant tenderness. Labs are unremarkable. He was given pain medication nausea medication. No episodes of vomiting here. We discharged follow up with his primary care physician for recheck in 1-2 days. Return parameters were discussed in detail. He verbalizes understanding and agrees with this plan. Case discussed with my attending Dr. Chaney. - Lab Data Result diagrams: 03/13/21 22:51 03/13/21 22:51 Lab Results 03/13/21 03/13/21 03/13/21 Range/Units 22:40 22:51 22:51 WBC 10.1 (3.8-10.6) k/uL RBC 4.92 (4.30-5.90) m/uL Hgb 15.4 (13.0-17.5) gm/dL Hct 45.6 (39.0-53.0) % MCV 92.7 (80.0-100.0) fL MCH 31.3 (25.0-35.0) pg MCHC 33.8 (31.0-37.0) g/dL RDW 13.8 (11.5-15.5) % Plt Count 282 (150-450) k/uL MPV 6.5 Neutrophils % 66 % Lymphocytes % 21 % Monocytes % 7 % Eosinophils % 3 % Basophils % 0 % Neutrophils # 6.7 (1.3-7.7) k/uL Lymphocytes # 2.2 (1.0-4.8) k/uL Monocytes # 0.8 (0-1.0) k/uL Eosinophils # 0.3 (0-0.7) k/uL Basophils # 0.0 (0-0.2) k/uL Sodium 136 L (137-145) mmol/L Potassium 4.0 (3.5-5.1) mmol/L Chloride 103 (98-107) mmol/L Carbon Dioxide 22 (22-30) mmol/L Anion Gap 11 mmol/L BUN 20 (9-20) mg/dL Creatinine 0.76 (0.66-1.25) mg/dL Est GFR (CKD-EPI)AfAm >90 (>60 ml/min/1.73 sqM) Est GFR (CKD-EPI)NonAf >90 (>60 ml/min/1.73 sqM) Glucose 100 H (74-99) mg/dL Calcium 10.0 (8.4-10.2) mg/dL Total Bilirubin 0.3 (0.2-1.3) mg/dL AST 23 (17-59) U/L ALT 27 (4-49) U/L Alkaline Phosphatase 74 (38-126) U/L Total Protein 7.7 (6.3-8.2) g/dL Albumin 4.7 (3.5-5.0) g/dL Lipase 71 (23-300) U/L Urine Color Urine Appearance (Clear) Urine pH (5.0-8.0) Ur Specific [place] (1.001-1.035) Urine Protein (Negative) Urine Glucose (UA) (Negative) Urine Ketones (Negative) Urine Blood (Negative) Urine Nitrite (Negative) Urine Bilirubin (Negative) Urine Urobilinogen (<2.0) mg/dL Ur Leukocyte Esterase (Negative) Stool Occult Blood Negative (Negative) 03/14/21 Range/Units 00:31 WBC (3.8-10.6) k/uL RBC (4.30-5.90) m/uL Hgb (13.0-17.5) gm/dL Hct (39.0-53.0) % MCV (80.0-100.0) fL MCH (25.0-35.0) pg MCHC (31.0-37.0) g/dL RDW (11.5-15.5) % Plt Count (150-450) k/uL MPV Neutrophils % % Lymphocytes % % Monocytes % % Eosinophils % % Basophils % % Neutrophils # (1.3-7.7) k/uL Lymphocytes # (1.0-4.8) k/uL Monocytes # (0-1.0) k/uL Eosinophils # (0-0.7) k/uL Basophils # (0-0.2) k/uL Sodium (137-145) mmol/L Potassium (3.5-5.1) mmol/L Chloride (98-107) mmol/L Carbon Dioxide (22-30) mmol/L Anion Gap mmol/L BUN (9-20) mg/dL Creatinine (0.66-1.25) mg/dL Est GFR (CKD-EPI)AfAm (>60 ml/min/1.73 sqM) Est GFR (CKD-EPI)NonAf (>60 ml/min/1.73 sqM) Glucose (74-99) mg/dL Calcium (8.4-10.2) mg/dL Total Bilirubin (0.2-1.3) mg/dL AST (17-59) U/L ALT (4-49) U/L Alkaline Phosphatase (38-126) U/L Total Protein (6.3-8.2) g/dL Albumin (3.5-5.0) g/dL Lipase (23-300) U/L Urine Color Light Yellow Urine Appearance Clear (Clear) Urine pH 5.0 (5.0-8.0) Ur Specific [place] 1.021 (1.001-1.035) Urine Protein Negative (Negative) Urine Glucose (UA) Negative (Negative) Urine Ketones Trace H (Negative) Urine Blood Negative (Negative) Urine Nitrite Negative (Negative) Urine Bilirubin Negative (Negative) Urine Urobilinogen <2.0 (<2.0) mg/dL Ur Leukocyte Esterase Negative (Negative) Stool Occult Blood (Negative) Disposition Clinical Impression: Abdominal pain Disposition: HOME SELF-CARE Condition: Good Instructions (If sedation given, give patient instructions): Abdominal Pain (ED) Additional Instructions: Follow clear liquid diet for the next 24 hours. Take medications for pain sparingly as needed. Follow-up with the primary care physician for recheck in 1-2 days. Return for any new, worsening, or concerning symptoms. Is patient prescribed a controlled substance at d/c from ED?: No Referrals: Nonstaff,Physician [Primary Care Provider] - 1-2 days Time of Disposition: 01:35
[2021-03-14] MEDS ORDERED: HYDROmorphone 1 MG/ML 1 ML SYRINGE IVP STA (01:34)
[2021-03-14] MEDS ORDERED: ACET/COD 300 MG/30 MG STARTER PACK 6 TAB BTL PO STA (01:34)
[2021-03-14 01:55] VITALS: BP 112/72; PULSE 72; RESP 17
== END 2021-03-14 01:55 | disposition home or self-care (01) ==
LOC: EC 21:54
DX: R10.32 Left lower quadrant pain (principal); F32.9 Major depressive disorder, single episode, unspecified; Z85.72 Personal history of non-Hodgkin lymphomas; Z90.49 Acquired absence of other specified parts of digestive tract; Z87.891 Personal history of nicotine dependence; Z85.71 Personal history of Hodgkin lymphoma; Z87.442 Personal history of urinary calculi
CPT/HCPCS: 99284; 96374; 96375; 96376; 96361; 36415; 80053; 83690; 85025; 82272; 81003; J2405; J1170 ×2

== ENCOUNTER 2021-04-22 11:21 | Emergency (ER) | payer BC, OTHER ==
--- NOTE | 2021-04-22 13:16 | XR ---
EXAMINATION TYPE: XR chest 2V DATE OF EXAM: 04/22/2021 COMPARISON: 12/06/2020 TECHNIQUE: PA and lateral views submitted. HISTORY: Chest pain FINDINGS: The lungs are clear and there is no pneumothorax, pleural effusion, or focal pneumonia. Mediport ca theter seen. There is coarsened central interstitium. Biapical pleural thickening. IMPRESSION: 1. Correlate for bronchitis or interstitial pneumonitis..
[2021-04-22 14:04] LABS: Basophils # (A) 0.1 k/uL (0-0.2); Basophils % (A) 1 %; Eosinophils # (A) 0.2 k/uL (0-0.7); Eosinophils % (A) 3 %; HCT 42.7 % (39.0-53.0); HGB 14.6 gm/dL (13.0-17.5); Lymphocytes # (A) 1.4 k/uL (1.0-4.8); Lymphocytes % (A) 15 %; MCH 31.3 pg (25.0-35.0); MCHC 34.1 g/dL (31.0-37.0); MCV 91.7 fL (80.0-100.0); Mean Platelet Volume 6.6; Monocytes # (A) 0.7 k/uL (0-1.0); Monocytes % (A) 7 %; Neutrophils # (A) 6.9 k/uL (1.3-7.7); Neutrophils % (A) 73 %; Platelet Count 289 k/uL (150-450); RBC 4.65 m/uL (4.30-5.90); RDW 13.6 % (11.5-15.5); WBC 9.4 k/uL (3.8-10.6)
--- NOTE | 2021-04-22 14:04 | ED ---
General Adult HPI - General Chief complaint: Chest Pain Stated complaint: chest pain/back pain/sob/headache Time Seen by Provider: 04/22/21 13:33 Source: patient Mode of arrival: ambulatory Limitations: no limitations - History of Present Illness Initial comments: Dictation was produced using [employer] dictation software. please excuse any grammatical, word or spelling errors. Chief Complaint: 25-year-old male past medical history of lymphoma presents emergency department for chest pain History of Present Illness: Patient is a 25-year-old male presents emergency department for couple days of chest pain. He states it radiates to his right anterior chest radiates to his back. Does complain of mild shortness of breath. Patient states that his pain is sharp and worse with inspiration certain movements and palpation. Patient has a lower extremity symptoms. No history of blood clot. Patient has a port that was used for chemotherapy but is currently in remission. He hasn't had chemotherapy in several weeks. No fevers. Has a slight cough. No constitutional symptoms. The ROS documented in this emergency department record has been reviewed and confirmed by me. Those systems with pertinent positive or negative responses have been documented in the HPI. All other systems are other negative and/or noncontributory. PHYSICAL EXAM: General Impression: Alert and oriented x3, not in acute distress HEENT: Normocephalic atraumatic, extra-ocular movements intact, pupils equal and reactive to light bilaterally, mucous membranes moist. Cardiovascular: Heart regular rate and rhythm Chest: Able to complete full sentences, no retractions, no tachypnea, some tenderness when palpating the right chest Abdomen: abdomen soft, non-tender, non-distended, no organomegaly Musculoskeletal: Pulses present and equal in all extremities, no peripheral edema Motor: no focal deficits noted Neurological: CN II-XII grossly intact, no focal motor or sensory deficits noted Skin: Intact with no visualized rashes Psych: Normal affect and mood ED course: 25-year-old male presents emergency department for chest pain. His symptoms are atypical. Vital signs upon arrival are within acceptable limits. Laboratory evaluation obtained. CBC unremarkable. Coag panel is negative. D- dimer slightly elevated 0.83. Metabolic panel is negative. Cardiac labs are negative. Rotavirus is negative. Chest x-rays negative. Given patient's elevated d-dimer CT angios ordered to rule out pulmonary embolism given that patient did have some pleuritic symptoms and elevated d-dimer. CT angios the chest shows no PE. There is some streaky atelectasis with a right middle lobe. Patient reevaluated at bedside at 4:24 PM found to be stable medical condition. She agreeable with discharge. Advised follow-up with primary care doctor. EKG interpretation: Ventricular rate 82, normal sinus rhythm,. Interval 152, QRS 94, QTC 427. No [place] prolongation, no QTC prolongation, no ST or T-wave changes noted. . Overall, this EKG is unremarkable - Related Data Home Medications Medication Instructions Recorded Confirmed Acetaminophen-Codeine 300-30mg 1 tab PO Q4-6H PRN 03/20/21 03/20/21 [Tylenol w/codeine #3] Previous Rx's Medication Instructions Recorded Ondansetron Odt [Zofran Odt] 4 mg PO Q8HR PRN #10 tab 03/07/21 Allergies Allergy/AdvReac Type Severity Reaction Status Date / Time No Known Allergies Allergy Verified 04/22/21 12:35 Review of Systems ROS Statement: Those systems with pertinent positive or pertinent negative responses have been documented in the HPI. ROS Other: All systems not noted in ROS Statement are negative. Past Medical History Past Medical History: Cancer Additional Past Medical History / Comment(s): Hodgkins Lymphoma stage 4, last chemo November 21 2020, pt follows up with Dr. Browinng out of [facility]. Previous hx of kidney stones early in 2019. History of Any Multi-Drug Resistant Organisms: None Reported Past Surgical History: Appendectomy, Back Surgery Additional Past Surgical History / Comment(s): lithotripsy and stent right side, tooth insert, spinal tap x january 04 Past Anesthesia/Blood Transfusion Reactions: No Reported Reaction Past Psychological History: Depression Smoking Status: Former smoker Past Alcohol Use History: None Reported Past Drug Use History: Marijuana - Past Family History Mother Additional Family Medical History / Comment(s): Heart murmur, Cyst on Ovary, Appendectomy Father Family Medical History: Hypertension General Exam Limitations: no limitations Course Vital Signs 04/22/21 04/22/21 12:31 16:00 Temperature 98.0 F Pulse Rate 88 82 Respiratory 20 18 Rate Blood Pressure 125/79 106/48 O2 Sat by Pulse 98 97 Oximetry Medical Decision Making - Lab Data Result diagrams: 04/22/21 13:39 04/22/21 13:39 Lab Results 04/22/21 04/22/21 04/22/21 Range/Units 13:39 13:39 13:39 WBC 9.4 (3.8-10.6) k/uL RBC 4.65 (4.30-5.90) m/uL Hgb 14.6 (13.0-17.5) gm/dL Hct 42.7 (39.0-53.0) % MCV 91.7 (80.0-100.0) fL MCH 31.3 (25.0-35.0) pg MCHC 34.1 (31.0-37.0) g/dL RDW 13.6 (11.5-15.5) % Plt Count 289 (150-450) k/uL MPV 6.6 Neutrophils % 73 % Lymphocytes % 15 % Monocytes % 7 % Eosinophils % 3 % Basophils % 1 % Neutrophils # 6.9 (1.3-7.7) k/uL Lymphocytes # 1.4 (1.0-4.8) k/uL Monocytes # 0.7 (0-1.0) k/uL Eosinophils # 0.2 (0-0.7) k/uL Basophils # 0.1 (0-0.2) k/uL PT 10.5 (9.0-12.0) sec INR 1.0 (<1.2) APTT 29.9 (22.0-30.0) sec D-Dimer 0.83 H (<0.60) mg/L FEU Sodium 138 (137-145) mmol/L Potassium 4.1 (3.5-5.1) mmol/L Chloride 102 (98-107) mmol/L Carbon Dioxide 26 (22-30) mmol/L Anion Gap 10 mmol/L BUN 10 (9-20) mg/dL Creatinine 0.65 L (0.66-1.25) mg/dL Est GFR (CKD-EPI)AfAm >90 (>60 ml/min/1.73 sqM) Est GFR (CKD-EPI)NonAf >90 (>60 ml/min/1.73 sqM) Glucose 94 (74-99) mg/dL Calcium 9.5 (8.4-10.2) mg/dL Magnesium 2.1 (1.6-2.3) mg/dL Total Bilirubin 0.3 (0.2-1.3) mg/dL AST 20 (17-59) U/L ALT 24 (4-49) U/L Alkaline Phosphatase 75 (38-126) U/L Troponin I (0.000-0.034) ng/mL Total Protein 7.5 (6.3-8.2) g/dL Albumin 4.4 (3.5-5.0) g/dL Coronavirus (PCR) (Not Detectd) 04/22/21 04/22/21 Range/Units 13:39 14:04 WBC (3.8-10.6) k/uL RBC (4.30-5.90) m/uL Hgb (13.0-17.5) gm/dL Hct (39.0-53.0) % MCV (80.0-100.0) fL MCH (25.0-35.0) pg MCHC (31.0-37.0) g/dL RDW (11.5-15.5) % Plt Count (150-450) k/uL MPV Neutrophils % % Lymphocytes % % Monocytes % % Eosinophils % % Basophils % % Neutrophils # (1.3-7.7) k/uL Lymphocytes # (1.0-4.8) k/uL Monocytes # (0-1.0) k/uL Eosinophils # (0-0.7) k/uL Basophils # (0-0.2) k/uL PT (9.0-12.0) sec INR (<1.2) APTT (22.0-30.0) sec D-Dimer (<0.60) mg/L FEU Sodium (137-145) mmol/L Potassium (3.5-5.1) mmol/L Chloride (98-107) mmol/L Carbon Dioxide (22-30) mmol/L Anion Gap mmol/L BUN (9-20) mg/dL Creatinine (0.66-1.25) mg/dL Est GFR (CKD-EPI)AfAm (>60 ml/min/1.73 sqM) Est GFR (CKD-EPI)NonAf (>60 ml/min/1.73 sqM) Glucose (74-99) mg/dL Calcium (8.4-10.2) mg/dL Magnesium (1.6-2.3) mg/dL Total Bilirubin (0.2-1.3) mg/dL AST (17-59) U/L ALT (4-49) U/L Alkaline Phosphatase (38-126) U/L Troponin I <0.012 (0.000-0.034) ng/mL Total Protein (6.3-8.2) g/dL Albumin (3.5-5.0) g/dL Coronavirus (PCR) Not Detected (Not Detectd) Disposition Clinical Impression: Chest pain Disposition: HOME SELF-CARE Condition: Good Instructions (If sedation given, give patient instructions): Chest Pain (ED) Is patient prescribed a controlled substance at d/c from ED?: No Referrals: None,Stated [Primary Care Provider] - 1-2 days
[2021-04-22 14:35] LABS: ALT 24 U/L (4-49); AST 20 U/L (17-59); African American GFR (CKD) >90 (>60 ml/min/1.73 sqM); Albumin 4.4 g/dL (3.5-5.0); Alkaline Phosphatase 75 U/L (38-126); Anion Gap 10 mmol/L; Blood Urea Nitrogen 10 mg/dL (9-20); Calcium 9.5 mg/dL (8.4-10.2); Carbon Dioxide 26 mmol/L (22-30); Chloride 102 mmol/L (98-107); Glucose 94 mg/dL (74-99); Magnesium 2.1 mg/dL (1.6-2.3); Non-African American GFR(CKD) >90 (>60 ml/min/1.73 sqM); Potassium 4.1 mmol/L (3.5-5.1); Sodium 138 mmol/L (137-145); Total Bilirubin 0.3 mg/dL (0.2-1.3); Total Protein 7.5 g/dL (6.3-8.2)
[2021-04-22] MEDS ORDERED: HYDROcodone/APAP 5-325MG 1 EACH TAB PO STA (14:37)
[2021-04-22 14:40] LABS: Partial Thromboplastin Time 29.9 sec (22.0-30.0)
[2021-04-22 14:50] LABS: Prothrombin Time 10.5 sec (9.0-12.0)
[2021-04-22] MEDS ORDERED: MORPHINE SULFATE 4 MG/ML SYRINGE IV STA (15:54)
--- NOTE | 2021-04-22 15:57 | CT ---
CT CHEST FOR PULMONARY EMBOLISM. EXAMINATION TYPE: CT angio chest DATE OF EXAM: 04/22/2021 INDICATION: Shortness of breath, chest and back pain, headache CT DLP: 547.8 mGycm, Automated exposure control for dose reduction was used. CONTRAST: Patient injected with 100, wasted 34 mL of Isovue 370. COMPARISON: 01/02/2021 TECHNIQUE: CT of the chest is performed on a spiral scan at 2 mm thick sections. Study is performed with intravenous contrast timed for evaluation for pulmonary embolism. This will limit additional po rtions of the evaluation. 3-D MIP images reconstructed by the technologist are reviewed on the compu ter in the coronal and sagittal planes. FINDINGS: No persistent filling defects are evident to suggest an acute pulmonary embolism. No mediastinal or hilar adenopathy enlarged by CT criteria is evident. The ascending aorta diameter at the level of the main pulmonary artery is 2.5 cm. The main pulmonary artery diameter at the bifur cation is 2.0 cm. There is a large superior mediastinal mass. This may measure up to 5.9 x 2.5 cm. This is similar to s lightly improved over the interval. Streak opacities are present within the right middle lobe likely related to streak atelectasis. Limited CT section through the upper abdomen are unremarkable. IMPRESSIONS: 1. No acute pulmonary embolism. 2. Stable mediastinal mass. 3. Some streak atelectasis may be within the right middle lobe.
[2021-04-22 17:34] VITALS: BP 125/72; PULSE 80; RESP 16; TEMP 97.3
== END 2021-04-22 17:10 | disposition home or self-care (01) ==
LOC: EC 11:21
DX: R07.89 Other chest pain (principal); R06.02 Shortness of breath; Z20.822 Contact with and (suspected) exposure to COVID-19; Z87.891 Personal history of nicotine dependence
CPT/HCPCS: 36415; 93005; 85379; 80053; 83735; 84484; 85025; 85610; 85730; 87635; 71046; 71275; 99285; 96374; 96375; J2270; J1642; Q9967

== ENCOUNTER 2021-06-11 10:15 | Emergency (ER) | payer BC, OTHER ==
[2021-06-11] MEDS ORDERED: MORPHINE SULFATE 4 MG/ML SYRINGE IVP STA (10:46)
[2021-06-11 11:16] LABS: Basophils % (A) 0 %; Eosinophils # (A) 0.1 k/uL (0-0.7); Eosinophils % (A) 2 %; HCT 42.4 % (39.0-53.0); HGB 14.2 gm/dL (13.0-17.5); Lymphocytes # (A) 0.6 k/uL (1.0-4.8); Lymphocytes % (A) 11 %; MCH 31.9 pg (25.0-35.0); MCHC 33.5 g/dL (31.0-37.0); MCV 95.2 fL (80.0-100.0); Mean Platelet Volume 6.5; Monocytes # (A) 0.3 k/uL (0-1.0); Monocytes % (A) 6 %; Neutrophils # (A) 4.4 k/uL (1.3-7.7); Neutrophils % (A) 80 %; Platelet Count 204 k/uL (150-450); RBC 4.45 m/uL (4.30-5.90); RDW 14.2 % (11.5-15.5); WBC 5.6 k/uL (3.8-10.6)
[2021-06-11 11:32] LABS: ALT 20 U/L (4-49); AST 20 U/L (17-59); African American GFR (CKD) >90 (>60 ml/min/1.73 sqM); Alkaline Phosphatase 63 U/L (38-126); Blood Urea Nitrogen 12 mg/dL (9-20); Calcium 9.1 mg/dL (8.4-10.2); Carbon Dioxide 22 mmol/L (22-30); Non-African American GFR(CKD) >90 (>60 ml/min/1.73 sqM); Total Bilirubin 0.7 mg/dL (0.2-1.3)
[2021-06-11 11:36] LABS: INR 1.1 (<1.2); Partial Thromboplastin Time 30.2 sec (22.0-30.0); Prothrombin Time 11.4 sec (9.0-12.0)
[2021-06-11] MEDS ORDERED: HYDROmorphone 0.5 MG/0.5 ML SYRINGE IVP STA (11:36)
--- NOTE | 2021-06-11 11:36 | XR ---
EXAMINATION TYPE: XR chest 2V DATE OF EXAM: 06/11/2021 COMPARISON: 04/22/2021 HISTORY: Chest pain TECHNIQUE: Frontal and lateral views of the chest are obtained. FINDINGS: There is no focal air space opacity. No evidence for pneumothorax. No pleural effusion. The cardiac silhouette size is within normal limits. The osseous structures are grossly intact. IMPRESSION: 1. No acute cardiopulmonary process.
[2021-06-11 11:55] LABS: Albumin 4.5 g/dL (3.5-5.0); Anion Gap 9 mmol/L; Chloride 104 mmol/L (98-107); Glucose 94 mg/dL (74-99); Potassium 4.2 mmol/L (3.5-5.1); Sodium 135 mmol/L (137-145); Total Protein 7.5 g/dL (6.3-8.2)
--- NOTE | 2021-06-11 12:08 | ED ---
General Adult HPI - General Chief complaint: Chest Pain Stated complaint: Chest Pain Time Seen by Provider: 06/11/21 10:29 Source: patient Mode of arrival: wheelchair Limitations: no limitations - History of Present Illness Initial comments: 35-year-old male with a past medical history of Hodgkin's lymphoma currently in remission presents to the emergency room for a chief complaint of chest pain. Patient states he has had chest pain since this morning. States sometimes it hurts to take a deep breath. Sharp in nature. Patient is also having some lower back pain which he has had in the past. Denies bladder or bowel changes. Denies saddle anesthesia or weakness of the legs. Patient has not had any fevers or chills. Patient did get his Covid vaccine yesterday.Patient has no other complaints at this time including abdominal pain, nausea or vomiting, headache, or visual changes. - Related Data Home Medications Medication Instructions Recorded Confirmed Clindamycin 1% Lotion 1 applic TOPICAL DAILY 06/11/21 06/11/21 Doxycycline Hyclate 50 mg PO BID 06/11/21 06/11/21 metroNIDAZOLE 1% GEL [Metrogel 1%] 1 applic TOPICAL HS 06/11/21 06/11/21 Allergies Allergy/AdvReac Type Severity Reaction Status Date / Time No Known Allergies Allergy Verified 06/11/21 11:19 Review of Systems ROS Statement: Those systems with pertinent positive or pertinent negative responses have been documented in the HPI. ROS Other: All systems not noted in ROS Statement are negative. Past Medical History Past Medical History: Cancer Additional Past Medical History / Comment(s): Hodgkins Lymphoma stage 4, last chemo November 21 2020, pt follows up with Dr. Browning out of [facility]. Previous hx of kidney stones early in 2019. History of Any Multi-Drug Resistant Organisms: None Reported Past Surgical History: Appendectomy, Back Surgery Additional Past Surgical History / Comment(s): lithotripsy and stent right side, tooth insert, spinal tap x 3 january 04 Past Anesthesia/Blood Transfusion Reactions: No Reported Reaction Past Psychological History: Depression Smoking Status: Former smoker Past Alcohol Use History: None Reported Past Drug Use History: Marijuana - Past Family History Mother Additional Family Medical History / Comment(s): Heart murmur, Cyst on Ovary, Appendectomy Father Family Medical History: Hypertension General Exam Limitations: no limitations General appearance: alert Head exam: Present: atraumatic, normocephalic, normal inspection Eye exam: Present: normal appearance, PERRL, EOMI. Absent: scleral icterus, conjunctival injection, periorbital swelling ENT exam: Present: normal exam, mucous membranes moist Neck exam: Present: normal inspection, full ROM. Absent: tenderness, meningismus, lymphadenopathy Respiratory exam: Present: normal lung sounds bilaterally. Absent: respiratory distress, wheezes, rales, rhonchi, stridor Cardiovascular Exam: Present: regular rate, normal rhythm, normal heart sounds. Absent: systolic murmur, diastolic murmur, rubs, gallop, clicks GI/Abdominal exam: Present: soft, normal bowel sounds. Absent: distended, tenderness, guarding, rebound, rigid Neurological exam: Present: alert Course Vital Signs 06/11/21 06/11/21 10:16 12:08 Temperature 98.7 F Pulse Rate 115 H 99 Respiratory 18 18 Rate Blood Pressure 121/64 122/60 O2 Sat by Pulse 97 97 Oximetry EKG Findings - EKG Comments: EKG Findings:: Sinus tachycardia, ventricular rate 101, MI interval 156, QTC 420 Medical Decision Making - Medical Decision Making Patient presents initially tachycardic however this did improve throughout his stay. Patient is well-appearing. CBC CMP unremarkable. Troponin negative. EKG nonischemic. COVID-19 is negative. Chest x-ray shows no acute process. No red flag symptoms for back pain. At this time patient is stable for discharge home to follow up with primary care. He will return here for any worsening symptoms. I discussed this case with attending Dr. Samson who agrees with this assessment and treatment plan. - Lab Data Result diagrams: 06/11/21 11:03 06/11/21 11:03 Lab Results 06/11/21 06/11/21 06/11/21 Range/Units 10:43 11:03 11:03 WBC 5.6 (3.8-10.6) k/uL RBC 4.45 (4.30-5.90) m/uL Hgb 14.2 (13.0-17.5) gm/dL Hct 42.4 (39.0-53.0) % MCV 95.2 (80.0-100.0) fL MCH 31.9 (25.0-35.0) pg MCHC 33.5 (31.0-37.0) g/dL RDW 14.2 (11.5-15.5) % Plt Count 204 (150-450) k/uL MPV 6.5 Neutrophils % 80 % Lymphocytes % 11 % Monocytes % 6 % Eosinophils % 2 % Basophils % 0 % Neutrophils # 4.4 (1.3-7.7) k/uL Lymphocytes # 0.6 L (1.0-4.8) k/uL Monocytes # 0.3 (0-1.0) k/uL Eosinophils # 0.1 (0-0.7) k/uL Basophils # 0.0 (0-0.2) k/uL PT 11.4 (9.0-12.0) sec INR 1.1 (<1.2) APTT 30.2 H (22.0-30.0) sec D-Dimer 0.55 (<0.60) mg/L FEU Sodium (137-145) mmol/L Potassium (3.5-5.1) mmol/L Chloride (98-107) mmol/L Carbon Dioxide (22-30) mmol/L Anion Gap mmol/L BUN (9-20) mg/dL Creatinine (0.66-1.25) mg/dL Est GFR (CKD-EPI)AfAm (>60 ml/min/1.73 sqM) Est GFR (CKD-EPI)NonAf (>60 ml/min/1.73 sqM) Glucose (74-99) mg/dL Calcium (8.4-10.2) mg/dL Magnesium (1.6-2.3) mg/dL Total Bilirubin (0.2-1.3) mg/dL AST (17-59) U/L ALT (4-49) U/L Alkaline Phosphatase (38-126) U/L Troponin I (0.000-0.034) ng/mL Total Protein (6.3-8.2) g/dL Albumin (3.5-5.0) g/dL Coronavirus (PCR) Not Detected (Not Detectd) 06/11/21 06/11/21 Range/Units 11:03 11:03 WBC (3.8-10.6) k/uL RBC (4.30-5.90) m/uL Hgb (13.0-17.5) gm/dL Hct (39.0-53.0) % MCV (80.0-100.0) fL MCH (25.0-35.0) pg MCHC (31.0-37.0) g/dL RDW (11.5-15.5) % Plt Count (150-450) k/uL MPV Neutrophils % % Lymphocytes % % Monocytes % % Eosinophils % % Basophils % % Neutrophils # (1.3-7.7) k/uL Lymphocytes # (1.0-4.8) k/uL Monocytes # (0-1.0) k/uL Eosinophils # (0-0.7) k/uL Basophils # (0-0.2) k/uL PT (9.0-12.0) sec INR (<1.2) APTT (22.0-30.0) sec D-Dimer (<0.60) mg/L FEU Sodium 135 L (137-145) mmol/L Potassium 4.2 (3.5-5.1) mmol/L Chloride 104 (98-107) mmol/L Carbon Dioxide 22 (22-30) mmol/L Anion Gap 9 mmol/L BUN 12 (9-20) mg/dL Creatinine 0.69 (0.66-1.25) mg/dL Est GFR (CKD-EPI)AfAm >90 (>60 ml/min/1.73 sqM) Est GFR (CKD-EPI)NonAf >90 (>60 ml/min/1.73 sqM) Glucose 94 (74-99) mg/dL Calcium 9.1 (8.4-10.2) mg/dL Magnesium 2.0 (1.6-2.3) mg/dL Total Bilirubin 0.7 (0.2-1.3) mg/dL AST 20 (17-59) U/L ALT 20 (4-49) U/L Alkaline Phosphatase 63 (38-126) U/L Troponin I <0.012 (0.000-0.034) ng/mL Total Protein 7.5 (6.3-8.2) g/dL Albumin 4.5 (3.5-5.0) g/dL Coronavirus (PCR) (Not Detectd) Disposition Clinical Impression: Atypical chest pain Disposition: HOME SELF-CARE Condition: Good Instructions (If sedation given, give patient instructions): Chest Pain (ED) Additional Instructions: Please follow-up with your doctor in one to 2 days. Return to the emergency room for any worsening symptoms. Is patient prescribed a controlled substance at d/c from ED?: No Referrals: Shreyas West Jr, [Primary Care Provider] - 1-2 days Time of Disposition: 12:07
[2021-06-11] MEDS ORDERED: KETOROLAC 15 MG/ML 1 ML VIAL IVP STA (12:27)
[2021-06-11 12:44] VITALS: BP 106/58; PULSE 89; RESP 20; TEMP 100.2
== END 2021-06-11 12:44 | disposition home or self-care (01) ==
LOC: EC 10:15
DX: R07.89 Other chest pain (principal); F32.A Depression, unspecified; F12.90 Cannabis use, unspecified, uncomplicated; Z20.822 Contact with and (suspected) exposure to COVID-19; Z90.49 Acquired absence of other specified parts of digestive tract; Z87.891 Personal history of nicotine dependence
CPT/HCPCS: 99285; 96374; 96375 ×2; 36415; 93005; 85379; 80053; 83735; 84484; 85025; 85610; 85730; 87635; 71046; J2270; J1885; J1170

== ENCOUNTER 2021-07-07 05:28 | Inpatient (IN) | payer BC, OTHER ==
[2021-07-07] MEDS ORDERED: ONDANSETRON 4 MG/2 ML VIAL IVP PRN (06:04)
[2021-07-07] MEDS ORDERED: MORPHINE SULFATE 4 MG/ML SYRINGE IV STA (06:04)
[2021-07-07] MEDS ORDERED: NALOXONE 0.4 MG/ML 1 ML VIAL IV PRN (06:04)
[2021-07-07] MEDS ORDERED: SODIUM CHLORIDE 0.9% 1,000 ML IV STA (06:04)
[2021-07-07] MEDS ORDERED: ACETAMINOPHEN TAB 325 MG TAB PO PRN (06:04)
[2021-07-07] MEDS ORDERED: SODIUM CHLORIDE 0.9% 500 ML 500 ML IV STA (06:04)
--- NOTE | 2021-07-07 06:04 | ED ---
Back Pain HPI - General Chief Complaint: Back Pain/Injury Stated Complaint: Back Pain, Fell out of bed Time Seen by Provider: 07/07/21 05:36 Source: patient, RN notes reviewed, old records reviewed Mode of arrival: ambulatory Limitations: no limitations - History of Present Illness Initial Comments: This is a 25-year-old male DF for evaluation of back pain acute on chronic severe back pain which he believes is related to a slipped disc patient has no known significant trauma but does have a cancer history and believes it may be related to chemotherapy. Patient's pain is and persistent he got up from bed today and had severe pain in his lower back. Patient has seen back specialist Dr. Goodman killian as well as his primary care regarding this pain. Patient states she's having severe weakness numbness and pain, tingling and needles in both of his legs. All starting with his back pain MD Complaint: back pain, back injury -: week(s) Similar Symptoms Previously: Yes Place: home Radiation: none Severity: severe Severity scale (1-10): 9 Quality: stabbing, tingling Consistency: intermittent Improves With: none Worsens With: movement, walking Context: turning/twisting, bending Associated Symptoms: denies other symptoms - Related Data Home Medications Medication Instructions Recorded Confirmed Clindamycin 1% Lotion 1 applic TOPICAL DAILY 06/11/21 07/07/21 Doxycycline Hyclate 50 mg PO BID 06/11/21 07/07/21 metroNIDAZOLE 1% GEL [Metrogel 1%] 1 applic TOPICAL HS 06/11/21 07/07/21 Allergies Allergy/AdvReac Type Severity Reaction Status Date / Time No Known Allergies Allergy Verified 07/07/21 07:38 Review of Systems ROS Statement: Those systems with pertinent positive or pertinent negative responses have been documented in the HPI. ROS Other: All systems not noted in ROS Statement are negative. Past Medical History Past Medical History: Cancer Additional Past Medical History / Comment(s): Hodgkins Lymphoma stage 4, last chemo November 21 2020, pt follows up with Dr. Browning out of [facility]. Previous hx of kidney stones early in 2019. History of Any Multi-Drug Resistant Organisms: None Reported Past Surgical History: Appendectomy, Back Surgery Additional Past Surgical History / Comment(s): lithotripsy and stent right side, tooth insert, spinal tap x 3 august 21 Past Anesthesia/Blood Transfusion Reactions: No Reported Reaction Past Psychological History: Depression Smoking Status: Former smoker Past Alcohol Use History: None Reported Past Drug Use History: Marijuana - Past Family History Mother Additional Family Medical History / Comment(s): Heart murmur, Cyst on Ovary, Appendectomy Father Family Medical History: Hypertension General Exam General appearance: alert, in no apparent distress Head exam: Present: atraumatic, normocephalic, normal inspection Eye exam: Present: normal appearance, PERRL, EOMI. Absent: scleral icterus, conjunctival injection, periorbital swelling ENT exam: Present: normal exam, mucous membranes moist Neck exam: Present: normal inspection. Absent: tenderness, meningismus, lymphadenopathy Respiratory exam: Present: normal lung sounds bilaterally. Absent: respiratory distress, wheezes, rales, rhonchi, stridor Cardiovascular Exam: Present: regular rate, normal rhythm, normal heart sounds. Absent: systolic murmur, diastolic murmur, rubs, gallop, clicks GI/Abdominal exam: Present: soft, normal bowel sounds. Absent: distended, tenderness, guarding, rebound, rigid Extremities exam: Present: normal inspection, full ROM, normal capillary refill. Absent: tenderness, pedal edema, joint swelling, calf tenderness Back exam: Present: tenderness (Lower lumbar), muscle spasm, paraspinal tend erness, vertebral tenderness Neurological exam: Present: alert, oriented X3, CN II-XII intact Psychiatric exam: Present: normal affect, normal mood Skin exam: Present: warm, dry, intact, normal color. Absent: rash Course Vital Signs 07/07/21 07/07/21 07/07/21 05:39 07:11 12:00 Temperature 98 F Pulse Rate 76 58 L 86 Respiratory 18 18 16 Rate Blood Pressure 122/76 136/77 128/78 O2 Sat by Pulse 98 98 99 Oximetry - Reevaluation(s) Reevaluation #1: 07/07/21 06:23 Medical record is reviewed Reevaluation #2: 07/07/21 06:23 Patient has good Pain control currently Patient informed results and questions have been answered Medical Decision Making - Medical Decision Making 25 male to the emergency for today. Patient Dese for evaluation regarding back pain acute on chronic back pain severe. Numbness pain tingling down both legs. Patient's pain is currently well controlled we will admit for back surgery consult - Lab Data Result diagrams: 07/07/21 06:32 07/07/21 06:32 Disposition Clinical Impression: Sciatica, Strain of lumbar region, Mechanical back pain, Lumbar radiculopathy Disposition: ADMITTED IP TO THIS HOSP Condition: Fair Is patient prescribed a controlled substance at d/c from ED?: No
[2021-07-07] MEDS ORDERED: KETOROLAC 15 MG/ML 1 ML VIAL IVP STA (06:06)
[2021-07-07 07:27] LABS: Basophils # (A) 0.1 k/uL (0-0.2); Basophils % (A) 1 %; Eosinophils # (A) 0.2 k/uL (0-0.7); Eosinophils % (A) 3 %; HCT 42.8 % (39.0-53.0); HGB 14.3 gm/dL (13.0-17.5); Lymphocytes # (A) 1.6 k/uL (1.0-4.8); Lymphocytes % (A) 34 %; MCH 31.9 pg (25.0-35.0); MCHC 33.4 g/dL (31.0-37.0); MCV 95.7 fL (80.0-100.0); Mean Platelet Volume 6.7; Monocytes # (A) 0.4 k/uL (0-1.0); Monocytes % (A) 9 %; Neutrophils # (A) 2.4 k/uL (1.3-7.7); Neutrophils % (A) 51 %; Platelet Count 217 k/uL (150-450); RBC 4.47 m/uL (4.30-5.90); RDW 13.4 % (11.5-15.5); WBC 4.7 k/uL (3.8-10.6)
[2021-07-07 07:38] LABS: ALT 23 U/L (4-49); AST 20 U/L (17-59); African American GFR (CKD) >90 (>60 ml/min/1.73 sqM); Albumin 4.2 g/dL (3.5-5.0); Alkaline Phosphatase 65 U/L (38-126); Anion Gap 6 mmol/L; Blood Urea Nitrogen 11 mg/dL (9-20); Calcium 9.2 mg/dL (8.4-10.2); Carbon Dioxide 25 mmol/L (22-30); Chloride 106 mmol/L (98-107); Glucose 103 mg/dL (74-99); Non-African American GFR(CKD) >90 (>60 ml/min/1.73 sqM); Potassium 4.1 mmol/L (3.5-5.1); Sodium 137 mmol/L (137-145); Total Bilirubin 0.4 mg/dL (0.2-1.3); Total Protein 7.3 g/dL (6.3-8.2)
--- NOTE | 2021-07-07 08:23 | P.CNOR ---
History of Present Illness - [facility] Consult date: 07/07/21 Consult reason: low back pain History of present illness: 25-year-old male presents emergency department with complaints this morning of weakness in his legs numbness and tingling as well as a bout of bowel incont inence. The patient is a history of non-Hodgkin's lymphoma for which she was treated at the [facility]. He states it was stage IV but he was in remission. He has been seen in our clinic previously with workup with MRI with and without contrast of the cervical thoracic and lumbar spine in December 2020. These were all normal. The patient complains today of lower extremity weakness numbness tingling which was transient and now is better. He states most tingling in his general region. He states about incontinence this morning and this prompted him to come to the emergency department. He denies any other symptoms denies any fevers chills shortness of breath or chest pain at this time Review of Systems 14 points review of systems completed and as stated in HPI, all other systems reviewed are negative. Past Medical History Past Medical History: Cancer Additional Past Medical History / Comment(s): Hodgkins Lymphoma stage 4, last chemo November 21 2020, pt follows up with Dr. Browning out of [facility]. Previous hx of kidney stones early in 2019. History of Any Multi-Drug Resistant Organisms: None Reported Past Surgical History: Appendectomy, Back Surgery Additional Past Surgical History / Comment(s): lithotripsy and stent right side, tooth insert, spinal tap x 3 january 04 Past Anesthesia/Blood Transfusion Reactions: No Reported Reaction Past Psychological History: Depression Smoking Status: Former smoker Past Alcohol Use History: None Reported Past Drug Use History: Marijuana - Past Family History Mother Additional Family Medical History / Comment(s): Heart murmur, Cyst on Ovary, Appendectomy Father Family Medical History: Hypertension Medications and Allergies Home Medications Medication Instructions Recorded Confirmed Type Clindamycin 1% Lotion 1 applic TOPICAL DAILY 06/11/21 07/07/21 History Doxycycline Hyclate 50 mg PO BID 06/11/21 07/07/21 History metroNIDAZOLE 1% GEL [Metrogel 1%] 1 applic TOPICAL HS 06/11/21 07/07/21 History Allergies Allergy/AdvReac Type Severity Reaction Status Date / Time No Known Allergies Allergy Verified 07/07/21 07:38 Physical Examination Osteopathic Statement: *. No significant issues noted on an osteopathic structural exam other than those noted in the History and Physical/Consult. PHYSICAL EXAMINATION: Vitals: Stable to this time General: Awake, alert, appropriate for age, in no acute distress. HEENT: No unusual neck masses around region of lateral neck triangle, thyroid, supraclavicular groove. Extremities: Skin warm and dry without no acute lesions, coloration, temperature, skin intact, no tenderness or erythema. Integument: Hairy patches: Absent Dorsal skin dimples: Absent Cafe au lait spots: Absent Palpation: Please see Pain drawing on Intake sheet for further detail. (Tenderness = T, Nontender = NT, Swelling = S, Ecchymosis = E) Findings on Midline and paraspinal palpation and percussion: Cervical: NT Thoracic: NT Lumbar: NT Sacral: NT Special findings: None POSTURAL and MUSCULO-SKELETAL EVALUATION: Neck ROM: Unrestricted in six directions Lumbar ROM: Unrestricted in six directions Shoulder ROM: Symmetric in abduction, ER/IR Hip ROM: Symmetric in abduction, adduction, ER/IR Knee ROM: Symmetric and intact in Flexion / extension Hands: Normal appearing structure L and R Feet: Normal appearing structure L and R VASCULAR STATUS : Wrist Pulses: 2/4 bilateral radial and ulnar Pedal Pulses: 2/4 bilateral DP and PT Color: Normal Edema: None NEUROLOGIC EXAMINATION: Mental Status: Awake and alert, fully oriented, with normal attention, concentration and memory, and fluent, appropriate speech. Cranial Nerves: I: Olfactory not tested. II: Visual acuity normal, no visual field deficit noted with confrontation. III,IV: Normal pupillary reflexes & intact extraocular movements without nystagmus. V,: Intact symmetrical facial sensation. VII: Intact symmetrical facial motor movement VIII: Hearing intact. IX,X: Intact gag, swallow, & normal voice. XI: Sternocleidomastoid, trapezius function intact. XII: Tongue midline with normal movements. Special Tests: L'hermitte's Sign: Absent Spurling'Sign: Absent Bilateral Cubital percussion test: Absent Bilateral Jenny-Tinel sign - Carpal region: Absent Bilateral Straight Leg Raising: Absent Bilateral Motor Exam (0-5/5, N/T) STRENGTH UPPER EXTREMITY Shoulder Abd (Not part of JEROMY Motor score): RIGHT 5 LEFT 5 Elbow Flexors: RIGHT 5 LEFT 5 Elbow Extensor: RIGHT 5 LEFT 5 Wrrist Dorsiflexors: RIGHT 5 LEFT 5 Finger Abductor: RIGHT 5 LEFT 5 Rides Attendant: RIGHT 5 LEFT 5 LOWER EXTREMITY Hip Flexor (Not part of JEROMY Motor Score): RIGHT 5 LEFT 5 Knee Flexor: RIGHT 5 LEFT 5 Knee Extensor: RIGHT 5 LEFT 5 Ankle Dorsiflexion: RIGHT 5 LEFT 5 Ankle Plantarflexion: RIGHT 5 LEFT 5 EHL: RIGHT 5 LEFT 5 FHL: RIGHT 5 LEFT 5 JEROMY Motor Score: RIGHT 50/50 LEFT 50/50 REFLEXES Biecp: RIGHT 2 LEFT 2 Tricep: RIGHT 2 LEFT 2 Brachioradialis: RIGHT 2 LEFT 2 Patellar: RIGHT 2 LEFT 2 Achilles: RIGHT 2 LEFT 2 Pathological Reflexes Otero's: RIGHT Absent LEFT Absent Babinski: RIGHT Absent LEFT Absent Clonus: RIGHT None LEFT None SENSORY Joint Position: Intact bilaterally Vibration Intact bilaterally Pain and LT sense Intact C5-T1 and L2-S1 Dermatomal deficit None Chaperoned rectal exam demonstrates good tone and good perianal sensation Gait and Functional Evaluation: Ambulatory aids: None Hand and finger dexterity intact bilaterally. Disdiadochokinesis examination negative bilaterally. Results MRI of the thoracic and lumbar spine pending - Labs Labs: Abnormal Lab Results - Last 24 Hours (Table) 07/07/21 Range/Units 06:32 Creatinine 0.63 L (0.66-1.25) mg/dL Glucose 103 H (74-99) mg/dL H & H 07/07/21 Range/Units 06:32 Hgb 14.3 (13.0-17.5) gm/dL Hct 42.8 (39.0-53.0) % Result Diagrams: 07/07/21 06:32 07/07/21 06:32 Assessment and Plan Assessment: 25-year-old male with low back pain Possible bowel incontinence, doubt neurologic etiology Plan: -Measure PVR -Decadron 4 every 6 -Await MRI thoracic and lumbar spine for further recommendations
[2021-07-07 08:26] LABS: Appearance,Urine Clear (Clear); Bilirubin,Urine Negative (Negative); Blood,Urine Negative (Negative); Color,Urine Light Yellow; Glucose,Urine (UA) Negative (Negative); Ketones,Urine Negative (Negative); Leukocyte Esterase,Urine Negative (Negative); Nitrite,Urine Negative (Negative); PH, Urine 7.5 (5.0-8.0); Protein,Urine Negative (Negative); Specific Gravity,Urine 1.016 (1.001-1.035); Urobilinogen,Urine <2.0 mg/dL (<2.0)
[2021-07-07] MEDS: MORPHINE SULFATE 4 MG/ML SYRINGE IV PRN ×4 (10:10→23:43)
--- NOTE | 2021-07-07 12:55 | P.PN ---
Progress Note - Text Progress Note Date: 07/07/21 MRI of the thoracic and lumbar spine is reviewed there are no large compressive lesions there is no stenotic lesions noted no fracture dislocation no signs of myelopathy or myelomalacia. No emergent surgical considerations at this time. We will consult neurology
--- NOTE | 2021-07-07 13:59 | P.HPIM ---
History of Present Illness H&P Date: 07/07/21 Chief Complaint: Intractable low back pain This is a 25-year-old male with a history of Good my low back pain that was been going on six months to spinal anesthetic. He had reported that one week ago he began having leg numbness and tingling describe his pinprick sensations in his toes and feet. He also states his legs have given out several occasions. He reports that he completed chemotherapy [facility] for Stage for Hodgkin's lymphoma. I had referred him to neurology, but his symptoms became more severe and he presented the emergency room After a bout of bowel incontinence. Currently he is resting comfortably in the emergency room. He denies any chest pains compressors, shortness of breath. Review of Systems All systems: negative Past Medical History Past Medical History: Cancer Additional Past Medical History / Comment(s): Hodgkins Lymphoma stage 4, last chemo November 21 2020, pt follows up with Dr. Browning out of [facility]. Previous hx of kidney stones early in 2019. History of Any Multi-Drug Resistant Organisms: None Reported Past Surgical History: Appendectomy, Back Surgery Additional Past Surgical History / Comment(s): lithotripsy and stent right side, tooth insert, spinal tap x 3 january 04 Past Anesthesia/Blood Transfusion Reactions: No Reported Reaction Past Psychological History: Depression Smoking Status: Former smoker Past Alcohol Use History: None Reported Past Drug Use History: Marijuana - Past Family History Mother Additional Family Medical History / Comment(s): Heart murmur, Cyst on Ovary, Appendectomy Father Family Medical History: Hypertension Medications and Allergies Home Medications Medication Instructions Recorded Confirmed Type Clindamycin 1% Lotion 1 applic TOPICAL DAILY 06/11/21 07/07/21 History Doxycycline Hyclate 50 mg PO BID 06/11/21 07/07/21 History metroNIDAZOLE 1% GEL [Metrogel 1%] 1 applic TOPICAL HS 06/11/21 07/07/21 History Allergies Allergy/AdvReac Type Severity Reaction Status Date / Time No Known Allergies Allergy Verified 07/07/21 07:38 Physical Exam Vitals: Vital Signs Temp Pulse Resp BP Pulse Ox 07/07/21 07:11 58 L 18 136/77 98 07/07/21 05:39 98 F 76 18 122/76 98 Intake and Output 07/06/21 07/07/21 07/07/21 22:59 06:59 14:59 Other: Weight 113.398 kg General: The patient is awake and alert, in minimal distress, and does not appear acutely ill. HEENT: PERRLA, EOMI, normal oropharynx Neck: The neck is supple, there is no thyromegaly, lymphadenopathy, tenderness or JVD. Cardiovascular: S1S2 is normal, There is a regular rate and ? irregularrhythm. No murmur, rub or gallop is appreciated. Respiratory: Lungs are clear to auscultationb bilaterally, respirations are non- labored, breath sounds are equal. Gastrointestinal: Soft, non-distended, without masses or organomegaly noted. There is no rebound or guarding present. Bowel sounds are unremarkable. Musculoskeletal: Normal ROM, no tenderness, There is no pedal edema. There is no calf tenderness or swelling. No cords were appreciated. Neurological: CN II-XII intact, there are no obvious motor or sensory deficits. Coordination appears grossly intact. Speech is normal.he is awake alert and oriented 3 today.Dejuan extremity range of motion is slow but normal. Strength is 5/5 at the upper thighs and leg. Dorsiflexion and plantarflexion. Skin: Skin is warm and dry and no rashes, Results CBC & Chem 7: 07/07/21 06:32 07/07/21 06:32 Labs: Abnormal Lab Results - Last 24 Hours (Table) 07/07/21 Range/Units 06:32 Creatinine 0.63 L (0.66-1.25) mg/dL Glucose 103 H (74-99) mg/dL Thrombosis Risk Factor Assmnt - DVT/VTE Prophylaxis DVT/VTE Prophylaxis: Low risk, early ambulation encouraged Assessment and Plan (1) History of chemotherapy Current Visit: Yes Status: Acute Code(s): Z92.21 - PERSONAL HISTORY OF ANTINEOPLASTIC CHEMOTHERAPY SNOMED Code(s): 301821108177650 (2) Lumbar radiculopathy Current Visit: Yes Status: Acute Code(s): M54.16 - RADICULOPATHY, LUMBAR REGION SNOMED Code(s): 739612768 (3) Mechanical back pain Current Visit: Yes Status: Acute Code(s): M54.9 - DORSALGIA, UNSPECIFIED SNOMED Code(s): 345146702 (4) Hodgkins lymphoma Current Visit: No Status: Acute Code(s): C81.90 - HODGKIN LYMPHOMA, UNSPECIFIED, UNSPECIFIED SITE SNOMED Code(s): 252649945 Plan: We will consult orthopedic back surgery regarding this.Consult neurology. Consult oncology if needed.Repeat labs in a.m.He will be reevaluated in the next 24 hours
[2021-07-07] MEDS: DEXAMETHASONE SOD PHOSPHATE 4 MG/ML 1 ML VIAL IV SCH ×3 (15:44→23:44)
[2021-07-07] MEDS: SODIUM CHLORIDE 0.9% 1,000 ML IV SCH ×3 (16:06→19:48)
[2021-07-07] MEDS: GABAPENTIN 100 MG CAP PO SCH ×2 (16:24→19:46)
--- NOTE | 2021-07-07 17:25 | MR ---
EXAMINATION TYPE: MR tspine/lspine wo con DATE OF EXAM: 07/07/2021 COMPARISON: 01/07/2021 HISTORY: Prior CTs on synapse, genital numbness CONTRAST: Performed utilizing 0 mL intravenous Gadavist gadolinium contrast. TECHNIQUE: Multiplanar, multiecho imaging on a 3.0 Rose magnet is performed through the thoracic and lumbar spine. Spinal cord maintains normal signal through its visualized course. Vertebral body alignment is normal. Vertebral body heights are preserved. Disc heights are preserved. No disc herniations are identified. Disc hydration levels are preserved. No spinal canal stenosis is evident. Cord terminates at the L1 level. IMPRESSIONS: 1. No suspicious changes within the thoracic or lumbar spine MRI to comfort genital numbness.
[2021-07-08] MEDS: MORPHINE SULFATE 4 MG/ML SYRINGE IV PRN ×2 (05:14→10:00)
[2021-07-08] MEDS: DEXAMETHASONE SOD PHOSPHATE 4 MG/ML 1 ML VIAL IV SCH ×4 (05:14→23:24)
[2021-07-08] MEDS: SODIUM CHLORIDE 0.9% 1,000 ML IV SCH ×3 (05:15→19:41)
[2021-07-08] MEDS: GABAPENTIN 100 MG CAP PO SCH ×3 (08:16→19:39)
--- NOTE | 2021-07-08 09:14 | P.CNNES ---
History of Present Illness Consult date: 07/07/21 Requesting physician: Juan Luis Barber Reason for Consult: Lower extremity weakness History of Present Illness: Patient is a 25-year-old male came to the hospital today at 5:28 AM for evaluation of numbness of the lower extremities. Patient states that he went to sleep last night at around 7-8 PM, nothing out of ordinary. He got up at around 2:30 AM to get ready to go to work, and he fell and lost bowel control. He did not lose control of the urine. He noticed numbness of his feet all the way up to the upper third of the calves bilaterally. He also had some numbness of the genitals, which now seems to have resolved, however the numbness of his feet and lower legs are persisting. Patient states that he came to the hospital one week ago, 06/30/2021, when he had this similar symptoms. He got out of the bed, and he almost fell, as he caught himself, but did not lose control of his bowels. He had transient numbness of the feet bilaterally, that lasted for 2 hours and then went away. It appears he was given prescription of prednisone 60 mg daily #30 tablets and recommended to follow up with his orthopedic surgeon. He was fine regarding paresthesias until last night as mentioned. It also appears patient received [employer] Mistry virus vaccine on 06/10/2021. Patient states that he does have constant low back pain, which seems to be getting worse. Patient was diagnosed with Hodgkin's lymphoma stage IV in April 2020. He underwent chemotherapy, which is completed on 12/12/2020. He is in remission since then. Patient states about 6 months ago he underwent lumbar puncture at [facility]. After that he started having low back pain. It used to occur every other week, then became a weekly basis, then every other day, and now in the last 1-1-1/2 months, it is occurring almost on a daily basis. The low back pain may last for about 6-8 hours a day. Patient states that for the past 1 week he has noticed some urgency of bowel control. When the back pain hurts, he has to tse to the bathroom, can hold for some time but not too long. He denies any problem with urinary urgency frequency or incontinence. Vital signs arrival blood pressure 122/76, pulse of 76. 98.0. Blood test shows normal CBC, CMP, troponin, UA. Mistry virus PCR negative. EKG shows sinus rhythm, ST elevation, probably early repolarization, borderline ECG. He smoked 1 pack per day for 7-8 years, quit 1-1/2 years ago. He drinks alcohol very rarely. He does smoke weed every day. Denies any other drugs. Denies diabetes. Review of Systems As mentioned above in detail. All other 14 point of uses reviewed and unremarkable. Denies any fever or chills. No chest pain or abdominal pain. No nausea vomiting diarrhea. He does have soft stools, but denies diarrhea. Patient says that his balance is "hit or miss". It is worse when he wakes up in the morning. He continues to have numbness of his feet up to upper third of the calves bilaterally. Denies any numbness of the hands or any weakness. No significant neck pain. Past Medical History Past Medical History: Cancer Additional Past Medical History / Comment(s): Hodgkins Lymphoma stage 4, last chemo November 21 2020, pt follows up with Dr. Browning out of [facility]. Previous hx of kidney stones early in 2019. History of Any Multi-Drug Resistant Organisms: None Reported Past Surgical History: Appendectomy, Back Surgery Additional Past Surgical History / Comment(s): lithotripsy and stent right side, tooth insert, spinal tap x 3 january 04 Past Anesthesia/Blood Transfusion Reactions: No Reported Reaction Past Psychological History: Depression Smoking Status: Former smoker Past Alcohol Use History: None Reported Past Drug Use History: Marijuana - Past Family History Mother Additional Family Medical History / Comment(s): Heart murmur, Cyst on Ovary, Appendectomy Father Family Medical History: Hypertension Medications and Allergies Home Medications Medication Instructions Recorded Confirmed Type Clindamycin 1% Lotion 1 applic TOPICAL DAILY 06/11/21 07/07/21 History Doxycycline Hyclate 50 mg PO BID 06/11/21 07/07/21 History metroNIDAZOLE 1% GEL [Metrogel 1%] 1 applic TOPICAL HS 06/11/21 07/07/21 History Allergies Allergy/AdvReac Type Severity Reaction Status Date / Time No Known Allergies Allergy Verified 07/07/21 07:38 Physical Examination - Vital Signs Vital Signs: Vital Signs Temp Pulse Pulse Resp BP BP Pulse Ox 07/07/21 16:28 98.0 F 62 16 124/72 98 07/07/21 12:00 86 16 128/78 99 07/07/21 07:11 58 L 18 136/77 98 07/07/21 05:39 98 F 76 18 122/76 98 Intake and Output 07/07/21 07/07/21 07/07/21 06:59 14:59 22:59 Other: Weight 113.398 kg 113.398 kg Patient is a young male, in no acute distress. He is laying comfortably in the bed. Patient is alert awake oriented to time place and person. Speech and language functions are normal. Attention, concentration and fund of knowledge is adequate. No aphasia or dysarthria. On cranial nerve examination, pupils are equal round and reacting to light, visual arora are full on confrontation, extraocular muscles are intact with no nystagmus. Face is symmetric, tongue protrudes to the midline. Palatal elevation and sensation normal, hearing and shoulder shrug normal, facial sensation normal. Shoulder shrug normal. On muscle strength testing, there is no pronator drift and the strength is nor mal in arms and legs distally and proximally. Deep tendon reflexes are absent all over in the arms and legs. Plantars are flat bilaterally. No clonus. Sensory to touch is decreased in the feet up to the upper third of the calves bilaterally. Cerebellar function showed no ataxia for [id number] testing. Patient has slight ataxia for [id number] testing bilaterally. No dysdiadochokinesia. Tone and bulk of muscles normal. Gait deferred. On general examination, there is no carotid bruit or murmur, S1-S2 audible. Abdomen is soft nontender. Bowel sounds present. No obvious organomegaly. Chest is clear. Peripheral pulses are present. No edema. Results - Laboratory Findings CBC and BMP: 07/07/21 06:32 07/07/21 06:32 Abnormal Lab Findings: Abnormal Labs 07/07/21 06:32 Creatinine 0.63 L Glucose 103 H Assessment and Plan Assessment: * New onset numbness and tingling of bilateral feet up to the upper third of the calves bilaterally. Patient also had lost control of bowels initially. Denies any symptoms in the upper extremities. MRI of the thoracic and lumbar spine showed no significant spinal stenosis, or abnormal signal within the spinal cord/conus or cauda. Patient's reflexes are absent, suggestive of peripheral nerve process. Patient received Covid vaccination from [employer] on 06/10/2021, therefore post vaccination neuritis is a possibility. Potential concern for Guillain-Rolon syndrome. * History of Hodgkin's lymphoma, stage IV status post chemotherapy, currently in remission for last 6 months. * Marijuana use Plan: * MRI of the thoracic and lumbar spine without contrast showed no suspicious changes within the thoracic or lumbar spine MRI. I personally reviewed MRI, and agree with the findings. * We will perform detailed blood tests as per orders. * We will observe clinically. If the symptoms progress, patient will need lumbar puncture to evaluate for CSF proteins. * Patient may need EMG and nerve conductions of bilateral lower extremities as an outpatient. * We will follow clinically. Thank you for the consult.
[2021-07-08 11:13] LABS: Basophils # (A) 0.01 X 10*3/uL (0.00-0.10); Basophils % (A) 0.1 %; Eosinophils # (A) 0 X 10*3/uL (0.04-0.35); Eosinophils % (A) 0 %; HCT 46.4 % (39.6-50.0); HGB 15.5 g/dL (13.0-17.0); Immature Grans, Automated 0.7 %; Lymphocytes # (A) 1.05 X 10*3/uL (0.90-5.00); Lymphocytes % (A) 8.8 %; MCH 31.4 pg (27.0-32.0); MCHC 33.4 g/dL (32.0-37.0); MCV 93.9 fL (80.0-97.0); Mean Platelet Volume 9.2 fL (9.5-12.2); Monocytes # (A) 0.17 X 10*3/uL (0.20-1.00); Monocytes % (A) 1.4 %; NRBC Per 100 WBC 0 /100 WBCS (0.0-0.0); Neutrophils # (A) 10.61 X 10*3/uL (1.80-7.70); Platelet Count 278 X 10*3/uL (140-440); RBC 4.94 X 10*6/uL (4.40-5.60); RDW 13.3 % (11.5-14.5); WBC 11.92 X 10*3/uL (4.50-10.00)
[2021-07-08 14:00] LABS: African American GFR (CKD) 149.6 (60.0-200.0); BUN/Creat Ratio 12.53 Ratio (12.00-20.00); Blood Urea Nitrogen 9.1 mg/dL (9.0-27.0); Calcium 9.8 mg/dL (8.7-10.3); Carbon Dioxide 19.4 mmol/L (20.0-27.5); Magnesium 2.2 mg/dL (1.5-2.4); Non-African American GFR(CKD) 129.1 (60.0-200.0); Potassium 4.5 mmol/L (3.5-5.5)
[2021-07-08] MEDS: HYDROcodone/APAP 5-325MG 1 EACH TAB PO PRN (14:11)
[2021-07-08 14:43] LABS: Protein, Total 7.9 g/dL (6.2-8.2)
[2021-07-08 15:04] LABS: Folate, Serum 13.9 ng/mL (4.40-31.00)
[2021-07-08] MEDS: HYDROmorphone 1 MG/ML 1 ML SYRINGE IVP PRN ×3 (15:18→23:24)
[2021-07-08] MEDS: LIDOCAINE 5% PATCH TOPICAL SCH (17:28)
[2021-07-08] MEDS: PANTOPRAZOLE 40 MG TABLET PO SCH (19:39)
[2021-07-09] MEDS: HYDROmorphone 1 MG/ML 1 ML SYRINGE IVP PRN ×4 (03:38→19:37)
[2021-07-09] MEDS: SODIUM CHLORIDE 0.9% 1,000 ML IV SCH ×3 (05:22→19:37)
[2021-07-09] MEDS: DEXAMETHASONE SOD PHOSPHATE 4 MG/ML 1 ML VIAL IV SCH ×4 (05:22→22:08)
[2021-07-09] MEDS: GABAPENTIN 100 MG CAP PO SCH ×2 (09:15→15:06)
[2021-07-09] MEDS: PANTOPRAZOLE 40 MG TABLET PO SCH (09:15)
[2021-07-09] MEDS: LIDOCAINE 5% PATCH TOPICAL SCH (09:15)
--- NOTE | 2021-07-09 09:16 | P.PN ---
Subjective Progress Note Date: 07/08/21 Patient was seen for a follow-up. Patient is sitting in the bed, appears comfortable, having his dinner. Continues to have numbness of the lower legs from toes up to upper third of the calves bilaterally. No new symptoms. Denies any symptoms in the hands or arms or neck. Has not had any bowel movement, or incontinence. Has no urinary symptoms at all. No numbness of the genital region. Objective - Vital Signs Vital signs: Vital Signs Temp 97.7 F 07/09/21 07:00 Pulse 58 L 07/09/21 07:00 Resp 18 07/09/21 07:00 BP 102/62 07/09/21 07:00 Pulse Ox 100 07/09/21 07:00 Intake & Output 07/08/21 07/09/21 07/09/21 18:59 06:59 18:59 Intake Total 358 Balance 358 Intake: Oral 358 Other: # Voids 4 3 - Exam Deferred. - Labs CBC & Chem 7: 07/08/21 08:02 07/08/21 08:02 Labs: Abnormal Lab Results - Last 24 Hours (Table) 07/08/21 07/08/21 Range/Units 08:02 08:02 WBC 11.92 H (4.50-10.00) X 10*3/uL MPV 9.2 L (9.5-12.2) fL Immature Gran # 0.08 H (0.00-0.04) X 10*3/uL Neutrophils # 10.61 H (1.80-7.70) X 10*3/uL Monocytes # 0.17 L (0.20-1.00) X 10*3/uL Eosinophils # 0 L (0.04-0.35) X 10*3/uL Carbon Dioxide 19.4 L (20.0-27.5) mmol/L Glucose 117 H (70-110) mg/dL Assessment and Plan Assessment: * New onset numbness and tingling of bilateral feet up to the upper third of the calves bilaterally. Patient also had lost control of bowels initially. Denies any symptoms in the upper extremities. MRI of the thoracic and lumbar spine showed no significant spinal stenosis, or abnormal signal within the spinal cord/conus or cauda. Patient's reflexes are absent, suggestive of pe ripheral nerve process. Patient received Covid vaccination from [employer] on 06/10/2021, therefore post vaccination neuritis is a possibility. Potential concern for Guillain-Rolon syndrome. Patient's symptoms have been stable in the last 24 hours. * History of Hodgkin's lymphoma, stage IV status post chemotherapy, currently in remission for last 6 months. * Marijuana use Plan: * MRI of the thoracic and lumbar spine without contrast showed no suspicious ch anges within the thoracic or lumbar spine MRI. I personally reviewed MRI, and agree with the findings. * Patient's blood test shows B12 510, folate 13.9, hemoglobin A1c 5.3, quantitative immunoglobulins are normal. Sjogren's antibodies negative. * As his symptoms are stable, hold off on lumbar puncture. If patient's symptoms remains stable overnight, can be discharged in the morning and follow up with neurologist for EMG and nerve conductions of bilateral lower limbs. Only if symptoms progresses, or if EMG is abnormal, then would warrant lumbar puncture.
--- NOTE | 2021-07-09 10:31 | P.PN ---
Progress Note - Text Progress Note Date: 07/09/21 Subjective: Patient seen at bedside this morning resting lying semirecumbent bed. Mother was at bedside throughout encounter. Patient says he is feeling a little better today. Patient states he is still having some numbness/tingling at the front of his thighs and knees. Patient states he is supposed to go to surgery for his pilonidal cyst at some point. Patient denies bowel incontinence. Patient states she is still having numbness/tingling in his genital region although he does have bladder control. Patient denies chest pain, fever, shortness of breath, nausea, vomiting, change in vision, loss of bowel/bladder control. Objective: Inspection: Negative for any open fractures, erythema, ecchymosis, nodules. Sensation: Sensation is equal, symmetric, bilateral intact throughout the upper and lower extremities Palpation: NTTP throughout exam Range of motion: Patient has limited range of motion and hip flexion bilaterally due to pain and upper legs. FROM in knee flexion/extension and ankle dorsi/plantar flexion. Full range of motion bilateral upper extremities throughout Motor: 3+/5 resisted hip flexion bilaterally; 4+/5 in all other major motor groups Neurovascular status: Cap refill < 3 second in digits of UE. radial pulses 2+, intact bilaterally Special tests: Negative Homans bilaterally; negative Estefany's bilaterally; negative clonus Assessment: Low back pain Plan: 1. Low back pain - MRI of thoracic/lumbar spine negative for any stenosis/cord compression. We do not recommend any urgent/emergent orthopedic surgical intervention at this time. We do recommend patient follow-up in outpatient setting as needed. Patient may follow-up with pain management for steroid injection in the future. At this time patient is orthopedically stable for discharge. Orthopedics is signing off at this time. Please do not hesitate to contact us for any further questions
[2021-07-09 12:13] LABS: Zinc, Serum 72 ug/dL (60-130)
[2021-07-09] MEDS: HYDROcodone/APAP 5-325MG 1 EACH TAB PO PRN ×2 (12:31→17:58)
[2021-07-09 12:38] LABS: HCT 45.2 % (39.0-53.0); MCH 31.9 pg (25.0-35.0); MCHC 33.2 g/dL (31.0-37.0); MCV 96.2 fL (80.0-100.0); Mean Platelet Volume 6.9; Platelet Count 274 k/uL (150-450); RDW 13.5 % (11.5-15.5); WBC 18.9 k/uL (3.8-10.6)
--- NOTE | 2021-07-09 13:33 | P.DS ---
Providers Date of admission: 07/07/21 06:04 Expected date of discharge: 07/09/21 Attending physician: Shreyas West Consults: 07/07/21 06:06 Consult Physician Routine Consulting Provider: Juan Luis Barber Consult Reason/Comments: known Do you want consulting provider notified?: Yes 07/07/21 12:55 Consult Physician Routine Consulting Provider: Tahir Ibrahim Consult Reason/Comments: LE weakness Do you want consulting provider notified?: Yes 07/08/21 13:53 Consult Physician Routine Consulting Provider: Forrest Orantes Consult Reason/Comments: pyelnoid cyst with abscess, coccyx Do you want consulting provider notified?: Yes [facility] Course: Final Diagnoses: New onset numbness and tingling of bilateral lower extremities with loss of bowel control initially. Possible post Covid- vaccination neuritis, patient had received [employer] Covid vaccination on 06/10/2021. 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 Neuro. workup completed including MRI and lumbar spine reviewed per neurology reporting no suspicious changes within the thoracic or lumbar spine MRI;no significant spinal stenosis, or abnormal signal within the spinal cord/conus or cauda. Please refer to neurology consult/PNs. Lumbar radiculopathy Mechanical back pain History of Hodgkin's lymphoma, stage IV status post chemotherapy, currently in remission. Marijuana use Hospital course:This is a 25-year-old male with a history of Good my low back pain that was been going on six months to spinal anesthetic. He had reported that one week ago he began having leg numbness and tingling describe his pinprick sensations in his toes and feet. He also states his legs have given out several occasions. He reports that he completed chemotherapy [facility] for Stage for Hodgkin's lymphoma. I had referred him to neurology, but his symptoms became more severe and he presented the emergency room After a bout of bowel incontinence. Currently he is resting comfortably in the emergency room. He denies any chest pains compressors, shortness of breath. Evaluated by both neurology and orthopedic surgery with neuro. workup completed. Denies chest pain, palpitations, shortness of breath. Denies lightheadedness, dizziness or focal deficits. Denies abdominal pain. Reports improvement of chronic lower back burning sensation with lidocaine patch. Numbness of bilateral lower extremities continues, reports tolerating slow ambulation with walker. OT reports very slow steady gait. Maintained on pain management, IV steroids and IV fluid hydration .Please refer to EHR for specific details. Patient has been cleared by both neurology and orthopedic surgery. Patient will be discharged home today in a stable condition with guarded prognosis pending Dr. Orantes's evaluation of coccyx pilonidal cyst, pain management/steroids as per orthopedic surgery. Case management to arrange for home care/outpatient PT/OT. The impression and plan of care has been dictated as directed. : I performed a history and examination of this patient, discussed the same with the dictator. I agree with the dictator's note ,documented as a scribe. Any a dditional findings or plans will be noted. Patient Condition at Discharge: Stable Plan - Discharge Summary New Discharge Prescriptions: New Lidocaine 5% Patch [Lidoderm 5% Patch] 1 patch TOPICAL DAILY #5 patch Pantoprazole [Protonix] 40 mg PO AC-BRKFST #30 tab Gabapentin [Neurontin] 200 mg PO TID #18 cap Continue metroNIDAZOLE 1% GEL [Metrogel 1%] 1 applic TOPICAL HS Doxycycline Hyclate 50 mg PO BID Clindamycin 1% Lotion 1 applic TOPICAL DAILY Discharge Medication List Clindamycin 1% Lotion 1 applic TOPICAL DAILY 06/11/21 [History] Doxycycline Hyclate 50 mg PO BID 06/11/21 [History] metroNIDAZOLE 1% GEL [Metrogel 1%] 1 applic TOPICAL HS 06/11/21 [History] Gabapentin [Neurontin] 200 mg PO TID #18 cap 07/09/21 [Rx] Lidocaine 5% Patch [Lidoderm 5% Patch] 1 patch TOPICAL DAILY #5 patch 07/09/21 [Rx] Pantoprazole [Protonix] 40 mg PO AC-BRKFST #30 tab 07/09/21 [Rx] Follow up Appointment(s)/Referral(s): Shreyas West Jr, DO [Primary Care Provider] - 3 Days Macho Almaraz MD [STAFF PHYSICIAN] - As Needed Loi Vogt MD [Medical Doctor] - 1 Week Discharge Disposition: HOME WITH HOME HEALTH SERVICES
--- NOTE | 2021-07-09 15:06 | P.PN ---
Subjective Progress Note Date: 07/08/21 This is a 25-year-old male with a history of Good my low back pain that was been going on six months to spinal anesthetic. He had reported that one week ago he began having leg numbness and tingling describe his pinprick sensations in his toes and feet. He also states his legs have given out several occasions. He reports that he completed chemotherapy [facility] for Stage for Hodgkin's lymphoma. I had referred him to neurology, but his symptoms became more severe and he presented the emergency room After a bout of bowel incontinence. Currently he is resting comfortably in the emergency room. He denies any chest pains compressors, shortness of breath. 07/08/2021 Evaluated by both neurology and orthopedic surgery with neuro. workup completed. Denies chest pain, palpitations, shortness of breath. Denies lightheadedness, dizziness or focal deficits. Denies abdominal pain. Numbness of bilateral lower extremities stable, denies progression. Complains of ongoing bilateral back lower burning sensation .Maintained on IV fluid hydration, pain management, IV steroids;WBC increased to 11.92. Afebrile. Initially scheduled for follow-up this 07/11/[address] Orantes regarding coccyx pilonidal cyst. Objective - Vital Signs Vital signs: Vital Signs Last 24 Hours 07/08/21 07/08/21 07/09/21 15:05 21:01 01:09 Temperature 98.2 F 97.7 F Pulse Rate [ 94 73 Right Pulse Oximetery] Respiratory 16 16 16 Rate Blood Pressure 130/68 [Left Arm] Blood Pressure 108/62 [Right Arm] O2 Sat by Pulse 97 98 Oximetry - Exam PHYSICAL EXAM: VITAL SIGNS: [As above] GENERAL: Sitting up in bed, eating lunch brought in by his mom, no acute distress HEENT: Conjunctivae normal. eyes normal. Oral mucosa moist NECK: Supple, No JVD. CARDIOVASCULAR: S1, S2 regular.No murmur RESPIRATION: Breath sounds clear to auscultation, diminished in the bases. ABDOMEN: Soft, nondistended ,nontender . No guarding. Positive bowel sounds. LEGS: No edema. no swelling. PSYCHIATRY: Alert and oriented X3, mood and affect normal. NERVOUS SYSTEM: Cranial N 2-12 grossly intact.No focal deficits. Strength grossly intact, sensation decreased from feet up to three fourths of calves. Skin: Warm and dry, no rashes. - Labs CBC & Chem 7: 07/09/21 12:07 07/08/21 08:02 Labs: Abnormal Lab Results - Last 24 Hours (Table) 07/08/21 07/09/21 Range/Units 08:02 12:07 WBC 18.9 H (3.8-10.6) k/uL Carbon Dioxide 19.4 L (20.0-27.5) mmol/L Glucose 117 H (70-110) mg/dL Assessment and Plan Assessment: New onset numbness and tingling of bilateral lower extremities with loss of bowel control initially. 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 Possible post Covid- vaccination neuritis, patient had received [employer] Covid vaccination on 06/10/2021. Neuro. workup completed including MRI thoracic /lumbar spine reviewed per neurology reporting no suspicious changes within the thoracic or lumbar spine MRI;no significant spinal stenosis, or abnormal signal within the spinal cord/conus or cauda. Lumbar radiculopathy Mechanical back pain Leukocytosis, in a patient on IV steroids. History of Hodgkin's lymphoma, stage IV status post chemotherapy, currently in remission. Marijuana use Plan: Continue on current medication regime ,monitoring and symptomatic treatment.Dr. Orantes consulted regarding evaluation of coccyx pilonidal cyst- [place] patient previously was scheduled to follow with him on Wednesday. complains of pain uncontrolled, Neurontin dose increased , lidocaine patch to back , add on Delaplaine with Dilaudid IV only for severe breakthrough pain-request further pain management as per orthopedic spine. Discharge planning in progress for tomorrow pending no progression of symptoms as per neurology. The impression and plan of care has been dictated as directed. : I performed a history and examination of this patient, discussed the same with the dictator. I agree with the dictator's note ,documented as a scribe. Any additional findings or plans will be noted.
--- NOTE | 2021-07-09 16:28 | P.GSCN ---
History of Present Illness Consult date: 07/09/21 History of present illness: Patient that is well known to me from clinic, he was scheduled for pilonidal cystectomy. He presented with symptoms of lower extremity weakness and numbness along with back pain along with fecal incontinence Past Medical History Past Medical History: Cancer Additional Past Medical History / Comment(s): Hodgkins Lymphoma stage 4, last chemo November 21 2020, pt follows up with Dr. Browning out of [facility]. Previous hx of kidney stones early in 2019. History of Any Multi-Drug Resistant Organisms: None Reported Past Surgical History: Appendectomy, Back Surgery Additional Past Surgical History / Comment(s): lithotripsy and stent right side, tooth insert, spinal tap x 3 january 04 Past Anesthesia/Blood Transfusion Reactions: No Reported Reaction Past Psychological History: Depression Smoking Status: Former smoker Past Alcohol Use History: None Reported Past Drug Use History: Marijuana - Past Family History Mother Additional Family Medical History / Comment(s): Heart murmur, Cyst on Ovary, Appendectomy Father Family Medical History: Hypertension Medications and Allergies Home Medications Medication Instructions Recorded Confirmed Type Clindamycin 1% Lotion 1 applic TOPICAL DAILY 06/11/21 07/07/21 History Doxycycline Hyclate 50 mg PO BID 06/11/21 07/07/21 History metroNIDAZOLE 1% GEL [Metrogel 1%] 1 applic TOPICAL HS 06/11/21 07/07/21 History Gabapentin [Neurontin] 200 mg PO TID #18 cap 07/09/21 Rx Lidocaine 5% Patch [Lidoderm 5% 1 patch TOPICAL DAILY #5 patch 07/09/21 Rx Patch] Pantoprazole [Protonix] 40 mg PO AC-BRKFST #30 tab 07/09/21 Rx Allergies Allergy/AdvReac Type Severity Reaction Status Date / Time No Known Allergies Allergy Verified 07/07/21 07:38 Surgical - Exam Osteopathic Statement: *. No significant issues noted on an osteopathic structural exam other than those noted in the History and Physical/Consult. Vital Signs Temp Pulse Resp BP Pulse Ox 98 F 76 18 122/76 98 07/07/21 05:39 07/07/21 05:39 07/07/21 05:39 07/07/21 05:39 07/07/21 05:39 - General well developed, well nourished, no distress - Neck trachea midline - Cardiovascular Rhythm: regular - Abdomen S/NT/ND Pilonidal cyst is present with no drainage or fluctuance - Psychiatric oriented to time, oriented to person, oriented to place Results - Labs 07/09/21 12:07 07/08/21 08:02 Abnormal Lab Results - Last 24 Hours (Table) 07/09/21 Range/Units 12:07 WBC 18.9 H (3.8-10.6) k/uL Assessment and Plan Assessment: Pilonidal cyst Plan: Patient does have a pilonidal cyst that he can follow up with as an outpatient. 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 When that is resolved and patient gets clearance for surgery from neurology we can proceed with surgery as an outpatient.
[2021-07-09 17:13] LABS: Glucose,Whole Blood 135 mg/dL (75-99)
[2021-07-09] MEDS: INSULIN ASPART (NovoLOG) 100 UNIT/ML VIAL SQ SCH ×2 (17:55→22:07)
[2021-07-09] MEDS ORDERED: HYDROcodone/APAP 5-325MG 1 EACH TAB PO PRN (18:12)
[2021-07-09] MEDS ORDERED: HYDROcodone/APAP 5-325MG 1 EACH TAB PO STA (18:14)
[2021-07-09] MEDS: GABAPENTIN 300 MG CAP PO SCH (19:37)
[2021-07-09 21:43] LABS: Glucose,Whole Blood 151 mg/dL (75-99)
--- NOTE | 2021-07-10 00:33 | P.PN ---
Subjective Progress Note Date: 07/09/21 Patient was seen for a follow-up. Patient is sitting in the bed, appears comfortable. States numbness in the legs have progressed to above knee cap on the right and to the middle of the knee cap on the left side. Gait has become wobbly and is now using a walker. No problem with bladder control and still had no BM in the last 24 hours. Complains of some tingling in the scrotal region, but not in the penis or the rectal region. Denies any symptoms in the hands or arms or neck. Objective - Vital Signs Vital signs: Vital Signs Temp 97.7 F 07/09/21 07:00 Pulse 58 L 07/09/21 07:00 Resp 18 07/09/21 07:00 BP 102/62 07/09/21 07:00 Pulse Ox 100 07/09/21 07:00 Intake & Output 07/08/21 07/09/21 07/09/21 18:59 06:59 18:59 Intake Total 358 Balance 358 Intake: Oral 358 Other: # Voids 4 3 - Exam Mental status normal. CN normal Motor: Normal UE b/L. In the LE, (R/L) HF 4+5-/4+5-, KE 5-/5-, Hip adduction 5-/5-, Hip abduction 5-/5-, ADF 5-/5. DTR: Absent diffusely in arms and legs. Planters down going. Sensory decreased from toes to the knees bilaterally. Cerebellar. Normal Finger to nose, but has mild to moderate ataxia for Heel to darling bilaterally. Gait; Deferred - Labs CBC & Chem 7: 07/09/21 12:07 07/08/21 08:02 Labs: Abnormal Lab Results - Last 24 Hours (Table) 07/08/21 07/09/21 Range/Units 08:02 12:07 WBC 18.9 H (3.8-10.6) k/uL Carbon Dioxide 19.4 L (20.0-27.5) mmol/L Glucose 117 H (70-110) mg/dL Assessment and Plan Assessment: * New onset numbness and tingling of bilateral feet up to the upper third of the calves bilaterally. Symptoms have now progressed to the knees bilaterally, and patient also has developed gait difficulty, bilateral lower extremity weakness and ataxia in the lower extremities. Patient is diffusely areflexic. Denies any symptoms in the upper extremities. MRI of the thoracic and lumbar spine showed no significant spinal stenosis, or abnormal signal within the spinal cord/conus or cauda. Patient received Covid vaccination from [employer] on 06/10/2021, therefore post vaccination neuritis is a possibility. 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 * History of Hodgkin's lymphoma, stage IV status post chemotherapy, currently in remission for last 6 months. * Marijuana use Plan: * Patient's symptoms have progressed as examination as above. Hold discharge. Will perform Lumbar puncture, rule out GBS. May need IVIG. * MRI of the thoracic and lumbar spine without contrast showed no suspicious changes within the thoracic or lumbar spine MRI. I personally reviewed MRI, and agree with the findings. * Patient's blood test shows B12 510, folate 13.9, hemoglobin A1c 5.3, quantitative immunoglobulins are normal. Sjogren's antibodies negative. * Check Lyme titre, HIV testing. * Discussed with primary team.
[2021-07-10] MEDS: SODIUM CHLORIDE 0.9% 1,000 ML IV SCH ×3 (03:00→21:32)
[2021-07-10] MEDS: DEXAMETHASONE SOD PHOSPHATE 4 MG/ML 1 ML VIAL IV SCH ×3 (05:22→21:31)
[2021-07-10 07:22] LABS: Glucose,Whole Blood 107 mg/dL (75-99)
[2021-07-10] MEDS: HYDROmorphone 1 MG/ML 1 ML SYRINGE IVP PRN ×4 (07:22→21:36)
[2021-07-10] MEDS: LIDOCAINE 5% PATCH TOPICAL SCH (07:24)
[2021-07-10] MEDS: GABAPENTIN 300 MG CAP PO SCH ×3 (07:24→21:32)
[2021-07-10] MEDS: PANTOPRAZOLE 40 MG TABLET PO SCH (07:24)
[2021-07-10 08:24] LABS: Methylmalonic Acid <0.10 umol/L (<0.40)
[2021-07-10] MEDS: INSULIN ASPART (NovoLOG) 100 UNIT/ML VIAL SQ SCH ×4 (09:39→21:32)
[2021-07-10] MEDS ORDERED: IV FLUID CONTINUATION 1,000 ML IV ONE (10:10)
--- NOTE | 2021-07-10 11:09 | P.PCN ---
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 Condition: stable Complication: none. Description of the procedure procedure risk and benefits discussed with the patient and family, consent signed. Patient and the procedure area placed in sitting position, back prepped with chlorhexidine 3 times been local infiltration of the skin and subcutaneous tissue with lidocaine 1% 3 mL for skin and subcu infiltration at L4 5 levels then 22-gauge Quincke-type needle advanced slowly at L4- 5 interlaminar space there was positive cerebrospinal fluid which was clear, no heme, no paresthesia ,total of 8 ML of clear cerebrospinal fluid collected in 4 different tubes 2 mL in each, then the needle removed and a Band-Aid applied and patient tolerated the procedure well without any complications.
[2021-07-10] MEDS: oxyCODONE-APAP 7.5-325MG 1 EACH TAB PO PRN (11:14)
[2021-07-10 12:05] LABS: Glucose,Whole Blood 84 mg/dL (75-99)
[2021-07-10 12:40] LABS: Appearance,CSF Clear; CSF Tube Number 4
[2021-07-10 12:55] LABS: Nucleated Cells, CSF 0 u/L (0-5); Red Blood Cell,CSF 0 u/L (0-10)
[2021-07-10 13:00] LABS: Glucose,CSF 72 mg/dL (40-70); Total Protein,CSF 40 mg/dL (12-60)
--- NOTE | 2021-07-10 16:27 | P.PN ---
Subjective Progress Note Date: 07/10/21 Patient was seen for a follow-up. Patient is laying in the bed, appears comfortable. States numbness in the legs have progressed to above knee cap now bilaterally. He is noticing some difficulty with breathing. Denies any dysphagia. Denies any symptoms of the upper extremities. No problem with bladd er control and still had no BM in the last 24 hours. Objective - Vital Signs Vital signs: Vital Signs Temp 99.4 F 07/10/21 10:12 Pulse 61 07/10/21 10:30 Resp 18 07/10/21 10:30 BP 112/57 07/10/21 10:30 Pulse Ox 96 07/10/21 10:30 Intake & Output 07/09/21 07/10/21 07/10/21 18:59 06:59 18:59 Intake Total 50 Balance 50 Weight 113.398 kg Intake: IV 50 Other: # Voids 1 1 - Exam Mental status normal. CN normal Motor: Normal UE b/L. In the LE, (R/L) HF 4+5-/4+5-, KE 5-/5-, Hip adduction 5-/5-, Hip abduction 5-/5-, ADF 5-/5-. Patient has a normal cough. DTR: Absent diffusely in arms and legs. Planters down going. Sensory decreased from toes to the knees bilaterally. Cerebellar. Normal Finger to nose, but has mild to moderate ataxia for Heel to darling bilaterally. Gait; Deferred - Labs CBC & Chem 7: 07/09/21 12:07 07/08/21 08:02 Labs: Abnormal Lab Results - Last 24 Hours (Table) 07/09/21 07/09/21 07/10/21 Range/Units 17:10 21:42 07:09 POC Glucose (mg/dL) 135 H 151 H 107 H (75-99) mg/dL CSF Glucose (40-70) mg/dL 07/10/21 Range/Units 10:25 POC Glucose (mg/dL) (75-99) mg/dL CSF Glucose 72 H (40-70) mg/dL Assessment and Plan Assessment: * New onset numbness and tingling of bilateral feet up to the upper third of the calves bilaterally. Symptoms have now progressed to the knees bilaterally, and patient also has developed gait difficulty, bilateral lower extremity weakness and ataxia in the lower extremities. Patient is diffusely areflexic. Denies any symptoms in the upper extremities. MRI of the thoracic and lumbar spine showed no significant spinal stenosis, or abnormal signal within the spinal cord/conus or cauda. Patient received Covid vaccination from [employer] on 06/10/2021, therefore post vaccination neuritis is a possibility. 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 * History of Hodgkin's lymphoma, stage IV status post chemotherapy, currently in remission for last 6 months. * Marijuana use Plan: * Patient underwent Lumbar puncture today, in which WBC 0, RBC 0, glucose 72, proteins 40 (12-60). Patient's symptoms have not improved. He is now complaining of some difficulty breathing. Patient still has good cough. Although the spinal fluid is normal, but clinical suspicion for Guillain-Rolon syndrome is high. Discussed with patient about possibility of IVIG. Patient agreed. * We will consult hematology for clearance for IVIG, given his pre-existing history of Hodgkin's lymphoma. * MRI of the thoracic and lumbar spine without contrast showed no suspicious changes within the thoracic or lumbar spine MRI. I personally reviewed MRI, and agree with the findings. * Patient's blood test shows B12 510, folate 13.9, hemoglobin A1c 5.3, quantitative immunoglobulins are normal. Sjogren's antibodies negative. Vitamin B6 is borderline 8. We will start B6 replacement. Methylmalonic acid <0.10 * Check Lyme titre, HIV testing. * Discussed with primary team. Patient in process of transfer to [facility], because of his history of Hodgkin's lymphoma. * Patient will need EMG of bilateral lower extremities as well.
[2021-07-10 16:28] LABS: HIV 2 AB Non-Reactive (Non-Reactive); HIV AB P24 Non-Reactive (Non-Reactive); HIV P24 AG Non-Reactive (Non-Reactive)
[2021-07-10] MEDS: PYRIDOXINE 50 MG TAB PO SCH (17:34)
[2021-07-10 17:37] LABS: Glucose,Whole Blood 117 mg/dL (75-99)
[2021-07-10 20:04] LABS: Glucose,Whole Blood 123 mg/dL (75-99)
[2021-07-11] MEDS: HYDROmorphone 1 MG/ML 1 ML SYRINGE IVP PRN ×5 (02:12→21:23)
[2021-07-11] MEDS: SODIUM CHLORIDE 0.9% 1,000 ML IV SCH ×3 (02:14→23:06)
[2021-07-11 07:24] LABS: Glucose,Whole Blood 104 mg/dL (75-99)
[2021-07-11] MEDS: DEXAMETHASONE SOD PHOSPHATE 4 MG/ML 1 ML VIAL IV SCH ×2 (08:22→21:22)
[2021-07-11] MEDS: GABAPENTIN 300 MG CAP PO SCH ×3 (08:22→21:23)
[2021-07-11] MEDS: PANTOPRAZOLE 40 MG TABLET PO SCH (08:22)
[2021-07-11] MEDS: PYRIDOXINE 50 MG TAB PO SCH (08:22)
[2021-07-11] MEDS: LIDOCAINE 5% PATCH TOPICAL SCH (08:23)
[2021-07-11] MEDS: INSULIN ASPART (NovoLOG) 100 UNIT/ML VIAL SQ SCH ×4 (08:33→23:05)
[2021-07-11 10:11] LABS: Albumin 4.72 g/dL (3.80-4.90); Gamma Globulin 1.26 g/dL (0.70-1.50)
[2021-07-11] MEDS ORDERED: polyethylene glycoL 3350 17 GM POWD.PACK PO SCH (10:15)
[2021-07-11] MEDS: oxyCODONE-APAP 7.5-325MG 1 EACH TAB PO PRN (11:01)
[2021-07-11] MEDS: SENNOSIDES-DOCUSATE SODIUM 1 EACH TAB PO SCH ×2 (11:02→21:22)
[2021-07-11 12:39] LABS: Glucose,Whole Blood 108 mg/dL (75-99)
[2021-07-11 13:30] LABS: Basophils % (A) 0 %; Eosinophils % (A) 0 %; HCT 47.1 % (39.0-53.0); HGB 15.6 gm/dL (13.0-17.5); Lymphocytes # (A) 1.4 k/uL (1.0-4.8); Lymphocytes % (A) 9 %; MCH 32.2 pg (25.0-35.0); MCHC 33.2 g/dL (31.0-37.0); MCV 97.2 fL (80.0-100.0); Monocytes # (A) 0.7 k/uL (0-1.0); Monocytes % (A) 5 %; Neutrophils # (A) 13.2 k/uL (1.3-7.7); Neutrophils % (A) 86 %; Platelet Count 306 k/uL (150-450); RBC 4.84 m/uL (4.30-5.90); WBC 15.4 k/uL (3.8-10.6)
[2021-07-11 13:31] LABS: African American GFR (CKD) >90 (>60 ml/min/1.73 sqM); Anion Gap 9 mmol/L; Blood Urea Nitrogen 13 mg/dL (9-20); Calcium 9.7 mg/dL (8.4-10.2); Carbon Dioxide 27 mmol/L (22-30); Chloride 100 mmol/L (98-107); Glucose 96 mg/dL (74-99); Non-African American GFR(CKD) >90 (>60 ml/min/1.73 sqM); Potassium 4.2 mmol/L (3.5-5.1); Sodium 136 mmol/L (137-145)
--- NOTE | 2021-07-11 15:05 | P.PN ---
Subjective Progress Note Date: 07/11/21 Patient was seen for a follow-up. Patient is laying in the bed, appears comfortable. States numbness in the legs have progressed to above knee cap now bilaterally. He had some difficulty breathing last night, but now feels better. Denies any dysphagia. Denies any symptoms of the upper extremities. No problem with bladder control. He had a bowel movement today, and was normal. Objective - Vital Signs Vital signs: Vital Signs Temp 98.5 F 07/11/21 13:35 Pulse 66 07/11/21 13:35 Resp 16 07/11/21 13:35 BP 113/57 07/11/21 13:35 Pulse Ox 98 07/11/21 13:35 Intake & Output 07/10/21 07/11/21 07/11/21 18:59 06:59 18:59 Intake Total 168 240 Balance 168 240 Weight 113.398 kg Intake: IV 50 Oral 118 240 Other: # Voids 1 2 - Exam Mental status normal. CN normal Motor: Normal UE b/L. In the LE, (R/L) HF 4+5-/4+5-, KE 5-/5-, Hip adduction 5-/5-, Hip abduction 4+ 5-/4+ 5-, ADF 5-/5-. Patient often gives away while checking muscle strength testing. Patient has a normal cough. DTR: Absent diffusely in arms and legs. Planters down going. Sensory decreased from toes to the knees bilaterally. Cerebellar. Normal Finger to nose, but has mild to moderate ataxia for Heel to darling bilaterally. Gait; Deferred - Labs CBC & Chem 7: 07/11/21 11:20 07/11/21 11:20 Labs: Abnormal Lab Results - Last 24 Hours (Table) 07/10/21 07/10/21 07/11/21 Range/Units 17:34 20:02 07:22 WBC (3.8-10.6) k/uL Neutrophils # (1.3-7.7) k/uL Sodium (137-145) mmol/L POC Glucose (mg/dL) 117 H 123 H 104 H (75-99) mg/dL 07/11/21 07/11/21 07/11/21 Range/Units 11:20 11:20 12:38 WBC 15.4 H (3.8-10.6) k/uL Neutrophils # 13.2 H (1.3-7.7) k/uL Sodium 136 L (137-145) mmol/L POC Glucose (mg/dL) 108 H (75-99) mg/dL Microbiology - Last 24 Hours (Table) 07/10/21 10:25 CSF Gram Stain - Preliminary Cerebral Spinal Fluid CSF Culture - Preliminary Assessment and Plan Assessment: * New onset numbness and tingling of bilateral feet up to the upper third of the calves bilaterally. Symptoms have now progressed to the knees bilaterally, an d patient also has developed gait difficulty, bilateral lower extremity weakness and ataxia in the lower extremities. Patient is diffusely areflexic. Denies any symptoms in the upper extremities. MRI of the thoracic and lumbar spine showed no significant spinal stenosis, or abnormal signal within the spinal cord/conus or cauda. Patient received Cov[facility] [place] [facility] on 06/10/[place]21, therefore post vaccination neuritis is a possibility. 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 * History of Hodgkin's lymphoma, stage IV status post chemotherapy, currently in remission for last 6 months. * Marijuana use Plan: * Patient underwent Lumbar puncture today, in which WBC 0, RBC 0, glucose 72, proteins 40 (12-60). Patient's symptoms have not improved. He is now complaining of some difficulty breathing. Patient still has good cough. Although the spinal fluid is normal, but clinical suspicion for Guillain-Rolon syndrome is high. Discussed with patient about possibility of IVIG. Patient agreed. * Discussed with hematology. Cleared for IVIG treatment. I spoke to the patient, he wants to proceed with IVIG. * MRI of the thoracic and lumbar spine without contrast showed no suspicious changes within the thoracic or lumbar spine MRI. I personally reviewed MRI, and agree with the findings. * Patient's blood test shows B12 510, folate 13.9, hemoglobin A1c 5.3, quantitative immunoglobulins are normal. Sjogren's antibodies negative. Vitamin B6 is borderline 8. We will start B6 replacement. Methylmalonic acid <0.10. Immune fixation electrophoresis, serum protein electrophoresis negative. HIV negative. Lyme titer pending. * Discussed with primary team. Patient in process of transfer to [facility], because of his history of Hodgkin's lymphoma. * Patient will need EMG of bilateral lower extremities as well. * We will start IVIG. * Dr. Tahir Ibrahim Will resume neurology service in the morning.
[2021-07-11] MEDS ORDERED: ENOXAPARIN 40 MG/0.4 ML SYRINGE SQ SCH (15:30)
--- NOTE | 2021-07-11 16:35 | P.CONS ---
History of Present Illness - Reason for Consult Consult date: 07/11/21 GB syndrome,Hx Of Hodgkin's. - History of Present Illness The patient is a 25-year-old white male with history of HL, on treatment at . He was initially seen in consult by us and 07/07, when he presented to ED for abdominal pain. No N/V/D/C/fevers. No prior history of abdominal pain. Has history of kidney stones, however this pain is different than his kidney stone pain, and is more in abdomen and radiating to back, not groin. He is following with Dr. Matias at for involving lungs, mediastinal LAD and cer vical LAD. Initial presentation and diagnosis was made in 04/2020. The patient was discharged back to follow up with his usual oncologist after his admission . He states that he completed 6 cycles of ABVD in 12/04. PET scan during treatment, as well as CT scans after completion of treatment showed no evident disease. The patient has been on observation since The patient came to the emergency room, because he fell when he got up toward the morning, and lost control over his bowels. He reports numbness in his feet that has been progressive in an ascending fashion, and is associated with pinprick-type sensations. Apparently he had been seen in the ER a couple weeks ago with similar symptoms were at that time had no weakness or falls. 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 He had been complaining of back pain that has been somewhat chronic and had become worse. MRI of the thoracic and lumbar spine did not show any obvious anomaly. Neurology recommended IVIG, and oncology consult was sought for clearance given his prior history. The patient states that he is in remission as far as he knows. CT scans in 05/06 here had shown a stable mediastinal mass compared to prior scans in 01/04 Review of Systems Constitutional: Reports fatigue, Reports weakness Eyes: denies blurred vision, denies pain Ears: deny: decreased hearing, ear discharge, earache, tinnitus Ears, nose, mouth and throat: Denies headache, Denies sore throat Breasts: right: gynecomastia Cardiovascular: Denies chest pain, Denies shortness of breath Respiratory: Denies cough Gastrointestinal: Reports as per HPI Genitourinary: Reports as per HPI Musculoskeletal: Reports gait dysfunction, Reports leg numbness/tingling, Reports low back pain, Reports muscle weakness Integumentary: Denies pruritus, Denies rash Neurological: Reports numbness, Reports weakness Psychiatric: Reports anxiety Endocrine: Reports fatigue, Reports weight change Hematologic/Lymphatic: Reports as per HPI Past Medical History Past Medical History: Cancer Additional Past Medical History / Comment(s): Hodgkins Lymphoma stage 4, last chemo November 21 2020, pt follows up with Dr. Browning out of [facility]. Previous hx of kidney stones early in 2019. History of Any Multi-Drug Resistant Organisms: None Reported Past Surgical History: Appendectomy, Back Surgery Additional Past Surgical History / Comment(s): lithotripsy and stent right side, tooth insert, spinal tap x january 04 Past Anesthesia/Blood Transfusion Reactions: No Reported Reaction Past Psychological History: Depression Smoking Status: Former smoker Past Alcohol Use History: None Reported Past Drug Use History: Marijuana - Past Family History Mother Additional Family Medical History / Comment(s): Heart murmur, Cyst on Ovary, Appendectomy Father Family Medical History: Hypertension Medications and Allergies Home Medications Medication Instructions Recorded Confirmed Type Clindamycin 1% Lotion 1 applic TOPICAL DAILY 06/11/21 07/07/21 History Doxycycline Hyclate 50 mg PO BID 06/11/21 07/07/21 History metroNIDAZOLE 1% GEL [Metrogel 1%] 1 applic TOPICAL HS 06/11/21 07/07/21 History Gabapentin [Neurontin] 200 mg PO TID #18 cap 07/09/21 Rx Lidocaine 5% Patch [Lidoderm 5% 1 patch TOPICAL DAILY #5 patch 07/09/21 Rx Patch] Pantoprazole [Protonix] 40 mg PO AC-BRKFST #30 tab 07/09/21 Rx Allergies Allergy/AdvReac Type Severity Reaction Status Date / Time No Known Allergies Allergy Verified 07/07/21 07:38 Physical Exam Vitals: Vital Signs Temp Pulse Resp BP BP Pulse Ox 07/11/21 13:35 98.5 F 66 16 113/57 98 07/11/21 08:40 16 07/11/21 07:50 97.7 F 54 L 16 117/77 100 07/11/21 02:00 97.5 F L 60 18 137/80 100 07/10/21 20:02 100 07/10/21 20:00 97.8 F 70 18 117/65 97 Intake and Output 07/11/21 07/11/21 07/11/21 06:59 14:59 22:59 Intake Total 240 118 Balance 240 118 Intake: Oral 240 118 Other: # Voids 2 2 - Constitutional General appearance: no acute distress - EENT Eyes: EOMI, PERRLA ENT: hearing grossly normal, normal oropharynx - Neck Neck: no lymphadenopathy Thyroid: bilateral: normal size - Respiratory Respiratory: bilateral: CTA - Cardiovascular Rhythm: regular Heart sounds: normal: S1, S2 - Gastrointestinal General gastrointestinal: normal bowel sounds, soft - Integumentary Integumentary: normal - Neurologic Neurologic: CNII-XII intact - Musculoskeletal Musculoskeletal: generalized weakness, strength equal bilaterally - Psychiatric Psychiatric: A&O x's 3, appropriate affect Results CBC & Chem 7: 07/11/21 11:20 07/11/21 11:20 Labs: Abnormal Lab Results - Last 24 Hours (Table) 07/10/21 07/10/21 07/11/21 Range/Units 17:34 20:02 07:22 WBC (3.8-10.6) k/uL Neutrophils # (1.3-7.7) k/uL Sodium (137-145) mmol/L POC Glucose (mg/dL) 117 H 123 H 104 H (75-99) mg/dL 07/11/21 07/11/21 07/11/21 Range/Units 11:20 11:20 12:38 WBC 15.4 H (3.8-10.6) k/uL Neutrophils # 13.2 H (1.3-7.7) k/uL Sodium 136 L (137-145) mmol/L POC Glucose (mg/dL) 108 H (75-99) mg/dL Microbiology - Last 24 Hours (Table) 07/10/21 10:25 CSF Gram Stain - Preliminary Cerebral Spinal Fluid CSF Culture - Preliminary Comments: MRI T and L spine report reviewed Chest x-ray: report reviewed CT scan - chest: report reviewed Assessment and Plan (1) Numbness Narrative/Plan: This is located in the distal lower extremity and appears to be ascending. 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 Therefore IVIG has been recommended by them - Case was discussed with neurology and also with the patient. He was advised that the clinical diagnosis, and treatment recommendations are per Neurology expertise. There is no cord indication from the oncology standpoint for him to receive IVIG. Current Visit: Yes Status: Acute Code(s): R20.0 - ANESTHESIA OF SKIN SNOMED Code(s): 71728463 (2) Hodgkins lymphoma Narrative/Plan: The patient is following up at the [facility]. Based on physical exam and his symptoms, as well as most recent imaging there is no evidence of progression. Mediastinal mass stable, or improvement was noted on computed tomography scan done in 05/06. Presuming that this was negative on PET scan previously, the patient appears to be continuing in remission. Resume follow-up with oncology at the [facility] on discharge Current Visit: No Status: Acute Code(s): C81.90 - HODGKIN LYMPHOMA, UNSPECIFIED, UNSPECIFIED SITE SNOMED Code(s): 292330244
[2021-07-11] MEDS ORDERED: IMMUNE GLOBULIN (GAMMAGARD) 20 GM in EMPTY BAG 1 BAG IV ONE (17:00)
[2021-07-11] MEDS ORDERED: IMMUNE GLOBULIN (GAMMAGARD) 5 GM in EMPTY BAG 1 BAG IV ONE (17:00)
[2021-07-11 17:20] LABS: Glucose,Whole Blood 123 mg/dL (75-99)
[2021-07-11 20:50] LABS: Glucose,Whole Blood 110 mg/dL (75-99)
[2021-07-11 22:56] VITALS: BP 109/63; PULSE 74; RESP 17; TEMP 97.7
[2021-07-12] MEDS ORDERED: IMMUNE GLOBULIN (GAMMAGARD) 5 GM in EMPTY BAG 1 BAG IV ONE (12:00)
[2021-07-12] MEDS ORDERED: IMMUNE GLOBULIN (GAMMAGARD) 20 GM in EMPTY BAG 1 BAG IV ONE (12:00)
[2021-07-13] MEDS ORDERED: IMMUNE GLOBULIN (GAMMAGARD) 5 GM in EMPTY BAG 1 BAG IV ONE (12:00)
[2021-07-13] MEDS ORDERED: IMMUNE GLOBULIN (GAMMAGARD) 20 GM in EMPTY BAG 1 BAG IV ONE (12:00)
[2021-07-14] MEDS ORDERED: IMMUNE GLOBULIN (GAMMAGARD) 5 GM in EMPTY BAG 1 BAG IV ONE (12:00)
[2021-07-14] MEDS ORDERED: IMMUNE GLOBULIN (GAMMAGARD) 20 GM in EMPTY BAG 1 BAG IV ONE (12:00)
[2021-07-15 11:45] LABS: IgG - CSF 2.6 mg/dL (0.0 - 3.4); IgG/Albumin Index (CSF) 0.49 (0.00 - 0.77)
[2021-07-15 14:28] LABS: Lyme IgG/IgM 1.49 Index
== END 2021-07-12 01:59 | disposition home health service (06) | DRG 74 ==
LOC: EC 05:28 → 6NMEDSUR 06:04 → OBSVTOIN 07-09 16:35 → 6NMEDSUR 07-11 21:45
PROVIDERS: ADMIT Family Medicine; ATTEND Family Medicine
PROC: 009U3ZX Drainage of Spinal Canal, Percutaneous Approach, Diagnostic (ICD-10-PCS; principal; 2021-07-10 10:15)
DX: G62.2 Polyneuropathy due to other toxic agents (principal); G61.0 Guillain-Barre syndrome; C81.90 Hodgkin lymphoma, unspecified, unspecified site; T50.B95A Adverse effect of other viral vaccines, initial encounter; W19.XXXA Unspecified fall, initial encounter; G89.29 Other chronic pain; L05.91 Pilonidal cyst without abscess; M54.16 Radiculopathy, lumbar region; R32 Unspecified urinary incontinence; S39.012A Strain of muscle, fascia and tendon of lower back, initial encounter; W06.XXXA Fall from bed, initial encounter; F32.A Depression, unspecified; R27.0 Ataxia, unspecified; D72.829 Elevated white blood cell count, unspecified; T38.0X5A Adverse effect of glucocorticoids and synthetic analogues, initial encounter; Z20.822 Contact with and (suspected) exposure to COVID-19; Z90.49 Acquired absence of other specified parts of digestive tract; Z79.899 Other long term (current) drug therapy; Z82.49 Family history of ischemic heart disease and other diseases of the circulatory system; Z87.442 Personal history of urinary calculi; Z87.891 Personal history of nicotine dependence; Z92.21 Personal history of antineoplastic chemotherapy; Z84.2 Family history of other diseases of the genitourinary system; Z98.890 Other specified postprocedural states
CPT/HCPCS: 62270; 72146; 72148; 80048; 80053; 81003; 82040; 82042; 82607; 82746; 82784; 82945; 83036; 83735; 83873; 83916; 83921; 84100; 84157; 84165; 84207; 84484; 84630; 85025; 85027; 86235; 86334; 86618; 87070; 87205; 87390; 87635; 89050; 93005; 94760; 99284

== ENCOUNTER 2021-07-21 05:45 | Emergency (ER) | payer BC, OTHER ==
[2021-07-21 05:52] VITALS: RESP 18
[2021-07-21] MEDS ORDERED: HYDROmorphone 0.5 MG/0.5 ML SYRINGE IVP STA (06:34)
--- NOTE | 2021-07-21 06:40 | ED ---
General Adult HPI - General Chief complaint: Chest Pain Stated complaint: Chest pain, Difficulty Breathing, headaches Time Seen by Provider: 07/21/21 05:58 Source: patient, RN notes reviewed Mode of arrival: wheelchair Limitations: no limitations - History of Present Illness Initial comments: This a 25-year-old male presents emergency Department chief complaint of pain. Patient states he is back pain. Chest pain, pain in extremities. Patient was seen and admitted 2 weeks ago. Patient states that he was discharged last week after hospital patient [facility] for what they thought was possible GBS. Patient had a normal lumbar puncture, he did have some symptoms of it though they felt that he may have some other motor neuron or viral issue. They told him to return if he had any change symptoms. Patient states that he was discharged on OxyContin, gabapentin and nortriptyline. Patient states that he's having increasing back pain states that he only had 3 days worth of OxyContin. Patient states that the pain in his back is worsening. Patient did have normal MRI of his thoracic and lumbar and was evaluated by orthopedic surgery. Patient states that he is scheduled follow-up with PCP, Dr. Barber, physical therapy. Patient states his symptoms of what they felt was GBS he only has noticed some tingling below the knees. He has no significant weakness no progressive symptoms of his legs or upper extremities or face region - Related Data Home Medications Medication Instructions Recorded Confirmed Doxycycline Hyclate 50 mg PO BID 06/11/21 07/21/21 Gabapentin 300 mg PO BID@0900,1200 07/21/21 07/21/21 Gabapentin 600 mg PO HS 07/21/21 07/21/21 Nortriptyline [Pamelor] 25 mg PO HS 07/21/21 07/21/21 oxyCODONE HCL [oxyCODONE HCL (IR)] 10 mg PO Q6H 07/21/21 07/21/21 Allergies Allergy/AdvReac Type Severity Reaction Status Date / Time No Known Allergies Allergy Verified 07/21/21 08:06 Review of Systems ROS Statement: Those systems with pertinent positive or pertinent negative responses have been documented in the HPI. ROS Other: All systems not noted in ROS Statement are negative. Past Medical History Past Medical History: Cancer Additional Past Medical History / Comment(s): Hodgkins Lymphoma stage 4, last chemo November 21 2020, pt follows up with Dr. Browning out of [facility]. Previous hx of kidney stones early in 2019. guillain-[place] History of Any Multi-Drug Resistant Organisms: None Reported Past Surgical History: Appendectomy, Back Surgery Additional Past Surgical History / Comment(s): lithotripsy and stent right side, tooth insert, spinal tap x 3 january 04 Past Anesthesia/Blood Transfusion Reactions: No Reported Reaction Past Psychological History: Depression Smoking Status: Former smoker Past Alcohol Use History: None Reported Past Drug Use History: Marijuana - Past Family History Mother Additional Family Medical History / Comment(s): Heart murmur, Cyst on Ovary, Appendectomy Father Family Medical History: Hypertension General Exam Limitations: no limitations General appearance: alert, in no apparent distress Head exam: Present: atraumatic, normocephalic, normal inspection Eye exam: Present: normal appearance, PERRL, EOMI. Absent: scleral icterus, conjunctival injection, periorbital swelling ENT exam: Present: normal exam, normal oropharynx, mucous membranes moist Neck exam: Present: normal inspection, full ROM. Absent: tenderness, meningismus, lymphadenopathy Respiratory exam: Present: normal lung sounds bilaterally. Absent: respiratory distress, wheezes, rales, rhonchi, stridor Cardiovascular Exam: Present: regular rate, normal rhythm, normal heart sounds. Absent: systolic murmur, diastolic murmur, rubs, gallop, clicks GI/Abdominal exam: Present: soft, normal bowel sounds. Absent: distended, tenderness, guarding, rebound, rigid Extremities exam: Present: normal inspection, full ROM, normal capillary refill. Absent: tenderness, pedal edema, joint swelling, calf tenderness Back exam: Present: full ROM, tenderness Neurological exam: Present: alert, oriented X3, CN II-XII intact Skin exam: Present: warm, dry, intact, normal color. Absent: rash Course Vital Signs 07/21/21 07/21/21 05:47 10:20 Temperature 98.8 F Pulse Rate 90 89 Respiratory 18 18 Rate Blood Pressure 107/61 124/64 O2 Sat by Pulse 98 96 Oximetry Medical Decision Making - Medical Decision Making Patient's workup present reveal any acute changes. CT does not show evidence of PE. Patient labs are at his stable baseline. Patient has multiple follow-up appointments in which patient will be discharged patient's pain is improved. - Lab Data Result diagrams: 07/21/21 06:50 07/21/21 06:50 Lab Results 07/21/21 07/21/21 07/21/21 Range/Units 06:50 06:50 06:50 WBC 3.0 L (3.8-10.6) k/uL RBC 3.74 L (4.30-5.90) m/uL Hgb 12.4 L D (13.0-17.5) gm/dL Hct 34.7 L (39.0-53.0) % MCV 92.8 (80.0-100.0) fL MCH 33.1 (25.0-35.0) pg MCHC 35.6 (31.0-37.0) g/dL RDW 13.5 (11.5-15.5) % Plt Count 178 (150-450) k/uL MPV 6.8 Neutrophils % 38 % Lymphocytes % 43 % Monocytes % 13 % Eosinophils % 2 % Basophils % 2 % Neutrophils # 1.2 L (1.3-7.7) k/uL Lymphocytes # 1.3 (1.0-4.8) k/uL Monocytes # 0.4 (0-1.0) k/uL Eosinophils # 0.1 (0-0.7) k/uL Basophils # 0.1 (0-0.2) k/uL PT 10.3 (9.0-12.0) sec INR 0.9 (<1.2) APTT 40.2 H (22.0-30.0) sec D-Dimer 1.09 H (<0.60) mg/L FEU Sodium 136 L (137-145) mmol/L Potassium 4.2 (3.5-5.1) mmol/L Chloride 105 (98-107) mmol/L Carbon Dioxide 23 (22-30) mmol/L Anion Gap 8 mmol/L BUN 14 (9-20) mg/dL Creatinine 0.67 (0.66-1.25) mg/dL Est GFR (CKD-EPI)AfAm >90 (>60 ml/min/1.73 sqM) Est GFR (CKD-EPI)NonAf >90 (>60 ml/min/1.73 sqM) Glucose 97 (74-99) mg/dL Calcium 8.3 L (8.4-10.2) mg/dL Magnesium 1.6 (1.6-2.3) mg/dL Total Bilirubin 0.3 (0.2-1.3) mg/dL AST 21 (17-59) U/L ALT 26 (4-49) U/L Alkaline Phosphatase 60 (38-126) U/L Troponin I (0.000-0.034) ng/mL Total Protein 8.3 H (6.3-8.2) g/dL Albumin 3.6 (3.5-5.0) g/dL Coronavirus (PCR) (Not Detectd) 07/21/21 07/21/21 Range/Units 06:50 06:50 WBC (3.8-10.6) k/uL RBC (4.30-5.90) m/uL Hgb (13.0-17.5) gm/dL Hct (39.0-53.0) % MCV (80.0-100.0) fL MCH (25.0-35.0) pg MCHC (31.0-37.0) g/dL RDW (11.5-15.5) % Plt Count (150-450) k/uL MPV Neutrophils % % Lymphocytes % % Monocytes % % Eosinophils % % Basophils % % Neutrophils # (1.3-7.7) k/uL Lymphocytes # (1.0-4.8) k/uL Monocytes # (0-1.0) k/uL Eosinophils # (0-0.7) k/uL Basophils # (0-0.2) k/uL PT (9.0-12.0) sec INR (<1.2) APTT (22.0-30.0) sec D-Dimer (<0.60) mg/L FEU Sodium (137-145) mmol/L Potassium (3.5-5.1) mmol/L Chloride (98-107) mmol/L Carbon Dioxide (22-30) mmol/L Anion Gap mmol/L BUN (9-20) mg/dL Creatinine (0.66-1.25) mg/dL Est GFR (CKD-EPI)AfAm (>60 ml/min/1.73 sqM) Est GFR (CKD-EPI)NonAf (>60 ml/min/1.73 sqM) Glucose (74-99) mg/dL Calcium (8.4-10.2) mg/dL Magnesium (1.6-2.3) mg/dL Total Bilirubin (0.2-1.3) mg/dL AST (17-59) U/L ALT (4-49) U/L Alkaline Phosphatase (38-126) U/L Troponin I <0.012 (0.000-0.034) ng/mL Total Protein (6.3-8.2) g/dL Albumin (3.5-5.0) g/dL Coronavirus (PCR) Not Detected (Not Detectd) Disposition Clinical Impression: Paresthesia of lower extremity, Back pain, Atypical chest pain, Viral infection Disposition: HOME SELF-CARE Condition: Stable Instructions (If sedation given, give patient instructions): Chest Pain (ED) Additional Instructions: Please return to the Emergency Department if symptoms worsen or any other concerns. Is patient prescribed a controlled substance at d/c from ED?: No Referrals: Preet Whelan MD [Primary Care Provider] - 1-2 days Time of Disposition: 10:26
[2021-07-21 07:11] LABS: Basophils # (A) 0.1 k/uL (0-0.2); Basophils % (A) 2 %; Eosinophils # (A) 0.1 k/uL (0-0.7); Eosinophils % (A) 2 %; HCT 34.7 % (39.0-53.0); Lymphocytes # (A) 1.3 k/uL (1.0-4.8); Lymphocytes % (A) 43 %; MCH 33.1 pg (25.0-35.0); MCHC 35.6 g/dL (31.0-37.0); MCV 92.8 fL (80.0-100.0); Mean Platelet Volume 6.8; Monocytes # (A) 0.4 k/uL (0-1.0); Monocytes % (A) 13 %; Neutrophils # (A) 1.2 k/uL (1.3-7.7); Neutrophils % (A) 38 %; Platelet Count 178 k/uL (150-450); RBC 3.74 m/uL (4.30-5.90); RDW 13.5 % (11.5-15.5)
[2021-07-21 07:12] LABS: HGB 12.4 gm/dL (13.0-17.5)
--- NOTE | 2021-07-21 07:13 | XR ---
EXAMINATION TYPE: XR chest 2V DATE OF EXAM: 07/21/2021 COMPARISON: Chest x-ray 06/11/2021 HISTORY: Chest pain TECHNIQUE: Frontal and lateral views of the chest are obtained. FINDINGS: There is a right-sided Port-A-Cath with the distal tip in the right atrium. No evident pne umothorax or pleural effusion. Cardiac mediastinal sweat shows a stable appearance. There are overlyi ng artifacts. Prominence the right hilum is again noted. IMPRESSION: Stable findings. Patient with known mediastinal mass.
[2021-07-21 07:25] LABS: INR 0.9 (<1.2); Partial Thromboplastin Time 40.2 sec (22.0-30.0); Prothrombin Time 10.3 sec (9.0-12.0)
[2021-07-21 07:39] LABS: ALT 26 U/L (4-49); AST 21 U/L (17-59); African American GFR (CKD) >90 (>60 ml/min/1.73 sqM); Albumin 3.6 g/dL (3.5-5.0); Alkaline Phosphatase 60 U/L (38-126); Anion Gap 8 mmol/L; Blood Urea Nitrogen 14 mg/dL (9-20); Calcium 8.3 mg/dL (8.4-10.2); Carbon Dioxide 23 mmol/L (22-30); Chloride 105 mmol/L (98-107); Glucose 97 mg/dL (74-99); Magnesium 1.6 mg/dL (1.6-2.3); Non-African American GFR(CKD) >90 (>60 ml/min/1.73 sqM); Potassium 4.2 mmol/L (3.5-5.1); Sodium 136 mmol/L (137-145); Total Bilirubin 0.3 mg/dL (0.2-1.3); Total Protein 8.3 g/dL (6.3-8.2)
--- NOTE | 2021-07-21 09:15 | CT ---
EXAMINATION TYPE: CT chest angio for PE DATE OF EXAM: 07/21/2021 COMPARISON: CT dated 04/22/2021 HISTORY: Chest pain, SOB CT DLP: 564.3 mGy.cm. Automated Exposure Control for Dose Reduction was Utilized. TECHNIQUE AND CONTRAST: CTA scan of the thorax is performed with IV Contrast, patient injected with 77 mL of Isovue 370, pulm onary embolism protocol. MIP Images are created on CT scanner and reviewed. FINDINGS: Suboptimal CT scan with poor enhancement of the coronary arteries. No definite filling defect within the pulmonary trunk, main pulmonary arteries, lobar and proximal segmental branches to suggest pulmon jules embolism. Distal segmental and subsegmental branches are suboptimally assessed. The pulmonary christine nk measures 2.5 cm. Redemonstration of the previously seen heterogeneous anterior mediastinal mass measuring 4.2 x 7.6 cm , not significantly changed in size compared to the previous CT scan. Is the patient known for lympho ma or primary tumor?. The lesion is still inseparable from the SVC as well as the left innominate vei n. No gross cardiomegaly. Patent thoracic aorta and its major branches. Stable prominent hilar and media stinal lymph nodes without interval progression. Bilateral pulmonary areas of scarring, linear atelec tasis and peripheral reticulations, appreciated previously. A few scattered lung cysts unchanged. Patent central airways. No pleural or pericardial effusion. Bul ky spleen measuring 13.5 cm. No aggressive bone lesion. IMPRESSION: With the limitation of the suboptimal CTA, no major or central pulmonary embolism. Grossly stable kno wn anterior mediastinal mass as described above. No definite acute pulmonary abnormality identified. Other incidental findings as described above.
[2021-07-21] MEDS ORDERED: HYDROmorphone 1 MG/ML 1 ML SYRINGE IVP STA (09:35)
[2021-07-21 10:21] VITALS: BP 124/64; PULSE 89
[2021-07-21] MEDS ORDERED: oxyCODONE-APAP 7.5-325MG 1 EACH TAB PO STA (10:26)
[2021-07-21 10:49] VITALS: TEMP 98.4
== END 2021-07-21 10:48 | disposition home or self-care (01) ==
LOC: EC 05:45
DX: R07.89 Other chest pain (principal); B34.9 Viral infection, unspecified; R20.2 Paresthesia of skin; M54.9 Dorsalgia, unspecified; Z20.822 Contact with and (suspected) exposure to COVID-19; Z87.891 Personal history of nicotine dependence
CPT/HCPCS: 36415; 93005; 85379; 80053; 83735; 84484; 85025; 85610; 85730; 87635; 71046; 71275; 99285; 96374; 96375 ×2; J1170 ×2; Q9967; J1790; 96376

== ENCOUNTER → 2021-07-21 | Outpatient (CLI) | payer BC, OTHER ==
[2021-07-21 14:16] VITALS: BP 118/76; PULSE 77; RESP 18; TEMP 97.7
--- NOTE | 2021-07-21 14:41 | P.PN ---
Subjective Progress Note Date: 07/21/21 Principal diagnosis: A 25 yr old male with mother at side with a history of severe and chronic low back pain secondary to lumbar degenerative disc diseases and lumbar spondylosis with facet arthropathy presents today for evaluation of LESI L5-S1 #1. Patient states he expresses 80% pain relief for 2 weeks status post procedure. Pain level is currently at 7 out of 10 in intensity, sharp, throbbing, burning in the center of the lower aspect of the lumbar spine where it meets his tailbone without radiation of pain. Pain is provoked by standing or walking for periods of 20 minutes or more. Pain is alleviated with medications, CBD oil, heat, physical therapy currently at [facility], home daily exercise regimen, use of a lumbar support brace, use of a wheelchair for ambulation, sitting, laying down and rest. Interventional pain procedures completed include LESI L5-S1 #1 Patient is currently on Neurontin 300 mg, oxycodone, [place]. Patient denies any side effects of the medication(s), denies excessive drowsiness or sleepiness, denies suicidal ideation and reports that the current pain medication is helping to control the pain and improve activities of daily living. Patient denies any motor or sensory deficits. Patient denies any fever or night sweats, denies any change in the bowel movements or urination. Physical Examination: -Constitutional: Cooperative. Not in acute distress . -HEENT: Neck is supple. No lymphadenopathy. No thyromegaly. Normal thyroid size. Eyes: No ptosis , no icterus, no photophobia. ENT: No auditory deficits. Normal oropharynx. No Thrush. - Respiratory: Chest clear to auscultations bilaterally. No wheezing. No rhonchi. - Cardiovascular: Regular rate and rhythm. S1 / S2 , no S3 , no S4. - Gastrointestinal: Abdomen soft no tenderness. Bowel sounds positive in all four quadrants. No organomegaly. - Genitourinary: Deferred. - Neurologic: Cranial nerve II to XII intact. No focal neurological deficits. - Psychatric: Alert & oriented x 3. Matching mood & appropriate affect. Judgment and insight intact. - Lymphatic: No Lymphadenopathy. - Musculoskeletal: Cervical spine: Muscle bulk/ tone/ strength in the bilateral upper extremities normal. Facet loading test cervical area positive. Lumbar spine: Motor bulk/ tone/ strength lower extremities , thigh and legs : 5/5 Deep tendon reflexes : Normal Knee Jerk. Normal Ankle Jerk . Vertebral body tenderness to palpation over L5 with accompanying paraspinal muscle spasms bilaterally Lumbar Facet Loading Test positive Straight Leg Raise: positive at 30 degrees right side/ left side Gaenslen's Test positive Sacral spine : Severe tenderness over the Sacroiliac joint: right side / left side Range of motion: Flexion of the lumbar spine <60 degrees Range of motion: Extension of the lumbar spine <20 degrees Gaenslen's Test positive Jose test: positive right side / left side Assessment and plan: Chronic low back pain secondary to lumbar degenerative disc disease , lumbar spondylosis with facet arthropathy without myelopathy Recommendation of LESI L5-S1 #2. May need a series of 3, within a six- month period, to obtain optimal pain relief. Risks, benefits of procedure discussed and patient verbalized understanding. Denies anticoagulants use. Denies medical history diabetes mellitus. All patient questions answered MAPS reviewed and it was appropriate. I have spent 31 minutes on patient care today. Dr Almaraz was available by phone for the evaluation of this patient. The time was used to review the medical records including relevant urine studies and Prescription history (MAPs), review of the available imaging, evaluation and examination of the patient, coordination of care with the medical staff and if applicable referring physicians, as well as creation of the medical record Objective - Vital Signs Vital signs: Vital Signs Temp 97.7 F 07/21/21 14:04 Pulse 77 07/21/21 14:04 Resp 18 07/21/21 14:04 BP 118/76 07/21/21 14:04 Pulse Ox 97 07/21/21 14:04 PQRS Measure Charge Sheet Mode of Arrival: Ambulatory, Wheelchair - Pain Location Lower Back Non-Pharmacological Interventions: Heat, Physical Therapy, Sitting Pharmacological Interventions: Epidural, PRN Medication, Topical Medication PQRS Narrative: Smoking Status Never smoker Blood Pressure 118/76 Pain Intensity [Lower Back] 7 Scale Used Numeric (1 - 10) Hx Alcohol Use (MH) No Home Medications: Ambulatory Orders Doxycycline Hyclate 50 mg PO BID 06/11/21 Gabapentin 300 mg PO BID@0900,1200 07/21/21 Gabapentin 600 mg PO HS 07/21/21 Nortriptyline [Pamelor] 25 mg PO HS 07/21/21 oxyCODONE HCL [oxyCODONE HCL (IR)] 10 mg PO Q6H 07/21/21
== END ==
LOC: PNWHC3 12:57
PROVIDERS: ATTEND Anesthesiology
DX: M51.36 Other intervertebral disc degeneration, lumbar region (principal); M47.816 Spondylosis without myelopathy or radiculopathy, lumbar region; G89.29 Other chronic pain
CPT/HCPCS: 99211

== ENCOUNTER 2021-07-31 09:42 | Emergency (ER) | payer BC, OTHER ==
[2021-07-31 10:05] VITALS: RESP 18; TEMP 97.9
[2021-07-31] MEDS ORDERED: KETOROLAC 15 MG/ML 1 ML VIAL IM STA (10:48)
[2021-07-31] MEDS ORDERED: LIDOCAINE 5% PATCH TOPICAL SCH (11:00)
--- NOTE | 2021-07-31 11:21 | ED ---
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 He has been getting physical therapy 2 times a week since being discharged. He denies any chest pain or difficulty in breathing. He denies any incontinence of bowel or bladder but does have urgency. He is able to ambulate with a cane and assistance at home. Patient states he also has a history history of Hodgkin's lymphoma, last chemo in November of last year and was treated at [facility]. -: days(s) (1) Location: neck, back, left, right, lower extremity Severity scale (1-10): 9 Quality: constant Consistency: constant Associated Symptoms: other (Paresthesias bilateral lower extremties) - Related Data Home Medications Medication Instructions Recorded Confirmed Doxycycline Hyclate 50 mg PO BID 06/11/21 07/31/21 Gabapentin 300 mg PO BID@0900,1200 07/21/21 07/31/21 Gabapentin 600 mg PO HS 07/21/21 07/31/21 Nortriptyline [Pamelor] 25 mg PO HS 07/21/21 07/31/21 Allergies Allergy/AdvReac Type Severity Reaction Status Date / Time No Known Allergies Allergy Verified 07/31/21 10:40 Review of Systems ROS Statement: Those systems with pertinent positive or pertinent negative responses have been documented in the HPI. ROS Other: All systems not noted in ROS Statement are negative. Past Medical History Past Medical History: Cancer Additional Past Medical History / Comment(s): Hodgkins Lymphoma stage 4, last chemo November 21 2020, pt follows up with Dr. Browning out of [facility]. remission now 08/05... Previous hx of kidney stones early in 2019. guillain-Worcester History of Any Multi-Drug Resistant Organisms: None Reported Past Surgical History: Appendectomy, Back Surgery Additional Past Surgical History / Comment(s): lithotripsy and stent right side, tooth insert, spinal tap x 3 january 04 Past Anesthesia/Blood Transfusion Reactions: No Reported Reaction Past Psychological History: Depression Smoking Status: Former smoker Past Alcohol Use History: None Reported Past Drug Use History: Marijuana - Past Family History Mother Additional Family Medical History / Comment(s): Heart murmur, Cyst on Ovary, Appendectomy Father Family Medical History: Hypertension General Exam Limitations: no limitations, physical limitation (weakness BLLE) General appearance: alert, in no apparent distress Head exam: Present: atraumatic Eye exam: Present: normal appearance, PERRL, EOMI. Absent: scleral icterus, conjunctival injection, periorbital swelling, periorbital tenderness Pupils: Present: normal accommodation ENT exam: Present: normal exam, normal oropharynx, mucous membranes moist Expanded Mouth exam: Present: tongue normal, tongue elevation. Absent: drooling, trismus, muffled voice Throat exam: normal inspection Neck exam: Present: normal inspection, full ROM. Absent: meningismus, lymphadenopathy, thyromegaly Respiratory exam: Present: normal lung sounds bilaterally. Absent: respiratory distress, chest wall tenderness, accessory muscle use, decreased breath sounds Cardiovascular Exam: Present: regular rate, normal rhythm. Absent: JVD GI/Abdominal exam: Present: soft. Absent: distended, tenderness, guarding, rebound, rigid Rectal exam: Present: deferred Extremities exam: Present: normal capillary refill. Absent: pedal edema, joint swelling, calf tenderness Back exam: Present: normal inspection, tenderness (LS spine paraspinal). Absent: CVA tenderness (R), CVA tenderness (L), vertebral tenderness, rash noted Expanded Back exam: Absent: saddle anesthesia Neurological exam: Present: alert, oriented X3, CN II-XII intact Expanded Patient oriented to: Present: person, place, time Speech: Present: fluid speech Cranial nerves: EOM's Intact: Normal, Gag Reflex: Normal, Tongue Deviation: Normal Motor strength exam: RUE: 5, LUE: 5, RLE: 3, LLE: 3 Eye Response: (4) open spontaneously Motor Response: (6) obeys commands Verbal Response: (5) oriented [place] Total: 15 Psychiatric exam: Present: normal affect, normal mood Skin exam: Present: warm, dry, intact, normal color. Absent: rash, cyanosis, diaphoretic, erythema, pallor Course Vital Signs 07/31/21 07/31/21 07/31/21 09:46 09:58 12:15 Temperature 97.6 F 97.9 F Pulse Rate 91 80 88 Respiratory 16 18 Rate Blood Pressure 118/65 123/69 108/55 O2 Sat by Pulse 96 95 100 Oximetry Medical Decision Making - Medical Decision Making 26-year-old patient presents with bilateral leg paresthesias ascending to his thighs today. He was seen 07/07/21 for bilateral lower extremity paresthesias below the knee and diagnosis of Guillain-Worcester syndrome at [facility] and discharged from that facility on July 20. He was told that if ascending weakness occurs to return to the emergency room. Patient denies any difficulty breathing or chest pain. I did speak with Dr. bIrahim who recommended patient be transferred back to [facility] for continuation of care. I did speak with Dr. Jain at [facility] who accepted the transfer, ER to ER. Patient's vital signs are stable. He is not incontinent of bowel or bladder. He has no difficulty breathing. Patient is agreeable to this plan of care. Case discussed with Dr. Horn. Disposition Clinical Impression: Guillain-Worcester, Paresthesia of bilateral legs Disposition: OTHER INSTITUTION NOT DEFINED Condition: Good Referrals: Preet Whelan MD [Primary Care Provider] - 1-2 days Decision Date: 07/31/21 - Out of Hospital Transfer - Req. Specs Out of Hospital Transfer - Requested Specifics: Other Emergency Center ([facility])
[2021-07-31 12:18] VITALS: BP 108/55; PULSE 88
== END 2021-07-31 13:01 | disposition other institution (70) ==
LOC: EC 09:42
DX: G61.0 Guillain-Barre syndrome (principal); R20.2 Paresthesia of skin; F32.A Depression, unspecified; F12.90 Cannabis use, unspecified, uncomplicated; Z85.71 Personal history of Hodgkin lymphoma; Z87.442 Personal history of urinary calculi; Z90.49 Acquired absence of other specified parts of digestive tract; Z87.891 Personal history of nicotine dependence
CPT/HCPCS: 99284; 96372; J1885

== ENCOUNTER 2021-11-10 08:27 | Inpatient (IN) | payer OTHER ==
[2021-11-10] MEDS ORDERED: HYDROmorphone 1 MG/ML 1 ML SYRINGE IVP STA (09:15)
[2021-11-10 09:48] LABS: Basophils # (A) 0.1 k/uL (0-0.2); Basophils % (A) 1 %; Eosinophils # (A) 0.1 k/uL (0-0.7); Eosinophils % (A) 3 %; HCT 42.1 % (39.0-53.0); HGB 14.4 gm/dL (13.0-17.5); Lymphocytes # (A) 1.3 k/uL (1.0-4.8); Lymphocytes % (A) 27 %; MCH 32.2 pg (25.0-35.0); MCHC 34.3 g/dL (31.0-37.0); MCV 93.9 fL (80.0-100.0); Mean Platelet Volume 6.8; Monocytes # (A) 0.5 k/uL (0-1.0); Monocytes % (A) 9 %; Neutrophils # (A) 2.8 k/uL (1.3-7.7); Neutrophils % (A) 58 %; Platelet Count 245 k/uL (150-450); RBC 4.48 m/uL (4.30-5.90); WBC 4.8 k/uL (3.8-10.6)
--- NOTE | 2021-11-10 10:03 | XR ---
EXAMINATION TYPE: XR chest 2V DATE OF EXAM: 11/10/2021 COMPARISON: 07/21/2021 TECHNIQUE: PA and lateral views submitted. HISTORY: Weakness FINDINGS: Mediport catheter seen. No pleural effusion or pneumothorax. No focal pneumonia. Biapical pleural thi ckening. No consolidative pneumonia. IMPRESSION: 1. No acute process
[2021-11-10 10:10] LABS: ALT 140 U/L (4-49); AST 324 U/L (17-59); African American GFR (CKD) >90 (>60 ml/min/1.73 sqM); Albumin 4.5 g/dL (3.5-5.0); Alkaline Phosphatase 59 U/L (38-126); Anion Gap 7 mmol/L; Blood Urea Nitrogen 10 mg/dL (9-20); Calcium 8.9 mg/dL (8.4-10.2); Carbon Dioxide 28 mmol/L (22-30); Chloride 103 mmol/L (98-107); Glucose 105 mg/dL (74-99); Magnesium 2.1 mg/dL (1.6-2.3); Non-African American GFR(CKD) >90 (>60 ml/min/1.73 sqM); Potassium 3.9 mmol/L (3.5-5.1); Sodium 138 mmol/L (137-145); Total Bilirubin 0.3 mg/dL (0.2-1.3); Total Protein 7.4 g/dL (6.3-8.2)
[2021-11-10 11:07] LABS: Creatine Kinase 35739 U/L (55-170)
[2021-11-10] MEDS ORDERED: SODIUM CHLORIDE 0.9% 2,000 ML IV ONE (11:10)
[2021-11-10] MEDS ORDERED: NALOXONE 0.4 MG/ML 1 ML VIAL IV PRN (11:32)
--- NOTE | 2021-11-10 11:32 | ED ---
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 States that he gets bouts of pain that lasts for about 30 seconds. Pain is intense, throbbing and starts at his hips and goes all the way down to his feet. He states when the pain isn't present that he has a numbing sensation in his legs. Denies any provocative factors. Recently did start working out. Has had some difficulty with ambulation due to the pain. Denies any bowel or bladder incontinence. No saddle anesthesia. No fevers. No other alleviating, precipitating laughing factors - Related Data Previous Rx's Medication Instructions Recorded Gabapentin [Neurontin] 100 mg PO TID #9 cap 11/12/21 Doxepin [SINEquan] 10 mg PO HS #30 cap 11/13/21 Pantoprazole [Protonix] 40 mg PO AC-BRKFST 14 Days #14 tab 11/13/21 buPROPion XL [Wellbutrin XL] 300 mg PO DAILY #30 tab 11/13/21 Allergies Allergy/AdvReac Type Severity Reaction Status Date / Time No Known Allergies Allergy Verified 11/10/21 10:56 Review of Systems ROS Statement: Those systems with pertinent positive or pertinent negative responses have been documented in the HPI. ROS Other: All systems not noted in ROS Statement are negative. Past Medical History Past Medical History: Cancer Additional Past Medical History / Comment(s): Hodgkins Lymphoma stage 4, last chemo November 21 2020, pt follows up with Dr. Browning out of [facility]. remission now 08/05... Previous hx of kidney stones early in 2019. guillain-Ramona History of Any Multi-Drug Resistant Organisms: None Reported Past Surgical History: Appendectomy, Back Surgery Additional Past Surgical History / Comment(s): lithotripsy and stent right side, tooth insert, spinal tap x january 04 Past Anesthesia/Blood Transfusion Reactions: No Reported Reaction Past Psychological History: Depression Smoking Status: Former smoker Past Alcohol Use History: None Reported Past Drug Use History: Marijuana - Past Family History Mother Additional Family Medical History / Comment(s): Heart murmur, Cyst on Ovary, Appendectomy Father Family Medical History: Hypertension General Exam Limitations: no limitations General appearance: alert, in no apparent distress Head exam: Present: atraumatic, normocephalic, normal inspection Eye exam: Present: normal appearance, PERRL, EOMI. Absent: scleral icterus, conjunctival injection, periorbital swelling ENT exam: Present: normal exam, mucous membranes moist Neck exam: Present: normal inspection. Absent: tenderness, meningismus, lymphadenopathy Respiratory exam: Present: normal lung sounds bilaterally. Absent: respiratory distress, wheezes, rales, rhonchi, stridor Cardiovascular Exam: Present: regular rate, normal rhythm, normal heart sounds. Absent: systolic murmur, diastolic murmur, rubs, gallop, clicks GI/Abdominal exam: Present: soft, normal bowel sounds. Absent: distended, tenderness, guarding, rebound, rigid Extremities exam: Present: normal inspection, full ROM, normal capillary refill, other (compartments soft. intact patellar and achilles reflexes. intact sensation. 5/5 stength b/l le. normal cap refill. 2+ DP and PT pulses). Absent: tenderness, pedal edema, joint swelling, calf tenderness Back exam: Present: normal inspection Neurological exam: Present: alert, oriented X3, CN II-XII intact Psychiatric exam: Present: normal affect, normal mood Skin exam: Present: warm, dry, intact, normal color. Absent: rash Course Vital Signs 11/10/21 11/10/21 11/10/21 08:29 14:00 15:31 Temperature 97.7 F 97.7 F Pulse Rate 82 67 Pulse Rate [ 71 Pulse Oximetery ] Respiratory 16 16 20 Rate Blood Pressure 145/86 139/90 Blood Pressure 139/94 [Right Arm Sitting] O2 Sat by Pulse 96 95 98 Oximetry Medical Decision Making - Medical Decision Making Upon arrival patient was placed into room 9. A thorough history and physical exam was performed. IV access is established and laboratory studies were conducted. Laboratory studies are reviewed and demonstrate an elevation the patient's liver enzymes. AST of 324, a LT of 140. CK markedly elevated at 35,739. I did discuss results with the patient's. Her transferred to [facility] or admission to our facility. Patient agreeable to admission here as [facility] capacity. Spoke with Dr. Whelan who agreed to admit the patient. Patient awaiting a bed on the floor in stable condition - Lab Data Result diagrams: 11/11/21 07:11 11/12/21 05:17 Lab Results 11/10/21 11/10/21 11/10/21 Range/Units 09:38 09:38 09:38 WBC 4.8 (3.8-10.6) k/uL RBC 4.48 (4.30-5.90) m/uL Hgb 14.4 (13.0-17.5) gm/dL Hct 42.1 (39.0-53.0) % MCV 93.9 (80.0-100.0) fL MCH 32.2 (25.0-35.0) pg MCHC 34.3 (31.0-37.0) g/dL RDW 13.0 (11.5-15.5) % Plt Count 245 (150-450) k/uL MPV 6.8 Neutrophils % 58 % Lymphocytes % 27 % Monocytes % 9 % Eosinophils % 3 % Basophils % 1 % Neutrophils # 2.8 (1.3-7.7) k/uL Lymphocytes # 1.3 (1.0-4.8) k/uL Monocytes # 0.5 (0-1.0) k/uL Eosinophils # 0.1 (0-0.7) k/uL Basophils # 0.1 (0-0.2) k/uL Sodium 138 (137-145) mmol/L Potassium 3.9 (3.5-5.1) mmol/L Chloride 103 (98-107) mmol/L Carbon Dioxide 28 (22-30) mmol/L Anion Gap 7 mmol/L BUN 10 (9-20) mg/dL Creatinine 0.62 L (0.66-1.25) mg/dL Est GFR (CKD-EPI)AfAm >90 (>60 ml/min/1.73 sqM) Est GFR (CKD-EPI)NonAf >90 (>60 ml/min/1.73 sqM) Glucose 105 H (74-99) mg/dL Plasma Lactic Acid Jim 0.6 L (0.7-2.0) mmol/L Calcium 8.9 (8.4-10.2) mg/dL Magnesium 2.1 (1.6-2.3) mg/dL Total Bilirubin 0.3 (0.2-1.3) mg/dL AST 324 H (17-59) U/L ALT 140 H (4-49) U/L Alkaline Phosphatase 59 (38-126) U/L Creatine Kinase 15697 H* (55-170) U/L Total Protein 7.4 (6.3-8.2) g/dL Albumin 4.5 (3.5-5.0) g/dL TSH 1.230 (0.465-4.680) mIU/L Coronavirus (PCR) (Not Detectd) 11/10/21 Range/Units 09:38 WBC (3.8-10.6) k/uL RBC (4.30-5.90) m/uL Hgb (13.0-17.5) gm/dL Hct (39.0-53.0) % MCV (80.0-100.0) fL MCH (25.0-35.0) pg MCHC (31.0-37.0) g/dL RDW (11.5-15.5) % Plt Count (150-450) k/uL MPV Neutrophils % % Lymphocytes % % Monocytes % % Eosinophils % % Basophils % % Neutrophils # (1.3-7.7) k/uL Lymphocytes # (1.0-4.8) k/uL Monocytes # (0-1.0) k/uL Eosinophils # (0-0.7) k/uL Basophils # (0-0.2) k/uL Sodium (137-145) mmol/L Potassium (3.5-5.1) mmol/L Chloride (98-107) mmol/L Carbon Dioxide (22-30) mmol/L Anion Gap mmol/L BUN (9-20) mg/dL Creatinine (0.66-1.25) mg/dL Est GFR (CKD-EPI)AfAm (>60 ml/min/1.73 sqM) Est GFR (CKD-EPI)NonAf (>60 ml/min/1.73 sqM) Glucose (74-99) mg/dL Plasma Lactic Acid Jim (0.7-2.0) mmol/L Calcium (8.4-10.2) mg/dL Magnesium (1.6-2.3) mg/dL Total Bilirubin (0.2-1.3) mg/dL AST (17-59) U/L ALT (4-49) U/L Alkaline Phosphatase (38-126) U/L Creatine Kinase (55-170) U/L Total Protein (6.3-8.2) g/dL Albumin (3.5-5.0) g/dL TSH (0.465-4.680) mIU/L Coronavirus (PCR) Not Detected (Not Detectd) Disposition Clinical Impression: Rhabdomyolysis, Leg pain Disposition: ADMITTED IP TO THIS [facility] Condition: Stable Is patient prescribed a controlled substance at d/c from ED?: No Time of Disposition: 11:32 Decision to Admit Reason: Admit from EC Decision Date: 11/10/21 Decision Time: 11:32
[2021-11-10] MEDS: HYDROmorphone 1 MG/ML 1 ML SYRINGE IVP PRN ×4 (11:37→21:04)
[2021-11-10] MEDS: ONDANSETRON 4 MG/2 ML VIAL IVP PRN ×2 (13:44→19:26)
--- NOTE | 2021-11-10 17:18 | P.HPIM ---
History of Present Illness H&P Date: 11/10/21 This 26 year-old male with past medical history of Hodgkin's lymphoma and multiple other medical issues reports he had started working out and had been doing it daily 1 week developed fluctuating soreness/pain of lower extremities, leg sensation of "being on fire", neuropathy pain, nausea, shortness of breath with dry cough. Denies abdominal pain. Denies loss of urinary or bowel function. Denies chest pain, palpitations. Denies chills or fever. BUN 10, creatinine 0.62 Creatinine kinase 35,739, AST 324, ALT 140. Afebrile, WBC 15.4, currently normalized. Chest x-ray reported no acute process. Review of Systems ROS Statement: Those systems with pertinent positive or pertinent negative responses have been documented in the HPI. ROS Other: All systems not noted in ROS Statement are negative. Past Medical History Past Medical History: Cancer Additional Past Medical History / Comment(s): Hodgkins Lymphoma stage 4, last chemo November 21 2020, pt follows up with Dr. Browning out of [facility]. remission now 08/05... Previous hx of kidney stones early in 2019. guillain-[place] History of Any Multi-Drug Resistant Organisms: None Reported Past Surgical History: Appendectomy, Back Surgery Additional Past Surgical History / Comment(s): lithotripsy and stent right side, tooth insert, spinal tap x january 04 Past Anesthesia/Blood Transfusion Reactions: No Reported Reaction Past Psychological History: Depression Smoking Status: Former smoker Past Alcohol Use History: None Reported Past Drug Use History: Marijuana - Past Family History Mother Additional Family Medical History / Comment(s): Heart murmur, Cyst on Ovary, Appendectomy Father Family Medical History: Hypertension Medications and Allergies Home Medications Medication Instructions Recorded Confirmed Type No Known Home Medications 11/10/21 11/10/21 History Allergies Allergy/AdvReac Type Severity Reaction Status Date / Time No Known Allergies Allergy Verified 11/10/21 10:56 Physical Exam Vitals: Vital Signs Temp Pulse Resp BP Pulse Ox 11/10/21 15:31 67 20 139/90 98 11/10/21 08:29 97.7 F 82 16 145/86 96 Intake and Output 11/10/21 11/10/21 11/10/21 06:59 14:59 22:59 Other: Weight 99.79 kg PHYSICAL EXAM: VITAL SIGNS: [As above] GENERAL: Alert and oriented 3, sitting up in bed, no acute distress HEENT: Conjunctivae normal. eyes normal. Oral mucosa moist NECK: Supple, No JVD. CARDIOVASCULAR: S1, S2 regular.No murmur RESPIRATION: Nonlabored, Breath sounds clear to auscultation, diminished in the bases. ABDOMEN: Soft, nondistended ,nontender . No guarding. Positive bowel sounds. LEGS: No edema. no swelling. No clubbing, cyanosis. Positive DP pulses. PSYCHIATRY: Alert and oriented X3, mood and affect normal. NERVOUS SYSTEM: Continue nurse 2 through 12 grossly intact. Skin: Warm and dry, no rashes. Results CBC & Chem 7: 11/10/21 09:38 11/10/21 09:38 Labs: Abnormal Lab Results - Last 24 Hours (Table) 11/10/21 11/10/21 Range/Units 09:38 09:38 Creatinine 0.62 L (0.66-1.25) mg/dL Glucose 105 H (74-99) mg/dL Plasma Lactic Acid Jim 0.6 L (0.7-2.0) mmol/L AST 324 H (17-59) U/L ALT 140 H (4-49) U/L Creatine Kinase 82156 H* (55-170) U/L Assessment and Plan Assessment: Acute rhabdomyolysis secondary to working out times one week with secondary leg pain History of Zuly Rolon syndrome History of Hodgkin's lymphoma, stage IV status post chemotherapy, currently in remission. Follows at [facility]. Marijuana use Plan: Continue on current medication regime ,monitoring and symptomatic treatmen t. IV fluid hydration, close monitoring of renal function, creatinine kinase. Nephrology consult in place. PPI for GI prophylaxis. Antiemetics in place. Pain management. The impression and plan of care has been dictated as directed. : I performed a history and examination of this patient, discussed the same with the dictator. I agree with the dictator's note ,documented as a scribe. Any additional findings or plans will be noted.
[2021-11-10] MEDS: SODIUM CHLORIDE 0.9% 1,000 ML IV SCH (17:52)
[2021-11-10] MEDS: PANTOPRAZOLE 40 MG/10 ML VIAL IVP SCH (17:52)
[2021-11-11] MEDS: SODIUM CHLORIDE 0.9% 1,000 ML IV SCH ×4 (00:18→15:46)
[2021-11-11] MEDS ORDERED: MELATONIN 3 MG TABLET PO PRN (00:49)
[2021-11-11] MEDS: ONDANSETRON 4 MG/2 ML VIAL IVP PRN ×3 (01:30→18:49)
[2021-11-11] MEDS: HYDROmorphone 1 MG/ML 1 ML SYRINGE IVP PRN ×7 (01:30→21:42)
[2021-11-11] MEDS: PANTOPRAZOLE 40 MG/10 ML VIAL IVP SCH (08:30)
[2021-11-11 11:10] LABS: Basophils # (A) 0.03 X 10*3/uL (0.00-0.10); Basophils % (A) 0.6 %; Eosinophils % (A) 3.7 %; HCT 43.3 % (39.6-50.0); HGB 14.3 g/dL (13.0-17.0); Immature Grans, Automated 0.2 %; Lymphocytes # (A) 1.54 X 10*3/uL (0.90-5.00); Lymphocytes % (A) 28.8 %; MCH 30.7 pg (27.0-32.0); MCV 92.9 fL (80.0-97.0); Mean Platelet Volume 9.2 fL (9.5-12.2); Monocytes # (A) 0.59 X 10*3/uL (0.20-1.00); NRBC Per 100 WBC 0 /100 WBCS (0.0-0.0); Neutrophils # (A) 2.97 X 10*3/uL (1.80-7.70); Neutrophils % (A) 55.7 %; Platelet Count 202 X 10*3/uL (140-440); RBC 4.66 X 10*6/uL (4.40-5.60); RDW 12.5 % (11.5-14.5); WBC 5.34 X 10*3/uL (4.50-10.00)
[2021-11-11 11:18] LABS: Anion Gap 13.7 mmol/L (10.00-18.00); BUN/Creat Ratio 7.71 Ratio (12.00-20.00); Blood Urea Nitrogen 5.4 mg/dL (9.0-27.0); Calcium 8.8 mg/dL (8.7-10.3); Carbon Dioxide 21.3 mmol/L (20.0-27.5); Non-African American GFR(CKD) 130.2 (60.0-200.0)
--- NOTE | 2021-11-11 11:50 | P.NPCON ---
History of Present Illness - History of Present Illness Patient is a 26-year-old male who was admitted to the hospital with extreme s oreness in his lower extremities. Patient recently started a workout program about a week ago. He does have underlying history of Hodgkin's lymphoma status post chemotherapy currently in remission. CK level was noted to be 35,000 739. Serum creatinine of 0.62. Patient denies use of any nonsteroidal anti-inflammatory agents No history of use of statins. Good urine output Soreness is slightly improved today. Review of Systems As per HPI. Past Medical History Past Medical History: Cancer Additional Past Medical History / Comment(s): Hodgkins Lymphoma stage 4, last chemo November 21 2020, pt follows up with Dr. Browning out of [facility]. remission now 08/05... Previous hx of kidney stones. guillain-[place] History of Any Multi-Drug Resistant Organisms: None Reported Past Surgical History: Appendectomy, Back Surgery Additional Past Surgical History / Comment(s): lithotripsy and stent right side, tooth insert, spinal tap x 17 december 2020, Past Anesthesia/Blood Transfusion Reactions: No Reported Reaction Past Psychological History: Depression Smoking Status: Former smoker Past Alcohol Use History: None Reported Past Drug Use History: Marijuana Additional Drug Use History / Comment(s): Occasional Marijuana use to help with cancer pain and increase appetite. pt states he smoked 1 pack per day and quit 04/15/2020. - Past Family History Mother Additional Family Medical History / Comment(s): Heart murmur, Cyst on Ovary, Appendectomy Father Family Medical History: Hypertension Medications and Allergies Home Medications Medication Instructions Recorded Confirmed Type No Known Home Medications 11/10/21 11/10/21 History Allergies Allergy/AdvReac Type Severity Reaction Status Date / Time No Known Allergies Allergy Verified 11/10/21 10:56 Physical Exam Vitals: Vital Signs Temp Pulse Pulse Resp BP BP Pulse Ox 11/11/21 04:56 97.5 F L 63 18 120/61 99 11/10/21 20:00 97.8 F 56 L 18 147/79 98 11/10/21 15:31 67 20 139/90 98 11/10/21 14:00 97.7 F 71 16 139/94 95 Intake and Output 11/10/21 11/11/21 11/11/21 22:59 06:59 14:59 Intake Total 120 350 Output Total 800 Balance 120 -450 Intake: Oral 120 350 Output: Urine 800 Other: Weight 99.79 kg Awake, comfortable, alert oriented 3 Not in any acute distress Examination of the heart S1 and S2 Examination of the lungs bilateral breath sounds are heard Abdomen is soft nontender Examination of the lower extremities shows no evidence of edema LABORER SHAFT SINKING exam is grossly intact Results - Lab Results Most recent lab results Calcium 8.8 mg/dL (8.7-10.3) 11/11/21 07:11 Magnesium 2.1 mg/dL (1.6-2.3) 11/10/21 09:38 11/11/21 07:11 11/11/21 07:11 Assessment and Plan Assessment: 1. Rhabdomyolysis,'s associated with strenuous exercise. No history of statins. Check TSH level. Maintained on aggressive IV hydration. Check urine analysis 2. 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 Nephrolithiasis with history of lithotripsy previously. Last episode of renal colic about 6 months ago Plan: Check urine analysis Continue aggressive IV hydration Avoid any nephrotoxic agents Avoid any NSAIDs and hypotension Thank you for the consultation. We will continue to follow the patient with you during his hospitalization
--- NOTE | 2021-11-11 13:29 | P.CN ---
Psychiatric Consult - . Consult date: 11/11/21 Consult:: 11/11/21 12:18 IDENTIFYING DATA: This patient is a 26-year-old male, currently lives with his mother father brother in a house and is single. REASON FOR REFERRAL: Psychiatry was consulted for severe depression HISTORY OF PRESENT ILLNESS: The patient presented to the hospital 4 lower extremity pain. Patient has a history of a IDP and Hodgkin's lymphoma. Patient CK level was found to be greater than 35,000 on admission. Patient was found to have rhabdomyolysis lysis. Also had elevated LFTs. Patient was seen today at the bedside and agreeable to speak. He appeared to have a depressed affect,, appeared to be fairly withdrawn and had a soft tone of voice. He states that he is at Hodgkin's lymphoma and was diagnosed in March 2020 and is currently in remission after rounds of treatment. He claims that he is dealing with the stressor of having GI RA syndrome not too long ago after having the covid guillan barre. He states that he has been feeling depressed and endorses anhedonia. He claims that the depression has been going on for several years now. He claims that his grandmother recently , his brother shot himself in his leg in the past year. He also states that he has little support. He claims that he got fired from his job at [employer] due to being sick from the job. He claims that he has racing thoughts he's been vomiting and feels unwell at this time. He claims that he was previously on an antidepressant however stopped it. He claims that he does deal with leg pain. He claims that his sleep has been fairly poor about 2 hours a night and decreased appetite. He states that he does have suicidal thoughts which are fairly mild and fleeting however does not endorse any plan to harm himself at this time. He is denying any homicidal ideations today. Patient denies any auditory, visual hallucinations and denies any paranoia or delusions. Patients admits to using marijuana daily, denies any other recreational drug use. Quit cigarettes. PAST PSYCHIATRIC HISTORY: Patient has a a history of depression. He claims that he is not on any antidepressant at this time however he is to be on trazodone in the past. [Patient denies any previous psychiatric hospitalizations.] [Patient denies any psychiatric outpatient follow-up.] He claims that he did have 2 suicide attempts in the past overdosing twice. PAST MEDICAL HISTORY: Past Medical History: Cancer Additional Past Medical History / Comment(s): Hodgkins Lymphoma stage 4, last chemo November 21 2020, pt follows up with Dr. rBowning out of [facility]. remission now 08/05... Previous hx of kidney stones early in 2019. guillain-[place] ALLERGIES: as per EMR. CHEMICAL DEPENDENCY HISTORY: as per HPI. FAMILY PSYCHIATRIC/SUBSTANCE USE HISTORY: Claims that depression and anxiety run in his family. SOCIAL HISTORY: Patient was born and raised in [place] [facility]. He states that now he lives in [place]. He claims that he used to work at [employer] however was fired from his job in 2020. Is currently unemployed. He denies any legal history. He claims that he completed high school and completed a bachelor's degree in University. MENTAL STATUS EXAM: General Appearance: Patient appears to be overweight, balding, glasses, estevez, stated age is alert, pleasant, directable. Patient appears to have [fair] hygiene and grooming wearing hospital gown with [fair] eye contact. Behavior: [Patient is calmly lying in bed without any agitated behavior.] blunted, constricted. Speech: Patient's speech is fluent and nonpressured. soft tone. monotone Mood/Affect: Patient reports their mood is "[depressed]", affect is congruent and constricted Suicidality/Homicidality: Patient denies having any suicidal or homicidal ideation intent or plan. Perceptions: Patient denies any visual hallucinations [and denies any auditory hallucinations] Though content/process: There is no evidence of any delusional thought content and thought process is linear and goal-directed. catastrophizing. Memory and concentration: AOX3, grossly intact for the purposes of this session. Can spell "WORLD" backwards Judgment and insight: fair IMPRESSIONS: Major depressive disorder cannabis use disorder mild PLAN: -At this time patient DOES [NOT] meet criteria for inpatient psychiatric admission -Would recommend the following medication changes/additions: []wellbutrin XL 150 mg daily for depression, remeron 15 mg qhs for insomnia/mood/appetite. -generator worker to provide patient with outpatient mental health/psychiatry resources for appropriate follow up upon discharge -Cafeteria Worker spoke with patient about substance abuse and the harmful effects on medical and mental health, patient verbally understood and agreed. -Communicated plan to patient's nurse -Will continue to follow along -Please contact with any questions.
[2021-11-11] MEDS: buPROPion XL 150 MG TAB.ER.24H PO SCH (14:03)
[2021-11-11 16:26] LABS: Appearance,Urine Clear (Clear); Bilirubin,Urine Negative (Negative); Blood,Urine Negative (Negative); Color,Urine Light Yellow; Glucose,Urine (UA) Negative (Negative); Leukocyte Esterase,Urine Negative (Negative); Nitrite,Urine Negative (Negative); PH, Urine 6.5 (5.0-8.0); Protein,Urine Negative (Negative); Specific Gravity,Urine 1.014 (1.001-1.035); Urobilinogen,Urine <2.0 mg/dL (<2.0)
[2021-11-11 16:54] LABS: Ketones,Urine 3+ (Negative)
--- NOTE | 2021-11-11 17:11 | P.PN ---
Subjective Progress Note Date: 11/11/21 H&P Date: 11/10/21 This 26 year-old male with past medical history of Hodgkin's lymphoma and multiple other medical issues reports he had started working out and had been doing it daily 1 week developed fluctuating soreness/pain of lower extremities, leg sensation of "being on fire", neuropathy pain, nausea, shortness of breath with dry cough. Denies abdominal pain. Denies loss of urinary or bowel function. Denies chest pain, palpitations. Denies chills or fever. BUN 10, c reatinine 0.62 Creatinine kinase 35,739, AST 324, ALT 140. Afebrile, WBC 15.4, currently normalized. Chest x-ray reported no acute process. 11/11/21 maintained on aggressive IV fluid hydration with significant clinical improvement, creatinine kinase decreased to 14,586. Urine output good. Afebri le. Maintaining O2 sats in the high 90s on room air. Denies chest pain, palpitations or shortness of breath. Evaluated by psychiatry and nephrology with recommendations noted and appreciated. Objective - Vital Signs Vital signs: Vital Signs Temp 97.6 F 11/11/21 11:35 Pulse 77 11/11/21 11:35 Resp 15 11/11/21 11:35 BP 124/74 11/11/21 11:35 Pulse Ox 97 11/11/21 11:35 FiO2 Intake & Output 11/10/21 11/11/21 11/11/21 18:59 06:59 18:59 Intake Total 470 Output Total 800 Balance -330 Weight 99.79 kg Intake: Oral 470 Output: Urine 800 - Exam PHYSICAL EXAM: VITAL SIGNS: [As above] GENERAL: Alert and oriented 3, sitting up in bed, no acute distress. HEENT: Conjunctivae normal. eyes normal. Oral mucosa moist NECK: Supple, No JVD. CARDIOVASCULAR: S1, S2 regular.No murmur RESPIRATION: Nonlabored, Breath sounds clear to auscultation, diminished in the bases. ABDOMEN: Soft, nondistended ,nontender . No guarding. Positive bowel sounds. LEGS: No edema. no swelling. No clubbing, cyanosis. Positive DP pulse. NERVOUS SYSTEM: CN 2 through 12 grossly intact. Skin: Warm and dry, no rashes. - Labs CBC & Chem 7: 11/11/21 07:11 11/11/21 07:11 Labs: Abnormal Lab Results - Last 24 Hours (Table) 11/11/21 11/11/21 11/11/21 Range/Units 07:11 07:11 07:11 MPV 9.2 L (9.5-12.2) fL BUN 5.4 L (9.0-27.0) mg/dL BUN/Creatinine Ratio 7.71 L (12.00-20.00) Ratio Creatine Kinase 58351 H* (35-257) U/L Urine Ketones (Negative) 11/11/21 Range/Units 14:00 MPV (9.5-12.2) fL BUN (9.0-27.0) mg/dL BUN/Creatinine Ratio (12.00-20.00) Ratio Creatine Kinase (35-257) U/L Urine Ketones 3+ H (Negative) Assessment and Plan Assessment: Acute rhabdomyolysis secondary to working out times one week with secondary leg pain History of Zuly Rolon syndrome History of Hodgkin's lymphoma, stage IV status post chemotherapy, currently in remission. Follows at [facility]. Marijuana use Major depressive disorder. Plan: Continue on current medication regime ,monitoring and symptomatic treatment. Maintain IV fluid hydration, close monitoring of renal function, creatinine kinase. The impression and plan of care has been dictated as directed. : I performed a history and examination of this patient, discussed the same with the dictator. I agree with the dictator's note ,documented as a scribe. Any additional findings or plans will be noted.
[2021-11-11] MEDS ORDERED: MIRTAZAPINE 15 MG TAB PO SCH (21:00)
[2021-11-12] MEDS: HYDROmorphone 1 MG/ML 1 ML SYRINGE IVP PRN ×7 (02:36→21:26)
[2021-11-12] MEDS: ONDANSETRON 4 MG/2 ML VIAL IVP PRN ×4 (02:36→21:26)
[2021-11-12] MEDS: SODIUM CHLORIDE 0.9% 1,000 ML IV SCH ×3 (04:39→17:54)
[2021-11-12] MEDS: PANTOPRAZOLE 40 MG/10 ML VIAL IVP SCH (07:39)
[2021-11-12] MEDS: buPROPion XL 150 MG TAB.ER.24H PO SCH (07:39)
[2021-11-12 09:14] LABS: Anion Gap 11.8 mmol/L (10.00-18.00); BUN/Creat Ratio 8.14 Ratio (12.00-20.00); Blood Urea Nitrogen 5.7 mg/dL (9.0-27.0); Calcium 8.9 mg/dL (8.7-10.3); Carbon Dioxide 23.2 mmol/L (20.0-27.5); Non-African American GFR(CKD) 130.2 (60.0-200.0)
--- NOTE | 2021-11-12 14:40 | P.DS ---
Providers Date of admission: 11/10/21 11:32 Expected date of discharge: 11/12/21 Attending physician: Preet Whelan Consults: 11/10/21 11:37 Consult Physician Urgent Consulting Provider: Mariana Caballero Consult Reason/Comments: acute rhabdo Do you want consulting provider notified?: Yes 11/10/21 18:22 Consult Physician Urgent Consulting Provider: Psychiatry - [facility] Psychiatry Consult Reason/Comments: severe depression symptoms Do you want consulting provider notified?: Yes Primary care physician: [facility] Course: Final Diagnoses: Acute rhabdomyolysis secondary to working out times one week with secondary leg pain, improving History of Zuly Rolon syndrome History of Hodgkin's lymphoma, stage IV status post chemotherapy, currently in remission. [facility] at [facility]. Marijuana use Major depressive disorder. Hospital course:This 26 year-old male with past medical history of Hodgkin's lymphoma and multiple other medical issues reports he had started working out and had been doing it daily 1 week developed fluctuating soreness/pain of lower extremities, leg sensation of "being on fire", neuropathy pain, nausea, shortness of breath with dry cough. Denies abdominal pain. Denies loss of urinary or bowel function. Denies chest pain, palpitations. Denies chills or fever. BUN 10, creatinine 0.62 Creatinine kinase 35,739, AST 324, ALT 140. Afebrile, WBC 15.4, currently normalized. Chest x-ray reported no acute process. 11/11/21 maintained on aggressive IV fluid hydration with significant clinical improvement, creatinine kinase decreased to 14,586. Urine output good. Afebrile. Maintaining O2 sats in the high 90s on room air. Denies chest pain, palpitations or shortness of breath. Evaluated by psychiatry and nephrology with recommendations noted and appreciated. Significant clinical improvement. Good diet intake, denies nausea vomiting or diarrhea. Lower extremity pain improving, Neurontin added to med regimen. Denies chest pain, palpitations or shortness of breath. Maintaining O2 sats in the high 90s on room air. Afebrile. Renal function stable, creatinine kinase level pending. Patient will be discharged home today in a stable condition with guarded prognosis pending final DC recommendations and clearance from nephrology and pending creatinine kinase level of 500 or less. The impression and plan of care has been dictated as directed. : I performed a history and examination of this patient, discussed the same with the dictator. I agree with the dictator's note ,documented as a scribe. Any additional findings or plans will be noted. Patient Condition at Discharge: Stable Plan - Discharge Summary Discharge Rx Participant: No New Discharge Prescriptions: New Gabapentin [Neurontin] 100 mg PO TID #9 cap buPROPion XL [Wellbutrin XL] 150 mg PO DAILY #30 tab Mirtazapine [Remeron] 15 mg PO HS #30 tab Discharge Medication List Gabapentin [Neurontin] 100 mg PO TID #9 cap 11/12/21 [Rx] Mirtazapine [Remeron] 15 mg PO HS #30 tab 11/12/21 [Rx] buPROPion XL [Wellbutrin XL] 150 mg PO DAILY #30 tab 11/12/21 [Rx] Follow up Appointment(s)/Referral(s): Shreyas West Jr, [Primary Care Provider] - 11/18/21 4:00 pm
--- NOTE | 2021-11-12 14:42 | P.PN ---
Progress Note - Text Progress Note Date: 11/12/21 Interval History: Patient was seen today for psychiatric follow-up regarding patient's depression. Patient was seen watching videos on his bed today and was agreeable to speak. He claims that he is feeling "about the same" however appears to have an improvement in his affect today. He was not tearful today and had better eye contact. He claims that he is still feeling frustrated about his medical condition and spoke more about his lab work and creatinine kinase. He appears to be more future oriented today. He continues to endorse some depression and anxiety as well. He states that he slept about 2 hours last day and complained of the temperature in the room. He claims that he had a few bites for lunch and breakfast this morning however still reports of poor appetite. At this time patient denies any suicidal or homical ideations, intent or plan. Patient denies any auditory, visual hallucinations and denies any paranoia or delusions. Patient denies any side effects from the medications and has been compliant with meds. Mental Status Exam: General Appearance: Patient appears to be overweight, balding, glasses, estevez, stated age is alert, pleasant, directable. Patient appears to have fair hygiene and grooming wearing hospital gown with fair eye contact. Behavior: Patient is calmly lying in bed without any agitated behavior. Instructed, improving moderately Speech: Patient's speech is fluent and nonpressured. soft tone, improving mildly Mood/Affect: Patient reports their mood is "the same", affect is congruent and constricted Suicidality/Homicidality: Patient denies having any suicidal or homicidal ideation intent or plan. Perceptions: Patient denies any visual hallucinations and denies any auditory hallucinations Though content/process: There is no evidence of any delusional thought content and thought process is linear and goal-directed. Memory and concentration: AOX3, grossly intact for the purposes of this session. Judgment and insight: fair IMPRESSIONS: Major depressive disorder cannabis use disorder mild PLAN: -At this time patient DOES NOT meet criteria for inpatient psychiatric admission -Would recommend the following medication changes/additions: Increase wellbutrin XL 300 mg daily for depression, discontinue Remeron and replaced with doxepin 10 mg daily at bedtime for sleep. -culinary worker to provide patient with outpatient mental health/psychiatry resources for appropriate follow up upon discharge -Jumpbasting Facing Baster spoke with patient about substance abuse and the harmful effects on medical and mental health, patient verbally understood and agreed. -Communicated plan to patient's nurse -WIll follow along if patient is still in the hospital however if he is discharged home today then he can follow up with outpatient MH. -Please contact with any questions.
[2021-11-12] MEDS: GABAPENTIN 100 MG CAP PO SCH ×2 (17:04→21:26)
--- NOTE | 2021-11-12 20:34 | PN ---
PROGRESS NOTE Patient is seen for followup for rhabdomyolysis. Patient's CK level is decreasing. He continues to complain of leg pain. He has had good urine output, serum creatinine staying at 0.7 mg/dL. On examination today, blood pressure 105/68, heart rate 72 per minute. He is afebrile. Examination of the lower extremities shows no evidence of edema. Abdomen is soft, nontender. Patient appears euvolemic. Labs show sodium 138, potassium 4.0, BUN of 5.7, serum creatinine 0.7. ASSESSMENT: 1. Acute rhabdomyolysis, currently improved significantly. 2. History of bipolar disorder. 3. History of Hodgkin's lymphoma. 4. Nephrolithiasis with history of lithotripsy. PLAN: Patient is stable for discharge from nephrology standpoint. Monitor labs as outpatient. Patient is encouraged to avoid use of any nonsteroidal anti-inflammatory agents. MMODL / IJN: [id number] /
[2021-11-12] MEDS ORDERED: DOXEPIN 10 MG CAP PO SCH (21:00)
[2021-11-13] MEDS: HYDROmorphone 1 MG/ML 1 ML SYRINGE IVP PRN ×6 (01:12→18:19)
[2021-11-13] MEDS: SODIUM CHLORIDE 0.9% 1,000 ML IV SCH ×2 (01:13→09:01)
[2021-11-13] MEDS ORDERED: PANTOPRAZOLE 40 MG TABLET PO SCH (07:30)
[2021-11-13] MEDS: GABAPENTIN 100 MG CAP PO SCH ×2 (08:00→18:20)
[2021-11-13] MEDS ORDERED: buPROPion XL 300 MG TAB.ER.24H PO SCH (09:00)
--- NOTE | 2021-11-13 09:51 | P.PN ---
Progress Note - Text Progress Note Date: 11/13/21 This is an update to his discharge summary. He was cleared yesterday by nephrology. His CK was 1500 this morning. Waiting for repeat implanting I am going home this afternoon. Psych and updated his medications for his depression. He is doing well follow-up in the office in the next several days.
[2021-11-13 12:00] VITALS: BP 113/55; PULSE 55; RESP 17; TEMP 98.2
--- NOTE | 2021-11-13 13:46 | P.PN ---
Subjective Patient is seen for follow-up for rhabdo my lysis. He is currently doing fairly well He is still complaining of pain in his legs for which she is requiring Dilaudid. CK level is down to about 1500. Serum creatinine is 0.7 mg/dL. UA is completely benign Objective - Vital Signs Vital signs: Vital Signs Temp 98.2 F 11/13/21 11:30 Pulse 55 L 11/13/21 11:30 Resp 17 11/13/21 11:30 BP 113/55 11/13/21 11:30 Pulse Ox 100 11/13/21 11:30 FiO2 Intake & Output 11/12/21 11/13/21 11/13/21 18:59 06:59 18:59 Intake Total 4440 240 Balance 4440 240 Intake: Intake, IV Titration 1560 Amount Sodium Chloride 0.9% 1, 1560 000 ml @ 130 mls/hr IV . Q7H42M [facility] Rx#:[id number] Oral 2880 240 Other: Voiding Method Toilet Toilet Urinal Urinal # Voids 4 2 - Exam Awake, comfortable, not in any acute distress Alert oriented 3 Patient is euvolemic No evidence of edema in the lower extremities HORSERADISH GRINDER exam grossly intact. - Labs CBC & Chem 7: 11/11/21 07:11 11/12/21 05:17 Labs: Abnormal Lab Results - Last 24 Hours (Table) 11/12/21 11/12/21 11/13/21 Range/Units 05:17 14:02 06:48 BUN 5.7 L (9.0-27.0) mg/dL BUN/Creatinine Ratio 8.14 L (12.00-20.00) Ratio Creatine Kinase 5518 H* 4877 H* 1506 H* (35-257) U/L Assessment and Plan Assessment: 1. Rhabdomyolysis,'s associated with strenuous exercise. No history of stati ns. TSH not elevated. Maintained on aggressive IV hydration. UA is benign 2. History of Hodgkin's lymphoma status post chemotherapy currently in remission 3. History of Guillan Rolon syndrome 4. Nephrolithiasis with history of lithotripsy previously. Last episode of renal colic about 6 months ago Plan: Continue IV fluids Patient is stable for discharge from nephrology standpoint. Monitor CK levels as outpatient Patient is advised to continue to avoid the use of any NSAIDs
--- NOTE | 2021-11-13 19:03 | P.PN ---
Progress Note - Text Progress Note Date: 11/13/21 Interval History: Patient was seen today for psychiatric follow-up regarding consult for depressi on. Patient was seen laying in bed watching TV with his mother at bedside. He again reports he is feeling "about the same", has an irritable edge. He reports life stressors including his brother being in a relationship with a woman they feel is not right for him. He reports he is still frustrated. He reports somewhat improved mood and sleep since starting the Wellbutrin and Doxepin. At this time patient denies any suicidal or homical ideations, intent or plan. Patient denies any auditory, visual hallucinations and denies any paranoia or delusions. Patient denies any side effects from the medications and has been compliant with meds. Discussed with patient's nurse who reports patient is being discharged this evening. Mental Status Exam: General Appearance: Patient appears to be overweight, wearing glasses, stated age. Orientation: He is alert, oriented to person, place, time and situation. Behavior: Patient is calmly lying in bed without any agitated behavior. Speech: Patient's speech is fluent and nonpressured. Irritable tone. Mood/Affect: Patient reports their mood is "the same", affect is congruent and constricted Suicidality/Homicidality: Patient denies having any suicidal or homicidal ideation intent or plan. Perceptions: Patient denies any visual hallucinations and denies any auditory hallucinations Though content/process: There is no evidence of any delusional thought content and thought process is linear and goal-directed. Memory and concentration: Grossly intact for the purposes of this session. Judgment and insight: fair IMPRESSIONS: Major depressive disorder Cannabis use disorder mild PLAN: -At this time patient DOES NOT meet criteria for inpatient psychiatric admission -Continue Wellbutrin XL 300 mg daily for depression and doxepin 10 mg daily at bedtime for sleep. -settlement worker to provide patient with outpatient mental health/psychiatry resources for appropriate follow up upon discharge, including psychotherapy. -Supervisor Meter Shop spoke with patient about substance abuse and the harmful effects on medical and mental health, patient verbally understood and agreed. -Communicated plan to patient's nurse -Psychiatry will sign off. -Please contact with any questions.
== END 2021-11-13 18:30 | disposition home or self-care (01) | DRG 558 ==
LOC: EC 08:27 → 5NMEDONC 11:32
PROVIDERS: ADMIT Family Medicine; ATTEND Family Medicine
DX: M62.82 Rhabdomyolysis (principal); G61.0 Guillain-Barre syndrome; F12.10 Cannabis abuse, uncomplicated; F31.9 Bipolar disorder, unspecified; Z20.822 Contact with and (suspected) exposure to COVID-19; F41.9 Anxiety disorder, unspecified; N20.0 Calculus of kidney; Z82.49 Family history of ischemic heart disease and other diseases of the circulatory system; Z85.71 Personal history of Hodgkin lymphoma; Z87.442 Personal history of urinary calculi; Z87.891 Personal history of nicotine dependence; Z92.21 Personal history of antineoplastic chemotherapy; Z71.51 Drug abuse counseling and surveillance of drug abuser; Z86.79 Personal history of other diseases of the circulatory system
CPT/HCPCS: 36415; 71046; 80048; 80053; 81003; 82550; 83605; 83735; 84443; 85025; 87635; 96361; 96374; 96375; 99285

== ENCOUNTER 2022-01-19 21:58 | Emergency (ER) | payer OTHER ==
[2022-01-19 22:25] VITALS: TEMP 98.6
[2022-01-20] MEDS ORDERED: ONDANSETRON 4 MG/2 ML VIAL IVP STA (03:45)
[2022-01-20] MEDS ORDERED: SODIUM CHLORIDE 0.9% 500 ML 500 ML IV STA (03:45)
[2022-01-20] MEDS ORDERED: SODIUM CHLORIDE 0.9% 1,000 ML IV STA (03:45)
[2022-01-20] MEDS ORDERED: HYDROmorphone 1 MG/ML 1 ML SYRINGE IVP STA ×2 (03:46→06:14)
--- NOTE | 2022-01-20 03:47 | ED ---
Skin/Abscess/FB HPI - General Chief complaint: Skin/Abscess/Foreign Body Stated complaint: Abd pain Time Seen by Provider: 01/20/22 03:39 Source: patient, RN notes reviewed, old records reviewed Mode of arrival: ambulatory Limitations: no limitations - History of Present Illness Initial comments: Has a pilonidal cyst since is healed well and has concern for his cessation last. He has not felt feverish but is still is feels weak. Patient states that the weakness has been increasing as of lately he is on pain medication overload is not helping is improved and severely diminished is not eating well. MD complaint: abscess/boil, lesion -: month(s) Location: buttocks Severity: severe Consistency: constant, now resolved Improves with: topical medication Worsens with: palpation, movement Associated symptoms: fever Treatments Prior to Arrival: bandages - Related Data Previous Rx's Medication Instructions Recorded Gabapentin [Neurontin] 100 mg PO TID #9 cap 11/12/21 Doxepin [SINEquan] 10 mg PO HS #30 cap 11/13/21 Pantoprazole [Protonix] 40 mg PO AC-BRKFST 14 Days #14 tab 11/13/21 buPROPion XL [Wellbutrin XL] 300 mg PO DAILY #30 tab 11/13/21 Allergies Allergy/AdvReac Type Severity Reaction Status Date / Time morphine AdvReac Nausea & Verified 01/19/22 22:25 Vomiting Review of Systems ROS Statement: Those systems with pertinent positive or pertinent negative responses have been documented in the HPI. ROS Other: All systems not noted in ROS Statement are negative. Past Medical History Past Medical History: Cancer, Pulmonary Embolus (PE) Additional Past Medical History / Comment(s): Hodgkins Lymphoma stage 4, last chemo November 21 2020, pt follows up with Dr. Browning out of [facility]. remission now 08/05... Previous hx of kidney stones early in 2019. guillain-[place] History of Any Multi-Drug Resistant Organisms: None Reported Past Surgical History: Appendectomy, Back Surgery Additional Past Surgical History / Comment(s): lithotripsy and stent right side, tooth insert, spinal tap x january 04, cyst removed from tailbone Past Anesthesia/Blood Transfusion Reactions: No Reported Reaction Past Psychological History: Depression Smoking Status: Former smoker Past Alcohol Use History: None Reported Past Drug Use History: Marijuana - Past Family History Mother Additional Family Medical History / Comment(s): Heart murmur, Cyst on Ovary, Appendectomy Father Family Medical History: Hypertension General Exam Limitations: no limitations General appearance: alert, in no apparent distress Head exam: Present: atraumatic, normocephalic, normal inspection Eye exam: Present: normal appearance, PERRL, EOMI. Absent: scleral icterus, conjunctival injection, periorbital swelling ENT exam: Present: normal exam, mucous membranes moist Neck exam: Present: normal inspection. Absent: tenderness, meningismus, lymphadenopathy Respiratory exam: Present: normal lung sounds bilaterally. Absent: respiratory distress, wheezes, rales, rhonchi, stridor Cardiovascular Exam: Present: regular rate, normal rhythm, normal heart sounds. Absent: systolic murmur, diastolic murmur, rubs, gallop, clicks GI/Abdominal exam: Present: soft, normal bowel sounds. Absent: distended, tenderness, guarding, rebound, rigid Extremities exam: Present: normal inspection, full ROM, normal capillary refill. Absent: tenderness, pedal edema, joint swelling, calf tenderness Back exam: Present: normal inspection Neurological exam: Present: alert, oriented X3, CN II-XII intact Psychiatric exam: Present: normal affect, normal mood Skin exam: Present: warm, dry, intact, normal color. Absent: rash Course Vital Signs 01/19/22 01/20/22 22:24 06:08 Temperature 98.6 F Pulse Rate 77 61 Respiratory 18 15 Rate Blood Pressure 125/73 102/73 O2 Sat by Pulse 97 99 Oximetry - Reevaluation(s) Reevaluation #1: 01/20/22 06:15 Records reviewed Reevaluation #2: 01/20/22 06:15 Patient is a difficult IV start, difficult to trauma blood from [facility] to do computed tomography scan which is normal Patient informed results questions answered Reevaluation #3: 01/20/22 06:16 Patient symptoms continue to improve Medical Decision Making - Medical Decision Making 26 male DF for evaluation of chronic pain does have a history of underlying cancer as well as polymyositis. Patient has no findings on computed tomography scan here in the ER. Patient can be discharged home - Radiology Data Radiology results: report reviewed (CT abdomen and pelvis is unchanged from prior no acute disease), image reviewed Disposition Clinical Impression: Abdominal pain Disposition: HOME SELF-CARE Condition: Good Instructions (If sedation given, give patient instructions): Abdominal Pain (ED) Is patient prescribed a controlled substance at d/c from ED?: No Referrals: Shreyas West Jr, DO [Primary Care Provider] - 1-2 days Time of Disposition: 06:20
--- NOTE | 2022-01-20 05:23 | CT ---
EXAMINATION TYPE: CT abdomen pelvis w con DATE OF EXAM: 01/20/2022 COMPARISON: 03/07/2021 HISTORY: PAIN CT DLP: 1726.6 mGycm Automated exposure control for dose reduction was used. CONTRAST: Performed with IV Contrast, patient injected with 100 mL of Isovue 300. Images obtained from the diaphragm to the floor of the pelvis with the IV contrast. The lung bases are clear of infiltrate. No pleural effusion. Heart size is normal. No pericardial eff usion. Liver and spleen are intact. Stomach is intact. The bile ducts are not dilated. There is no pa ncreatic mass. Gallbladder appears normal. There is no adrenal mass. Kidneys show satisfactory contra st opacification. Delayed images show normal renal excretion. There is no retroperitoneal adenopathy. Ureters are not dilated. There are clips apparently from appe ndectomy. Bladder distends smoothly. No inguinal hernia. No free fluid in the pelvis. No evidence of pelvic mass. There is no mesenteric edema. No ascites or free air. No sign of a bowel obstruction. The lumbar vertebrae have normal alignment. No compression fracture. Posterior elements are intact. T he bony pelvis is intact. Hip joints appear normal. IMPRESSION: Negative CT scan abdomen and pelvis. No adverse change compared to the old exam.
[2022-01-20 06:11] VITALS: BP 102/73; PULSE 61; RESP 15
[2022-01-20] MEDS ORDERED: ACET/COD 300 MG/30 MG STARTER PACK 6 TAB BTL PO STA (06:14)
[2022-01-20] MEDS ORDERED: ONDANSETRON 4 MG ODT STARTER PACK 2 TAB BTL PO STA (06:14)
[2022-01-20] MEDS ORDERED: PROCHLORPERAZINE INJ 10 MG/2 ML VIAL IVP STA (06:14)
== END 2022-01-20 08:12 | disposition home or self-care (01) ==
LOC: EC 21:58
DX: R10.9 Unspecified abdominal pain (principal); Z87.891 Personal history of nicotine dependence; Z88.6 Allergy status to analgesic agent
CPT/HCPCS: 99284 ×2; 96374 ×2; 96375 ×2; 96376 ×2; 96361 ×2; 74177; J0780; J2405; J1170; S0119; Q9967

== ENCOUNTER 2022-02-04 00:16 | Emergency (ER) | payer OTHER ==
[2022-02-04] MEDS ORDERED: KETOROLAC 15 MG/ML 1 ML VIAL IVP STA (01:52)
[2022-02-04 02:48] LABS: Basophils % (A) 1 %; Eosinophils # (A) 0.2 k/uL (0-0.7); Eosinophils % (A) 2 %; HCT 42.8 % (39.0-53.0); HGB 14.6 gm/dL (13.0-17.5); Lymphocytes # (A) 2.4 k/uL (1.0-4.8); Lymphocytes % (A) 35 %; MCH 31.3 pg (25.0-35.0); MCHC 34.1 g/dL (31.0-37.0); MCV 91.8 fL (80.0-100.0); Mean Platelet Volume 6.8; Monocytes # (A) 0.5 k/uL (0-1.0); Monocytes % (A) 7 %; Neutrophils # (A) 3.6 k/uL (1.3-7.7); Neutrophils % (A) 53 %; Platelet Count 256 k/uL (150-450); RBC 4.66 m/uL (4.30-5.90); RDW 14.9 % (11.5-15.5); WBC 6.9 k/uL (3.8-10.6)
[2022-02-04 02:59] LABS: Partial Thromboplastin Time 25.9 sec (22.0-30.0); Prothrombin Time 11.2 sec (9.0-12.0)
[2022-02-04 03:05] LABS: ALT 23 U/L (4-49); AST 20 U/L (17-59); African American GFR (CKD) >90 (>60 ml/min/1.73 sqM); Albumin 4.9 g/dL (3.5-5.0); Alkaline Phosphatase 93 U/L (38-126); Anion Gap 16 mmol/L; Blood Urea Nitrogen 15 mg/dL (9-20); Calcium 9.6 mg/dL (8.4-10.2); Carbon Dioxide 21 mmol/L (22-30); Chloride 100 mmol/L (98-107); Glucose 94 mg/dL (74-99); Non-African American GFR(CKD) >90 (>60 ml/min/1.73 sqM); Sodium 137 mmol/L (137-145); Total Bilirubin 0.3 mg/dL (0.2-1.3); Total Protein 7.4 g/dL (6.3-8.2)
--- NOTE | 2022-02-04 03:10 | XR ---
EXAMINATION TYPE: XR chest 2V DATE OF EXAM: 02/04/2022 COMPARISON: 11/10/2021 HISTORY: Short of breath TECHNIQUE: FINDINGS: Heart is normal. Lungs are clear of infiltrate. No heart failure. There are no hilar masses . Mediastinum is normal. Costophrenic angles are clear. Bony thorax is intact. There is right central venous catheter with tip in the superior vena cava. IMPRESSION: No active cardiopulmonary disease. No change
--- NOTE | 2022-02-04 04:16 | CT ---
EXAMINATION TYPE: CT chest angio for PE DATE OF EXAM: 02/04/2022 COMPARISON: HISTORY: elevated ddimer CT DLP: 677.3 mGycm Automated exposure control for dose reduction was used. CONTRAST: Performed with IV Contrast, patient injected with 100 mL of Isovue 370. There are Three-D postprocessed images. The lungs are clear of consolidation. No pleural effusion or pneumothorax. There is mild reticular interstitial density in the anterior right upper lobe and in th e left perihilar region. There is no evidence of filling defect in the pulmonary arteries. There is anterior mediastinal mass that measures 4.3 x 1.8 cm. Mass appears smaller than previous exa m. There are no hilar masses. No pleural effusion. No pericardial effusion. Heart size is normal. IMPRESSION: No evidence of pulmonary embolism. Anterior mediastinal mass reduced in size compared to old exam. Mild reticular interstitial infiltrate in the right upper lobe and left perihilar region. Reticular infiltrate is improved compared to the old exam.
--- NOTE | 2022-02-04 04:29 | ED ---
SOB HPI - General Chief Complaint: Shortness of Breath Stated Complaint: CARMINE, bilat leg pain Time Seen by Provider: 02/04/22 00:33 Source: patient Mode of arrival: ambulatory Limitations: no limitations - History of Present Illness Initial Comments: This patient is 26-year-old man who presents to have evaluation as he is feeling short of breath and having some leg aches and pains. Patient states she had this come on a little bit last night and is continued throughout the day. He has not noted fever or chills, no cough. No chest pain, palpitations, syncope MD Complaint: shortness of breath Onset/Timin -: days(s) Severity: mild Quality: dull, aching Consistency: constant Improves With: nothing Worsens With: nothing Associated Symptoms: other Treatments Prior to Arrival: none - Related Data Previous Rx's Medication Instructions Recorded Gabapentin [Neurontin] 100 mg PO TID #9 cap 11/12/21 Doxepin [SINEquan] 10 mg PO HS #30 cap 11/13/21 Pantoprazole [Protonix] 40 mg PO AC-BRKFST 14 Days #14 tab 11/13/21 buPROPion XL [Wellbutrin XL] 300 mg PO DAILY #30 tab 11/13/21 predniSONE [Deltasone] 20 mg PO BID #8 tab 02/04/22 Allergies Allergy/AdvReac Type Severity Reaction Status Date / Time morphine AdvReac Nausea & Verified 02/04/22 00:22 Vomiting Review of Systems ROS Statement: Those systems with pertinent positive or pertinent negative responses have been documented in the HPI. ROS Other: All systems not noted in ROS Statement are negative. Constitutional: Denies: fever, chills Respiratory: Reports: dyspnea. Denies: cough, wheezes Cardiovascular: Denies: chest pain, palpitations, orthopnea, edema, syncope Gastrointestinal: Denies: abdominal pain, vomiting, diarrhea Genitourinary: Denies: dysuria, hematuria Musculoskeletal: Reports: as per HPI, myalgia Skin: Denies: rash Neurological: Denies: headache, weakness Past Medical History Past Medical History: Cancer, Pulmonary Embolus (PE) Additional Past Medical History / Comment(s): Hodgkins Lymphoma stage 4, last chemo November 21 2020, [facility]... Previous hx of kidney stones early in 2019. guillain- [place] History of Any Multi-Drug Resistant Organisms: None Reported Past Surgical History: Appendectomy, Back Surgery Additional Past Surgical History / Comment(s): lithotripsy and stent right side, tooth insert, spinal tap x 3 january 04, cyst removed from tailbone Past Anesthesia/Blood Transfusion Reactions: No Reported Reaction Past Psychological History: Depression Smoking Status: Former smoker Past Alcohol Use History: None Reported Past Drug Use History: Marijuana - Past Family History Mother Additional Family Medical History / Comment(s): Heart murmur, Cyst on Ovary, Appendectomy Father Family Medical History: Hypertension General Exam Limitations: no limitations General appearance: alert, in no apparent distress Head exam: Present: atraumatic, normocephalic Eye exam: Present: normal appearance. Absent: scleral icterus, conjunctival injection Neck exam: Present: normal inspection Respiratory exam: Present: normal lung sounds bilaterally. Absent: respiratory distress, wheezes, rales, rhonchi, stridor Cardiovascular Exam: Present: regular rate, normal rhythm, normal heart sounds. Absent: systolic murmur, diastolic murmur, rubs, gallop GI/Abdominal exam: Present: soft. Absent: distended, tenderness, guarding, rebound, rigid, mass Extremities exam: Present: normal inspection, normal capillary refill. Absent: pedal edema, calf tenderness Back exam: Absent: CVA tenderness (R), CVA tenderness (L) Neurological exam: Present: alert Skin exam: Present: warm, dry, intact, normal color. Absent: rash Course Vital Signs 02/04/22 02/04/22 02/04/22 00:20 06:51 07:41 Temperature 97.8 F 98.3 F Pulse Rate 84 78 81 Respiratory 26 H 19 14 Rate Blood Pressure 118/66 129/65 128/61 O2 Sat by Pulse 98 97 96 Oximetry Medical Decision Making - Medical Decision Making Patient is 26-year-old man with sensation of dyspnea and bilateral leg discomfort. Given risk factors, labs and other workup. The d-dimer is slightly positive but computed tomography scan is negative. The patient feeling better with medication, discussed appropriate further care and follow-up as well as return parameters - Lab Data Result diagrams: 02/04/22 02:30 02/04/22 02:30 Lab Results 02/04/22 02/04/2202/04/22 Range/Units 02:30 02:30 02:30 WBC 6.9 (3.8-10.6) k/uL RBC 4.66 (4.30-5.90) m/uL Hgb 14.6 (13.0-17.5) gm/dL Hct 42.8 (39.0-53.0) % MCV 91.8 (80.0-100.0) fL MCH 31.3 (25.0-35.0) pg MCHC 34.1 (31.0-37.0) g/dL RDW 14.9 (11.5-15.5) % Plt Count 256 (150-450) k/uL MPV 6.8 Neutrophils % 53 % Lymphocytes % 35 % Monocytes % 7 % Eosinophils % 2 % Basophils % 1 % Neutrophils # 3.6 (1.3-7.7) k/uL Lymphocytes # 2.4 (1.0-4.8) k/uL Monocytes # 0.5 (0-1.0) k/uL Eosinophils # 0.2 (0-0.7) k/uL Basophils # 0.0 (0-0.2) k/uL PT 11.2 (9.0-12.0) sec INR 1.0 (<1.2) APTT 25.9 (22.0-30.0) sec D-Dimer 1.74 H (<0.60) mg/L FEU Sodium 137 (137-145) mmol/L Potassium 4.0 (3.5-5.1) mmol/L Chloride 100 (98-107) mmol/L Carbon Dioxide 21 L (22-30) mmol/L Anion Gap 16 mmol/L BUN 15 (9-20) mg/dL Creatinine 1.02 (0.66-1.25) mg/dL Est GFR (CKD-EPI)AfAm >90 (>60 ml/min/1.73 sqM) Est GFR (CKD-EPI)NonAf >90 (>60 ml/min/1.73 sqM) Glucose 94 (74-99) mg/dL Calcium 9.6 (8.4-10.2) mg/dL Magnesium 2.0 (1.6-2.3) mg/dL Total Bilirubin 0.3 (0.2-1.3) mg/dL AST 20 (17-59) U/L ALT 23 (4-49) U/L Alkaline Phosphatase 93 (38-126) U/L Creatine Kinase (55-170) U/L CK-MB (CK-2) (0.0-2.4) ng/mL Troponin I (0.000-0.034) ng/mL NT-Pro-B Natriuret Pep pg/mL Total Protein 7.4 (6.3-8.2) g/dL Albumin 4.9 (3.5-5.0) g/dL 02/04/22 02/04/22 02/04/22 Range/Units 02:30 02:30 02:30 WBC (3.8-10.6) k/uL RBC (4.30-5.90) m/uL Hgb (13.0-17.5) gm/dL Hct (39.0-53.0) % MCV (80.0-100.0) fL MCH (25.0-35.0) pg MCHC (31.0-37.0) g/dL RDW (11.5-15.5) % Plt Count (150-450) k/uL MPV Neutrophils % % Lymphocytes % % Monocytes % % Eosinophils % % Basophils % % Neutrophils # (1.3-7.7) k/uL Lymphocytes # (1.0-4.8) k/uL Monocytes # (0-1.0) k/uL Eosinophils # (0-0.7) k/uL Basophils # (0-0.2) k/uL PT (9.0-12.0) sec INR (<1.2) APTT (22.0-30.0) sec D-Dimer (<0.60) mg/L FEU Sodium (137-145) mmol/L Potassium (3.5-5.1) mmol/L Chloride (98-107) mmol/L Carbon Dioxide (22-30) mmol/L Anion Gap mmol/L BUN (9-20) mg/dL Creatinine (0.66-1.25) mg/dL Est GFR (CKD-EPI)AfAm (>60 ml/min/1.73 sqM) Est GFR (CKD-EPI)NonAf (>60 ml/min/1.73 sqM) Glucose (74-99) mg/dL Calcium (8.4-10.2) mg/dL Magnesium (1.6-2.3) mg/dL Total Bilirubin (0.2-1.3) mg/dL AST (17-59) U/L ALT (4-49) U/L Alkaline Phosphatase (38-126) U/L Creatine Kinase (55-170) U/L CK-MB (CK-2) 0.8 (0.0-2.4) ng/mL Troponin I <0.012 (0.000-0.034) ng/mL NT-Pro-B Natriuret Pep 29 pg/mL Total Protein (6.3-8.2) g/dL Albumin (3.5-5.0) g/dL 02/04/22 Range/Units 06:35 WBC (3.8-10.6) k/uL RBC (4.30-5.90) m/uL Hgb (13.0-17.5) gm/dL Hct (39.0-53.0) % MCV (80.0-100.0) fL MCH (25.0-35.0) pg MCHC (31.0-37.0) g/dL RDW (11.5-15.5) % Plt Count (150-450) k/uL MPV Neutrophils % % Lymphocytes % % Monocytes % % Eosinophils % % Basophils % % Neutrophils # (1.3-7.7) k/uL Lymphocytes # (1.0-4.8) k/uL Monocytes # (0-1.0) k/uL Eosinophils # (0-0.7) k/uL Basophils # (0-0.2) k/uL PT (9.0-12.0) sec INR (<1.2) APTT (22.0-30.0) sec D-Dimer (<0.60) mg/L FEU Sodium (137-145) mmol/L Potassium (3.5-5.1) mmol/L Chloride (98-107) mmol/L Carbon Dioxide (22-30) mmol/L Anion Gap mmol/L BUN (9-20) mg/dL Creatinine (0.66-1.25) mg/dL Est GFR (CKD-EPI)AfAm (>60 ml/min/1.73 sqM) Est GFR (CKD-EPI)NonAf (>60 ml/min/1.73 sqM) Glucose (74-99) mg/dL Calcium (8.4-10.2) mg/dL Magnesium (1.6-2.3) mg/dL Total Bilirubin (0.2-1.3) mg/dL AST (17-59) U/L ALT (4-49) U/L Alkaline Phosphatase (38-126) U/L Creatine Kinase 93 (55-170) U/L CK-MB (CK-2) (0.0-2.4) ng/mL Troponin I (0.000-0.034) ng/mL NT-Pro-B Natriuret Pep pg/mL Total Protein (6.3-8.2) g/dL Albumin (3.5-5.0) g/dL Disposition Clinical Impression: Chest pain Disposition: HOME SELF-CARE Condition: Good Instructions (If sedation given, give patient instructions): Dyspnea (ED) Prescriptions: predniSONE [Deltasone] 20 mg PO BID #8 tab Is patient prescribed a controlled substance at d/c from ED?: No Referrals: Shreyas West Jr, [Primary Care Provider] - 1-2 days
[2022-02-04] MEDS ORDERED: methylPREDNISolone SOD SUCCI 125 MG/2 ML VIAL IV STA (04:32)
[2022-02-04] MEDS ORDERED: HYDROmorphone 0.5 MG/0.5 ML SYRINGE IVP STA (04:36)
[2022-02-04 07:43] VITALS: BP 128/61; PULSE 81; RESP 14; TEMP 98.3
== END 2022-02-04 07:45 | disposition home or self-care (01) ==
LOC: EC 00:16
DX: R07.89 Other chest pain (principal); Z87.891 Personal history of nicotine dependence; Z88.6 Allergy status to analgesic agent
CPT/HCPCS: 36415; 93005; 85379; 83880; 80053; 82550; 82553; 83735; 84484; 85025; 85610; 85730; 71046; 71275; 99285; 96374; 96375; J2930; J1885; J1170; Q9967

== ENCOUNTER 2022-11-29 21:59 | Emergency (ER) | payer BC, OTHER ==
[2022-11-29 22:06] VITALS: TEMP 98.5
--- NOTE | 2022-11-29 23:06 | ED ---
Extremity Problem HPI - General Chief complaint: Extremity Problem,Nontraumatic Stated complaint: Weakness in legs Time Seen by Provider: 11/29/22 22:41 Source: patient Mode of arrival: ambulatory Limitations: no limitations - History of Present Illness Initial comments: 27-year-old male presenting with chief complaint of pain and paresthesias to b [facility] legs. Ongoing for the last week. States that the pain radiates up the feet into the upper thighs and lower back. 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 Denies loss of bowel or bladder control or saddle paresthesia. No chest pain or difficulty breathing. No fevers or chills. No recent illness. No nausea, vomiting, abdominal pain. No weakness. Patient has full range of motion. - Related Data Previous Rx's Medication Instructions Recorded Gabapentin [Neurontin] 100 mg PO TID #9 cap 11/12/21 Doxepin [SINEquan] 10 mg PO HS #30 cap 11/13/21 Pantoprazole [Protonix] 40 mg PO AC-BRKFST 14 Days #14 tab 11/13/21 buPROPion XL [Wellbutrin XL] 300 mg PO DAILY #30 tab 11/13/21 predniSONE [Deltasone] 20 mg PO BID #8 tab 02/04/22 Allergies Allergy/AdvReac Type Severity Reaction Status Date / Time morphine AdvReac Nausea & Verified 02/04/22 00:22 Vomiting Review of Systems ROS Statement: Those systems with pertinent positive or pertinent negative responses have been documented in the HPI. ROS Other: All systems not noted in ROS Statement are negative. Past Medical History Past Medical History: Cancer, Pulmonary Embolus (PE) Additional Past Medical History / Comment(s): Hodgkins Lymphoma stage 4, last chemo November 21 2020, pt follows up with Dr. Browning out of [facility]. remission now 08/05... Previous hx of kidney stones early in 2019. guillain-[place] History of Any Multi-Drug Resistant Organisms: None Reported Past Surgical History: Appendectomy, Back Surgery Additional Past Surgical History / Comment(s): lithotripsy and stent right side, tooth insert, spinal tap x 3 january 04, cyst removed from tailbone Past Anesthesia/Blood Transfusion Reactions: No Reported Reaction Past Psychological History: Depression Smoking Status: Former smoker Past Alcohol Use History: None Reported Past Drug Use History: Marijuana - Past Family History Mother Additional Family Medical History / Comment(s): Heart murmur, Cyst on Ovary, Appendectomy Father Family Medical History: Hypertension General Exam Limitations: no limitations General appearance: alert, in no apparent distress Head exam: Present: atraumatic, normocephalic, normal inspection Eye exam: Present: normal appearance Neck exam: Present: normal inspection, full ROM Respiratory exam: Present: normal lung sounds bilaterally. Absent: respiratory distress, wheezes, rales, rhonchi, stridor Cardiovascular Exam: Present: regular rate, normal rhythm, normal heart sounds. Absent: systolic murmur, diastolic murmur, rubs, gallop, clicks Extremities exam: Present: normal inspection, full ROM, normal capillary refill. Absent: pedal edema Neurological exam: Present: alert, oriented X3, CN II-XII intact Psychiatric exam: Present: normal affect, normal mood Skin exam: Present: warm, dry, intact, normal color. Absent: rash Course Vital Signs 11/29/22 11/30/22 22:02 01:30 Temperature 98.5 F Pulse Rate 77 74 Respiratory 16 18 Rate Blood Pressure 124/75 118/72 O2 Sat by Pulse 99 99 Oximetry Medical Decision Making - Medical Decision Making Was pt. sent in by a medical professional or institution ([facility], VIDEO GAME REPAIR TECHNICIAN, urgent care, hospital, or residential...) When possible be specific @ -No Did you speak to anyone other than the patient for history (EMS, parent, family, police, friend...)? What history was obtained from this source @ -No Did you review nursing and triage notes (agree or disagree)? Why? @ -I reviewed and agree with nursing and triage notes Were old charts reviewed (outside hosp., previous admission, EMS record, old EKG, old radiological studies, urgent care reports/EKG's, residential records)? Report findings @ -No old charts were reviewed Differential Diagnosis (chest pain, altered mental status, abdominal pain women, abdominal pain men, vaginal bleeding, weakness, fever, dyspnea, syncope, headache, dizziness, GI bleed, back pain, seizure, CVA, palpatations, mental health, musculoskeletal)? @ -Differential Musculoskeletal Muscular strain, contusion, ligament sprain, fracture, arthritis, septic arthritis, bursitis, cellulitis, muscle spasm, nerve compression, DVT, arterial occlusion, herpes zoster, electrolyte abnormality, tumor.... This is not meant to be in all inclusive list EKG interpreted by me (3pts min.). @ -As above X-rays interpreted by me (1pt min.). @ -None done CT interpreted by me (1pt min.). @ -None done U/S interpreted by me (1pt. min.). @ -None done What testing was considered but not performed or refused? (CT, X-rays, U/S, labs)? Why? @ -None What meds were considered but not given or refused? Why? @ -None Did you discuss the management of the patient with other professionals (professionals i.e. , PA, VIDEO GAME REPAIR TECHNICIAN, lab, RT, psych nurse, marriage and family social worker, corporation pilot, teacher, adult parole officer, caseworker intake)? Give summary @ -No Was smoking cessation discussed for >3mins.? @ -No Was critical care preformed (if so, how long)? @ -No Were there social determinants of health that impacted care today? How? (Homelessness, low income, unemployed, alcoholism, drug addiction, transportation, low edu. Level, literacy, decrease access to med. care, shelter, rehab)? @ -No Was there de-escalation of care discussed even if they declined (Discuss DNR or withdrawal of care, Hospice)? DNR status @ -No What co-morbidities impacted this encounter? (DM, HTN, Smoking, COPD, CAD, Cancer, CVA, ARF, Chemo, Hep., AIDS, mental health diagnosis, sleep apnea, morbid obesity)? @ -None Was patient admitted / discharged? Hospital course, mention meds given and route, prescriptions, significant lab abnormalities, going to OR and other pertinent info. @ -27-year-old male presenting with chief complaint of pain and paresthesias to the bilateral legs. Pain starts in the feet and travels up the legs into the lower back he reports. No recent injury. No loss of bowel or bladder control or saddle paresthesia. Patient has full range of motion and strength. Creatinine kinase is 286. Remainder of lab works unremarkable. Patient is educated on today's findings and on alarms symptoms that should prompt immediate reevaluation. He is instructed to follow-up with his PCP this week. Follow-up with PCP. Report back to ER with any new or worsening symptoms. Discussed return parameters and answered all questions. Patient conveyed verbal understanding and agreed to the plan. I discussed this case in detail with my attending Dr. Horn Undiagnosed new problem with uncertain prognosis? @ -No Drug Therapy requiring intensive monitoring for toxicity (Heparin, Nitro, Insulin, Cardizem)? @ -No Were any procedures done? @ -No Diagnosis/symptom? @ -Leg cramping Acute, or Chronic, or Acute on Chronic? @ -Acute Uncomplicated (without systemic symptoms) or Complicated (systemic symptoms)? @ -Uncomplicated Side effects of treatment? @ -No Exacerbation, Progression, or Severe Exacerbation? @ -No Poses a threat to life or bodily function? How? (Chest pain, [place], [place], pneumonia, PE, COPD, DKA, ARF, appy, cholecystitis, CVA, Diverticulitis, Homicidal, Suicidal, threat to staff... and all critical care pts) @ -No - Lab Data Result diagrams: 11/29/22 22:20 11/29/22 22:20 Lab Results 11/29/22 11/29/22 Range/Units 22:20 22:20 WBC 7.9 (3.8-10.6) k/uL RBC 4.49 (4.30-5.90) m/uL Hgb 14.0 (13.0-17.5) gm/dL Hct 42.4 (39.0-53.0) % MCV 94.5 (80.0-100.0) fL MCH 31.2 (25.0-35.0) pg MCHC 33.0 (31.0-37.0) g/dL RDW 13.2 (11.5-15.5) % Plt Count 233 (150-450) k/uL MPV 6.9 Neutrophils % 50 % Lymphocytes % 36 % Monocytes % 8 % Eosinophils % 3 % Basophils % 1 % Neutrophils # 4.0 (1.3-7.7) k/uL Lymphocytes # 2.9 (1.0-4.8) k/uL Monocytes # 0.6 (0-1.0) k/uL Eosinophils # 0.2 (0-0.7) k/uL Basophils # 0.0 (0-0.2) k/uL Sodium 137 (137-145) mmol/L Potassium 4.2 (3.5-5.1) mmol/L Chloride 102 (98-107) mmol/L Carbon Dioxide 26 (22-30) mmol/L Anion Gap 9 mmol/L BUN 15 (9-20) mg/dL Creatinine 1.04 (0.66-1.25) mg/dL Est GFR (CKD-EPI)AfAm >90 (>60 ml/min/1.73 sqM) Est GFR (CKD-EPI)NonAf >90 (>60 ml/min/1.73 sqM) Glucose 92 (74-99) mg/dL Calcium 9.2 (8.4-10.2) mg/dL Total Bilirubin 0.5 (0.2-1.3) mg/dL AST 32 (17-59) U/L ALT 26 (4-49) U/L Alkaline Phosphatase 48 (38-126) U/L Creatine Kinase 286 H (55-170) U/L Total Protein 7.5 (6.3-8.2) g/dL Albumin 4.5 (3.5-5.0) g/dL Disposition Clinical Impression: Leg cramping Disposition: HOME SELF-CARE Condition: Good Instructions (If sedation given, give patient instructions): Leg Cramps (ED) Additional Instructions: Follow-up with PCP. Report back to ER with any new or worsening symptoms. Is patient prescribed a controlled substance at d/c from ED?: No Referrals: Shreyas West Jr, DO [Primary Care Provider] - 1-2 days Time of Disposition: 01:12
[2022-11-29] MEDS ORDERED: HYDROcodone/APAP 7.5-325MG 1 EACH TAB PO ONE (23:09)
[2022-11-29 23:46] LABS: Basophils % (A) 1 %; Eosinophils # (A) 0.2 k/uL (0-0.7); Eosinophils % (A) 3 %; HCT 42.4 % (39.0-53.0); Lymphocytes # (A) 2.9 k/uL (1.0-4.8); Lymphocytes % (A) 36 %; MCH 31.2 pg (25.0-35.0); MCV 94.5 fL (80.0-100.0); Mean Platelet Volume 6.9; Monocytes # (A) 0.6 k/uL (0-1.0); Monocytes % (A) 8 %; Neutrophils % (A) 50 %; Platelet Count 233 k/uL (150-450); RBC 4.49 m/uL (4.30-5.90); RDW 13.2 % (11.5-15.5); WBC 7.9 k/uL (3.8-10.6)
[2022-11-29 23:52] LABS: ALT 26 U/L (4-49); AST 32 U/L (17-59); African American GFR (CKD) >90 (>60 ml/min/1.73 sqM); Albumin 4.5 g/dL (3.5-5.0); Alkaline Phosphatase 48 U/L (38-126); Anion Gap 9 mmol/L; Blood Urea Nitrogen 15 mg/dL (9-20); Calcium 9.2 mg/dL (8.4-10.2); Carbon Dioxide 26 mmol/L (22-30); Chloride 102 mmol/L (98-107); Creatine Kinase 286 U/L (55-170); Glucose 92 mg/dL (74-99); Non-African American GFR(CKD) >90 (>60 ml/min/1.73 sqM); Potassium 4.2 mmol/L (3.5-5.1); Sodium 137 mmol/L (137-145); Total Bilirubin 0.5 mg/dL (0.2-1.3); Total Protein 7.5 g/dL (6.3-8.2)
[2022-11-30 01:34] VITALS: BP 118/72; PULSE 74; RESP 18
== END 2022-11-30 01:34 | disposition home or self-care (01) ==
LOC: EC 21:59
DX: G47.62 Sleep related leg cramps (principal); F12.90 Cannabis use, unspecified, uncomplicated; Z87.891 Personal history of nicotine dependence; Z86.59 Personal history of other mental and behavioral disorders; Z88.5 Allergy status to narcotic agent
CPT/HCPCS: 36415; 80053; 82550; 85025; 99283